=== PATIENT | female | born 1945 | race Caucasian/White ===

== ENCOUNTER 2016-12-16 13:50 | Inpatient (IN) | payer OTHER, MEDICARE ==
[~2016-12-16] VITALS: Ht 167.6 cm; Wt 54.0 kg
[~2016-12-16 13:50] MED LIST: AMOX500T PO; LORTA5 PO
[2016-12-16 14:29] VITALS: BP 151/78; PULSE 96; RESP 18; TEMP 98.9; O2SAT 98
--- NOTE | 2016-12-16 14:29 | PD ---
HPI Chief Complaint: altered mental status Time Seen by Provider: 14:29 Travel History International Travel<30 days: No Contact w/Intl Traveler<30days: No Traveled to known affect area: No History of Present Illness HPI 71-year-old female came to the emergency room brought by EMS because her boyfriend called to say that she has not been acting right for past 2 weeks. Patient was brought in getting very disheveled, unkempt and poorly. She was fidgeting with her hair and skin. She was able to answer her name but did not know where she was or the day. Vital signs were relatively stable. Patient was not a good historian. REPLACED BY [facility] Past Medical History Narrative Medical List of her past medical, surgical, social and family history was reviewed from the nursing note. Asthma: No Autoimmune Disease: No Blood Disorders: No Anxiety: No Depression: No Heart Rhythm Problems: No Cancer: No Cardiovascular Problems: No High Cholesterol: No Chemotherapy: No Chest Pain: No Congestive Heart Failure: No COPD: No Diabetes: No Diminished Hearing: No Endocrine: No Genitourinary: No Immune Disorder: No Musculoskeletal: No Neurologic: No Psychiatric: No Respiratory: No Radiation Therapy: No Renal Failure: No Sleep Apnea: No PNEUMOCCOCAL Vaccine (Year): 2 Menopausal: Yes Past Surgical History Abdominal Surgery: Yes (APPY) Appendectomy: Yes Gynecologic Surgery: Yes (HYSTERECTOMY) Hysterectomy: Yes (30 YRS AGO) Tonsillectomy: Yes Social History Alcohol Use: Yes (DAILY ) Tobacco Use: Yes (1PPD) Substance Use: No Allergies-Medications (Allergen,Severity, Reaction): Coded Allergies: Sulfa (Verified Allergy, Severe, 12/02/13) Comments List of the allergies reviewed from the nursing note. Reported Meds & Prescriptions Reported Meds & Active Scripts Active Lortab 5/325 Tab (Hydrocodone-Acetaminophen) 1 Tab Tab 1 Tab PO Q6H Amoxil (Amoxicillin) 500 Mg Cap 500 Mg PO TID Narrative Medication List of home medications reviewed from the nursing note. Review of Systems Except as stated in HPI: all other systems reviewed are Neg Physical Exam Narrative GENERAL: Confused, altered mental status, disheveled, poor skin hygiene SKIN: Focused skin assessment warm/dry. Multiple excoriations all over the body , poor skin hygiene HEAD: Atraumatic. Normocephalic. EYES: Pupils equal and round. No scleral icterus. No injection or drainage. ENT: No nasal bleeding or discharge. Mucous membranes pink and moist. NECK: Trachea midline. No JVD. CARDIOVASCULAR: Regular rate and rhythm. No murmur appreciated. RESPIRATORY: No accessory muscle use. Clear to auscultation. Breath sounds equal bilaterally. GASTROINTESTINAL: Abdomen soft, non-tender, nondistended. Hepatic and splenic margins not palpable. MUSCULOSKELETAL: No obvious deformities. No clubbing. No cyanosis. No edema. NEUROLOGICAL: GCS of 14, confused, good motor strength in all 4 extremities. PSYCHIATRIC: Appropriate mood and affect; insight and judgment normal. Data Data Last Documented VS Vital Signs Date Time Temp Pulse Resp B/P Pulse Ox O2 Delivery O2 Flow Rate FiO2 12/16/16 17:20 96 16 131/74 98 Room Air 12/16/16 14:29 98.9 Orders Electrocardiogram (12/16/16 14:34) Ammonia (12/16/16 14:34) Complete Blood Count With Diff (12/16/16 14:34) Comprehensive Metabolic Panel (12/16/16 14:34) Creatine Kinase (Cpk) (12/16/16 14:34) Prothrombin Time / Inr (Pt) (12/16/16 14:34) Troponin I (12/16/16 14:34) Thyroid Stimulating Hormone (12/16/16 14:34) Lactic Acid Sepsis Protocol (12/16/16 14:34) Urinalysis - C+S If Indicated (12/16/16 14:34) Blood Culture (12/16/16 14:34) Chest, Single Ap (12/16/16 14:34) Ct Brain W/O Iv Contrast(Rout) (12/16/16 14:34) Blood Glucose (12/16/16 14:34) Ecg Monitoring (12/16/16 14:34) Iv Access Insert/Monitor (12/16/16 14:34) Oximetry (12/16/16 14:34) Sodium Chloride 0.9% Flush (Ns Flush) (12/16/16 14:45) Sodium Chlor 0.9% 1000 Ml Inj (Ns 1000 M (12/16/16 14:34) Drug Screen, Random Urine (12/16/16 14:34) Alcohol (Ethanol) (12/16/16 14:34) Salicylates (Aspirin) (12/16/16 14:34) Tylenol (Acetaminophen) (12/16/16 14:34) Mri Brain W&W/O Contrast (12/16/16 ) Dexamethasone Inj (Decadron Inj) (12/16/16 17:30) Admit Order (Ed Use Only) (12/16/16 17:32) Labs Laboratory Tests Test 12/16/16 12/16/16 15:25 15:30 White Blood Count 7.2 TH/MM3 Red Blood Count 3.99 MIL/MM3 Hemoglobin 11.3 GM/DL Hematocrit 33.5 % Mean Corpuscular Volume 83.9 FL Mean Corpuscular Hemoglobin 28.2 PG Mean Corpuscular Hemoglobin 33.6 % Concent Red Cell Distribution Width 16.5 % Platelet Count 493 TH/MM3 Mean Platelet Volume 7.9 FL Neutrophils (%) (Auto) 70.4 % Lymphocytes (%) (Auto) 15.5 % Monocytes (%) (Auto) 11.7 % Eosinophils (%) (Auto) 1.6 % Basophils (%) (Auto) 0.8 % Neutrophils # (Auto) 5.1 TH/MM3 Lymphocytes # (Auto) 1.1 TH/MM3 Monocytes # (Auto) 0.8 TH/MM3 Eosinophils # (Auto) 0.1 TH/MM3 Basophils # (Auto) 0.1 TH/MM3 CBC Comment DIFF FINAL Differential Comment Prothrombin Time 10.4 SEC Prothromb Time International 0.9 RATIO Ratio Sodium Level 132 MEQ/L Potassium Level 4.5 MEQ/L Chloride Level 100 MEQ/L Carbon Dioxide Level 22.9 MEQ/L Anion Gap 9 MEQ/L Blood Urea Nitrogen 9 MG/DL Creatinine 0.57 MG/DL Estimat Glomerular Filtration 104 ML/MIN Rate Random Glucose 93 MG/DL Calcium Level 9.1 MG/DL Total Bilirubin 0.4 MG/DL Direct Bilirubin 0.1 MG/DL Indirect Bilirubin 0.3 MG/DL Aspartate Amino Transf 31 U/L (AST/SGOT) Alanine Aminotransferase 20 U/L (ALT/SGPT) Alkaline Phosphatase 94 U/L Total Creatine Kinase 163 U/L Troponin I LESS THAN 0.02 NG/ML Total Protein 7.6 GM/DL Albumin 3.1 GM/DL Thyroid Stimulating Hormone 0.933 uIU/ML 3rd Gen Salicylates Level 3.4 MG/DL Acetaminophen Level LESS THAN 2.0 MCG/ML Ethyl Alcohol Level LESS THAN 3 MG/DL Lactic Acid Level 0.9 mmol/L Ammonia 27 MCMOL/L MDM Medical Decision Making Medical Screen Exam Complete: Yes Emergency Medical Condition: Yes Medical Record Reviewed: Yes Interpretation(s) Twelve-lead EKG was reviewed by me. Normal sinus rhythm, normal axis, tachycardia, motion artifacts. Heart rate of 93 bpm. Differential Diagnosis Intracranial bleed, stroke, intracranial mass Narrative Course 5:42 PM patient was given IV fluid bolus and blood test and CAT scan was ordered. I was called by the radiologist to let me know about the CAT scan report which showed a large left cerebellar mass causing obstruction of the CSF outflow track resulting in hydrocephalus. I have called neurosurgery and waiting for him to call back. Patient has been given IV 10 mg of Decadron. Her blood test results of back and within normal limit. I've admitted the patient to the hospitalist in ICU. 5:45 PM I spoke with the OR nurse who relayed the message to the neurosurgeon because he was operating. He wants the patient to be admitted to the supervisor plate pasting. Critical Care Narrative Aggregate critical care time was 45 minutes. Time to perform other separately billable procedures was not included in the critical care time. My time did not include minutes spent treating any other patients simultaneously or on activities that did not directly contribute to the patient's treatment. The services I provided to this patient were to treat and/or prevent clinically significant deterioration that could result in: Altered mental status, large intracerebral mass, hydrocephalus I provided critical care services requiring my management, as noted below: Chart data review, documentation time, medication orders and management, vital sign assessments/reviewing monitor data, ordering and reviewing lab tests, ordering and interpreting/reviewing x-rays and diagnostic studies, care of the patient and discussion of the patient with the admitting physicians. Procedures EKG Prior to Arrival: No Physician Communication Physician Communication Dr. Salazar, Dr. Rogel Diagnosis Primary Impression: Cerebellar mass Additional Impressions: Hydrocephalus Altered mental status Qualified Code: R41.0 - Disorientation Admitting Information Admitting Physician Requests: it Juan Manuel Stone MD Dec 16, 2016 14:29 Diagnosis Primary Impression: Cerebellar mass Additional Impressions: Hydrocephalus Altered mental status Qualified Code: R41.0 - Disorientation Admitting Information Admitting Physician Requests: it Juan Manuel Stone MD Dec 16, 2016 14:29
[2016-12-16] MEDS ORDERED: SODIUM CHLOR 0.9% 1000 ML INJ 1,000 ML IV SCH (14:34)
[2016-12-16 14:38] VITALS: O2SAT 98
[2016-12-16] MEDS ORDERED: SODIUM CHLORIDE 0.9% FLUSH 10 ML FLUSH IVF PRN (14:45)
--- NOTE | 2016-12-16 15:55 | RADRPT ---
EXAM DATE/TIME: 12/16/2016 15:27 [facility] COMPARISON: No previous studies available for comparison. INDICATIONS : Cough, chest pain, and weakness. MEDICAL HISTORY : None. SURGICAL HISTORY : None. ENCOUNTER: Initial ACUITY: 2 weeks PAIN SCORE: 3/10 LOCATION: Bilateral chest FINDINGS: A single view of the chest demonstrates the lungs to be symmetrically aerated without evidence of mas s, infiltrate or effusion. The cardiomediastinal contours are unremarkable. Osseous structures are intact. CONCLUSION: No acute disease. Isaías Finch Jr., MD on December 16, 2016 at 15:53 Board Certified Radiologist. This report was verified electronically.
[2016-12-16 15:58] LABS: AUTOMATED NEUTROPHIL # 5.1 TH/MM3 (1.8-7.7); BASOPHIL # 0.1 TH/MM3 (0-0.2); BASOPHIL % 0.8 % (0.0-2.0); EOSINOPHIL # 0.1 TH/MM3 (0-0.4); EOSINOPHIL % 1.6 % (0.0-4.0); HEMATOCRIT 33.5 % (35.0-46.0); HEMO FLAGS DIFF FINAL; LYMPH % 15.5 % (9.0-44.0); LYMPHOCYTE # 1.1 TH/MM3 (1.0-4.8); MEAN CELL VOLUME 83.9 FL (80.0-100.0); MEAN CORPUSCULAR HEMOGLOBIN 28.2 PG (27.0-34.0); MEAN CORPUSCULAR HGB CONC 33.6 % (32.0-36.0); MONO % 11.7 % (0.0-8.0); NEUT % 70.4 % (16.0-70.0); PLATELET COUNT 493 TH/MM3 (150-450); RED BLOOD COUNT 3.99 MIL/MM3 (4.00-5.30); RED CELL DISTRIBUTION WIDTH 16.5 % (11.6-17.2); WHITE BLOOD COUNT 7.2 TH/MM3 (4.0-11.0)
[2016-12-16 16:02] LABS: INTERNATIONAL NORMALIZED RATIO 0.9 RATIO; PROTHROMBIN TIME - PATIENT 10.4 SEC (9.8-11.6)
[2016-12-16 16:26] LABS: ALKALINE PHOSPHATASE 94 U/L (45-117); CREATINE KINASE 163 U/L (26-192); TOTAL BILIRUBIN ADULT 0.2 MG/DL (0.2-1.0)
[2016-12-16 16:28] LABS: ALT (GPT) 18 U/L (10-53); ANION GAP 9 MEQ/L (5-15); AST (GOT) 23 U/L (15-37); BICARBONATE 22.9 MEQ/L (21.0-32.0); BLOOD UREA NITROGEN 9 MG/DL (7-18); CHLORIDE 100 MEQ/L (98-107); GLOMERULAR FILTRATION RATE 104 ML/MIN (>89); POTASSIUM 4.5 MEQ/L (3.5-5.1); SODIUM (NA) 132 MEQ/L (136-145)
[2016-12-16 16:29] LABS: ACETAMINOPHEN LESS THAN 2.0 MCG/ML (10.0-30.0)
--- NOTE | 2016-12-16 17:09 | RADRPT ---
EXAM DATE/TIME: 12/16/2016 16:38 [facility] COMPARISON: CT SOFT TISSUE NECK W CONTRAST, November 30, 2013, 19:21. CT BRAIN W/O CONTRAST , August 29, 2011, 2:54. INDICATIONS : Altered mental status and confusion. RADIATION DOSE: 56.35 CTDIvol (mGy) MEDICAL HISTORY : None SURGICAL HISTORY : Appendectomy. Hysterectomy. ENCOUNTER: Initial ACUITY: 1 day PAIN SCALE: 0/10 LOCATION: Cranial TECHNIQUE: Multiple contiguous axial images were obtained of the head. Using automated exposure control and adjustment of the mA and/or kV according to patient size, radiation dose was kept as low as reasonably achievable to obtain optimal diagnostic quality images. FINDINGS: There are moderate periventricular white matter changes. There is increasing prominenc e of the ventricles. There is what looks like a cerebellar mass on the right with compression of the lateral aspect of the fourth ventricle. MRI is suggested. CONCLUSION: 1. Abnormal left cerebellar hemisphere. MRI with contrast is suggested. 2. Prominent supratentorial ventricles that may be related to posterior fossa mass on the left. Mao Elkins MD FACR on December 16, 2016 at 17:02 Board Certified Radiologist. This report was verified electronically.
[2016-12-16 17:20] VITALS: BP 131/74; PULSE 96; RESP 16; O2SAT 98
[2016-12-16] MEDS ORDERED: ONDANSETRON HCL 4 MG/2 ML VIAL IVP PRN (17:30)
[2016-12-16] MEDS ORDERED: NALOXONE HCL 0.4 MG/ML AMP IV PRN (17:30)
[2016-12-16] MEDS ORDERED: DEXAMETHASONE SOD PHOS 20 MG/5 ML VIAL IV PUSH ONE (17:30)
[2016-12-16] MEDS ORDERED: MAGNESIUM HYDROXIDE SUSP 30 ML CUP PO PRN (17:30)
[2016-12-16] MEDS ORDERED: SODIUM CHLORIDE 0.9% FLUSH 10 ML FLUSH IV FLUSH PRN ×2 (17:30→18:00)
[2016-12-16] MEDS ORDERED: ACETAMINOPHEN 325 MG TAB PO PRN ×2 (17:30→18:00)
[2016-12-16] MEDS: SODIUM CHLOR 0.9% 1000 ML INJ 1,000 ML IV SCH ×2 (17:49→21:12)
--- NOTE | 2016-12-16 17:52 | HHI.HP ---
[facility] Service Critical Care Medicine Primary Care Physician Unknown Admission Diagnosis cerebellar mass, hydrocephalus, altered mental status Diagnosis: (1) Hydrocephalus Diagnosis: Principal (2) Cerebellar mass Diagnosis: Principal (3) Chronic hyponatremia Diagnosis: Principal (4) Altered mental status (5) Normocytic anemia Diagnosis: Principal Chief Complaint: Confusion 2 weeks Travel History International Travel<30 Days: No Contact w/Intl Traveler <30 Da: No Traveled to Known Affected Are: No History of Present Illness 71-year-old female. Date of admission 12/16/2016. Past medical history includes previous spontaneous pneumothorax and ongoing tobaccoism. Unknown if chronic alcohol use. Patient was brought in by significant other with a two-week history of altered mental status. She is found disheveled with multiple scabs which is been "picking" for the past weeks throughout her body. She is currently oriented to person, time, date of and another. Not oriented to place. She is moving all [address] head revealed a left cerebellar mass with compression on the lateral aspect the fourth ventricle with somewhat prominent ventricles and supratentorial noted. Neurosurgery was contacted recommended MRI brain and admission to jig builder helper. Laboratory significant only for a normocytic anemia and hyponatremia. CT chest revealed a 2.1 x 1.7 right hilar mass with diffuse emphysematous changes. MRI of the brain revealed a 5 x 2.7 cm cerebellar mass with edema impinging the left quadrigeminal cistern with the patient from the left posterior lateral alberto. 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 There is documented ventriculomegaly. Review of Systems ROS Limitations: Altered Mental Status Past Family Social History Allergies: Coded Allergies: Sulfa (Verified Allergy, Severe, 12/02/13) Past Medical History Tobaccoism History of left spontaneous pneumothorax Past Surgical History Hysterectomy Appendectomy Reported Medications None Active Ordered Medications Reviewed in EMR Family History Unknown/patient is estranged from family Social History +1 pack per day tobacco 50 years. Alcohol use is unclear. Significant other denies. Positive documentation medical records of prior use. Physical Exam Vital Signs Vital Signs Date Time Temp Pulse Resp B/P Pulse Ox O2 Delivery O2 Flow Rate FiO2 12/16/16 17:20 96 16 131/74 98 Room Air 12/16/16 14:38 98 Room Air 12/16/16 14:35 107 18 98 Room Air 12/16/16 14:29 98.9 96 18 151/78 98 Physical Exam GENERAL: Fausto De Jesus 71-year-old female, resting in bed mildly agitated SKIN: Warm and dry. Multiple excoriation lesions throughout/pruritic red no tunneling noted HEAD: Atraumatic. Normocephalic. EYES: Right pupils are 4 mm and oblong reactive. Left pupils 2 mm. No scleral icterus. No injection or drainage. ENT: No nasal bleeding or discharge. Mucous membranes pink and moist. NECK: Trachea midline. No JVD. CARDIOVASCULAR: Regular rate and rhythm. S1, S2. No S4. No murmur RESPIRATORY: Clear to auscultation. Breath sounds equal bilaterally. GASTROINTESTINAL: Abdomen soft, non-tender, nondistended. Hypoactive bowel sounds are appreciated. MUSCULOSKELETAL: Extremities without significant peripheral edema. NEUROLOGICAL: Awake and alert. No obvious cranial nerve deficits. Motor grossly within normal limits. Five out of 5 muscle strength in the arms and legs. Slurred speech. Laboratory Laboratory Tests Test 12/16/16 12/16/16 15:25 15:30 White Blood Count 7.2 Red Blood Count 3.99 Hemoglobin 11.3 Hematocrit 33.5 Mean Corpuscular Volume 83.9 Mean Corpuscular Hemoglobin 28.2 Mean Corpuscular Hemoglobin 33.6 Concent Red Cell Distribution Width 16.5 Platelet Count 493 Mean Platelet Volume 7.9 Neutrophils (%) (Auto) 70.4 Lymphocytes (%) (Auto) 15.5 Monocytes (%) (Auto) 11.7 Eosinophils (%) (Auto) 1.6 Basophils (%) (Auto) 0.8 Neutrophils # (Auto) 5.1 Lymphocytes # (Auto) 1.1 Monocytes # (Auto) 0.8 Eosinophils # (Auto) 0.1 Basophils # (Auto) 0.1 CBC Comment DIFF FINAL Differential Comment Prothrombin Time 10.4 Prothromb Time International 0.9 Ratio Sodium Level 132 Potassium Level 4.5 Chloride Level 100 Carbon Dioxide Level 22.9 Anion Gap 9 Blood Urea Nitrogen 9 Creatinine 0.57 Estimat Glomerular Filtration 104 Rate Random Glucose 93 Calcium Level 9.1 Total Bilirubin 0.2 Aspartate Amino Transf 23 (AST/SGOT) Alanine Aminotransferase 18 (ALT/SGPT) Alkaline Phosphatase 94 Total Creatine Kinase 163 Troponin I LESS THAN 0.02 Total Protein 7.5 Albumin 3.2 Thyroid Stimulating Hormone 0.933 3rd Gen Salicylates Level 3.4 Acetaminophen Level LESS THAN 2.0 Ethyl Alcohol Level LESS THAN 3 Lactic Acid Level 0.9 Ammonia 27 Date/Time Procedure Status Source Growth 12/16/16 15:30 Aerobic Blood Culture Received Blood Peripheral Pending 12/16/16 15:30 Anaerobic Blood Culture Received Blood Peripheral Pending Result Diagram: 12/16/16 1525 12/16/16 1525 Imaging Last Impressions Head CT 12/16/16 1434 Signed Impressions: Service Date/Time: Friday, December 16, 2016 16:38 - CONCLUSION: 1. Abnormal left cerebellar hemisphere. MRI with contrast is suggested. 2. Prominent supratentorial ventricles that may be related to posterior fossa mass on the left. Mao Elkins MD FACR Chest X-Ray 12/16/16 1434 Signed Impressions: Service Date/Time: Friday, December 16, 2016 15:27 - CONCLUSION: No acute disease. 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 Ventriculomegaly. Left quadrigeminal impingement upon the left posterolateral alberto Seen with Dr. Salazar/neurosurgery Continue Decadron 4 mg IV every 6 hours for vasogenic edema Keppra 500 mg IV twice a day seizure prophylaxis EEG has been ordered to rule out subclinical seizures Possible ventriculostomy over the weekend with possible removal of mass if necessary on Monday Bed 30 Neuro checks Urine toxicology screen pending Did receive 1 dose Ativan 1 mg while in MRI CV: Currently normal saline at 84 cc an hour. Will use as needed antihypertensives to keep systolic blood pressure less than 180 EKG revealed sinus rhythm 92 with normal AK/QS and QT intervals. Possible ST depression in anterior/lateral leads Troponin less than 0.02. Resp: Ongoing tobaccoism Right hilar mass CT the chest revealed a 2.1 x 1.7 cm right hilar mass with diffuse emphysematous changes. Nasal cannula to maintain saturations greater than equal to 92% Incentive spirometry while awake Bronchodilator therapy will be every 6 hours and as needed Will likely need IR biopsy right hilar mass on Monday Tobacco cessation will be encouraged Nicotine patch 14 mg daily will be started GI: Patient is currently nothing by mouth. Speech therapy to evaluate swallowing mechanism Protonix for GI prophylaxis Colace/as needed Senokot for bowel regimen : Guillory will be placed for accurate I's and O's in a critically ill patient Endo: Sliding-scale insulin while on Decadron with Accu-Cheks every 6 hours to maintain euglycemia/moderate regimen Renal: Creatinine currently within normal limits Accurate I's and O's Monitor urine output Recheck BMP in a.m. Heme: Normocytic anemia Thrombocytosis Monitor daily CBC. Follow trends. No indication for transfusion of blood products at this time ID: Possible pedicularis pedis Will give 1 dose of permethrin cream due to her "scratch". Monitor for infection FEN: Hyponatremia Replace electrolytes as clinically indicated. MSK: Lumbar spine scoliosis Multiple old thoracic and lumbar compression fractures No surgical intervention at this time. PT evaluate and treat. Access - Utilize peripheral IV. Central line if indicated Prophylaxis - GI - Protonix - DVT - SCD/no pharmacological prophylaxis in light of cerebellar mass Critical Care: The total critical care time was 75 minutes. Time to perform other separately billable procedures was not included in the critical care time. Code Status Full code Discussed Condition With Significant other. Dr. Stone/ED physician. Care plan discussed all questions answered. Problem Qualifiers (1) Altered mental status: Qualified Code: R41.0 - Disorientation Chris Rogel MD Dec 16, 2016 17:52
[2016-12-16] MEDS ORDERED: RESP: ALBUTEROL 2.5 MG/3 ML NEB (PRN) INH (18:00)
[2016-12-16] MEDS ORDERED: CHLORHEXIDINE GLUCONATE 2 % 1 PACK (2 CLOTHS) TOP PRN (18:00)
[2016-12-16] MEDS: ARTIFICIAL TEARS OPTH SOLN 15 ML BTL EACH EYE SCH (18:00)
[2016-12-16] MEDS ORDERED: MISCELLANEOUS NURSING INFORMATION XX SCH (18:00)
[2016-12-16] MEDS ORDERED: PERMETHRIN 5% CREAM 60 GM TOPICAL ONE (18:45)
[2016-12-16] MEDS ORDERED: DEXTROSE 50% IN WATER 50 ML VIAL(D50) IV PUSH PRN (18:45)
[2016-12-16] MEDS ORDERED: GLUCAGON 1 MG/ML VIAL OTHER PRN (18:45)
[2016-12-16] MEDS ORDERED: levETIRAcetam INJ 500 MG in SODIUM CHLORIDE 0.9% INJ 100 ML IV ONE (19:00)
[2016-12-16 20:00] VITALS: BP 107/63; PULSE 94; RESP 22; TEMP 98.4; O2SAT 98
[2016-12-16 20:00] LABS: INDIRECT BILIRUBIN 0.3 MG/DL (0.0-0.8); TOTAL BILIRUBIN ADULT 0.4 MG/DL (0.2-1.0)
[2016-12-16] MEDS ORDERED: LORazepam 2 MG/ML VIAL IV PUSH ONE (20:00)
[2016-12-16] MEDS ORDERED: IOHEXOL 350 MG/ML 10 ML VIAL (for RAD DIAG) IV ONE (20:18)
[2016-12-16] MEDS ORDERED: GADODIAMIDE PF 287 MG/ML 10 ML VIAL (for RAD MRI) IV ONE (20:30)
--- NOTE | 2016-12-16 20:39 | RADRPT ---
EXAM DATE/TIME: 12/16/2016 19:19 [facility] COMPARISON: CT BRAIN W/O CONTRAST, December 16, 2016, 16:38. INDICATIONS : Tumor. CONTRAST: 10 cc Omniscan (gadodiamide) IV MEDICAL HISTORY : None. SURGICAL HISTORY : Appendectomy. Hysterectomy. Tonsillectomy. ENCOUNTER: Subsequent ACUITY: 1 day PAIN SCORE: 3/10 LOCATION: Cranial TECHNIQUE: Multiplanar, multisequence MRI of the brain was performed both prior to and following the administrat ion of paramagnetic contrast. FINDINGS: There is evidence of an enhancing complex solid and cystic mass within the left cerebellar hemisphere which measures 4.1 x 3.7 cm. Extensive edema is noted throughout the left cerebellar hemisphere rela evon to this mass as well as effacement of the left quadrigeminal cistern and impingement upon the pos terior lateral aspect of the alberto on the left. This finding is consistent with left-sided uncal ac iation. The mass raises the possibility of primary or metastatic neoplasm. Moderate to severe periv entricular white matter small vessel ischemic changes are noted bilaterally. There is evidence of ve ntriculomegaly suggesting central cerebral atrophy versus hydrocephalus. No acute hemorrhage or extr a-axial collection is noted. Old tiny lacunar infarcts are noted within the right cerebellar hemisph ere. CONCLUSION: 1. Large enhancing complex mass within the left cerebellar hemisphere measuring 4.1 x 3.7 cm consiste nt with primary or metastatic neoplasm with associated edema throughout the left cerebellar hemispher e resulting in effacement of the left quadrigeminal cistern and impingement upon the left posterolate ral aspect of the alberto. The findings are consistent with uncal herniation on the left. 2. 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 3. Severe periventricular white matter small vessel ischemic changes bilaterally. 4. Ventriculomegaly suggesting central cerebral atrophy versus hydrocephalus. Chirag No MD on December 16, 2016 at 20:24 Board Certified Radiologist. This report was verified electronically.
--- NOTE | 2016-12-16 20:48 | RADRPT ---
EXAM DATE/TIME: 12/16/2016 20:06 [facility] COMPARISON: No previous studies available for comparison. INDICATIONS : Recent discovery of brain mass. Eval for metastatic disease. IV CONTRAST: 100 cc Omnipaque 350 (iohexol) IV ; Cumulative dose for multiple exams. RADIATION DOSE: 5.10 CTDIvol (mGy) ; Combined studies - Thorax/Abdomen/Pelvis MEDICAL HISTORY : None SURGICAL HISTORY : None. ENCOUNTER: Subsequent ACUITY: 2 weeks PAIN SCALE: 0/10 LOCATION: Bilateral lower quadrant TECHNIQUE: Volumetric scanning of the chest was performed. Using automated exposure control and adjustment of t he mA and/or kV according to patient size, radiation dose was kept as low as reasonably achievable to obtain optimal diagnostic quality images. FINDINGS: LUNGS: Emphysematous changes are noted bilaterally. There is no consolidation or pneumothorax. No concernin g pulmonary nodule is visualized. PLEURA: There is no pleural thickening or pleural effusion. MEDIASTINUM: There is a 2.1 x 1.7 cm right hilar mass consistent with neoplasm or lymphadenopathy. PET/CT scan may be helpful for further evaluation. The heart and great vessels demonstrate no acute abnormality. Th ere is no mediastinal lymphadenopathy. AXILLAE: Within normal limits. No lymphadenopathy. SKELETAL: Multiple compression deformities noted throughout the thoracic and lumbar spine. Degenerative changes and scoliosis of the thoraco-lumbar spine are noted. MISCELLANEOUS: The visualized upper abdominal organs demonstrate no acute abnormality. CONCLUSION: 1. 2.1 x 1.7 cm right hilar mass consistent with neoplasm or lymphadenopathy. PET/CT scan may be help ful for further evaluation. 2. Diffuse emphysematous changes are noted. 3. Multiple compression deformities noted throughout the thoracic and lumbar spine. 4. Degenerative changes and scoliosis of the thoracolumbar spine. Chirag No MD on December 16, 2016 at 20:41 Board Certified Radiologist. This report was verified electronically.
--- NOTE | 2016-12-16 20:51 | RADRPT ---
EXAM DATE/TIME: 12/16/2016 20:07 [place] COMPARISON: No previous studies available for comparison. INDICATIONS : Recent discovery of brain mass. Eval for metastatic disease. IV CONTRAST: 100 cc Omnipaque 350 (iohexol) IV ; Cumulative dose for multiple exams. ORAL CONTRAST: No oral contrast ingested. RADIATION DOSE: 5.10 CTDIvol (mGy) ; Combined studies - Thorax/Abdomen/Pelvis MEDICAL HISTORY : None SURGICAL HISTORY : None. ENCOUNTER: Subsequent ACUITY: 1 day PAIN SCALE: 3/10 LOCATION: Bilateral lower quadrant TECHNIQUE: Volumetric scanning of the abdomen and pelvis was performed. Using automated exposure control and ad justment of the mA and/or kV according to patient size, radiation dose was kept as low as reasonably achievable to obtain optimal diagnostic quality images. FINDINGS: LOWER LUNGS: The visualized lower lungs are clear. LIVER: Homogeneous density without lesion. There is no dilation of the biliary tree. No calcified gallston es. SPLEEN: Normal size without lesion. PANCREAS: Within normal limits. KIDNEYS: Normal in size and shape. There is no mass, stone or hydronephrosis. ADRENAL GLANDS: Within normal limits. VASCULAR: There is no aortic aneurysm. BOWEL/MESENTERY: The stomach, small bowel, and colon demonstrate no acute abnormality. There is no free intraperitone al air or fluid. ABDOMINAL WALL: Within normal limits. RETROPERITONEUM: There is no lymphadenopathy. BLADDER: No wall thickening or mass. REPRODUCTIVE: Within normal limits. INGUINAL: There is no lymphadenopathy or hernia. MUSCULOSKELETAL: Degenerative changes and scoliosis of the thoracolumbar spine are noted. Multiple compression deformi ties are noted within the thoracic and lumbar spine also. CONCLUSION: 1. No intra-abdominal mass or lymphadenopathy. 2. Degenerative changes and scoliosis of the thoracolumbar spine. 3. Multiple compression deformities within the thoracic and lumbar spine. Chirag No MD on December 16, 2016 at 20:47 Board Certified Radiologist. This report was verified electronically.
[2016-12-16] MEDS: SODIUM CHLORIDE 0.9% FLUSH 10 ML FLUSH IV FLUSH SCH (21:00)
[2016-12-16] MEDS: INSULIN NovoLIN REGULAR SUPPLEMENTAL SCALE SQ SCH (21:00)
[2016-12-16] MEDS: DOCUSATE SODIUM 100 MG CAP PO SCH (21:00)
[2016-12-16] MEDS ORDERED: SODIUM CHLORIDE 0.9% FLUSH 10 ML FLUSH IV FLUSH SCH (21:00)
[2016-12-16 21:02] LABS: BLOOD, URINE NEG (NEG); GLUCOSE,URINE NEG (NEG); KETONE, URINE 10 mg/dL (NEG); MUCUS URINE FEW /lpf (OCC); NITRITE,URINE NEG (NEG); PH, URINE 6.5 (5.0-8.5); URINE COLOR YELLOW (YELLW/STRAW)
[2016-12-16 21:03] LABS: COMMENT (UR) CATH-CULT NOT IND; CULTURE IF INDICATED CATH CULTURE NOT IND
[2016-12-16 21:08] LABS: AMPHETAMINE, URINE NEG (NEG); BARBITURATES, URINE NEG (NEG); COCAINE, URINE NEG (NEG)
--- NOTE | 2016-12-16 21:56 | PD.CONS ---
History of Present Illness Service Neurosurgery Consult Requested By Primary Care Physician Unknown Diagnoses: (1) Cerebellar mass History of Present Illness 71-year-old female was brought into the emergency room by her significant other who relates that for the past several weeks she has had a progressive decline with unsteadiness in her gait and confusion with generalized weakness. She has also lost about 20 pounds the last 2 weeks. Patient is lethargic and has received Ativan for imaging studies and cannot relate a good history but does follow simple commands. CT scan and subsequent MRI scan of the brain with and without contrast reveals a large left cerebellar hemisphere 4.1 cm enhancing mass with surrounding edema and mass effect although there is compression of fourth ventricle this is not completely obstructed. There does appear to be moderate hydrocephalus with periventricular white matter changes. Review of Systems ROS Limitations: Poor Historian Constitutional: COMPLAINS OF: Fatigue, Weight loss, Dizziness, Change in appetite Endocrine: DENIES: Abnorml menstrual pattern, Heat/cold intolerance, Polydipsia , Polyuria, Polyphagia Eyes: COMPLAINS OF: Blurred vision Ears, nose, mouth, throat: COMPLAINS OF: Vertigo Respiratory: DENIES: Apneas, Cough, Snoring, Wheezing, Hemoptysis, Sputum production, Shortness of breath Cardiovascular: DENIES: Chest pain, Palpitations, Syncope, Dyspnea on Exertion , PND, Lower Extremity Edema, Orthopnea, Claudication Gastrointestinal: COMPLAINS OF: Anorexia, DENIES: Abdominal pain, Black stools Genitourinary: COMPLAINS OF: Urinary incontinence Integumentary: COMPLAINS OF: Pruritus, Rash Hematologic/lymphatic: COMPLAINS OF: Bruising Neurologic: COMPLAINS OF: Abnormal gait, Headache, Localized weakness, Tremor, Poor Balance Psychiatric: COMPLAINS OF: Confusion, Agitation Except as stated in HPI: all other systems reviewed are Neg Past Family Social History Allergies: Coded Allergies: Sulfa (Verified Allergy, Severe, 12/02/13) Past Surgical History Hysterectomy, appendectomy, tonsillectomy Reported Medications Lortab and amoxicillin Social History She lives with her significant other for 20 years. She has siblings and family members but she has not been contacted for several decades. Chronic smoker a pack a day of cigarettes and also drinks alcohol daily basis. Physical Exam Vital Signs Vital Signs Date Time Temp Pulse Resp B/P Pulse Ox O2 Delivery O2 Flow Rate FiO2 12/16/16 17:20 96 16 131/74 98 Room Air 12/16/16 14:38 98 Room Air 12/16/16 14:35 107 18 98 Room Air 12/16/16 14:29 98.9 96 18 151/78 98 Physical Exam GENERAL: This is a cachetic, disheveled lady in no apparent distress. SKIN: Extensive scabs. HEAD: Atraumatic. Normocephalic. No temporal or scalp tenderness. EYES: Pupils right irregular likely post surgical and 4 mm, left pupil 2 mm ENT: Nose without bleeding, purulent drainage or septal hematoma. Throat without erythema, tonsillar hypertrophy or exudate. Uvula midline. Airway patent. NECK: Trachea midline. No JVD or lymphadenopathy. Supple, nontender, no meningeal signs. CARDIOVASCULAR: Regular rate and rhythm without murmurs, gallops, or rubs. RESPIRATORY: Clear to auscultation. Breath sounds equal bilaterally. No wheezes , rales, or rhonchi. ?Left breast mass. GASTROINTESTINAL: Abdomen soft, non-tender, nondistended. No hepato-splenomegaly , or palpable masses. No guarding. MUSCULOSKELETAL: Extremities with scabs but no cyanosis, or edema. No joint tenderness, effusion, or edema noted. No calf tenderness. Negative Homans sign bilaterally. NEUROLOGICAL: Lethargic but easily arousable to verbal stimulation. She recieved Ativan for MRI scan. Does not cooperate for good cranial nerve exam but face symmetric. Moves alll 4 limbs and folows simple commands. Normal speech. Equivical Babinski. Laboratory Laboratory Tests Test 12/16/16 12/16/16 12/16/16 15:25 15:30 20:44 White Blood Count 7.2 Red Blood Count 3.99 Hemoglobin 11.3 Hematocrit 33.5 Mean Corpuscular Volume 83.9 Mean Corpuscular Hemoglobin 28.2 Mean Corpuscular Hemoglobin 33.6 Concent Red Cell Distribution Width 16.5 Platelet Count 493 Mean Platelet Volume 7.9 Neutrophils (%) (Auto) 70.4 Lymphocytes (%) (Auto) 15.5 Monocytes (%) (Auto) 11.7 Eosinophils (%) (Auto) 1.6 Basophils (%) (Auto) 0.8 Neutrophils # (Auto) 5.1 Lymphocytes # (Auto) 1.1 Monocytes # (Auto) 0.8 Eosinophils # (Auto) 0.1 Basophils # (Auto) 0.1 CBC Comment DIFF FINAL Differential Comment Prothrombin Time 10.4 Prothromb Time International 0.9 Ratio Sodium Level 132 Potassium Level 4.5 Chloride Level 100 Carbon Dioxide Level 22.9 Anion Gap 9 Blood Urea Nitrogen 9 Creatinine 0.57 Estimat Glomerular Filtration 104 Rate Random Glucose 93 Calcium Level 9.1 Total Bilirubin 0.4 Direct Bilirubin 0.1 Indirect Bilirubin 0.3 Aspartate Amino Transf 31 (AST/SGOT) Alanine Aminotransferase 20 (ALT/SGPT) Alkaline Phosphatase 94 Total Creatine Kinase 163 Troponin I LESS THAN 0.02 Total Protein 7.6 Albumin 3.1 Thyroid Stimulating Hormone 0.933 3rd Gen Salicylates Level 3.4 Acetaminophen Level LESS THAN 2.0 Ethyl Alcohol Level LESS THAN 3 Lactic Acid Level 0.9 Ammonia 27 Urine Color YELLOW Urine Turbidity CLEAR Urine pH 6.5 Urine Specific [place] 1.029 Urine Protein TRACE Urine Glucose (UA) NEG Urine Ketones 10 Urine Occult Blood NEG Urine Nitrite NEG Urine Bilirubin NEG Urine Urobilinogen LESS THAN 2.0 Urine Leukocyte Esterase NEG Urine RBC LESS THAN 1 Urine WBC 2 Urine Mucus FEW Microscopic Urinalysis Comment CATH-CULT NOT IND Urine Opiates Screen NEG Urine Barbiturates Screen NEG Urine Amphetamines Screen NEG Urine Benzodiazepines Screen NEG Urine Cocaine Screen NEG Urine Cannabinoids Screen NEG Date/Time Procedure Status Source Growth 12/16/16 15:30 Aerobic Blood Culture Received Blood Peripheral Pending 12/16/16 15:30 Anaerobic Blood Culture Received Blood Peripheral Pending Result Diagram: 12/16/16 1525 12/16/16 1525 Imaging Last Impressions Head CT 12/16/16 1434 Signed Impressions: Service Date/Time: Friday, December 16, 2016 16:38 - CONCLUSION: 1. Abnormal left cerebellar hemisphere. MRI with contrast is suggested. 2. Prominent supratentorial ventricles that may be related to posterior fossa mass on the left. Mao Elkins MD FACR Chest X-Ray 12/16/16 1434 Signed Impressions: Service Date/Time: Friday, December 16, 2016 15:27 - CONCLUSION: No acute disease. Isaías Finch Jr., MD Chest CT 12/16/16 0000 Signed Impressions: Service Date/Time: Friday, December 16, 2016 20:06 - CONCLUSION: 1. 2.1 x 1.7 cm right hilar mass consistent with neoplasm or lymphadenopathy. PET/CT scan may be helpful for further evaluation. 2. Diffuse emphysematous changes are noted. 3. Multiple compression deformities noted throughout the thoracic and lumbar spine. 4. Degenerative changes and scoliosis of the thoracolumbar spine. Chirag No MD Brain MRI 12/16/16 0000 Signed Impressions: Service Date/Time: Friday, December 16, 2016 19:19 - CONCLUSION: 1. Large enhancing complex mass within the left cerebellar hemisphere measuring 4.1 x 3.7 cm consistent with primary or metastatic neoplasm with associated edema throughout the left cerebellar hemisphere resulting in effacement of the left quadrigeminal cistern and impingement upon the left posterolateral aspect of the alberto. The findings are consistent with uncal herniation on the left. 2. 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 3. Severe periventricular white matter small vessel ischemic changes bilaterally. 4. Ventriculomegaly suggesting central cerebral atrophy versus hydrocephalus. Chirag No MD Abdomen/Pelvis CT 12/16/16 0000 Signed Impressions: Service Date/Time: Friday, December 16, 2016 20:07 - CONCLUSION: 1. No intra-abdominal mass or lymphadenopathy. 2. Degenerative changes and scoliosis of the thoracolumbar spine. 3. Multiple compression deformities within the thoracic and lumbar spine. Chirag No MD Assessment and Plan Assessment and Plan Large left cerebellar hemisphere enhancing masses running vasogenic edema and partial reduction of fourth ventricle with moderate hydrocephalus. This is concerning for metastasis given the finding of a lung mass and chronic smoking history. She'll be admitted to the intensive care unit for close observation and also started with Decadron initial bolus and subsequent scheduled doses to address the cerebral edema. The plan is for a left suboccipital craniectomy with resection of cerebellar mass and ventriculostomy placement on Monday. In the interim if her neurologic condition were to declined and she will need to be intubated and would have a ventriculostomy placed. Discussed at length with her significant other who relates that that given the need to get a for the past 20 years and she does have a sister and no other family members but that she has not been in contact for several decades with any relatives. 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 Rogel. Mansoor Salazar MD Dec 16, 2016 21:56
[2016-12-16] MEDS ORDERED: NITROGLYCERIN 2% OINT 1 GM PACKET TOPICAL PRN (22:00)
[2016-12-16] MEDS: THIAMINE INJ 100 MG in SODIUM CHLORIDE 0.9% INJ 100 ML IV SCH (22:16)
[2016-12-16 23:00] VITALS: PULSE 82
[2016-12-16] MEDS: DEXAMETHASONE SOD PHOS 4 MG/ML VIAL IV PUSH SCH (23:15)
[2016-12-16] MEDS: HYDROCORTISONE 0.5% CREAM 30 GM TOPICAL SCH (23:15)
[2016-12-17] VITALS (9 sets, daily range): BP systolic 120–172; BP diastolic 63–90; PULSE 68–114; RESP 16–28; TEMP 97.5–98.5; O2SAT 96–99
[2016-12-17] MEDS: MORPHINE SULFATE 4 MG/ML INJ IV PRN ×4 (01:00→22:30)
[2016-12-17] MEDS: CHLORHEXIDINE GLUCONATE 2 % 1 PACK (2 CLOTHS) TOP SCH (03:14)
[2016-12-17 03:53] LABS: APTT (PATIENT) 27.1 SEC (24.3-30.1); PROTHROMBIN TIME - PATIENT 10.6 SEC (9.8-11.6)
[2016-12-17 03:56] LABS: ALT (GPT) 17 U/L (10-53); ANION GAP 8 MEQ/L (5-15); AST (GOT) 19 U/L (15-37); BICARBONATE 20.6 MEQ/L (21.0-32.0); BLOOD UREA NITROGEN 10 MG/DL (7-18); CHLORIDE 104 MEQ/L (98-107); GLOMERULAR FILTRATION RATE 121 ML/MIN (>89); MAGNESIUM 2.1 MG/DL (1.5-2.5); POTASSIUM 3.9 MEQ/L (3.5-5.1); SODIUM (NA) 133 MEQ/L (136-145)
[2016-12-17 03:59] LABS: ALKALINE PHOSPHATASE 91 U/L (45-117); TOTAL BILIRUBIN ADULT 0.3 MG/DL (0.2-1.0)
[2016-12-17] MEDS: HYDROCORTISONE 0.5% CREAM 30 GM TOPICAL SCH ×3 (04:00→20:20)
[2016-12-17 04:28] LABS: AUTOMATED NEUTROPHIL # 3.9 TH/MM3 (1.8-7.7); BASOPHIL % 0.4 % (0.0-2.0); HEMATOCRIT 33.4 % (35.0-46.0); HEMO FLAGS DIFF FINAL; LYMPH % 7.2 % (9.0-44.0); LYMPHOCYTE # 0.3 TH/MM3 (1.0-4.8); MEAN CELL VOLUME 84.4 FL (80.0-100.0); MEAN CORPUSCULAR HEMOGLOBIN 27.9 PG (27.0-34.0); MEAN CORPUSCULAR HGB CONC 33.1 % (32.0-36.0); NEUT % 91.4 % (16.0-70.0); PLATELET COUNT 523 TH/MM3 (150-450); RED BLOOD COUNT 3.96 MIL/MM3 (4.00-5.30); RED CELL DISTRIBUTION WIDTH 16.4 % (11.6-17.2); WHITE BLOOD COUNT 4.3 TH/MM3 (4.0-11.0)
[2016-12-17] MEDS: SODIUM CHLOR 0.9% 1000 ML INJ 1,000 ML IV SCH ×2 (04:45→17:39)
[2016-12-17] MEDS: INSULIN NovoLIN REGULAR SUPPLEMENTAL SCALE SQ SCH ×4 (05:37→20:34)
[2016-12-17] MEDS: DEXAMETHASONE SOD PHOS 4 MG/ML VIAL IV PUSH SCH ×4 (05:37→23:47)
--- NOTE | 2016-12-17 08:17 | HHI.NSPN ---
(Bartolome Lopez) History Chief Complaint: Large left cerebellar mass. Uncooperative for exam. (Bartolome Lopez) Interval History 12/17/16: Pt with a large left cerebellar mass. She states ouch when trying to open her eyes and squints her eyes closed. She does follow simple commands in extremities. (Bartolome Lopez) System Review Comments Not able to obtain given clinical exam. (Bartolome Lopez) Exam Results Vital Signs Date Time Temp Pulse Resp B/P Pulse Ox O2 Delivery O2 Flow Rate FiO2 12/17/16 00:00 98.1 79 16 123/63 98 12/16/16 17:20 Room Air Intake and Output 12/16/16 12/16/16 12/17/16 08:00 16:00 00:00 Output Total 200 ml Balance -200 ml (Bartolome Lopez) Physical Examination Resp: CTA bilaterally Heart: NSR no murmurs Abd: Soft positive bs Skin: No cyanosis or erythema Muscle: Moves all 4 extremities but not cooperating currently for muscle testing. Neuro: Pt not opening eyes. Pupils 4mm bilaterally. She does follow commands but is not cooperating for exam. (Bartolome Lopez) Physical Examination She is more alert and interacting with her significant other at bedside Confusion persists Follows simple commands Moves all 4 extremities (Mansoor Salazar MD) Lab, Micro, Other Results Last Impressions Head CT 12/16/16 1434 Signed Impressions: Service Date/Time: Friday, December 16, 2016 16:38 - CONCLUSION: 1. Abnormal left cerebellar hemisphere. MRI with contrast is suggested. 2. Prominent supratentorial ventricles that may be related to posterior fossa mass on the left. Mao Elkins MD FACR Chest X-Ray 12/16/16 1434 Signed Impressions: Service Date/Time: Friday, December 16, 2016 15:27 - CONCLUSION: No acute disease. Isaías Finch Jr., MD Chest CT 12/16/16 0000 Signed Impressions: Service Date/Time: Friday, December 16, 2016 20:06 - CONCLUSION: 1. 2.1 x 1.7 cm right hilar mass consistent with neoplasm or lymphadenopathy. PET/CT scan may be helpful for further evaluation. 2. Diffuse emphysematous changes are noted. 3. Multiple compression deformities noted throughout the thoracic and lumbar spine. 4. Degenerative changes and scoliosis of the thoracolumbar spine. Chirag No MD Brain MRI 12/16/16 0000 Signed Impressions: Service Date/Time: Friday, December 16, 2016 19:19 - CONCLUSION: 1. Large enhancing complex mass within the left cerebellar hemisphere measuring 4.1 x 3.7 cm consistent with primary or metastatic neoplasm with associated edema throughout the left cerebellar hemisphere resulting in effacement of the left quadrigeminal cistern and impingement upon the left posterolateral aspect of the alberto. The findings are consistent with uncal herniation on the left. 2. 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 3. Severe periventricular white matter small vessel ischemic changes bilaterally. 4. Ventriculomegaly suggesting central cerebral atrophy versus hydrocephalus. Chirag No MD Abdomen/Pelvis CT 12/16/16 0000 Signed Impressions: Service Date/Time: Friday, December 16, 2016 20:07 - CONCLUSION: 1. No intra-abdominal mass or lymphadenopathy. 2. Degenerative changes and scoliosis of the thoracolumbar spine. 3. Multiple compression deformities within the thoracic and lumbar spine. Chirag No MD Laboratory Tests Test 12/16/16 12/16/16 12/16/16 12/17/16 15:25 15:30 20:44 03:25 White Blood Count 7.2 TH/MM3 4.3 TH/MM3 Red Blood Count 3.99 MIL/MM3 3.96 MIL/MM3 Hemoglobin 11.3 GM/DL 11.0 GM/DL Hematocrit 33.5 % 33.4 % Mean Corpuscular Volume 83.9 FL 84.4 FL Mean Corpuscular Hemoglobin 28.2 PG 27.9 PG Mean Corpuscular Hemoglobin 33.6 % 33.1 % Concent Red Cell Distribution Width 16.5 % 16.4 % Platelet Count 493 TH/MM3 523 TH/MM3 Mean Platelet Volume 7.9 FL 8.1 FL Neutrophils (%) (Auto) 70.4 % 91.4 % Lymphocytes (%) (Auto) 15.5 % 7.2 % Monocytes (%) (Auto) 11.7 % 1.0 % Eosinophils (%) (Auto) 1.6 % 0.0 % Basophils (%) (Auto) 0.8 % 0.4 % Neutrophils # (Auto) 5.1 TH/MM3 3.9 TH/MM3 Lymphocytes # (Auto) 1.1 TH/MM3 0.3 TH/MM3 Monocytes # (Auto) 0.8 TH/MM3 0.0 TH/MM3 Eosinophils # (Auto) 0.1 TH/MM3 0.0 TH/MM3 Basophils # (Auto) 0.1 TH/MM3 0.0 TH/MM3 CBC Comment DIFF FINAL DIFF FINAL Differential Comment Prothrombin Time 10.4 SEC 10.6 SEC Prothromb Time International 0.9 RATIO 1.0 RATIO Ratio Sodium Level 132 MEQ/L 133 MEQ/L Potassium Level 4.5 MEQ/L 3.9 MEQ/L Chloride Level 100 MEQ/L 104 MEQ/L Carbon Dioxide Level 22.9 MEQ/L 20.6 MEQ/L Anion Gap 9 MEQ/L 8 MEQ/L Blood Urea Nitrogen 9 MG/DL 10 MG/DL Creatinine 0.57 MG/DL 0.50 MG/DL Estimat Glomerular Filtration 104 ML/MIN 121 ML/MIN Rate Random Glucose 93 MG/DL 118 MG/DL Calcium Level 9.1 MG/DL 9.0 MG/DL Total Bilirubin 0.4 MG/DL 0.3 MG/DL Direct Bilirubin 0.1 MG/DL Indirect Bilirubin 0.3 MG/DL Aspartate Amino Transf 31 U/L 19 U/L (AST/SGOT) Alanine Aminotransferase 20 U/L 17 U/L (ALT/SGPT) Alkaline Phosphatase 94 U/L 91 U/L Total Creatine Kinase 163 U/L Troponin I LESS THAN 0.02 NG/ML Total Protein 7.6 GM/DL 7.5 GM/DL Albumin 3.1 GM/DL 3.2 GM/DL Thyroid Stimulating Hormone 0.933 uIU/ML 3rd Gen Salicylates Level 3.4 MG/DL Acetaminophen Level LESS THAN 2.0 MCG/ML Ethyl Alcohol Level LESS THAN 3 MG/DL Lactic Acid Level 0.9 mmol/L 1.1 mmol/L Ammonia 27 MCMOL/L Urine Color YELLOW Urine Turbidity CLEAR Urine pH 6.5 Urine Specific [place] 1.029 Urine Protein TRACE mg/dL Urine Glucose (UA) NEG mg/dL Urine Ketones 10 mg/dL Urine Occult Blood NEG Urine Nitrite NEG Urine Bilirubin NEG Urine Urobilinogen LESS THAN 2.0 MG/DL Urine Leukocyte Esterase NEG Urine RBC LESS THAN 1 /hpf Urine WBC 2 /hpf Urine Mucus FEW /lpf Microscopic Urinalysis Comment CATH-CULT NOT IND Nasal Screen MRSA (PCR) NEGATIVE Urine Opiates Screen NEG Urine Barbiturates Screen NEG Urine Amphetamines Screen NEG Urine Benzodiazepines Screen NEG Urine Cocaine Screen NEG Urine Cannabinoids Screen NEG Activated Partial 27.1 SEC Thromboplast Time Phosphorus Level 3.6 MG/DL Magnesium Level 2.1 MG/DL 12/16/16 12/16/16 12/17/16 15:00 23:00 07:00 Intake Total 759 ml Output Total 200 ml 275 ml Balance -200 ml 484 ml Intake IV Total 759 ml Output Urine Total 200 ml 275 ml (Bartolome Lopez) Medical Decision Making Impression and Plan A: 71 y/o FM with a large left cerebellar mass. P: Continue to monitor Neuro exam. She is following but not cooperating well otherwise with exam. continue with current care. (Bartolome Lopez) Attending Statement The exam, history, and the medical decision-making described in the above note were completed with the assistance of the mid-level provider. I reviewed and agree with the findings presented. I attest that I had a [id number] encounter with the patient on the same day, and personally performed and documented my assessment and findings in the medical record. (Masnoor Salazar MD) Bartolome Lopez Dec 17, 2016 08:17 Mansoor Salazar MD Dec 18, 2016 10:31
[2016-12-17] MEDS: levETIRAcetam INJ 500 MG in SODIUM CHLORIDE 0.9% INJ 100 ML IV SCH ×2 (08:54→20:18)
[2016-12-17] MEDS: SODIUM CHLORIDE 0.9% FLUSH 10 ML FLUSH IV FLUSH SCH ×2 (09:00→20:20)
[2016-12-17] MEDS: DOCUSATE SODIUM 100 MG CAP PO SCH ×2 (09:00→20:19)
[2016-12-17] MEDS: ARTIFICIAL TEARS OPTH SOLN 15 ML BTL EACH EYE SCH ×3 (09:00→18:00)
[2016-12-17] MEDS: REMOVE OLD PATCH T-DERMAL SCH (09:00)
[2016-12-17] MEDS: MULTIVITAMIN TAB PO SCH (09:00)
[2016-12-17] MEDS: FOLIC ACID 1 MG TAB PO SCH (09:00)
[2016-12-17] MEDS: THIAMINE INJ 100 MG in SODIUM CHLORIDE 0.9% INJ 100 ML IV SCH (10:05)
[2016-12-17] MEDS: PANTOPRAZOLE SODIUM 40 MG VIAL IV SCH (10:15)
[2016-12-17] MEDS: NICOTINE 14 MG/24 HR PATCH T-DERMAL SCH (10:16)
[2016-12-17] MEDS: ONDANSETRON HCL 4 MG/2 ML VIAL IV PRN (11:43)
--- NOTE | 2016-12-17 12:26 | HHI.CCPN ---
Subjective Remarks/Hospital Course 71-year-old female. Date of admission 12/16/2016. Past medical history includes previous spontaneous pneumothorax and ongoing tobaccoism. Unknown if chronic alcohol use. Patient was brought in by significant other with a two-week history of altered mental status. She is found disheveled with multiple scabs which is been "picking" for the past weeks throughout her body. She is currently oriented to person, time, date of and another. Not oriented to place. She is moving all [address] head revealed a left cerebellar mass with compression on the lateral aspect the fourth ventricle with somewhat prominent ventricles and supratentorial noted. Neurosurgery was contacted recommended MRI brain and admission to [facility]. Laboratory significant only for a normocytic anemia and hyponatremia. CT chest revealed a 2.1 x 1.7 right hilar mass with diffuse emphysematous changes. MRI of the brain revealed a 5 x 2.7 cm cerebellar mass with edema impinging the left quadrigeminal cistern with the patient from the left posterior lateral alberto. 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 There is documented ventriculomegaly. Subjective 12/17: Resting comfortably in bed. Remains confused. Afebrile. Has not eaten 24 hours. Objective Vital Signs Date Time Temp Pulse Resp B/P Pulse Ox O2 Delivery O2 Flow Rate FiO2 12/17/16 00:00 98.1 79 16 123/63 98 12/16/16 17:20 Room Air Intake and Output 12/16/16 12/16/16 12/17/16 08:00 16:00 00:00 Output Total 200 ml Balance -200 ml Result Diagram: 12/17/16 0325 12/17/16 0325 Other Results Microbiology Date/Time Procedure Status Source Growth 12/16/16 15:30 Aerobic Blood Culture - Preliminary Resulted Blood Peripheral NO GROWTH IN 1 DAY 12/16/16 15:30 Anaerobic Blood Culture - Preliminary Resulted Blood Peripheral NO GROWTH IN 1 DAY Imaging Last Impressions Head CT 12/16/161433 Signed Impressions: Service Date/Time: Friday, December 16, 2016 16:38 - CONCLUSION: 1. Abnormal left cerebellar hemisphere. MRI with contrast is suggested. 2. Prominent supratentorial ventricles that may be related to posterior fossa mass on the left. Mao Elkins MD FACR Chest X-Ray 3/31/17 1434 Signed Impressions: Service Date/Time: Friday, December 16, 2016 15:27 - CONCLUSION: No acute disease. Isaías Finch Jr., MD Chest CT 12/16/16 0000 Signed Impressions: Service Date/Time: Friday, December 16, 2016 20:06 - CONCLUSION: 1. 2.1 x 1.7 cm right hilar mass consistent with neoplasm or lymphadenopathy. PET/CT scan may be helpful for further evaluation. 2. Diffuse emphysematous changes are noted. 3. Multiple compression deformities noted throughout the thoracic and lumbar spine. 4. Degenerative changes and scoliosis of the thoracolumbar spine. Chirag oN MD Brain MRI 12/16/16 Signed Impressions: Service Date/Time: Friday, December 16, 2016 19:19 - CONCLUSION: 1. Large enhancing complex mass within the left cerebellar hemisphere measuring 4.1 x 3.7 cm consistent with primary or metastatic neoplasm with associated edema throughout the left cerebellar hemisphere resulting in effacement of the left quadrigeminal cistern and impingement upon the left posterolateral aspect of the alberto. The findings are consistent with uncal herniation on the left. 2. 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 3. Severe periventricular white matter small vessel ischemic changes bilaterally. 4. Ventriculomegaly suggesting central cerebral atrophy versus hydrocephalus. Chirag No MD Abdomen/Pelvis CT 12/16/16 Signed Impressions: Service Date/Time: Friday, December 16, 2016 20:07 - CONCLUSION: 1. No intra-abdominal mass or lymphadenopathy. 2. Degenerative changes and scoliosis of the thoracolumbar spine. 3. Multiple compression deformities within the thoracic and lumbar spine. Chirag No MD Objective Remarks GENERAL: Fausto De Jesus 71-year-old female, resting in bed mildly agitated SKIN: Warm and dry. Multiple excoriation lesions throughout/pruritic red no tunneling noted HEAD: Atraumatic. Normocephalic. EYES: Right pupils are 4 mm and oblong reactive. Left pupils 2 mm. No scleral icterus. No injection or drainage. ENT: No nasal bleeding or discharge. Mucous membranes pink and moist. NECK: Trachea midline. No JVD. CARDIOVASCULAR: Regular rate and rhythm. S1, S2. No S4. No murmur RESPIRATORY: Clear to auscultation. Breath sounds equal bilaterally. GASTROINTESTINAL: Abdomen soft, non-tender, nondistended. Hypoactive bowel sounds are appreciated. MUSCULOSKELETAL: Extremities without significant peripheral edema. NEUROLOGICAL: Awake and alert. No obvious cranial nerve deficits. Motor grossly within normal limits. Five out of 5 muscle strength in the arms and legs. Slurred speech. 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 Ventriculomegaly. Left quadrigeminal impingement upon the left posterolateral alberto Seen with Dr. Salazar/neurosurgery Continue Decadron 4 mg IV every 6 hours for vasogenic edema Keppra 500 mg IV twice a day seizure prophylaxis EEG has been ordered to rule out subclinical seizures Possible ventriculostomy over the weekend with likely removal of mass on Monday Bed 30 Neuro checks Urine toxicology screen negative Did receive 1 dose Ativan 1 mg while in MRI CV: Currently normal saline at 84 cc an hour. Will use as needed antihypertensives to keep systolic blood pressure less than 180 EKG revealed sinus rhythm 92 with normal IN/QS and QT intervals. Possible ST depression in anterior/lateral leads Troponin less than 0.02. Resp: Ongoing tobaccoism Right hilar mass CT the chest revealed a 2.1 x 1.7 cm right hilar mass with diffuse emphysematous changes. Nasal cannula to maintain saturations greater than equal to 92% Incentive spirometry while awake Bronchodilator therapy will be every 6 hours and as needed Tobacco cessation will be encouraged Nicotine patch 14 mg daily will be started GI: Heart healthy diet. Speech therapy to evaluate swallowing mechanism Protonix for GI prophylaxis Colace/as needed Senokot for bowel regimen : Guillory will be placed for accurate I's and O's in a critically ill patient Endo: Sliding-scale insulin while on Decadron with Accu-Cheks every 6 hours to maintain euglycemia/moderate regimen Renal: Creatinine currently within normal limits Accurate I's and O's Monitor urine output Recheck BMP in a.m. Heme: Normocytic anemia Thrombocytosis Monitor daily CBC. Follow trends. No indication for transfusion of blood products at this time ID: Possible pedicularis pedis Will give 1 dose of permethrin cream due to her "scratch". Monitor for infection FEN: Hyponatremia Replace electrolytes as clinically indicated. MSK: Lumbar spine scoliosis Multiple old thoracic and lumbar compression fractures No surgical intervention at this time. PT evaluate and treat. Access - Utilize peripheral IV. Central line if indicated Prophylaxis - GI - Protonix - DVT - SCD/no pharmacological prophylaxis in light of cerebellar mass Critical Care: The total critical care time was 35 minutes. Time to perform other separately billable procedures was not included in the critical care time. Chris Rogel MD Dec 17, 2016 12:26 Chris Rogel MD Dec 17, 2016 12:26
[2016-12-17] MEDS: ACETAMINOPHEN/HYDROcodone 325 MG/5 MG TAB PO PRN (13:33)
[2016-12-17] MEDS: LABETALOL HCL 100 MG/20 ML VIAL IV PUSH PRN (20:19)
[2016-12-17 22:03] LABS: BLOOD GAS BASE EXCESS -3.8 mmol/L (-2-2); BLOOD GAS CARBOXYHEMOGLOBIN 1.3 % (0-4); BLOOD GAS HCO3 20 mmol/L (22-26); BLOOD GAS METHEMOGLOBIN 0.6 % (0-2); BLOOD GAS O2 HGB SATURATION 95 % (90-100); BLOOD GAS OXYGEN CONTENT 12.3 Vol % (12.0-20.0); BLOOD GAS PCO2 29 mmHg (38-42); BLOOD GAS PO2 89 mmHg (61-120); BLOOD GAS TOTAL HGB 9.1 G/DL (12.0-16.0); CRITICAL VALUE NO; DRAW SITE RT RADIAL; FIO2 21 %; NUMBER OF ARTERIAL PUNCTURES 1; OXYGEN DEVICE ROOM AIR; STAT NO; TEMP CORR TO 98.6; ULNAR PULSE PRESENT
[2016-12-17] MEDS: hydrALAZINE HCL 20 MG/ML VIAL IV PUSH PRN (23:47)
[2016-12-18] VITALS (14 sets, daily range): BP systolic 130–161; BP diastolic 60–88; PULSE 65–112; RESP 16–26; TEMP 97.2–98.7; O2SAT 98–100
[2016-12-18] MEDS: ACETAMINOPHEN/HYDROcodone 325 MG/5 MG TAB PO PRN (01:03)
[2016-12-18] MEDS: CHLORHEXIDINE GLUCONATE 2 % 1 PACK (2 CLOTHS) TOP SCH (03:37)
[2016-12-18] MEDS: HYDROCORTISONE 0.5% CREAM 30 GM TOPICAL SCH ×3 (05:15→21:23)
[2016-12-18] MEDS: MORPHINE SULFATE 4 MG/ML INJ IV PRN ×4 (05:16→21:22)
[2016-12-18] MEDS: DEXAMETHASONE SOD PHOS 4 MG/ML VIAL IV PUSH SCH ×3 (05:16→18:09)
[2016-12-18] MEDS: SODIUM CHLOR 0.9% 1000 ML INJ 1,000 ML IV SCH ×2 (05:16→21:22)
[2016-12-18] MEDS: INSULIN NovoLIN REGULAR SUPPLEMENTAL SCALE SQ SCH ×4 (06:21→21:00)
--- NOTE | 2016-12-18 08:08 | HHI.NSPN ---
(Bartolome Lopez) History Chief Complaint: Large left cerebellar mass. Uncooperative for exam. (Bartolome Lopez) Interval History 12/17/16: Pt with a large left cerebellar mass. She states ouch when trying to open her eyes and squints her eyes closed. She does follow simple commands in extremities. 12/18/16: Pt more awake and cooperative this morning still not alert or appropriate. She states good morning to me when I state the same. She follows simple commands. Not answering questions. (Bartolome Lopez) System Review Comments Not answering questions for me this morning. (Bartolome Lopez) Exam Results Vital Signs Date Time Temp Pulse Resp B/P Pulse Ox O2 Delivery O2 Flow Rate FiO2 12/18/16 06:00 86 12/18/16 04:00 98.1 24 150/76 100 12/17/16 20:14 21 12/17/16 19:00 Room Air Intake and Output 12/17/16 12/17/16 12/18/16 08:00 16:00 00:00 Intake Total 759 ml 833 ml 745 ml Output Total 275 ml 400 ml 425 ml Balance 484 ml 433 ml 320 ml (Bartolome Lopez) Physical Examination Resp: CTA bilaterally Heart: NSR no murmurs Abd: Soft positive bs Skin: No cyanosis or erythema Muscle: Moves all 4 extremities, she appears to be weaker in left hand preferring to keep her left hand closed. Neuro: Pt opening eyes slightly this morning. Pupils right 3mm left 2mm, reactive bilaterally. She follow commands and is more cooperative than yesterday, but still not following all commands.. (Bartolome Lopez) Lab, Micro, Other Results Last Impressions Head CT 12/16/16 1434 Signed Impressions: Service Date/Time: Friday, December 16, 2016 16:38 - CONCLUSION: 1. Abnormal left cerebellar hemisphere. MRI with contrast is suggested. 2. Prominent supratentorial ventricles that may be related to posterior fossa mass on the left. Mao Elkins MD FACR Chest X-Ray 12/16/16 1434 Signed Impressions: Service Date/Time: Friday, December 16, 2016 15:27 - CONCLUSION: No acute disease. Isaías Finch Jr., MD Chest CT 12/16/16 0000 Signed Impressions: Service Date/Time: Friday, December 16, 2016 20:06 - CONCLUSION: 1. 2.1 x 1.7 cm right hilar mass consistent with neoplasm or lymphadenopathy. PET/CT scan may be helpful for further evaluation. 2. Diffuse emphysematous changes are noted. 3. Multiple compression deformities noted throughout the thoracic and lumbar spine. 4. Degenerative changes and scoliosis of the thoracolumbar spine. Chirag No MD Brain MRI 12/16/16 0000 Signed Impressions: Service Date/Time: Friday, December 16, 2016 19:19 - CONCLUSION: 1. Large enhancing complex mass within the left cerebellar hemisphere measuring 4.1 x 3.7 cm consistent with primary or metastatic neoplasm with associated edema throughout the left cerebellar hemisphere resulting in effacement of the left quadrigeminal cistern and impingement upon the left posterolateral aspect of the alberto. The findings are consistent with uncal herniation on the left. 2. 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 3. Severe periventricular white matter small vessel ischemic changes bilaterally. 4. Ventriculomegaly suggesting central cerebral atrophy versus hydrocephalus. Chirag No MD Abdomen/Pelvis CT 12/16/16 0000 Signed Impressions: Service Date/Time: Friday, December 16, 2016 20:07 - CONCLUSION: 1. No intra-abdominal mass or lymphadenopathy. 2. Degenerative changes and scoliosis of the thoracolumbar spine. 3. Multiple compression deformities within the thoracic and lumbar spine. Chirag No MD Laboratory Tests Test 12/17/16 21:55 Blood Gas Puncture Site RT RADIAL Blood Gas Patient Temperature 98.6 Blood Gas HCO3 20 mmol/L Blood Gas Base Excess -3.8 mmol/L Blood Gas Oxygen Saturation 95 % Arterial Blood pH 7.44 Arterial Blood Partial 29 mmHg Pressure CO2 Arterial Blood Partial 89 mmHg Pressure O2 Arterial Blood Oxygen Content 12.3 Vol % Arterial Blood 1.3 % Carboxyhemoglobin Arterial Blood Methemoglobin 0.6 % Blood Gas Hemoglobin 9.1 G/DL Oxygen Delivery Device ROOM AIR Blood Gas Inspired Oxygen 21 % 4/112/17/16 12/18/16 15:00 23:00 07:00 Intake Total 833 ml 745 ml 810 ml Output Total 400 ml 425 ml 600 ml Balance 433 ml 320 ml 210 ml Intake Oral 100 ml 120 ml 120 ml IV Total 733 ml 625 ml 690 ml Output Urine Total 300 ml 425 ml 600 ml Emesis 100 ml # Bowel Movements 0 0 (Bartolome Lopez) Medical Decision Making Impression and Plan A: 71 y/o FM with a large left cerebellar mass. P: Continue to monitor Neuro exam. continue with current care. Continue with Decadron (Bartolome Lopez) Attending Statement The exam, history, and the medical decision-making described in the above note were completed with the assistance of the mid-level provider. I reviewed and agree with the findings presented. I attest that I had a [id number] encounter with the patient on the same day, and personally performed and documented my assessment and findings in the medical record. I again had a lengthy discussion with the patient's significant other who relates that they' ve been together for the past 20 years. She has a sister and daughter who are both estranged and no contact information is available. The patient verbally consents and her significant also requests that we proceed with surgery which was witnessed by the ICU nurse. The risks and benefits involved have been discussed in detail. Given the urgency of the situation further delay in identifying the legal health proxy will jeopardize her health and risk progression of the cerebral swelling and comatose state/. Accordingly the surgery is scheduled for tomorrow morning. (Mansoor Salazar MD) Bartolome Lopez Dec 18, 2016 08:08 Mansoor Salazar MD Dec 18, 2016 11:22
[2016-12-18] MEDS: levETIRAcetam INJ 500 MG in SODIUM CHLORIDE 0.9% INJ 100 ML IV SCH ×2 (08:16→21:22)
[2016-12-18] MEDS: REMOVE OLD PATCH T-DERMAL SCH (09:00)
--- NOTE | 2016-12-18 09:25 | HHI.CCPN ---
Subjective Remarks/Hospital Course 71-year-old female. Date of admission 12/16/2016. Past medical history includes previous spontaneous pneumothorax and ongoing tobaccoism. Unknown if chronic alcohol use. Patient was brought in by significant other with a two-week history of altered mental status. She is found disheveled with multiple scabs which is been "picking" for the past weeks throughout her body. She is currently oriented to person, time, date of and another. Not oriented to place. She is moving all [address] head revealed a left cerebellar mass with compression on the lateral aspect the fourth ventricle with somewhat prominent ventricles and supratentorial noted. Neurosurgery was contacted recommended MRI brain and admission to [facility]. Laboratory significant only for a normocytic anemia and hyponatremia. CT chest revealed a 2.1 x 1.7 right hilar mass with diffuse emphysematous changes. MRI of the brain revealed a 5 x 2.7 cm cerebellar mass with edema impinging the left quadrigeminal cistern with the patient from the left posterior lateral alberto. 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 There is documented ventriculomegaly. 4/: Resting comfortably in bed. Remains confused. Afebrile. Has not eaten 24 hours. Subjective 12/18: Again remains confused. Intermittent he follows commands. Afebrile. Very poor appetite. Objective Vital Signs Date Time Temp Pulse Resp B/P Pulse Ox O2 Delivery O2 Flow Rate FiO2 12/18/16 06:00 86 12/18/16 04:00 98.1 24 150/76 100 12/17/16 20:14 21 12/17/16 19:00 Room Air Intake and Output 12/17/16 12/17/16 12/18/16 08:00 16:00 00:00 Intake Total 759 ml 833 ml 745 ml Output Total 275 ml 400 ml 425 ml Balance 484 ml 433 ml 320 ml Result Diagram: 12/17/16 0325 12/17/16 0325 Other Results Microbiology Date/Time Procedure Status Source Growth 12/16/16 15:30 Aerobic Blood Culture - Preliminary Resulted Blood Peripheral NO GROWTH IN 1 DAY 12/16/16 15:30 Anaerobic Blood Culture - Preliminary Resulted Blood Peripheral NO GROWTH IN 1 DAY Imaging Last Impressions Head CT 12/16/16 1434 Signed Impressions: Service Date/Time: Friday, December 16, 2016 16:38 - CONCLUSION: 1. Abnormal left cerebellar hemisphere. MRI with contrast is suggested. 2. Prominent supratentorial ventricles that may be related to posterior fossa mass on the left. Mao Elkins MD FACR Chest X-Ray 12/16/16 1434 Signed Impressions: Service Date/Time: Friday, December 16, 2016 15:27 - CONCLUSION: No acute disease. Isaías Finch Jr., MD Chest CT 12/16/16 0000 Signed Impressions: Service Date/Time: Friday, December 16, 2016 20:06 - CONCLUSION: 1. 2.1 x 1.7 cm right hilar mass consistent with neoplasm or lymphadenopathy. PET/CT scan may be helpful for further evaluation. 2. Diffuse emphysematous changes are noted. 3. Multiple compression deformities noted throughout the thoracic and lumbar spine. 4. Degenerative changes and scoliosis of the thoracolumbar spine. Chirag No MD Brain MRI 12/16/16 0000 Signed Impressions: Service Date/Time: Friday, December 16, 2016 19:19 - CONCLUSION: 1. Large enhancing complex mass within the left cerebellar hemisphere measuring 4.1 x 3.7 cm consistent with primary or metastatic neoplasm with associated edema throughout the left cerebellar hemisphere resulting in effacement of the left quadrigeminal cistern and impingement upon the left posterolateral aspect of the alberto. The findings are consistent with uncal herniation on the left. 2. 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 3. Severe periventricular white matter small vessel ischemic changes bilaterally. 4. Ventriculomegaly suggesting central cerebral atrophy versus hydrocephalus. Chirag No MD Abdomen/Pelvis CT 12/16/16 0000 Signed Impressions: Service Date/Time: Friday, December 16, 2016 20:07 - CONCLUSION: 1. No intra-abdominal mass or lymphadenopathy. 2. Degenerative changes and scoliosis of the thoracolumbar spine. 3. Multiple compression deformities within the thoracic and lumbar spine. Chirag No MD Objective Remarks GENERAL: Fausto De Jesus 71-year-old female, resting in bed mildly agitated SKIN: Warm and dry. Multiple excoriation lesions throughout/pruritic red no tunneling noted HEAD: Atraumatic. Normocephalic. EYES: Right pupils are 4 mm and oblong reactive. Left pupils 2 mm. No scleral icterus. No injection or drainage. ENT: No nasal bleeding or discharge. Mucous membranes pink and moist. NECK: Trachea midline. No JVD. CARDIOVASCULAR: Regular rate and rhythm. S1, S2. No S4. No murmur RESPIRATORY: Clear to auscultation. Breath sounds equal bilaterally. GASTROINTESTINAL: Abdomen soft, non-tender, nondistended. Hypoactive bowel sounds are appreciated. MUSCULOSKELETAL: Extremities without significant peripheral edema. NEUROLOGICAL: Awake and alert. No obvious cranial nerve deficits. Motor grossly within normal limits. Five out of 5 muscle strength in the arms and legs. Slurred speech. 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 Ventriculomegaly. Left quadrigeminal impingement upon the left posterolateral alberto Seen with Dr. Salazar/neurosurgery Continue Decadron 4 mg IV every 6 hours for vasogenic edema Keppra 500 mg IV twice a day seizure prophylaxis EEG has been ordered to rule out subclinical seizures Possible ventriculostomy over the weekend with likely removal of mass on Monday Bed 30 Neuro checks Urine toxicology screen negative Did receive 1 dose Ativan 1 mg while in MRI CV: Currently normal saline at 84 cc an hour. Will use as needed antihypertensives to keep systolic blood pressure less than 180 EKG revealed sinus rhythm 92 with normal OR/QS and QT intervals. Possible ST depression in anterior/lateral leads Troponin less than 0.02. Resp: Ongoing tobaccoism Right hilar mass CT the chest revealed a 2.1 x 1.7 cm right hilar mass with diffuse emphysematous changes. Nasal cannula to maintain saturations greater than equal to 92% Incentive spirometry while awake Bronchodilator therapy will be every 6 hours and as needed Tobacco cessation will be encouraged Nicotine patch 14 mg daily will be continued GI: Heart healthy diet. Speech therapy to evaluate swallowing mechanism Protonix for GI prophylaxis Colace/as needed Senokot for bowel regimen : Guillory will be placed for accurate I's and O's in a critically ill patient Endo: Sliding-scale insulin while on Decadron with Accu-Cheks every 6 hours to maintain euglycemia/moderate regimen Renal: Creatinine currently within normal limits Accurate I's and O's Monitor urine output Recheck BMP in a.m. Heme: Normocytic anemia Thrombocytosis Monitor daily CBC. Follow trends. No indication for transfusion of blood products at this time ID: Possible pedicularis pedis Will give 1 dose of permethrin cream due to her "scratch". Monitor for infection FEN: Hyponatremia Replace electrolytes as clinically indicated. MSK: Lumbar spine scoliosis Multiple old thoracic and lumbar compression fractures No surgical intervention at this time. PT evaluate and treat. Access - Utilize peripheral IV. Central line if indicated Prophylaxis - GI - Protonix - DVT - SCD/no pharmacological prophylaxis in light of cerebellar mass Critical Care: The total care time was 35 minutes. Time to perform other separately billable procedures was not included in the critical care time. Chris Rogel MD Dec 18, 2016 09:25
[2016-12-18] MEDS: PANTOPRAZOLE SODIUM 40 MG VIAL IV SCH (11:09)
[2016-12-18] MEDS: FOLIC ACID 1 MG TAB PO SCH (11:09)
[2016-12-18] MEDS: SENNOSIDES 8.6 MG TAB PO PRN (11:10)
[2016-12-18] MEDS: SODIUM CHLORIDE 0.9% FLUSH 10 ML FLUSH IV FLUSH SCH ×2 (11:10→21:23)
[2016-12-18] MEDS: DOCUSATE SODIUM 100 MG CAP PO SCH ×2 (11:10→21:22)
[2016-12-18] MEDS: MULTIVITAMIN TAB PO SCH (11:10)
[2016-12-18] MEDS: ARTIFICIAL TEARS OPTH SOLN 15 ML BTL EACH EYE SCH ×3 (11:11→18:09)
[2016-12-18] MEDS: NICOTINE 14 MG/24 HR PATCH T-DERMAL SCH (11:11)
[2016-12-18] MEDS: THIAMINE INJ 100 MG in SODIUM CHLORIDE 0.9% INJ 100 ML IV SCH (11:15)
[2016-12-18 12:35] LABS: BICARBONATE 24.8 MEQ/L (21.0-32.0); POTASSIUM 3.9 MEQ/L (3.5-5.1)
[2016-12-18] MEDS: ONDANSETRON HCL 4 MG/2 ML VIAL IV PRN (21:22)
--- NOTE | 2016-12-18 21:33 | EKG ---
Date Performed: 12/16/2016 Time Performed: 16:10:58 PTAGE: 71 years EKG: Sinus rhythm POSSIBLE LEFT ATRIAL ENLARGEMENT MODERATE ST DEPRESSION ABNORMAL ECG INTERPRETATION BASED ON A DEFAU LT AGE OF 38 YEARS PREVIOUS TRACING : 09/27/2011 12.53 DOCTOR: Ayo Guidry Interpretating Date/Time 12/18/2016 21:29:27
[2016-12-19] VITALS (11 sets, daily range): BP systolic 112–172; BP diastolic 56–87; PULSE 67–107; RESP 10–23; TEMP 96.7–98.2; O2SAT 92–99
[2016-12-19] MEDS: DEXAMETHASONE SOD PHOS 4 MG/ML VIAL IV PUSH SCH ×5 (00:12→23:21)
[2016-12-19] MEDS: LABETALOL HCL 100 MG/20 ML VIAL IV PUSH PRN (01:12)
[2016-12-19] MEDS: CHLORHEXIDINE GLUCONATE 2 % 1 PACK (2 CLOTHS) TOP SCH (03:08)
[2016-12-19] MEDS: HYDROCORTISONE 0.5% CREAM 30 GM TOPICAL SCH ×3 (03:16→19:47)
[2016-12-19] MEDS: hydrALAZINE HCL 20 MG/ML VIAL IV PUSH PRN (03:26)
[2016-12-19 04:42] LABS: AUTOMATED NEUTROPHIL # 8.3 TH/MM3 (1.8-7.7); BASOPHIL % 0.1 % (0.0-2.0); HEMO FLAGS DIFF FINAL; LYMPH % 3.9 % (9.0-44.0); LYMPHOCYTE # 0.4 TH/MM3 (1.0-4.8); MEAN CELL VOLUME 82.5 FL (80.0-100.0); MEAN CORPUSCULAR HEMOGLOBIN 27.2 PG (27.0-34.0); MONO % 6.3 % (0.0-8.0); NEUT % 89.7 % (16.0-70.0); PLATELET COUNT 511 TH/MM3 (150-450); RED BLOOD COUNT 3.76 MIL/MM3 (4.00-5.30); RED CELL DISTRIBUTION WIDTH 16.3 % (11.6-17.2); WHITE BLOOD COUNT 9.2 TH/MM3 (4.0-11.0)
[2016-12-19 05:04] LABS: BICARBONATE 23.3 MEQ/L (21.0-32.0); POTASSIUM 3.4 MEQ/L (3.5-5.1)
[2016-12-19] MEDS: SODIUM CHLOR 0.9% 1000 ML INJ 1,000 ML IV SCH (05:24)
[2016-12-19] MEDS: INSULIN NovoLIN REGULAR SUPPLEMENTAL SCALE SQ SCH ×4 (05:51→21:00)
[2016-12-19] MEDS ORDERED: BUPIVACAINE/EPINEPHRINE 0.5% PF 30 ML VIAL ONE (07:06)
[2016-12-19] MEDS ORDERED: THROMBIN (TOPICAL) 5,000 UNIT VIAL ONE (07:06)
[2016-12-19] MEDS ORDERED: GENTAMICIN SULFATE 80 MG/2 ML VIAL ONE (07:07)
[2016-12-19] MEDS ORDERED: GELFOAM SIZE 100 ONE (07:07)
[2016-12-19] MEDS ORDERED: ceFAZolin INJ 1,000 MG VIAL ONE (07:07)
[2016-12-19] MEDS: levETIRAcetam INJ 500 MG in SODIUM CHLORIDE 0.9% INJ 100 ML IV SCH ×2 (08:00→19:46)
[2016-12-19] MEDS ORDERED: VANCOMYCIN HCL 1000 MG VIAL ONE (08:44)
[2016-12-19] MEDS ORDERED: levETIRAcetam 500 MG/5 ML VIAL IV ONE (08:45)
[2016-12-19] MEDS: PANTOPRAZOLE SODIUM 40 MG VIAL IV SCH (09:00)
[2016-12-19] MEDS: SODIUM CHLORIDE 0.9% FLUSH 10 ML FLUSH IV FLUSH SCH ×2 (09:00→19:47)
[2016-12-19] MEDS: FOLIC ACID 1 MG TAB PO SCH (09:00)
[2016-12-19] MEDS: REMOVE OLD PATCH T-DERMAL SCH (09:00)
[2016-12-19] MEDS: ARTIFICIAL TEARS OPTH SOLN 15 ML BTL EACH EYE SCH ×3 (09:00→17:14)
[2016-12-19] MEDS: NICOTINE 14 MG/24 HR PATCH T-DERMAL SCH (09:00)
[2016-12-19] MEDS: THIAMINE INJ 100 MG in SODIUM CHLORIDE 0.9% INJ 100 ML IV SCH (09:00)
[2016-12-19] MEDS: MULTIVITAMIN TAB PO SCH (09:00)
[2016-12-19] MEDS: DOCUSATE SODIUM 100 MG CAP PO SCH ×2 (09:00→19:46)
--- NOTE | 2016-12-19 09:40 | HHI.CCPN ---
Subjective Remarks/Hospital Course 71-year-old female. Date of admission 12/16/2016. Past medical history includes previous spontaneous pneumothorax and ongoing tobaccoism. Unknown if chronic alcohol use. Patient was brought in by significant other with a two-week history of altered mental status. She is found disheveled with multiple scabs which is been "picking" for the past weeks throughout her body. She is currently oriented to person, time, date of and another. Not oriented to place. She is moving all [address] head revealed a left cerebellar mass with compression on the lateral aspect the fourth ventricle with somewhat prominent ventricles and supratentorial noted. Neurosurgery was contacted recommended MRI brain and admission to [facility]. Laboratory significant only for a normocytic anemia and hyponatremia. CT chest revealed a 2.1 x 1.7 right hilar mass with diffuse emphysematous changes. MRI of the brain revealed a 5 x 2.7 cm cerebellar mass with edema impinging the left quadrigeminal cistern with the patient from the left posterior lateral alberto. 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 There is documented ventriculomegaly. 4/1: Resting comfortably in bed. Remains confused. Afebrile. Has not eaten 24 hours. 4/2: Again remains confused. Intermittent he follows commands. Afebrile. Very poor appetite. Subjective 4/3: Seen in bed prior to or. Very poor appetite. Plan for removal of cerebellar mass today. I signed consent with Dr. Salazar for medical necessity. Objective Vital Signs Date Time Temp Pulse Resp B/P Pulse Ox O2 Delivery O2 Flow Rate FiO2 12/19/16 08:00 94 Nasal Cannula 3.00 12/19/16 06:00 107 12/19/16 04:00 97.4 18 154/87 12/18/16 20:22 21 Intake and Output 12/18/16 12/18/16 12/19/16 08:00 16:00 00:00 Intake Total 810 ml 873 ml 907 ml Output Total 600 ml 1600 ml 450 ml Balance 210 ml -727 ml 457 ml Result Diagram: 12/19/16 0346 12/19/16 0346 Other Results Microbiology Date/Time Procedure Status Source Growth 12/16/16 15:30 Aerobic Blood Culture - Preliminary Resulted Blood Peripheral NO GROWTH IN 2 DAYS 12/16/16 15:30 Anaerobic Blood Culture - Preliminary Resulted Blood Peripheral NO GROWTH IN 2 DAYS Imaging Last Impressions Head CT 12/16/16 1434 Signed Impressions: Service Date/Time: Friday, December 16, 2016 16:38 - CONCLUSION: 1. Abnormal left cerebellar hemisphere. MRI with contrast is suggested. 2. Prominent supratentorial ventricles that may be related to posterior fossa mass on the left. Mao Elkins MD FACR Chest X-Ray 12/16/16 1434 Signed Impressions: Service Date/Time: Friday, December 16, 2016 15:27 - CONCLUSION: No acute disease. Isaías Finch Jr., MD Chest CT 12/16/16 0000 Signed Impressions: Service Date/Time: Friday, December 16, 2016 20:06 - CONCLUSION: 1. 2.1 x 1.7 cm right hilar mass consistent with neoplasm or lymphadenopathy. PET/CT scan may be helpful for further evaluation. 2. Diffuse emphysematous changes are noted. 3. Multiple compression deformities noted throughout the thoracic and lumbar spine. 4. Degenerative changes and scoliosis of the thoracolumbar spine. Chirag No MD Brain MRI 12/16/16 0000 Signed Impressions: Service Date/Time: Friday, December 16, 2016 19:19 - CONCLUSION: 1. Large enhancing complex mass within the left cerebellar hemisphere measuring 4.1 x 3.7 cm consistent with primary or metastatic neoplasm with associated edema throughout the left cerebellar hemisphere resulting in effacement of the left quadrigeminal cistern and impingement upon the left posterolateral aspect of the alberto. The findings are consistent with uncal herniation on the left. 2. 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 3. Severe periventricular white matter small vessel ischemic changes bilaterally. 4. Ventriculomegaly suggesting central cerebral atrophy versus hydrocephalus. Chirag No MD Abdomen/Pelvis CT 12/16/16 0000 Signed Impressions: Service Date/Time: Friday, December 16, 2016 20:07 - CONCLUSION: 1. No intra-abdominal mass or lymphadenopathy. 2. Degenerative changes and scoliosis of the thoracolumbar spine. 3. Multiple compression deformities within the thoracic and lumbar spine. Chirag No MD Objective Remarks GENERAL: Fausto De Jesus 71-year-old female, resting in bed mildly agitated SKIN: Warm and dry. Multiple excoriation lesions throughout/pruritic red no tunneling noted HEAD: Atraumatic. Normocephalic. EYES: Right pupils are 4 mm and oblong reactive. Left pupils 2 mm. No scleral icterus. No injection or drainage. ENT: No nasal bleeding or discharge. Mucous membranes pink and moist. NECK: Trachea midline. No JVD. CARDIOVASCULAR: Regular rate and rhythm. S1, S2. No S4. No murmur RESPIRATORY: Clear to auscultation. Breath sounds equal bilaterally. GASTROINTESTINAL: Abdomen soft, non-tender, nondistended. Hypoactive bowel sounds are appreciated. MUSCULOSKELETAL: Extremities without significant peripheral edema. NEUROLOGICAL: Awake and alert. No obvious cranial nerve deficits. Motor grossly within normal limits. Five out of 5 muscle strength in the arms and legs. Slurred speech. 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 Ventriculomegaly. Left quadrigeminal impingement upon the left posterolateral alberto Seen with Dr. Salazar/neurosurgery Continue Decadron 4 mg IV every 6 hours for vasogenic edema Keppra 500 mg IV twice a day seizure prophylaxis EEG has been ordered to rule out subclinical seizures Plan for removal of cerebellar mass today with Dr. Salazar in OR Bed 30 Neuro checks Urine toxicology screen negative CV: Currently normal saline at 84 cc an hour. Will use as needed antihypertensives to keep systolic blood pressure less than 180 EKG revealed sinus rhythm 92 with normal [place]/QS and QT intervals. Possible ST depression in anterior/lateral leads Troponin less than 0.02. Resp: Ongoing tobaccoism Right hilar mass CT the chest revealed a 2.1 x 1.7 cm right hilar mass with diffuse emphysematous changes. Nasal cannula to maintain saturations greater than equal to 92% Incentive spirometry while awake Bronchodilator therapy will be every 6 hours and as needed Tobacco cessation will be encouraged Nicotine patch 14 mg daily will be continued GI: Heart healthy diet. Speech therapy to evaluate swallowing mechanism Protonix for GI prophylaxis Colace/as needed Senokot for bowel regimen : Guillory will be placed for accurate I's and O's in a critically ill patient Endo: Sliding-scale insulin while on Decadron with Accu-Cheks every 6 hours to maintain euglycemia/moderate regimen Renal: Creatinine currently within normal limits Accurate I's and O's Monitor urine output Recheck BMP in a.m. Heme: Normocytic anemia Thrombocytosis Monitor daily CBC. Follow trends. No indication for transfusion of blood products at this time ID: Possible pedicularis pedis Will give 1 dose of permethrin cream due to her "scratch". Monitor for infection FEN: Hyponatremia Replace electrolytes as clinically indicated. MSK: Lumbar spine scoliosis Multiple old thoracic and lumbar compression fractures No surgical intervention at this time. PT evaluate and treat. Access - Utilize peripheral IV. Central line if indicated Prophylaxis - GI - Protonix - DVT - SCD/no pharmacological prophylaxis in light of cerebellar mass Critical Care: The total care time was 35 minutes. Time to perform other separately billable procedures was not included in the critical care time. Chris Rogel MD Dec 19, 2016 09:40 Chris Rogel MD Dec 19, 2016 09:40
[2016-12-19] MEDS ORDERED: SUGAMMADEX SODIUM 200 MG/2 ML VIAL IV PUSH ONE ×2 (10:50)
[2016-12-19] MEDS ORDERED: ePHEDrine/NS 25 MG/5 ML SYR IV ONE (12:00)
[2016-12-19] MEDS ORDERED: PROPOFOL 200 MG/20 ML AMP IV ONE (12:00)
[2016-12-19] MEDS ORDERED: ONDANSETRON HCL 4 MG/2 ML VIAL IV PUSH ONE (12:00)
[2016-12-19] MEDS ORDERED: SODIUM CHLOR 0.9% 250 ML INJ 250 ML IV ONE (12:00)
[2016-12-19] MEDS ORDERED: PHENYLEPH/NS 1000 MCG/10 ML SYR IV ONE (12:00)
[2016-12-19] MEDS ORDERED: NORMOSOL R INJ 1,000 ML IV ONE (12:00)
--- NOTE | 2016-12-19 12:12 | PD.OP ---
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 endotracheal by Corazon Salvador Surgeon: Mansoor Salazar M.D. [employer] Plant Manager(s): Giulia Stephenson Operation and Findings: 71-year-old lady with a large left cerebellar hemisphere neoplasm with surrounding edema and partial obstruction of fourth ventricle with hydrocephalus. She's also found to have a lung mass and likely lung cancer with brain metastases as a working diagnosis. It is recommended that she undergo resection of this left cerebellar hemisphere mass along with placement of ventriculostomy. Patient cannot give informed consent and there are no relatives available, her significant other for the past 20 years requested we proceed but obviously cannot give legal consent. The procedure is undertaken taking the patient's best interest into account and Dr. Rogel the hogshead weigher agrees to the medical necessity of this procedure. Following initiation of general endotracheal anesthesia patient had invasive mines place and the Guillory catheter in place along with sequential compression devices. A gram of vancomycin was administered intravenously and she was turned on a lateral position with the left side up and the head secured in the 3 pin Mendez headrest. An axillary roll was placed and all pressure points adequate padded with a beanbag in place to maintain the position. The BrainLab navigation system was then registered with good accuracy using external landmarks. Left occipital and suboccipital region was then shaved and prepped with ChloraPrep and sterilely draped. A linear incision was then made extending down through the galea and the fascia and underlying muscle fibers split and cerebellar retractor used for exposure. Using an M2 bur a craniectomy was undertaken with a pair portion at the junction of the transverse sinus and the lateral portion at the sagittal sinus extending down to the foramen magnum which was not resected. Bone wax was used at the craniectomy edges for hemostasis. The microscope was then brought into the field and further dissection undertaken using microtechnique with microscope magnification. The dura was opened in a cruciate format and cerebellar hemisphere was significantly protruding out from this dural opening. A corticectomy was made overlying this mass and less than a centimeter from the cerebellar surface I encountered this mass which had a grayish fibrotic component and necrotic central component also. Internal debulking was undertaken in several piecemeal specimens obtained for frozen section and permanent section pathological evaluation. Frozen sections were consistent with metastasis. Subsequently suction and bipolar cautery used for resection of this mass and a gross total resection was achieved confirmed with visual inspection as well as the navigation guidance. The cerebellar hemisphere was very relaxed and pulsatile at this point. The neoplasm resection bed was lined with Surgicel and Gelfoam thrombin also used for hemostasis. There was an copiously irrigated and the dura approximated with 4 Nurolon Stitches. In order obtain a watertight dural closure of bovine pericardial patch graft was also used. The durotomy reinforced with the DuraSeal and the cranial defect is filled with the bone dust from the craniectomy. No CSF leak was noted with Valsalva maneuver at this point. Subsequently using navigation guidance left occipital bur hole was made the M2 bur and the underlying dura cauterized and opened in a cruciate format. The back to seal catheter was then passed into the lateral ventricle with a clear CSF outflow noted. Stylette was removed and the distal end tunneled on the scalp of the trocar and secured the exit site with a 2-0 nylon tie and connected to a drainage bag. The occipital muscle and fascia the neck proximally using 2-0 Vicryl interrupted sutures and the galea approximated using 3-0 Vicryl interrupted sutures and final skin closure was with barbie. A sterile pressure dressing was then applied. Mendez head rest removed and she was then turned in supine position and extubated and taken recovery room. There were no intraoperative complications and all sponge and needle count was correct at the end the procedure. Estimated blood loss about 200 cc. Mansoor Salazar MD Dec 19, 2016 12:12
[2016-12-19] MEDS ORDERED: ACETAMINOPHEN 325 MG TAB PO PRN (12:15)
[2016-12-19] MEDS ORDERED: niCARdipine INJ 25 MG in SODIUM CHLOR 0.9% 250 ML INJ 250 ML IV SCH (12:15)
[2016-12-19] MEDS ORDERED: MAGNESIUM SULFATE INJ 2 GM in SODIUM CHLORIDE 0.9% INJ 100 ML IV PRN (12:15)
[2016-12-19] MEDS ORDERED: SODIUM CHLORIDE 0.9% FLUSH 10 ML FLUSH IV FLUSH PRN (12:15)
[2016-12-19] MEDS ORDERED: LORazepam 2 MG/ML VIAL IVP PRN (12:15)
[2016-12-19] MEDS ORDERED: CALCIUM GLUCONATE INJ 1 GM in SODIUM CHLORIDE 0.9% INJ 100 ML IV PRN (12:15)
[2016-12-19] MEDS ORDERED: METOCLOPRAMIDE HCL 10 MG/2 ML VIAL IVS PRN (12:15)
[2016-12-19] MEDS ORDERED: RESP: ALBUTEROL 2.5 MG/3 ML NEB (PRN) NEB (12:15)
[2016-12-19] MEDS ORDERED: fentaNYL CITRATE 250 MCG/5 ML AMP ONE (12:39)
[2016-12-19] MEDS ORDERED: *morphine SULFATE 8 MG/ML PERIprocedure ONLY ONE ×2 (13:03→13:39)
[2016-12-19 13:25] LABS: AUTOMATED NEUTROPHIL # 6.1 TH/MM3 (1.8-7.7); BASOPHIL % 0.1 % (0.0-2.0); HEMATOCRIT 27.6 % (35.0-46.0); HEMO FLAGS DIFF FINAL; LYMPH % 5.7 % (9.0-44.0); LYMPHOCYTE # 0.4 TH/MM3 (1.0-4.8); MEAN CELL VOLUME 82.7 FL (80.0-100.0); MEAN CORPUSCULAR HEMOGLOBIN 27.2 PG (27.0-34.0); MEAN CORPUSCULAR HGB CONC 32.8 % (32.0-36.0); MONO % 10.4 % (0.0-8.0); NEUT % 83.8 % (16.0-70.0); PLATELET COUNT 420 TH/MM3 (150-450); RED BLOOD COUNT 3.34 MIL/MM3 (4.00-5.30); RED CELL DISTRIBUTION WIDTH 16.4 % (11.6-17.2); WHITE BLOOD COUNT 7.3 TH/MM3 (4.0-11.0)
[2016-12-19 13:37] LABS: MAGNESIUM 1.9 MG/DL (1.5-2.5); POTASSIUM 3.3 MEQ/L (3.5-5.1)
[2016-12-19] MEDS: SODIUM CHLORIDE 23.4% INJ 188 MEQ in SODIUM CHLOR 0.9% 1000 ML INJ 1,000 ML IV SCH (13:59)
[2016-12-19] MEDS: POTASSIUM CHLOR 20 MEQ PREMIX 100 ML IV PRN ×2 (14:47→19:46)
[2016-12-19] MEDS: ACETAMINOPHEN/HYDROcodone 325 MG/10 MG TAB PO PRN ×2 (16:03→19:46)
[2016-12-19] MEDS: ONDANSETRON HCL 4 MG/2 ML VIAL IV PRN (17:56)
[2016-12-19] MEDS: CYCLOBENZAPRINE HCL 10 MG TAB PO PRN (22:10)
[2016-12-20] VITALS (15 sets, daily range): BP systolic 122–196; BP diastolic 63–82; PULSE 59–88; RESP 9–22; TEMP 97.9–98.7; O2SAT 90–95
[2016-12-20 00:28] LABS: POTASSIUM 3.6 MEQ/L (3.5-5.1)
[2016-12-20] MEDS: SODIUM CHLORIDE 23.4% INJ 188 MEQ in SODIUM CHLOR 0.9% 1000 ML INJ 1,000 ML IV SCH ×3 (02:34→20:08)
[2016-12-20] MEDS: CHLORHEXIDINE GLUCONATE 2 % 1 PACK (2 CLOTHS) TOP SCH (03:11)
[2016-12-20] MEDS: HYDROCORTISONE 0.5% CREAM 30 GM TOPICAL SCH ×3 (03:12→20:08)
--- NOTE | 2016-12-20 05:45 | RADRPT ---
EXAM DATE/TIME: 12/20/2016 04:59 [facility] COMPARISON: MRI BRAIN W & W/O CONTRAST, December 16, 2016, 19:19. CT BRAIN W/O CONTRAST, December 16, 2016, 16:38. INDICATIONS : Left cerebellar hemisphere neoplasm RADIATION DOSE: 29.00 CTDIvol (mGy) MEDICAL HISTORY : Possible lung cancer. SURGICAL HISTORY : Craniotomy. Hysterectomy.Tonsillectomy. ENCOUNTER: Subsequent ACUITY: 1 day PAIN SCALE: Non-responsive LOCATION: cranial TECHNIQUE: Multiple contiguous axial images were obtained of the head. Using automated exposure control and adj ustment of the mA and/or kV according to patient size, radiation dose was kept as low as reasonably a chievable to obtain optimal diagnostic quality images. FINDINGS: There has been interval left occipital craniotomy with removal of a left cerebellar hemispheric mass. A ventriculostomy is seen entering via left parietal approach with the tip terminating just across t he midline and the lateral ventricle. The ventricles are smaller from the prior study. No hemorrhage or acute infarction. Atrophy. Periventricular chronic small vessel ischemic change. There is a chroni c appearing subdural fluid collection overlying the left cerebral hemisphere. This is a new finding. It measures 9 mm in greatest thickness. No acute hemorrhage appreciated. Air is seen within the left lateral ventricle as well as anterior left frontal lobe. CONCLUSION: 1. Interval craniotomy with excision of the left cerebellar hemispheric mass. 2. Reduction in size of the cerebral hemispheres following ventriculostomy. 3. 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 Isaías Finch Jr., MD on December 20, 2016 at 5:39 Board Certified Radiologist. This report was verified electronically.
[2016-12-20] MEDS: DEXAMETHASONE SOD PHOS 4 MG/ML VIAL IV PUSH SCH ×3 (06:14→17:59)
[2016-12-20] MEDS: INSULIN NovoLIN REGULAR SUPPLEMENTAL SCALE SQ SCH ×4 (07:00→21:00)
[2016-12-20] MEDS: REMOVE OLD PATCH T-DERMAL SCH (09:00)
[2016-12-20 09:02] LABS: AUTOMATED NEUTROPHIL # 7.9 TH/MM3 (1.8-7.7); BASOPHIL % 0.1 % (0.0-2.0); HEMATOCRIT 29.7 % (35.0-46.0); HEMO FLAGS DIFF FINAL; LYMPH % 2.9 % (9.0-44.0); LYMPHOCYTE # 0.3 TH/MM3 (1.0-4.8); MEAN CELL VOLUME 84.2 FL (80.0-100.0); MEAN CORPUSCULAR HEMOGLOBIN 27.5 PG (27.0-34.0); MEAN CORPUSCULAR HGB CONC 32.7 % (32.0-36.0); MONO % 8.9 % (0.0-8.0); NEUT % 88.1 % (16.0-70.0); PLATELET COUNT 392 TH/MM3 (150-450); RED BLOOD COUNT 3.52 MIL/MM3 (4.00-5.30); RED CELL DISTRIBUTION WIDTH 16.7 % (11.6-17.2); WHITE BLOOD COUNT 8.9 TH/MM3 (4.0-11.0)
--- NOTE | 2016-12-20 09:40 | HHI.NSPN ---
(Bartolome Lopez) History Chief Complaint: Large left cerebellar mass. Uncooperative for exam. (Bartolome Lopez) Interval History 12/17/16: Pt with a large left cerebellar mass. She states ouch when trying to open her eyes and squints her eyes closed. She does follow simple commands in extremities. 12/18/16: Pt more awake and cooperative this morning still not alert or appropriate. She states good morning to me when I state the same. She follows simple commands. Not answering questions. 12/20/16: Patient awakens to voice. She denies any headaches. No nausea vomiting or double or blurred vision. Ventriculostomy is in place and draining slightly bloody tinged CSF. (Bartolome Lopez) Review of Systems General: Negative for: fever, chills, insomnia Respiratory: Negative for: shortness of breath, cough, sputum Cardiovascular: Negative for: chest pain Gastrointestinal: Negative for: nausea, vomitting, diarrhea, constipation ( Bartolome Lopez) Exam Results Vital Signs Date Time Temp Pulse Resp B/P Pulse Ox O2 Delivery O2 Flow Rate FiO2 12/20/16 07:00 93 Nasal Cannula 3.00 12/20/16 06:00 63 12/20/16 04:00 98.5 11 157/74 12/18/16 20:22 21 Intake and Output 12/19/16 12/19/16 12/20/16 08:00 16:00 00:00 Intake Total 477 ml 1800 ml 1057 ml Output Total 750 ml 1500 ml 1006 ml Balance -273 ml 300 ml 51 ml (Bartolome Lopez) Physical Examination Respiratory: Clear to auscultation bilaterally Heart: Normal sinus rhythm no murmurs Abdomen: Soft positive bowel sounds Skin: Incision clean and dry. No signs of infection. 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 Neuro: Patient awakens to voice. She follows commands well. Right pupil is 3 mm and irregular shape. Left pupil is 2 mm. She answers simple questions. Ventriculostomy drain is in place, with slightly bloody tinged CSF. (Bartolome Lopez) Physical Examination Much more alert and interactive than she has been before. Speech is fluent Follows commands and moves all extremities (Mansoor Salazar MD) Lab, Micro, Other Results Last Impressions Head CT 12/20/16 0600 Signed Impressions: Service Date/Time: Tuesday, December 20, 2016 04:59 - CONCLUSION: 1. Interval craniotomy with excision of the left cerebellar hemispheric mass. 2. Reduction in size of the cerebral hemispheres following ventriculostomy. 3. 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 Isaías Finch Jr., MD Chest X-Ray 12/16/16 1434 Signed Impressions: Service Date/Time: Friday, December 16, 2016 15:27 - CONCLUSION: No acute disease. Isaías Finch Jr., MD Chest CT 12/16/16 0000 Signed Impressions: Service Date/Time: Friday, December 16, 2016 20:06 - CONCLUSION: 1. 2.1 x 1.7 cm right hilar mass consistent with neoplasm or lymphadenopathy. PET/CT scan may be helpful for further evaluation. 2. Diffuse emphysematous changes are noted. 3. Multiple compression deformities noted throughout the thoracic and lumbar spine. 4. Degenerative changes and scoliosis of the thoracolumbar spine. Chirag No MD Brain MRI 12/16/16 0000 Signed Impressions: Service Date/Time: Friday, December 16, 2016 19:19 - CONCLUSION: 1. Large enhancing complex mass within the left cerebellar hemisphere measuring 4.1 x 3.7 cm consistent with primary or metastatic neoplasm with associated edema throughout the left cerebellar hemisphere resulting in effacement of the left quadrigeminal cistern and impingement upon the left posterolateral aspect of the alberto. The findings are consistent with uncal herniation on the left. 2. 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 3. Severe periventricular white matter small vessel ischemic changes bilaterally. 4. Ventriculomegaly suggesting central cerebral atrophy versus hydrocephalus. Chirag No MD Abdomen/Pelvis CT 12/16/16 0000 Signed Impressions: Service Date/Time: Friday, December 16, 2016 20:07 - CONCLUSION: 1. No intra-abdominal mass or lymphadenopathy. 2. Degenerative changes and scoliosis of the thoracolumbar spine. 3. Multiple compression deformities within the thoracic and lumbar spine. Chirag No MD Laboratory Tests Test 12/19/16 12/20/16 12/20/16 12:50 00:00 08:20 White Blood Count 7.3 TH/MM3 8.9 TH/MM3 Red Blood Count 3.34 MIL/MM3 3.52 MIL/MM3 Hemoglobin 9.1 GM/DL 9.7 GM/DL Hematocrit 27.6 % 29.7 % Mean Corpuscular Volume 82.7 FL 84.2 FL Mean Corpuscular Hemoglobin 27.2 PG 27.5 PG Mean Corpuscular Hemoglobin 32.8 % 32.7 % Concent Red Cell Distribution Width 16.4 % 16.7 % Platelet Count 420 TH/MM3 392 TH/MM3 Mean Platelet Volume 7.6 FL 8.2 FL Neutrophils (%) (Auto) 83.8 % 88.1 % Lymphocytes (%) (Auto) 5.7 % 2.9 % Monocytes (%) (Auto) 10.4 % 8.9 % Eosinophils (%) (Auto) 0.0 % 0.0 % Basophils (%) (Auto) 0.1 % 0.1 % Neutrophils # (Auto) 6.1 TH/MM3 7.9 TH/MM3 Lymphocytes # (Auto) 0.4 TH/MM3 0.3 TH/MM3 Monocytes # (Auto) 0.8 TH/MM3 0.8 TH/MM3 Eosinophils # (Auto) 0.0 TH/MM3 0.0 TH/MM3 Basophils # (Auto) 0.0 TH/MM3 0.0 TH/MM3 CBC Comment DIFF FINAL DIFF FINAL Differential Comment Sodium Level 132 MEQ/L 139 MEQ/L Potassium Level 3.3 MEQ/L 3.6 MEQ/L Chloride Level 97 MEQ/L Carbon Dioxide Level 24.0 MEQ/L Anion Gap 11 MEQ/L Blood Urea Nitrogen 8 MG/DL Creatinine 0.39 MG/DL Estimat Glomerular Filtration 161 ML/MIN Rate Random Glucose 120 MG/DL Calcium Level 8.0 MG/DL Magnesium Level 1.9 MG/DL 12/19/16 12/19/16 12/20/16 15:00 23:00 07:00 Intake Total 1800 ml 1057 ml 873 ml Output Total 650 ml 1856 ml 759 ml Balance 1150 ml -799 ml 114 ml Intake Oral 0 ml 120 ml IV Total 1057 ml 753 ml Other 1800 ml Output Urine Total 450 ml 1850 ml 750 ml Drainage Total 6 ml 9 ml Estimated Blood Loss 200 ml # Bowel Movements 0 0 (Bartolmoe Lopez) Medical Decision Making Impression and Plan A: 71 y/o FM with a large left cerebellar mass. P: Continue to monitor Neuro exam. Continue with current care. Continue with Decadron (Bartolome Lopez) Attending Statement The exam, history, and the medical decision-making described in the above note were completed with the assistance of the mid-level provider. I reviewed and agree with the findings presented. I attest that I had a [id number] encounter with the patient on the same day, and personally performed and documented my assessment and findings in the medical record. Improving neurologic examination postoperatively. Ventriculostomy with some drainage with low ICPs. We'll challenge ventricle to 20 cm level. Out of bed with physical therapy as tolerated. (Mansoor Salazar MD) Bartolome Lopez Dec 20, 2016 09:39 Mansoor Salazar MD Dec 20, 2016 14:19
[2016-12-20 09:51] LABS: ALKALINE PHOSPHATASE 62 U/L (45-117); ALT (GPT) 18 U/L (10-53); ANION GAP 9 MEQ/L (5-15); AST (GOT) 31 U/L (15-37); BICARBONATE 22.9 MEQ/L (21.0-32.0); BLOOD UREA NITROGEN 7 MG/DL (7-18); CHLORIDE 106 MEQ/L (98-107); GLOMERULAR FILTRATION RATE 195 ML/MIN (>89); POTASSIUM 3.7 MEQ/L (3.5-5.1); SODIUM (NA) 138 MEQ/L (136-145); TOTAL BILIRUBIN ADULT 0.3 MG/DL (0.2-1.0)
[2016-12-20] MEDS: ARTIFICIAL TEARS OPTH SOLN 15 ML BTL EACH EYE SCH ×3 (10:25→17:59)
[2016-12-20] MEDS: NICOTINE 14 MG/24 HR PATCH T-DERMAL SCH (10:25)
[2016-12-20] MEDS: DOCUSATE SODIUM 100 MG CAP PO SCH ×2 (10:26→20:06)
[2016-12-20] MEDS: FOLIC ACID 1 MG TAB PO SCH (10:26)
[2016-12-20] MEDS: MULTIVITAMIN TAB PO SCH (10:26)
[2016-12-20] MEDS: PANTOPRAZOLE SODIUM 40 MG VIAL IV SCH (10:26)
[2016-12-20] MEDS: SODIUM CHLORIDE 0.9% FLUSH 10 ML FLUSH IV FLUSH SCH ×2 (10:32→20:07)
[2016-12-20] MEDS: levETIRAcetam INJ 500 MG in SODIUM CHLORIDE 0.9% INJ 100 ML IV SCH ×2 (10:33→20:07)
[2016-12-20] MEDS: THIAMINE INJ 100 MG in SODIUM CHLORIDE 0.9% INJ 100 ML IV SCH (10:33)
[2016-12-20] MEDS: LABETALOL HCL 100 MG/20 ML VIAL IV PUSH PRN (11:10)
[2016-12-20] MEDS: ACETAMINOPHEN/HYDROcodone 325 MG/10 MG TAB PO PRN ×3 (13:11→22:38)
--- NOTE | 2016-12-20 14:00 | HHI.CCPN ---
Subjective Remarks/Hospital Course 71-year-old female. Date of admission 12/16/2016. Past medical history includes previous spontaneous pneumothorax and ongoing tobaccoism. Unknown if chronic alcohol use. Patient was brought in by significant other with a two-week history of altered mental status. She is found disheveled with multiple scabs which is been "picking" for the past weeks throughout her body. She is currently oriented to person, time, date of and another. Not oriented to place. She is moving all [address] head revealed a left cerebellar mass with compression on the lateral aspect the fourth ventricle with somewhat prominent ventricles and supratentorial noted. Neurosurgery was contacted recommended MRI brain and admission to [facility]. Laboratory significant only for a normocytic anemia and hyponatremia. CT chest revealed a 2.1 x 1.7 right hilar mass with diffuse emphysematous changes. MRI of the brain revealed a 5 x 2.7 cm cerebellar mass with edema impinging the left quadrigeminal cistern with the patient from the left posterior lateral alberto. 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 There is documented ventriculomegaly. 4/1: Resting comfortably in bed. Remains confused. Afebrile. Has not eaten 24 hours. 4/2: Again remains confused. Intermittent he follows commands. Afebrile. Very poor appetite. Subjective 4/3: Seen in bed prior to or. Very poor appetite. Plan for removal of cerebellar mass today. I signed consent with Dr. Salazar for medical necessity. 0404: Protects airway well, breathing comfortably. Objective Vital Signs Date Time Temp Pulse Resp B/P Pulse Ox O2 Delivery O2 Flow Rate FiO2 12/20/16 09:00 93 Nasal Cannula 4.00 12/20/16 06:00 63 12/20/16 04:00 98.5 11 157/74 12/18/16 20:22 21 Intake and Output 12/19/16 12/19/16 12/20/16 08:00 16:00 00:00 Intake Total 477 ml 1800 ml 1057 ml Output Total 750 ml 1500 ml 1006 ml Balance -273 ml 300 ml 51 ml Result Diagram: 12/20/16 0820 12/20/16 0820 Imaging Last Impressions Head CT 12/16/16 1434 Signed Impressions: Service Date/Time: Friday, December 16, 2016 16:38 - CONCLUSION: 1. Abnormal left cerebellar hemisphere. MRI with contrast is suggested. 2. Prominent supratentorial ventricles that may be related to posterior fossa mass on the left. Mao Elkins MD FACR Chest X-Ray 12/16/16 1434 Signed Impressions: Service Date/Time: Friday, December 16, 2016 15:27 - CONCLUSION: No acute disease. Isaías Finch Jr., MD Chest CT 12/16/16 0000 Signed Impressions: Service Date/Time: Friday, December 16, 2016 20:06 - CONCLUSION: 1. 2.1 x 1.7 cm right hilar mass consistent with neoplasm or lymphadenopathy. PET/CT scan may be helpful for further evaluation. 2. Diffuse emphysematous changes are noted. 3. Multiple compression deformities noted throughout the thoracic and lumbar spine. 4. Degenerative changes and scoliosis of the thoracolumbar spine. Chirag No MD Brain MRI 12/16/16 0000 Signed Impressions: Service Date/Time: Friday, December 16, 2016 19:19 - CONCLUSION: 1. Large enhancing complex mass within the left cerebellar hemisphere measuring 4.1 x 3.7 cm consistent with primary or metastatic neoplasm with associated edema throughout the left cerebellar hemisphere resulting in effacement of the left quadrigeminal cistern and impingement upon the left posterolateral aspect of the alberto. The findings are consistent with uncal herniation on the left. 2. 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 3. Severe periventricular white matter small vessel ischemic changes bilaterally. 4. Ventriculomegaly suggesting central cerebral atrophy versus hydrocephalus. Chirag No MD Abdomen/Pelvis CT 12/16/16 0000 Signed Impressions: Service Date/Time: Friday, December 16, 2016 20:07 - CONCLUSION: 1. No intra-abdominal mass or lymphadenopathy. 2. Degenerative changes and scoliosis of the thoracolumbar spine. 3. Multiple compression deformities within the thoracic and lumbar spine. Chirag No MD Objective Remarks GENERAL: 71-year-old female, resting in bed. SKIN: Warm and dry. Multiple excoriation lesions throughout/pruritic red no tunneling noted HEAD: Atraumatic. Normocephalic. EYES: Right pupils are 4 mm and oblong reactive. Left pupils 2 mm. No scleral icterus. No injection or drainage. ENT: No nasal bleeding or discharge. Mucous membranes pink and moist. NECK: Trachea midline. CARDIOVASCULAR: Regular rate and rhythm. S1, S2. No S4. No murmur, rub. RESPIRATORY: Clear to auscultation. Breath sounds equal bilaterally. No adventitious sounds. GASTROINTESTINAL: Abdomen soft, non-tender, nondistended. Hypoactive bowel sounds. MUSCULOSKELETAL: Extremities without significant peripheral edema. Warm, well perfused. NEUROLOGICAL: Awake and alert. No obvious cranial nerve deficits. Motor grossly within normal limits. Five out of 5 muscle strength in the arms and legs. 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 Ventriculomegaly. Left quadrigeminal impingement upon the left posterolateral alberto Seen with Dr. Salazar/neurosurgery Continue Decadron 4 mg IV every 6 hours for vasogenic edema Keppra 500 mg IV twice a day seizure prophylaxis EEG has been ordered to rule out subclinical seizures Plan for removal of cerebellar mass today with Dr. Salazar in OR Bed 30 Neuro checks Urine toxicology screen negative CV: Currently normal saline at 84 cc an hour. Will use as needed antihypertensives to keep systolic blood pressure less than 180 EKG revealed sinus rhythm [address]/QS and QT intervals. Possible ST depression in anterior/lateral leads Troponin less than 0.02. Resp: Ongoing tobaccoism Right hilar mass CT the chest revealed a 2.1 x 1.7 cm right hilar mass with diffuse emphysematous changes. Nasal cannula to maintain saturations greater than equal to 92% Incentive spirometry while awake Bronchodilator therapy will be every 6 hours and as needed Tobacco cessation will be encouraged Nicotine patch 14 mg daily will be continued GI: Heart healthy diet. Speech therapy to evaluate swallowing mechanism Protonix for GI prophylaxis Colace/as needed Senokot for bowel regimen : Guillory will be placed for accurate I's and O's in a critically ill patient Endo: Sliding-scale insulin while on Decadron with Accu-Cheks every 6 hours to maintain euglycemia/moderate regimen Renal: Creatinine currently within normal limits Accurate I's and O's Monitor urine output Recheck BMP in a.m. Heme: Normocytic anemia Thrombocytosis Monitor daily CBC. Follow trends. No indication for transfusion of blood products at this time ID: Possible pedicularis pedis Will give 1 dose of permethrin cream due to her "scratch". Monitor for infection FEN: Hyponatremia Replace electrolytes as clinically indicated. MSK: Lumbar spine scoliosis Multiple old thoracic and lumbar compression fractures No surgical intervention at this time. PT evaluate and treat. Access - Utilize peripheral IV. Central line if indicated Prophylaxis - GI - Protonix - DVT - SCD/no pharmacological prophylaxis in light of cerebellar mass Critical Care: The total care time was 35 minutes. Time to perform other separately billable procedures was not included in the critical care time. Jim Orourke MD Dec 20, 2016 14:00
--- NOTE | 2016-12-20 15:10 | MG ---
cc: ANGELA WILEY M.D., LOUIS M. MD Lab No: [id number] Date: 12/20/2016 Age: 71 Sex: F Photic stimulation. Awake, drowsy, asleep study. Following commands. Awake and alert. Ventriculostomy in the left temporal at T5. CT shows craniotomy with excision of a left cerebellar hemisphere mass, reduction in size of left subdural collection. This is a 71-year-old woman with a two-week history of change in mental status. Medicines are Decadron, Trandate, cefazolin, Keppra. DESCRIPTION OF RECORD The patient has a background rhythm of 4 to 4.5 Hz. Minor artifact eye movement. The patient is keeping her eyes open. Phase reversal seen at T4, T6, over the right parietotemporal region at epoch 71, not continuous. Again at epoch 85. BP was checked at that time. Photic stimulation did elicit a mild driving response. IMPRESSION Abnormal EEG due to background slowing consistent with encephalopathy but also phase reversal as stated over the right parietotemporal region, not continuous, but certainly can be a focus for epileptogenicity. Clinical correlation. Angela Wiley MD DF/BT /2:00 PM /3:00 PM
[2016-12-20] MEDS: MENTHOL LOZENGE BUCCAL PRN (17:59)
[2016-12-20] MEDS: CYCLOBENZAPRINE HCL 10 MG TAB PO PRN (18:21)
[2016-12-21] VITALS (14 sets, daily range): BP systolic 153–177; BP diastolic 64–89; PULSE 60–86; RESP 10–20; TEMP 97.7–98.5; O2SAT 91–100
[2016-12-21] MEDS: CHLORHEXIDINE GLUCONATE 2 % 1 PACK (2 CLOTHS) TOP SCH (04:00)
[2016-12-21] MEDS: HYDROCORTISONE 0.5% CREAM 30 GM TOPICAL SCH ×3 (04:00→20:20)
[2016-12-21 05:10] LABS: BICARBONATE 22.7 MEQ/L (21.0-32.0); POTASSIUM 3.3 MEQ/L (3.5-5.1)
[2016-12-21] MEDS: DEXAMETHASONE SOD PHOS 4 MG/ML VIAL IV PUSH SCH ×5 (05:52→23:00)
[2016-12-21] MEDS: ACETAMINOPHEN/HYDROcodone 325 MG/10 MG TAB PO PRN ×4 (05:53→22:59)
[2016-12-21] MEDS: INSULIN NovoLIN REGULAR SUPPLEMENTAL SCALE SQ SCH ×4 (07:00→21:00)
[2016-12-21] MEDS: REMOVE OLD PATCH T-DERMAL SCH (09:00)
--- NOTE | 2016-12-21 09:03 | HHI.NSPN ---
(Bartolome Lopez) History Chief Complaint: Large left cerebellar mass. Uncooperative for exam. (Bartolome Loepz) Interval History 12/17/16: Pt with a large left cerebellar mass. She states ouch when trying to open her eyes and squints her eyes closed. She does follow simple commands in extremities. 12/18/16: Pt more awake and cooperative this morning still not alert or appropriate. She states good morning to me when I state the same. She follows simple commands. Not answering questions. 12/20/16: Patient awakens to voice. She denies any headaches. No nausea vomiting or double or blurred vision. Ventriculostomy is in place and draining slightly bloody tinged CSF. 12/21/16: Patient awake and alert. He complains of intermittent headache. Ventriculostomy drain was clamped and ICPs are 7. Patient denies any numbness or tingling or weakness. (Bartolome Lopez) Review of Systems General: Negative for: fever, chills, insomnia Respiratory: Negative for: shortness of breath, cough, sputum Cardiovascular: Negative for: chest pain Gastrointestinal: Negative for: nausea, vomitting, diarrhea, constipation ( Bartolome Lopez) Exam Results Vital Signs Date Time Temp Pulse Resp B/P Pulse Ox O2 Delivery O2 Flow Rate FiO2 12/21/16 08:43 100 Nasal Cannula 3.00 12/21/16 06:00 66 12/21/16 04:00 98.0 11 153/70 12/18/16 20:22 21 Intake and Output 12/20/16 12/20/16 12/21/16 08:00 16:00 00:00 Intake Total 873 ml 1885 ml 1442 ml Output Total 759 ml 738 ml 505 ml Balance 114 ml 1147 ml 937 ml (Bartolome Lopez) Physical Examination Respiratory: Clear to auscultation bilaterally Heart: Normal sinus rhythm no murmurs Abdomen: Soft nontender positive bowel sounds Skin: Incision is clean and dry no signs of infection Muscle: Moves all 4 extremities well. Neurological: Patient awake and alert. Follows simple commands well. Pupils right irregular shaped slightly larger than left. Speech is fluent. Answers questions appropriately. Ventriculostomy is in place was clamped this morning and ICPs are 7. (Bartolome Lopez) Lab, Micro, Other Results Laboratory Tests Test 12/21/16 03:54 Sodium Level 139 MEQ/L Potassium Level 3.3 MEQ/L Chloride Level 109 MEQ/L Carbon Dioxide Level 22.7 MEQ/L Anion Gap 7 MEQ/L Blood Urea Nitrogen 6 MG/DL Creatinine 0.31 MG/DL Estimat Glomerular Filtration 210 ML/MIN Rate Random Glucose 114 MG/DL Calcium Level 7.7 MG/DL 12/20/16 12/20/16 12/21/16 15:00 23:00 07:00 Intake Total 1885 ml 1442 ml 1322 ml Output Total 738 ml 505 ml 455 ml Balance 1147 ml 937 ml 867 ml Intake Oral 940 ml 600 ml 480 ml IV Total 945 ml 842 ml 842 ml Output Urine Total 725 ml 500 ml 450 ml Drainage Total 13 ml 5 ml 5 ml # Bowel Movements 0 0 (Bartolome Lopez) Medical Decision Making Impression and Plan A: 71 y/o FM with a large left cerebellar mass. P: Continue to monitor Neuro exam, ventriculostomy clamped. Continue with current care. Continue with Decadron (Bartolome Lopez) Attending Statement The exam, history, and the medical decision-making described in the above note were completed with the assistance of the mid-level provider. I reviewed and agree with the findings presented. I attest that I had a [id number] encounter with the patient on the same day, and personally performed and documented my assessment and findings in the medical record. Continues to improve neurologically. We'll challenge ventriculostomy. 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 Will need medical and radiation oncology evaluation and treatment. (Mansoor Salazar MD) Bartolome Lopez Dec 21, 2016 09:03 Mansoor Salazar MD Dec 21, 2016 16:53
[2016-12-21] MEDS: THIAMINE INJ 100 MG in SODIUM CHLORIDE 0.9% INJ 100 ML IV SCH (09:13)
[2016-12-21] MEDS: SODIUM CHLORIDE 0.9% FLUSH 10 ML FLUSH IV FLUSH SCH ×2 (09:14→20:21)
[2016-12-21] MEDS: NICOTINE 14 MG/24 HR PATCH T-DERMAL SCH (09:14)
[2016-12-21] MEDS: MULTIVITAMIN TAB PO SCH (09:14)
[2016-12-21] MEDS: PANTOPRAZOLE SODIUM 40 MG VIAL IV SCH (09:14)
[2016-12-21] MEDS: FOLIC ACID 1 MG TAB PO SCH (09:14)
[2016-12-21] MEDS: DOCUSATE SODIUM 100 MG CAP PO SCH ×2 (09:14→20:13)
[2016-12-21] MEDS: ARTIFICIAL TEARS OPTH SOLN 15 ML BTL EACH EYE SCH ×3 (09:15→17:16)
[2016-12-21] MEDS: levETIRAcetam 500 MG TAB PO SCH ×2 (09:30→20:13)
[2016-12-21] MEDS: POTASSIUM CHLOR 20 MEQ PREMIX 100 ML IV PRN (09:30)
--- NOTE | 2016-12-21 09:41 | HHI.CCPN ---
Subjective Remarks/Hospital Course 71-year-old female. Date of admission 12/16/2016. Past medical history includes previous spontaneous pneumothorax and ongoing tobaccoism. Unknown if chronic alcohol use. Patient was brought in by significant other with a two-week history of altered mental status. She is found disheveled with multiple scabs which is been "picking" for the past weeks throughout her body. She is currently oriented to person, time, date of and another. Not oriented to place. She is moving all [address] head revealed a left cerebellar mass with compression on the lateral aspect the fourth ventricle with somewhat prominent ventricles and supratentorial noted. Neurosurgery was contacted recommended MRI brain and admission to [facility]. Laboratory significant only for a normocytic anemia and hyponatremia. CT chest revealed a 2.1 x 1.7 right hilar mass with diffuse emphysematous changes. MRI of the brain revealed a 5 x 2.7 cm cerebellar mass with edema impinging the left quadrigeminal cistern with the patient from the left posterior lateral alberto. 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 There is documented ventriculomegaly. 4/1: Resting comfortably in bed. Remains confused. Afebrile. Has not eaten 24 hours. 4/2: Again remains confused. Intermittent he follows commands. Afebrile. Very poor appetite. Subjective /3: Seen in bed prior to or. Very poor appetite. Plan for removal of cerebellar mass today. I signed consent with Dr. Salazar for medical necessity. 12/20: Protects airway well, breathing comfortably. 12/21: Breathing comfortably. Will need gentle diuresis. Objective Vital Signs Date Time Temp Pulse Resp B/P Pulse Ox O2 Delivery O2 Flow Rate FiO2 12/21/16 08:43 100 Nasal Cannula 3.00 12/21/16 06:00 66 12/21/16 04:00 98.0 11 153/70 12/18/16 20:22 21 Intake and Output 12/20/16 12/20/16 12/21/16 08:00 16:00 00:00 Intake Total 873 ml 1885 ml 1442 ml Output Total 759 ml 738 ml 505 ml Balance 114 ml 1147 ml 937 ml Result Diagram: 12/20/16 0820 12/21/16 0354 Imaging Last Impressions Head CT 12/16/16 1434 Signed Impressions: Service Date/Time: Friday, December 16, 2016 16:38 - CONCLUSION: 1. Abnormal left cerebellar hemisphere. MRI with contrast is suggested. 2. Prominent supratentorial ventricles that may be related to posterior fossa mass on the left. Mao Elkins MD FACR Chest X-Ray 12/16/16 1434 Signed Impressions: Service Date/Time: Friday, December 16, 2016 15:27 - CONCLUSION: No acute disease. Isaías Finch Jr., MD Chest CT 12/16/16 0000 Signed Impressions: Service Date/Time: Friday, December 16, 2016 20:06 - CONCLUSION: 1. 2.1 x 1.7 cm right hilar mass consistent with neoplasm or lymphadenopathy. PET/CT scan may be helpful for further evaluation. 2. Diffuse emphysematous changes are noted. 3. Multiple compression deformities noted throughout the thoracic and lumbar spine. 4. Degenerative changes and scoliosis of the thoracolumbar spine. Chirag No MD Brain MRI 12/16/16 0000 Signed Impressions: Service Date/Time: Friday, December 16, 2016 19:19 - CONCLUSION: 1. Large enhancing complex mass within the left cerebellar hemisphere measuring 4.1 x 3.7 cm consistent with primary or metastatic neoplasm with associated edema throughout the left cerebellar hemisphere resulting in effacement of the left quadrigeminal cistern and impingement upon the left posterolateral aspect of the alberto. The findings are consistent with uncal herniation on the left. 2. 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 3. Severe periventricular white matter small vessel ischemic changes bilaterally. 4. Ventriculomegaly suggesting central cerebral atrophy versus hydrocephalus. Chirag No MD Abdomen/Pelvis CT 12/16/16 0000 Signed Impressions: Service Date/Time: Friday, December 16, 2016 20:07 - CONCLUSION: 1. No intra-abdominal mass or lymphadenopathy. 2. Degenerative changes and scoliosis of the thoracolumbar spine. 3. Multiple compression deformities within the thoracic and lumbar spine. Chirag No MD Objective Remarks GENERAL: 71-year-old female, resting in bed. SKIN: Warm and dry. Multiple excoriation lesions throughout/pruritic red no tunneling noted HEAD: Atraumatic. Normocephalic. EYES: Right pupils are 3 mm, reactive. Left pupils 2 mm, reactive. ENT: No nasal bleeding or discharge. Mucous membranes pink and moist. NECK: Trachea midline. Airway widely patent. CARDIOVASCULAR: Regular rate and rhythm. S1, S2. No S4. No murmur, rub. RESPIRATORY: Clear to auscultation. Breath sounds equal bilaterally. No adventitious sounds. GASTROINTESTINAL: Abdomen soft, non-tender, nondistended. Hypoactive bowel sounds. MUSCULOSKELETAL: Extremities without significant peripheral edema. Warm, well perfused. NEUROLOGICAL: Awake and alert. No obvious cranial nerve deficits. Motor grossly within normal limits, moves 4 limbs. 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 Ventriculomegaly. Left quadrigeminal impingement upon the left posterolateral alberto Seen with Dr. Salazar/neurosurgery Continue Decadron 4 mg IV every 6 hours for vasogenic edema Keppra 500 mg IV twice a day seizure prophylaxis EEG has been ordered to rule out subclinical seizures Plan for removal of cerebellar mass today with Dr. Salazar in OR Bed 30 Neuro checks Urine toxicology screen negative CV: Currently normal saline at 84 cc an hour. Will use as needed antihypertensives to keep systolic blood pressure less than 180 EKG revealed sinus rhythm 92 with normal AR/QS and QT intervals. Possible ST depression in anterior/lateral leads Troponin less than 0.02. Resp: Ongoing tobaccoism Right hilar mass CT the chest revealed a 2.1 x 1.7 cm right hilar mass with diffuse emphysematous changes. Nasal cannula to maintain saturations greater than equal to 92% Incentive spirometry while awake Bronchodilator therapy will be every 6 hours and as needed Tobacco cessation will be encouraged Nicotine patch 14 mg daily will be continued GI: Heart healthy diet. Speech therapy to evaluate swallowing mechanism Protonix for GI prophylaxis Colace/as needed Senokot for bowel regimen : Guillory will be placed for accurate I's and O's in a critically ill patient Endo: Sliding-scale insulin while on Decadron with Accu-Cheks every 6 hours to maintain euglycemia/moderate regimen Renal: Creatinine currently within normal limits Accurate I's and O's Monitor urine output Recheck BMP in a.m. Heme: Normocytic anemia Thrombocytosis Monitor daily CBC. Follow trends. No indication for transfusion of blood products at this time ID: Possible pedicularis pedis Will give 1 dose of permethrin cream due to her "scratch". Monitor for infection FEN: Hyponatremia Replace electrolytes as clinically indicated. MSK: Lumbar spine scoliosis Multiple old thoracic and lumbar compression fractures No surgical intervention at this time. PT evaluate and treat. Access - Utilize peripheral IV. Central line if indicated Prophylaxis - GI - Protonix - DVT - SCD/no pharmacological prophylaxis in light of cerebellar mass Overall impression: Stable hemodynamic and respiratory status. Jim Orourke MD Dec 21, 2016 09:41
[2016-12-21] MEDS ORDERED: FUROSEMIDE 20 MG/2 ML VIAL IV PUSH ONE (09:45)
[2016-12-21] MEDS: LABETALOL HCL 100 MG/20 ML VIAL IV PUSH PRN ×3 (13:37→23:55)
[2016-12-21] MEDS: SENNOSIDES 8.6 MG TAB PO PRN (20:13)
[2016-12-21] MEDS: CYCLOBENZAPRINE HCL 10 MG TAB PO PRN (20:13)
[2016-12-21 20:24] LABS: BICARBONATE 23.9 MEQ/L (21.0-32.0); POTASSIUM 3.5 MEQ/L (3.5-5.1)
[2016-12-21] MEDS: cloNIDine HCL 0.1 MG TAB PO PRN (22:58)
[2016-12-22] VITALS (15 sets, daily range): BP systolic 135–179; BP diastolic 69–76; PULSE 64–89; RESP 14–25; TEMP 98.2–98.5; O2SAT 94–100
[2016-12-22] MEDS: CHLORHEXIDINE GLUCONATE 2 % 1 PACK (2 CLOTHS) TOP SCH (04:00)
[2016-12-22] MEDS: HYDROCORTISONE 0.5% CREAM 30 GM TOPICAL SCH ×3 (04:00→19:45)
[2016-12-22 04:49] LABS: BICARBONATE 24.4 MEQ/L (21.0-32.0); POTASSIUM 3.6 MEQ/L (3.5-5.1)
[2016-12-22] MEDS: DEXAMETHASONE SOD PHOS 4 MG/ML VIAL IV PUSH SCH ×3 (06:14→16:56)
[2016-12-22] MEDS: INSULIN NovoLIN REGULAR SUPPLEMENTAL SCALE SQ SCH ×3 (07:00→16:00)
[2016-12-22] MEDS: FOLIC ACID 1 MG TAB PO SCH (07:59)
[2016-12-22] MEDS: PANTOPRAZOLE SODIUM 40 MG VIAL IV SCH (07:59)
[2016-12-22] MEDS: levETIRAcetam 500 MG TAB PO SCH ×2 (07:59→19:46)
[2016-12-22] MEDS: DOCUSATE SODIUM 100 MG CAP PO SCH ×2 (07:59→19:45)
[2016-12-22] MEDS: MULTIVITAMIN TAB PO SCH (07:59)
[2016-12-22] MEDS: REMOVE OLD PATCH T-DERMAL SCH (08:00)
[2016-12-22] MEDS: NICOTINE 14 MG/24 HR PATCH T-DERMAL SCH (08:00)
[2016-12-22] MEDS: SODIUM CHLORIDE 0.9% FLUSH 10 ML FLUSH IV FLUSH SCH ×2 (08:03→19:45)
[2016-12-22] MEDS: THIAMINE INJ 100 MG in SODIUM CHLORIDE 0.9% INJ 100 ML IV SCH (08:03)
[2016-12-22] MEDS: ARTIFICIAL TEARS OPTH SOLN 15 ML BTL EACH EYE SCH ×3 (09:00→16:57)
--- NOTE | 2016-12-22 09:07 | HHI.NSPN ---
(Bartolome Lopez) History Chief Complaint: Large left cerebellar mass. S/p resection. (Bartolome Lopez ) Interval History 12/17/16: Pt with a large left cerebellar mass. She states ouch when trying to open her eyes and squints her eyes closed. She does follow simple commands in extremities. 12/18/16: Pt more awake and cooperative this morning still not alert or appropriate. She states good morning to me when I state the same. She follows simple commands. Not answering questions. 12/20/16: Patient awakens to voice. She denies any headaches. No nausea vomiting or double or blurred vision. Ventriculostomy is in place and draining slightly bloody tinged CSF. 12/21/16: Patient awake and alert. He complains of intermittent headache. Ventriculostomy drain was clamped and ICPs are 7. Patient denies any numbness or tingling or weakness. 12/22/16: Pt awake and alert. Denies headaches today. No nausea or vomiting. No paresthesias. Ventriculostomy clamped and ICPs remained good. (Bartolome Lopez) Review of Systems General: Negative for: fever, chills, insomnia Respiratory: Negative for: shortness of breath, cough, sputum Cardiovascular: Negative for: chest pain Gastrointestinal: Negative for: nausea, vomitting, diarrhea, constipation ( Bartolome Lopez) Exam Results Vital Signs Date Time Temp Pulse Resp B/P Pulse Ox O2 Delivery O2 Flow Rate FiO2 12/22/16 07:00 96 Room Air 12/22/16 06:00 68 12/22/16 05:08 98.3 14 156/70 12/21/16 20:52 3.00 12/21/16 07:00 100 Intake and Output 12/21/16 12/21/16 12/22/16 08:00 16:00 00:00 Intake Total 1322 ml 1900 ml 612 ml Output Total 455 ml 725 ml 2805 ml Balance 867 ml 1175 ml -2193 ml (Bartolome Lopez) Physical Examination Respiratory: Clear to auscultation bilaterally Heart: Normal sinus rhythm no murmurs Abdomen: Soft nontender positive bowel sounds Skin: Incision is clean and dry no signs of infection Muscle: Moves all 4 extremities well. Neurological: Patient awake and alert. Follows simple commands well. Pupils right irregular shaped slightly larger than left. Speech is fluent. Answers questions appropriately. Ventriculostomy is in place was clamped since yesterday and ICPs are normal. (Bartolome Lopez) Lab, Micro, Other Results Last Impressions Head CT 12/20/16 0600 Signed Impressions: Service Date/Time: Tuesday, December 20, 2016 04:59 - CONCLUSION: 1. Interval craniotomy with excision of the left cerebellar hemispheric mass. 2. Reduction in size of the cerebral hemispheres following ventriculostomy. 3. 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 Isaías Finch Jr., MD Chest X-Ray 12/16/16 1434 Signed Impressions: Service Date/Time: Friday, December 16, 2016 15:27 - CONCLUSION: No acute disease. Isaías Finch Jr., MD Chest CT 12/16/16 0000 Signed Impressions: Service Date/Time: Friday, December 16, 2016 20:06 - CONCLUSION: 1. 2.1 x 1.7 cm right hilar mass consistent with neoplasm or lymphadenopathy. PET/CT scan may be helpful for further evaluation. 2. Diffuse emphysematous changes are noted. 3. Multiple compression deformities noted throughout the thoracic and lumbar spine. 4. Degenerative changes and scoliosis of the thoracolumbar spine. Chirag No MD Brain MRI 12/16/16 0000 Signed Impressions: Service Date/Time: Friday, December 16, 2016 19:19 - CONCLUSION: 1. Large enhancing complex mass within the left cerebellar hemisphere measuring 4.1 x 3.7 cm consistent with primary or metastatic neoplasm with associated edema throughout the left cerebellar hemisphere resulting in effacement of the left quadrigeminal cistern and impingement upon the left posterolateral aspect of the alberto. The findings are consistent with uncal herniation on the left. 2. 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 3. Severe periventricular white matter small vessel ischemic changes bilaterally. 4. Ventriculomegaly suggesting central cerebral atrophy versus hydrocephalus. Chirag No MD Abdomen/Pelvis CT 12/16/16 0000 Signed Impressions: Service Date/Time: Friday, December 16, 2016 20:07 - CONCLUSION: 1. No intra-abdominal mass or lymphadenopathy. 2. Degenerative changes and scoliosis of the thoracolumbar spine. 3. Multiple compression deformities within the thoracic and lumbar spine. Chirag No MD Laboratory Tests Test 12/21/16 12/22/16 19:13 03:12 Sodium Level 134 MEQ/L 133 MEQ/L Potassium Level 3.5 MEQ/L 3.6 MEQ/L Chloride Level 100 MEQ/L 100 MEQ/L Carbon Dioxide Level 23.9 MEQ/L 24.4 MEQ/L Anion Gap 10 MEQ/L 9 MEQ/L Blood Urea Nitrogen 7 MG/DL 10 MG/DL Creatinine 0.52 MG/DL 0.37 MG/DL Estimat Glomerular Filtration 116 ML/MIN 171 ML/MIN Rate Random Glucose 170 MG/DL 116 MG/DL Calcium Level 7.8 MG/DL 8.1 MG/DL 12/21/16 12/21/16 12/22/16 15:00 23:00 07:00 Intake Total 1900 ml 612 ml 4286 ml Output Total 725 ml 2805 ml 1600 ml Balance 1175 ml -2193 ml 2686 ml Intake Oral 940 ml 320 ml 4200 ml IV Total 960 ml 292 ml 86 ml Output Urine Total 725 ml 2800 ml 1600 ml Drainage Total 0 ml 5 ml 0 ml # Bowel Movements 0 0 (Bartolome Lopez) Medical Decision Making Impression and Plan A: 71 y/o FM with a large left cerebellar mass. P: Continue to monitor Neuro exam, ventriculostomy clamped. Continue with current care. Continue with Decadron (Bartolome Lopez) Attending Statement The exam, history, and the medical decision-making described in the above note were completed with the assistance of the mid-level provider. I reviewed and agree with the findings presented. I attest that I had a [id number] encounter with the patient on the same day, and personally performed and documented my assessment and findings in the medical record. (Mansoor Salazar MD) Bartolome Lopez Dec 22, 2016 09:07 Mansoor Salazar MD Dec 22, 2016 18:38
[2016-12-22] MEDS: MENTHOL LOZENGE BUCCAL PRN (11:31)
[2016-12-22] MEDS: ACETAMINOPHEN/HYDROcodone 325 MG/10 MG TAB PO PRN ×2 (13:34→23:02)
[2016-12-22] MEDS: hydrALAZINE HCL 20 MG/ML VIAL IV PUSH PRN (18:23)
[2016-12-22] MEDS: DEXAMETHASONE 4 MG TAB PO SCH (23:02)
[2016-12-23] VITALS (14 sets, daily range): BP systolic 134–158; BP diastolic 74–78; PULSE 67–87; RESP 11–27; TEMP 97.7–98.2; O2SAT 92–98
[2016-12-23] MEDS: ONDANSETRON HCL 4 MG/2 ML VIAL IV PRN (02:22)
[2016-12-23] MEDS: hydrALAZINE HCL 20 MG/ML VIAL IV PUSH PRN (03:17)
[2016-12-23] MEDS: CHLORHEXIDINE GLUCONATE 2 % 1 PACK (2 CLOTHS) TOP SCH (03:17)
[2016-12-23] MEDS: HYDROCORTISONE 0.5% CREAM 30 GM TOPICAL SCH ×3 (03:17→21:31)
[2016-12-23] MEDS: DEXAMETHASONE 4 MG TAB PO SCH ×3 (05:04→17:55)
[2016-12-23] MEDS: ACETAMINOPHEN/HYDROcodone 325 MG/10 MG TAB PO PRN ×3 (05:05→19:32)
--- NOTE | 2016-12-23 05:19 | RADRPT ---
EXAM DATE/TIME: 12/23/2016 04:30 [facility] COMPARISON: CT BRAIN W/O CONTRAST, December 16, 2016, 16:38. CT BRAIN W/O CONTRAST, December 20, 2016, 4:59. INDICATIONS : Evaluate tumor RADIATION DOSE: 56.35 CTDIvol (mGy) MEDICAL HISTORY : Possible lung cancer SURGICAL HISTORY : Craniotomy. Hysterectomy.Tonsillectomy. ENCOUNTER: [facility] ACUITY: 1 week PAIN SCALE: Non-responsive LOCATION: cranial TECHNIQUE: Multiple contiguous axial images were obtained of the head. Using automated exposure control and adj ustment of the mA and/or kV according to patient size, radiation dose was kept as low as reasonably a chievable to obtain optimal diagnostic quality images. FINDINGS: There is tiny intraventricular hemorrhage in the occipital horn on the right. Left subdural flui d collection present as the appearance of a subdural effusion larger measuring almost 1.1 cm in maxim um diameter it measured 7 mm previously and there is now a subdural fluid collection which also has t he appearance of an effusion measuring 8 mm involving the right frontal parietal region. There is a v entricular tube from a left posterior trigonal approach with tip abutting the third ventricle. Postcr aniotomy changes are again seen within the left posterior fossa there is also slight hemorrhage withi n the left supracerebellar cistern. CONCLUSION: 1. Increase in size of the left subdural effusion and there is a new subdural effusion on the right n ot present previously. 2. No significant change in tiny intraventricular hemorrhage within the right occipital lobe and slig ht subarachnoid hemorrhage within the left supracerebellar cistern. 3. Postcraniotomy changes left occipital lobe. Leonel Jules MD on December 23, 2016 at 5:13 Board Certified Radiologist. This report was verified electronically.
[2016-12-23] MEDS: FOLIC ACID 1 MG TAB PO SCH (08:18)
[2016-12-23] MEDS: MULTIVITAMIN TAB PO SCH (08:18)
[2016-12-23] MEDS: levETIRAcetam 500 MG TAB PO SCH ×2 (08:18→21:31)
[2016-12-23] MEDS: PANTOPRAZOLE SODIUM 40 MG VIAL IV SCH (08:18)
[2016-12-23] MEDS: DOCUSATE SODIUM 100 MG CAP PO SCH ×2 (08:18→21:31)
[2016-12-23] MEDS: ARTIFICIAL TEARS OPTH SOLN 15 ML BTL EACH EYE SCH ×3 (08:19→17:55)
[2016-12-23] MEDS: THIAMINE INJ 100 MG in SODIUM CHLORIDE 0.9% INJ 100 ML IV SCH (08:19)
[2016-12-23] MEDS: REMOVE OLD PATCH T-DERMAL SCH (08:20)
[2016-12-23] MEDS: NICOTINE 14 MG/24 HR PATCH T-DERMAL SCH (08:20)
[2016-12-23] MEDS: SODIUM CHLORIDE 0.9% FLUSH 10 ML FLUSH IV FLUSH SCH ×2 (09:33→21:31)
[2016-12-23] MEDS: cloNIDine HCL 0.1 MG TAB PO PRN (10:04)
--- NOTE | 2016-12-23 10:30 | HHI.CCPN ---
Subjective Remarks/Hospital Course Note for 12/22: 71-year-old female. Date of admission 12/16/2016. Past medical history includes previous spontaneous pneumothorax and ongoing tobaccoism. Unknown if chronic alcohol use. Patient was brought in by significant other with a two-week history of altered mental status. She is found disheveled with multiple scabs which is been "picking" for the past weeks throughout her body. She is currently oriented to person, time, date of and another. Not oriented to place. She is moving all [address] head revealed a left cerebellar mass with compression on the lateral aspect the fourth ventricle with somewhat prominent ventricles and supratentorial noted. Neurosurgery was contacted recommended MRI brain and admission to [facility]. Laboratory significant only for a normocytic anemia and hyponatremia. CT chest revealed a 2.1 x 1.7 right hilar mass with diffuse emphysematous changes. MRI of the brain revealed a 5 x 2.7 cm cerebellar mass with edema impinging the left quadrigeminal cistern with the patient from the left posterior lateral alberto. 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 There is documented ventriculomegaly. 4/1: Resting comfortably in bed. Remains confused. Afebrile. Has not eaten 24 hours. 4/2: Again remains confused. Intermittent he follows commands. Afebrile. Very poor appetite. Subjective 4/3: Seen in bed prior to or. Very poor appetite. Plan for removal of cerebellar mass today. I signed consent with Dr. Salazar for medical necessity. 12/20: Protects airway well, breathing comfortably. 12/21: Breathing comfortably. Will need gentle diuresis. 12/22: Breathing comfortably. Good diuresis. Objective Vital Signs Date Time Temp Pulse Resp B/P Pulse Ox O2 Delivery O2 Flow Rate FiO2 12/23/16 10:00 87 12/23/16 08:21 97 12/23/16 08:00 98.0 11 150/78 12/23/16 07:00 Nasal Cannula 1.00 12/22/16 20:43 21 Intake and Output 12/22/16 12/22/16 12/23/16 08:00 16:00 00:00 Intake Total 4286 ml 700 ml 120 ml Output Total 1600 ml 0 ml 0 ml Balance 2686 ml 700 ml 120 ml Result Diagram: 12/20/16 0820 12/22/16 0312 Imaging Last Impressions Head CT 12/16/16 1434 Signed Impressions: Service Date/Time: Friday, December 16, 2016 16:38 - CONCLUSION: 1. Abnormal left cerebellar hemisphere. MRI with contrast is suggested. 2. Prominent supratentorial ventricles that may be related to posterior fossa mass on the left. Mao Elkins MD FACR Chest X-Ray 12/16/16 1434 Signed Impressions: Service Date/Time: Friday, December 16, 2016 15:27 - CONCLUSION: No acute disease. Isaías Finch Jr., MD Chest CT 12/16/16 0000 Signed Impressions: Service Date/Time: Friday, December 16, 2016 20:06 - CONCLUSION: 1. 2.1 x 1.7 cm right hilar mass consistent with neoplasm or lymphadenopathy. PET/CT scan may be helpful for further evaluation. 2. Diffuse emphysematous changes are noted. 3. Multiple compression deformities noted throughout the thoracic and lumbar spine. 4. Degenerative changes and scoliosis of the thoracolumbar spine. Chirag No MD Brain MRI 12/16/16 0000 Signed Impressions: Service Date/Time: Friday, December 16, 2016 19:19 - CONCLUSION: 1. Large enhancing complex mass within the left cerebellar hemisphere measuring 4.1 x 3.7 cm consistent with primary or metastatic neoplasm with associated edema throughout the left cerebellar hemisphere resulting in effacement of the left quadrigeminal cistern and impingement upon the left posterolateral aspect of the alberto. The findings are consistent with uncal herniation on the left. 2. 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 3. Severe periventricular white matter small vessel ischemic changes bilaterally. 4. Ventriculomegaly suggesting central cerebral atrophy versus hydrocephalus. Chirag No MD Abdomen/Pelvis CT 12/16/16 0000 Signed Impressions: Service Date/Time: Friday, December 16, 2016 20:07 - CONCLUSION: 1. No intra-abdominal mass or lymphadenopathy. 2. Degenerative changes and scoliosis of the thoracolumbar spine. 3. Multiple compression deformities within the thoracic and lumbar spine. Chirag No MD Objective Remarks GENERAL: 71-year-old female, resting in bed. SKIN: Warm and dry. Multiple excoriation lesions throughout/pruritic red no tunneling noted HEAD: Atraumatic. Normocephalic. EYES: Right pupils are 3 mm, reactive. Left pupils 2 mm, reactive. ENT: No nasal bleeding or discharge. Mucous membranes pink and moist. NECK: Trachea midline. Airway widely patent. CARDIOVASCULAR: Regular rate and rhythm. S1, S2. No S4. No murmur, rub. RESPIRATORY: Clear to auscultation. Breath sounds equal bilaterally. No adventitious sounds. GASTROINTESTINAL: Abdomen soft, non-tender, nondistended. Hypoactive bowel sounds. MUSCULOSKELETAL: Extremities without significant peripheral edema. Warm, well perfused. NEUROLOGICAL: Awake and alert. No obvious cranial nerve deficits. Motor grossly within normal limits, moves 4 limbs. 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 Ventriculomegaly. Left quadrigeminal impingement upon the left posterolateral alberto Seen with Dr. Salazar/neurosurgery Continue Decadron 4 mg IV every 6 hours for vasogenic edema Keppra 500 mg IV twice a day seizure prophylaxis EEG has been ordered to rule out subclinical seizures Plan for removal of cerebellar mass today with Dr. Salazar in OR Bed 30 Neuro checks Urine toxicology screen negative CV: Currently normal saline at 84 cc an hour. Will use as needed antihypertensives to keep systolic blood pressure less than 180 EKG revealed sinus rhythm 92 with normal VT/QS and QT intervals. Possible ST depression in anterior/lateral leads Troponin less than 0.02. Resp: Ongoing tobaccoism Right hilar mass CT the chest revealed a 2.1 x 1.7 cm right hilar mass with diffuse emphysematous changes. Nasal cannula to maintain saturations greater than equal to 92% Incentive spirometry while awake Bronchodilator therapy will be every 6 hours and as needed Tobacco cessation will be encouraged Nicotine patch 14 mg daily will be continued GI: Heart healthy diet. Speech therapy to evaluate swallowing mechanism Protonix for GI prophylaxis Colace/as needed Senokot for bowel regimen : Guillory will be placed for accurate I's and O's in a critically ill patient Endo: Sliding-scale insulin while on Decadron with Accu-Cheks every 6 hours to maintain euglycemia/moderate regimen Renal: Creatinine currently within normal limits Accurate I's and O's Monitor urine output Recheck BMP in a.m. Heme: Normocytic anemia Thrombocytosis Monitor daily CBC. Follow trends. No indication for transfusion of blood products at this time ID: Possible pedicularis pedis Will give 1 dose of permethrin cream due to her "scratch". Monitor for infection FEN: Hyponatremia Replace electrolytes as clinically indicated. MSK: Lumbar spine scoliosis Multiple old thoracic and lumbar compression fractures No surgical intervention at this time. PT evaluate and treat. Access - Utilize peripheral IV. Central line if indicated Prophylaxis - GI - Protonix - DVT - SCD/no pharmacological prophylaxis in light of cerebellar mass Overall impression: Stable hemodynamic and respiratory status. Trach first or attempt extubation - DNR status clouds the issue. Jim Orourke MD Dec 23, 2016 10:30 Jim Orourke MD Dec 23, 2016 10:30
--- NOTE | 2016-12-23 10:33 | HHI.CCPN ---
Subjective Remarks/Hospital Course Note for 12/23: 71-year-old female. Date of admission 12/16/2016. Past medical history includes previous spontaneous pneumothorax and ongoing tobaccoism. Unknown if chronic alcohol use. Patient was brought in by significant other with a two-week history of altered mental status. She is found disheveled with multiple scabs which is been "picking" for the past weeks throughout her body. She is currently oriented to person, time, date of and another. Not oriented to place. She is moving all [address] head revealed a left cerebellar mass with compression on the lateral aspect the fourth ventricle with somewhat prominent ventricles and supratentorial noted. Neurosurgery was contacted recommended MRI brain and admission to [facility]. Laboratory significant only for a normocytic anemia and hyponatremia. CT chest revealed a 2.1 x 1.7 right hilar mass with diffuse emphysematous changes. MRI of the brain revealed a 5 x 2.7 cm cerebellar mass with edema impinging the left quadrigeminal cistern with the patient from the left posterior lateral alberto. 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 There is documented ventriculomegaly. 4/1: Resting comfortably in bed. Remains confused. Afebrile. Has not eaten 24 hours. 4/2: Again remains confused. Intermittent he follows commands. Afebrile. Very poor appetite. Subjective 4/3: Seen in bed prior to or. Very poor appetite. Plan for removal of cerebellar mass today. I signed consent with Dr. Salazar for medical necessity. 12/20: Protects airway well, breathing comfortably. 12/21: Breathing comfortably. Will need gentle diuresis. 12/22: Breathing comfortably. 12/23: Breathing comfortably. Objective Vital Signs Date Time Temp Pulse Resp B/P Pulse Ox O2 Delivery O2 Flow Rate FiO2 12/23/16 10:00 87 12/23/16 08:21 97 12/23/16 08:00 98.0 11 150/78 12/23/16 07:00 Nasal Cannula 1.00 12/22/16 20:43 21 Intake and Output 12/22/16 12/22/16 12/23/16 08:00 16:00 00:00 Intake Total 4286 ml 700 ml 120 ml Output Total 1600 ml 0 ml 0 ml Balance 2686 ml 700 ml 120 ml Result Diagram: 12/20/16 0820 12/22/16 0312 Imaging Last Impressions Head CT 12/16/16 1434 Signed Impressions: Service Date/Time: Friday, December 16, 2016 16:38 - CONCLUSION: 1. Abnormal left cerebellar hemisphere. MRI with contrast is suggested. 2. Prominent supratentorial ventricles that may be related to posterior fossa mass on the left. Mao Elkins MD FACR Chest X-Ray 12/16/16 1434 Signed Impressions: Service Date/Time: Friday, December 16, 2016 15:27 - CONCLUSION: No acute disease. Isaías Finch Jr., MD Chest CT 12/16/16 0000 Signed Impressions: Service Date/Time: Friday, December 16, 2016 20:06 - CONCLUSION: 1. 2.1 x 1.7 cm right hilar mass consistent with neoplasm or lymphadenopathy. PET/CT scan may be helpful for further evaluation. 2. Diffuse emphysematous changes are noted. 3. Multiple compression deformities noted throughout the thoracic and lumbar spine. 4. Degenerative changes and scoliosis of the thoracolumbar spine. Chirag No MD Brain MRI 12/16/16 0000 Signed Impressions: Service Date/Time: Friday, December 16, 2016 19:19 - CONCLUSION: 1. Large enhancing complex mass within the left cerebellar hemisphere measuring 4.1 x 3.7 cm consistent with primary or metastatic neoplasm with associated edema throughout the left cerebellar hemisphere resulting in effacement of the left quadrigeminal cistern and impingement upon the left posterolateral aspect of the alberto. The findings are consistent with uncal herniation on the left. 2. 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 3. Severe periventricular white matter small vessel ischemic changes bilaterally. 4. Ventriculomegaly suggesting central cerebral atrophy versus hydrocephalus. Chirag No MD Abdomen/Pelvis CT 12/16/16 0000 Signed Impressions: Service Date/Time: Friday, December 16, 2016 20:07 - CONCLUSION: 1. No intra-abdominal mass or lymphadenopathy. 2. Degenerative changes and scoliosis of the thoracolumbar spine. 3. Multiple compression deformities within the thoracic and lumbar spine. Chirag No MD Objective Remarks GENERAL: 71-year-old female, resting in bed. SKIN: Warm and dry. Multiple excoriation lesions throughout/pruritic red no tunneling noted HEAD: Atraumatic. Normocephalic. EYES: Right pupils are 3 mm, reactive. Left pupils 2 mm, reactive. ENT: No nasal bleeding or discharge. Mucous membranes pink and moist. NECK: Trachea midline. Airway widely patent. CARDIOVASCULAR: Regular rate and rhythm. S1, S2. No S4. No murmur, rub. RESPIRATORY: Clear to auscultation. Breath sounds equal bilaterally. No adventitious sounds. GASTROINTESTINAL: Abdomen soft, non-tender, nondistended. Hypoactive bowel sounds. MUSCULOSKELETAL: Extremities without significant peripheral edema. Warm, well perfused. NEUROLOGICAL: Awake and alert. No obvious cranial nerve deficits. Motor grossly within normal limits, moves 4 limbs. 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 Ventriculomegaly. Left quadrigeminal impingement upon the left posterolateral alberto Seen with Dr. Salazar/neurosurgery Continue Decadron 4 mg IV every 6 hours for vasogenic edema Keppra 500 mg IV twice a day seizure prophylaxis EEG has been ordered to rule out subclinical seizures Plan for removal of cerebellar mass today with Dr. Salazar in OR Bed 30 Neuro checks Urine toxicology screen negative CV: Currently normal saline at 84 cc an hour. Will use as needed antihypertensives to keep systolic blood pressure less than 180 EKG revealed sinus rhythm 92 with normal MA/QS and QT intervals. Possible ST depression in anterior/lateral leads Troponin less than 0.02. Resp: Ongoing tobaccoism Right hilar mass CT the chest revealed a 2.1 x 1.7 cm right hilar mass with diffuse emphysematous changes. Nasal cannula to maintain saturations greater than equal to 92% Incentive spirometry while awake Bronchodilator therapy will be every 6 hours and as needed Tobacco cessation will be encouraged Nicotine patch 14 mg daily will be continued GI: Heart healthy diet. Speech therapy to evaluate swallowing mechanism Protonix for GI prophylaxis Colace/as needed Senokot for bowel regimen : Guillory will be placed for accurate I's and O's in a critically ill patient Endo: Sliding-scale insulin while on Decadron with Accu-Cheks every 6 hours to maintain euglycemia/moderate regimen Renal: Creatinine currently within normal limits Accurate I's and O's Monitor urine output Recheck BMP in a.m. Heme: Normocytic anemia Thrombocytosis Monitor daily CBC. Follow trends. No indication for transfusion of blood products at this time ID: Possible pedicularis pedis Will give 1 dose of permethrin cream due to her "scratch". Monitor for infection FEN: Hyponatremia Replace electrolytes as clinically indicated. MSK: Lumbar spine scoliosis Multiple old thoracic and lumbar compression fractures No surgical intervention at this time. PT evaluate and treat. Access - Utilize peripheral IV. Central line if indicated Prophylaxis - GI - Protonix - DVT - SCD/no pharmacological prophylaxis in light of cerebellar mass Overall impression: Stable hemodynamic and respiratory status. Jim Orourke MD Dec 23, 2016 10:33
[2016-12-23] MEDS ORDERED: LIDOCAINE 1%/EPINEPHrine 1:100,000 SOLN 20 ML VIAL INFIL ONE (11:15)
[2016-12-23] MEDS ORDERED: LIDOCAINE 1%/EPINEPHrine 1:100,000 SOLN 50 ML VIAL ONE (12:01)
--- NOTE | 2016-12-23 12:36 | HHI.NSPN ---
(Bartolome Lopez) History Chief Complaint: Large left cerebellar mass. S/p resection. (Bartolome Lopez) Interval History 12/17/16: Pt with a large left cerebellar mass. She states ouch when trying to open her eyes and squints her eyes closed. She does follow simple commands in extremities. 12/18/16: Pt more awake and cooperative this morning still not alert or appropriate. She states good morning to me when I state the same. She follows simple commands. Not answering questions. 12/20/16: Patient awakens to voice. She denies any headaches. No nausea vomiting or double or blurred vision. Ventriculostomy is in place and draining slightly bloody tinged CSF. 12/21/16: Patient awake and alert. He complains of intermittent headache. Ventriculostomy drain was clamped and ICPs are 7. Patient denies any numbness or tingling or weakness. 12/22/16: Pt awake and alert. Denies headaches today. No nausea or vomiting. No paresthesias. Ventriculostomy clamped and ICPs remained good. 12/23/16: Pt awake and alert. Denies headaches. No nausea. Follows commands well. Answers simple questions. (Bartolome Lopez) Review of Systems General: Negative for: fever, chills, insomnia Respiratory: Negative for: shortness of breath, cough, sputum Cardiovascular: Negative for: chest pain Gastrointestinal: Negative for: nausea, vomitting, diarrhea, constipation ( Bartolome Lopez) Exam Results Vital Signs Date Time Temp Pulse Resp B/P Pulse Ox O2 Delivery O2 Flow Rate FiO2 12/23/16 10:00 87 12/23/16 08:21 97 12/23/16 08:00 98.0 11 150/78 12/23/16 07:00 Nasal Cannula 1.00 12/22/16 20:43 21 Intake and Output 12/22/16 12/22/16 12/23/16 08:00 16:00 00:00 Intake Total 4286 ml 700 ml 120 ml Output Total 1600 ml 0 ml 0 ml Balance 2686 ml 700 ml 120 ml (Bartolome Lopez) Physical Examination Respiratory: Clear to auscultation bilaterally Heart: Normal sinus rhythm no murmurs Abdomen: Soft nontender positive bowel sounds Skin: Incision is clean and dry no signs of infection Muscle: Moves all 4 extremities well. Neurological: Patient awake and alert. Follows simple commands well. Pupils right irregular shaped slightly larger than left. Speech is fluent. Answers questions appropriately. Ventriculostomy is in place was clamped since yesterday and ICPs are normal. Addendum: Ventriculostomy exit site was cleaned with Betadine. Lidocaine 1% with epi 2cc was used for local anesthesias. The ventriculostomy drain was removed. 2 barbie were placed using sterile technique. No drainage was encountered after barbie placed. (Bartolome Lopez) Lab, Micro, Other Results Last Impressions Head CT 12/23/16 0600 Signed Impressions: Service Date/Time: Friday, December 23, 2016 04:30 - CONCLUSION: 1. Increase in size of the left subdural effusion and there is a new subdural effusion on the right not present previously. 2. No significant change in tiny intraventricular hemorrhage within the right occipital lobe and slight subarachnoid hemorrhage within the left supracerebellar cistern. 3. Postcraniotomy changes left occipital lobe. K. Marco Antonio Jules MD Chest X-Ray 12/16/16 1434 Signed Impressions: Service Date/Time: Friday, December 16, 2016 15:27 - CONCLUSION: No acute disease. Isaías Finch Jr., MD Chest CT 12/16/16 0000 Signed Impressions: Service Date/Time: Friday, December 16, 2016 20:06 - CONCLUSION: 1. 2.1 x 1.7 cm right hilar mass consistent with neoplasm or lymphadenopathy. PET/CT scan may be helpful for further evaluation. 2. Diffuse emphysematous changes are noted. 3. Multiple compression deformities noted throughout the thoracic and lumbar spine. 4. Degenerative changes and scoliosis of the thoracolumbar spine. Chirag No MD Brain MRI 12/16/16 0000 Signed Impressions: Service Date/Time: Friday, December 16, 2016 19:19 - CONCLUSION: 1. Large enhancing complex mass within the left cerebellar hemisphere measuring 4.1 x 3.7 cm consistent with primary or metastatic neoplasm with associated edema throughout the left cerebellar hemisphere resulting in effacement of the left quadrigeminal cistern and impingement upon the left posterolateral aspect of the alberto. The findings are consistent with uncal herniation on the left. 2. 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 3. Severe periventricular white matter small vessel ischemic changes bilaterally. 4. Ventriculomegaly suggesting central cerebral atrophy versus hydrocephalus. Chirag No MD Abdomen/Pelvis CT 12/16/16 0000 Signed Impressions: Service Date/Time: Friday, December 16, 2016 20:07 - CONCLUSION: 1. No intra-abdominal mass or lymphadenopathy. 2. Degenerative changes and scoliosis of the thoracolumbar spine. 3. Multiple compression deformities within the thoracic and lumbar spine. Chirag No MD 12/22/16 12/22/16 12/23/16 15:00 23:00 07:00 Intake Total 700 ml 120 ml 60 ml Output Total 0 ml 0 ml 0 ml Balance 700 ml 120 ml 60 ml Intake Oral 700 ml 120 ml 60 ml IV Total 0 ml 0 ml Drainage Total 0 ml 0 ml 0 ml # Voids 1 1 # Bowel Movements 1 0 0 (Bartolome Lopez) Medical Decision Making Impression and Plan A: 71 y/o FM with a large left cerebellar mass. P: Ventriculostomy removed. Continue with Decadron Transfer to [facility] and Radiation oncology evaluations. (Bartolome Lopez) Attending Statement The exam, history, and the medical decision-making described in the above note were completed with the assistance of the mid-level provider. I reviewed and agree with the findings presented. I attest that I had a [id number] encounter with the patient on the same day, and personally performed and documented my assessment and findings in the medical record. Improving neurologically. Follow-up CT scan with no hydrocephalus with the ventricular a clamp for 48 hours and low ICPs. She has bilateral subdural hygromas. We'll remove ventriculostomy and transferred to the floor. Will benefit from rehabilitation. (Mansoor Salazar MD) Bartolome Lopez Dec 23, 2016 12:36 Mansoor Salazar MD Dec 23, 2016 13:20
--- NOTE | 2016-12-23 13:49 | MB ---
cc: SAEED JAY MD DATE OF 1945. DATE OF CONSULTATION 12/23/2016 REQUESTING PHYSICIAN Consultation requested by the neurosurgical service. 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 CHIEF COMPLAINT Ms. Cruz reports being in her usual state of health until she noticed difficulty balancing and dizziness on the day of presentation. She was brought into the emergency department by her male partner. Upon evaluation in the emergency department she was recommended imaging studies of the head. Initial studies included CT scan performed on 12/16/2016. The MRI revealed a large enhancing mass involving the left cerebellar hemisphere measuring 4.1 x 3.7 cm. This was associated with significant vasogenic edema. Severe periventricular white matter ischemic changes were noted. Ventriculomegaly suggesting central cerebral atrophy versus hydrocephalus was also noted. The patient was evaluated by Neurosurgery and initiated on high-dose corticosteroids for management of the cerebral edema. A workup for potential primary source was initiated and the patient underwent CT scan of the thorax which revealed a 2.1 cm right hilar mass consistent with a neoplasm. She had diffuse emphysematous changes. Upon questioning the patient reports being a [id number] smoker since early 20s. She reports having quit on and off but has smoked essentially for close to 40 years. Further imaging studies including CT scan of the abdomen and pelvis indicated no definite evidence of intraabdominal metastatic disease. On 12/19/2016 the patient underwent craniotomy with excisional biopsy of the cerebellar mass for debulking purposes. Pathologic findings were consistent with poorly differentiated metastatic adenocarcinoma. Immunohistochemical stains were positive for CK7 and TTF-1 with focal positivity for CK54/6. The lesion was negative for CK20. Immunohistochemical findings are consistent with metastatic adenocarcinoma of lung primary. Subjectively, Ms. Cruz denies complaints at this time other than vague headache. She tells me her dizziness has resolved. PAST MEDICAL HISTORY 1. A 76-20-tsug-year history of tobaccoism which had continued until the day of presentation. 2. She denies having had routine medical follow-up and denies any chronic medical comorbid conditions. PAST SURGICAL HISTORY Hysterectomy. Appendectomy. FAMILY HISTORY Parents are both . She is not certain if there are any oncologic diagnoses in the family. SOCIAL HISTORY The patient lives in the [place] with her boyfriend. She has an adult child. 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 ALLERGIES TO SULFA DRUGS. CURRENT INPATIENT MEDICATIONS 1. Calcium gluconate 1 gram IV as needed. 2. Magnesium replacement per protocol. 3. Nicardipine drip per protocol. 4. Thiamine 100 mg IV daily. 5. Hydrocodone/acetaminophen 10/325 every 4 hours as needed for severe pain. 6. Albuterol nebulizers. 7. Artificial Tears. 8. Clonidine 0.1 mg q. 6 hours as needed for hypertension. 9. Flexeril 10 mg p.o. q. 8 hours as needed for muscle spasms. 10. Dexamethasone 4 mg p.o. q. 6 hours. 11. Colace 100 mg p.o. b.i.d. 12. Folic acid 1 mg p.o. daily. 13. Hydralazine 10 mg IV q. 1 hour as needed for hypertension. 14. Labetalol 10 mg IV every hour. 15. Keppra 500 mg p.o. q. 12 hours. 16. Lorazepam 1 mg IV as needed. 17. Milk of Magnesia 30 mL p.o. q. 12 hours as needed for constipation. 18. Metoclopramide 10 mg IV q. 8 hours as needed for nausea and vomiting. 19. Multivitamin orally one tablet daily. 20. Nicotine patch 14 mg patch every 24 hours. 21. Pantoprazole 40 mg IV daily. 22. Senna 17.2 mg p.o. q. 12 hours as needed for constipation. REVIEW OF SYSTEMS A 13-point review of systems was obtained. The following are the pertinent positives and negatives: CONSTITUTIONAL: The patient reports having had no real symptoms of fatigue, weakness, fevers, chills or weight loss. HEENT: Some dizziness, vague headaches but no additional symptoms of the head and neck such as nosebleed, difficulty swallowing, soreness in the throat, changes in visual acuity. RESPIRATORY: Reports exertional dyspnea which is chronic, chronic cough without hemoptysis or pleuritic chest pain. CARDIOVASCULAR: Denies having had angina-like chest pain, PND, orthopnea or lower extremity edema. GI: Denies having had nausea, vomiting, diarrhea, hematochezia, melena leading up to this. She reports not ever having had a colonoscopy. UG: No complaints of dysuria, hematuria or urinary incontinence. 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 PHYSICAL EXAMINATION VITAL SIGNS: Temperature 98 degrees Fahrenheit, heart rate 78 beats a minute, respiratory rate 15, blood pressure 151/74. O2 sats are 97% on 1 liter nasal cannula. GENERAL APPEARANCE: Ms. Cruz is an elderly female, she is sitting up in bed and appears to be comfortable. A nurse is at bedside. The patient is awake and alert. She speaks to me in full sentences. HEENT: Surgical dressing noted along the left side of the posterior scalp. Drains and pressure gauzes are noted leading into a craniotomy incision. Right pupil is not rounded, it is not as reactive as the left side. She has cataracts. ORAL EXAM: No pharyngeal erythema. NECK EXAM: No palpable cervical or supraclavicular lymphadenopathy. RESPIRATORY: Prolonged expiratory phase with coarse crackles and decreased bibasilar breath sounds. CARDIOVASCULAR: Regular rate and rhythm, S1-S2. No obvious murmurs, gallops. ABDOMINAL EXAM: Thin belly, tender to palpation especially over the left lower quadrant, positive bowel sounds and positive liver. No palpable organ enlargement. LOWER EXTREMITIES: No pretibial edema. No calf tenderness. NEUROLOGIC: Motor strength generally decreased associated with decreased muscle mass and tone. She is, however, able to move all four limbs spontaneously and against gravity as well. LABORATORY FINDINGS Blood work dated 12/20/2016: WBC count 8.9, hemoglobin 9.7 gm/dl, hematocrit 30%, platelet count 392, absolute neutrophil count 7.9. Chemistries: Sodium 133, potassium 3.6, chloride 100, bicarbonate 24.4, BUN 10, creatinine 0.37, EGFR 171, random glucose of 116, calcium 8.1. Liver enzymes: Total bilirubin 0.3, AST 31, ALT 18, alkaline phosphatase 62, albumin 2.5. MRI of the brain dated 12/16/2016: 1. Large enhancing complex mass within the left cerebellar hemisphere measuring 4.1 x 3.7 cm consistent with primary or metastatic neoplasm associated with edema throughout the left cerebellar hemisphere resulting in effacement of the left quadrigeminal cistern and impingement upon the left posterior lateral aspect of the alberto. Findings are consistent uncal herniation on the left. Old lacunar infarct along the right cerebellar hemisphere. 2. Severe periventricular white matter and ischemic vessel changes. 3. Ventriculomegaly suggesting central cerebral atrophy versus hydrocephalus. CT scan of the thorax dated 12/16/2016 with IV contrast: 1. A 2.1 x 1.7 cm involving the right hilum. Consistent with lymphadenopathy or neoplasm. Head CT scan may be considered. 2. Diffuse emphysematous changes noted. 3. Multiple compression deformities identified throughout the thoracic and lumbar spine. 4. Degenerative changes and scoliosis of the thoracolumbar spine. CT scan of the abdomen and pelvis dated 12/16/2016: 1. No intraabdominal mass or adenopathy identified. 2. Degenerative changes and scoliosis. 3. Multiple compression fractures of the thoracic and lumbar vertebral bodies. ASSESSMENT Ms. Cruz is a 71-year-old female with a 45+ pack-year history of tobaccoism. She had not had much in the way of routine health maintenance or routine medical care for that matter. She claims having been well right up until the day of admission when she developed dizziness. She was brought into the emergency department by her boyfriend and imaging studies of the head revealed enlarged enhancing complex-appearing mass involving the left cerebellar hemisphere measuring 4.1 x 3.7-cm consistent with malignancy. This was associated with hydrocephalus and a large degree of vasogenic edema. Further imaging studies of the body indicated a right perihilar mass measuring approximately 2 cm consistent with a possible primary. On 12/20/2016 this patient did undergo craniotomy with debulking of the left cerebellar mass. Pathologic review indicates findings consistent with metastatic adenocarcinoma of lung primary. The oncology service has been asked to evaluate the patient for further workup and management. RECOMMENDATIONS 1. 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 I would recommend the patient be evaluated by radiation oncology for postop radiation to the tumor bed in the cerebellum for local disease control. It is apparent, based on the imaging studies specifically CT scan of the chest and abdomen which I have reviewed, that this patient has limited extracranial disease as evidenced by a solitary lesion involving the right perihilar region measuring about 2 cm. She does not have much in the way of masses, lymphadenopathy or any dominant mass. Additionally, she has no disease burden in the abdomen. It may be reasonable to control her systemic disease with external beam radiation therapy with perhaps weekly chemotherapy. Unfortunately, given the bulky nature for intracranial metastatic disease, I anticipate her intracranial disease control will be the primary driver medic of her overall prognosis and survival. Additionally, I will request a Director Personal mutational analysis on the excised lesion from the cerebellum. Important Director Personal mutations associated with adenocarcinoma the lung include BGFR mutation, the ALK mutation, the RO-1 mutation, the RET mutation as well as staining for the PDL-1 Ligand. Further recommendations will be made over the course of the hospitalization. In the interim, in the meantime she ought to be continued on corticosteroids for management of cerebellar vasogenic edema associated with the malignancy. Saeed Jay MD ZL/SSB /8:48 AM /1:13 PM
[2016-12-24] VITALS (10 sets, daily range): BP systolic 134–170; BP diastolic 8–82; PULSE 67–94; RESP 20; TEMP 96.3–97.7; O2SAT 91–97
[2016-12-24] MEDS: CHLORHEXIDINE GLUCONATE 2 % 1 PACK (2 CLOTHS) TOP SCH (04:00)
[2016-12-24] MEDS: HYDROCORTISONE 0.5% CREAM 30 GM TOPICAL SCH ×3 (05:00→20:57)
--- NOTE | 2016-12-24 07:50 | HHI.CCPN ---
Subjective Remarks/Hospital Course Note for 12/24: 71-year-old female. Date of admission 12/16/2016. Past medical history includes previous spontaneous pneumothorax and ongoing tobaccoism. Unknown if chronic alcohol use. Patient was brought in by significant other with a two-week history of altered mental status. She is found disheveled with multiple scabs which is been "picking" for the past weeks throughout her body. She is currently oriented to person, time, date of and another. Not oriented to place. She is moving all [address] head revealed a left cerebellar mass with compression on the lateral aspect the fourth ventricle with somewhat prominent ventricles and supratentorial noted. Neurosurgery was contacted recommended MRI brain and admission to senior planning manager. Laboratory significant only for a normocytic anemia and hyponatremia. CT chest revealed a 2.1 x 1.7 right hilar mass with diffuse emphysematous changes. MRI of the brain revealed a 5 x 2.7 cm cerebellar mass with edema impinging the left quadrigeminal cistern with the patient from the left posterior lateral alberto. 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 There is documented ventriculomegaly. 4/1: Resting comfortably in bed. Remains confused. Afebrile. Has not eaten 24 hours. 4/2: Again remains confused. Intermittent he follows commands. Afebrile. Very poor appetite. Subjective /3: Seen in bed prior to or. Very poor appetite. Plan for removal of cerebellar mass today. I signed consent with Dr. Salazar for medical necessity. 12/20: Protects airway well, breathing comfortably. 12/21: Breathing comfortably. Will need gentle diuresis. 12/22: Breathing comfortably. Good diuresis. 12/23: Protects airway, breathing comfortably. Objective Vital Signs Date Time Temp Pulse Resp B/P Pulse Ox O2 Delivery O2 Flow Rate FiO2 12/24/16 05:03 70 12/24/16 04:00 96.3 20 152/81 94 12/24/16 01:19 Room Air 12/23/16 21:15 21 12/23/16 07:00 1.00 Intake and Output 12/23/16 12/23/16 12/24/16 08:00 16:00 00:00 Intake Total 60 ml 300 ml 170 ml Output Total 0 ml Balance 60 ml 300 ml 170 ml Result Diagram: 12/20/16 0820 12/22/16 0312 Imaging Last Impressions Head CT 12/16/16 1434 Signed Impressions: Service Date/Time: Friday, December 16, 2016 16:38 - CONCLUSION: 1. Abnormal left cerebellar hemisphere. MRI with contrast is suggested. 2. Prominent supratentorial ventricles that may be related to posterior fossa mass on the left. Mao Elkins MD FACR Chest X-Ray 12/16/16 1434 Signed Impressions: Service Date/Time: Friday, December 16, 2016 15:27 - CONCLUSION: No acute disease. Isaías Finch Jr., MD Chest CT 12/16/16 0000 Signed Impressions: Service Date/Time: Friday, December 16, 2016 20:06 - CONCLUSION: 1. 2.1 x 1.7 cm right hilar mass consistent with neoplasm or lymphadenopathy. PET/CT scan may be helpful for further evaluation. 2. Diffuse emphysematous changes are noted. 3. Multiple compression deformities noted throughout the thoracic and lumbar spine. 4. Degenerative changes and scoliosis of the thoracolumbar spine. Chirag No MD Brain MRI 12/16/16 0000 Signed Impressions: Service Date/Time: Friday, December 16, 2016 19:19 - CONCLUSION: 1. Large enhancing complex mass within the left cerebellar hemisphere measuring 4.1 x 3.7 cm consistent with primary or metastatic neoplasm with associated edema throughout the left cerebellar hemisphere resulting in effacement of the left quadrigeminal cistern and impingement upon the left posterolateral aspect of the alberto. The findings are consistent with uncal herniation on the left. 2. 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 3. Severe periventricular white matter small vessel ischemic changes bilaterally. 4. Ventriculomegaly suggesting central cerebral atrophy versus hydrocephalus. Chirag No MD Abdomen/Pelvis CT 12/16/16 0000 Signed Impressions: Service Date/Time: Friday, December 16, 2016 20:07 - CONCLUSION: 1. No intra-abdominal mass or lymphadenopathy. 2. Degenerative changes and scoliosis of the thoracolumbar spine. 3. Multiple compression deformities within the thoracic and lumbar spine. Chirag No MD Objective Remarks GENERAL: 71-year-old female, resting in bed. SKIN: Warm and dry. Multiple excoriation lesions throughout/pruritic red no tunneling noted HEAD: Atraumatic. Normocephalic. EYES: Right pupils are 3 mm, reactive. Left pupils 2 mm, reactive. ENT: No nasal bleeding or discharge. NECK: Trachea midline. Airway widely patent. No stridor. CARDIOVASCULAR: Regular rate and rhythm. S1, S2. No S4. No murmur, rub. RESPIRATORY: Clear to auscultation. Breath sounds equal bilaterally. No adventitious sounds. GASTROINTESTINAL: Abdomen soft, non-tender, nondistended. Hypoactive bowel sounds. MUSCULOSKELETAL: Extremities without significant peripheral edema. Warm, well perfused. NEUROLOGICAL: Awake and alert. Motor grossly within normal limits, moves 4 limbs. 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 Ventriculomegaly. Left quadrigeminal impingement upon the left posterolateral alberto Seen with Dr. Salazar/neurosurgery Continue Decadron 4 mg IV every 6 hours for vasogenic edema Keppra 500 mg IV twice a day seizure prophylaxis EEG has been ordered to rule out subclinical seizures Plan for removal of cerebellar mass today with Dr. Salazar in OR Bed 30 Neuro checks Urine toxicology screen negative CV: Currently normal saline at 84 cc an hour. Will use as needed antihypertensives to keep systolic blood pressure less than 180 EKG revealed sinus rhythm 92 with normal [place]/QS and QT intervals. Possible ST depression in anterior/lateral leads Troponin less than 0.02. Resp: Ongoing tobaccoism Right hilar mass CT the chest revealed a 2.1 x 1.7 cm right hilar mass with diffuse emphysematous changes. Nasal cannula to maintain saturations greater than equal to 92% Incentive spirometry while awake Bronchodilator therapy will be every 6 hours and as needed Tobacco cessation will be encouraged Nicotine patch 14 mg daily will be continued GI: Heart healthy diet. Speech therapy to evaluate swallowing mechanism Protonix for GI prophylaxis Colace/as needed Senokot for bowel regimen : Guillory will be placed for accurate I's and O's in a critically ill patient Endo: Sliding-scale insulin while on Decadron with Accu-Cheks every 6 hours to maintain euglycemia/moderate regimen Renal: Creatinine currently within normal limits Accurate I's and O's Monitor urine output Recheck BMP in a.m. Heme: Normocytic anemia Thrombocytosis Monitor daily CBC. Follow trends. No indication for transfusion of blood products at this time ID: Possible pedicularis pedis Will give 1 dose of permethrin cream due to her "scratch". Monitor for infection FEN: Hyponatremia Replace electrolytes as clinically indicated. MSK: Lumbar spine scoliosis Multiple old thoracic and lumbar compression fractures No surgical intervention at this time. PT evaluate and treat. Access - Utilize peripheral IV. Central line if indicated Prophylaxis - GI - Protonix - DVT - SCD/no pharmacological prophylaxis in light of cerebellar mass Overall impression: Stable hemodynamic and respiratory status. Jim Orourke MD Dec 24, 2016 07:50
[2016-12-24 08:01] LABS: BICARBONATE 26.5 MEQ/L (21.0-32.0); POTASSIUM 3.8 MEQ/L (3.5-5.1)
[2016-12-24] MEDS: PANTOPRAZOLE SODIUM 40 MG VIAL IV SCH (08:46)
[2016-12-24] MEDS: MULTIVITAMIN TAB PO SCH (08:46)
[2016-12-24] MEDS: DOCUSATE SODIUM 100 MG CAP PO SCH ×2 (08:46→20:57)
[2016-12-24] MEDS: FOLIC ACID 1 MG TAB PO SCH (08:46)
[2016-12-24] MEDS: DEXAMETHASONE 4 MG TAB PO SCH ×3 (08:46→17:25)
[2016-12-24] MEDS: levETIRAcetam 500 MG TAB PO SCH ×2 (08:46→20:57)
[2016-12-24] MEDS: NICOTINE 14 MG/24 HR PATCH T-DERMAL SCH (08:47)
[2016-12-24] MEDS: cloNIDine HCL 0.1 MG TAB PO PRN (08:47)
[2016-12-24] MEDS: REMOVE OLD PATCH T-DERMAL SCH (08:47)
[2016-12-24] MEDS: SODIUM CHLORIDE 0.9% FLUSH 10 ML FLUSH IV FLUSH SCH ×2 (08:47→20:58)
[2016-12-24] MEDS: ARTIFICIAL TEARS OPTH SOLN 15 ML BTL EACH EYE SCH ×3 (08:48→17:25)
[2016-12-24] MEDS: ACETAMINOPHEN/HYDROcodone 325 MG/10 MG TAB PO PRN (21:21)
--- NOTE | 2016-12-24 23:57 | HHI.NSPN ---
History Chief Complaint: Large left cerebellar mass. S/p resection. Exam Results Vital Signs Date Time Temp Pulse Resp B/P Pulse Ox O2 Delivery O2 Flow Rate FiO2 12/24/16 20:00 97.6 75 20 137/8 97 12/24/16 09:41 Room Air 12/23/16 21:15 21 12/23/16 07:00 1.00 Intake and Output 12/23/16 12/23/16 12/24/16 08:00 16:00 00:00 Intake Total 60 ml 300 ml 170 ml Output Total 0 ml Balance 60 ml 300 ml 170 ml Physical Examination Respiratory: Clear to auscultation bilaterally Heart: Normal sinus rhythm no murmurs Abdomen: Soft nontender positive bowel sounds Skin: Incision is clean and dry no signs of infection Muscle: Moves all 4 extremities well. Neurological: Patient awake and alert. Follows simple commands well. Pupils right irregular shaped slightly larger than left. Speech is fluent. Answers questions appropriately. Ventriculostomy is in place was clamped since yesterday and ICPs are normal. Addendum: Ventriculostomy exit site was cleaned with Betadine. Lidocaine 1% with epi 2cc was used for local anesthesias. The ventriculostomy drain was removed. 2 barbie were placed using sterile technique. No drainage was encountered after barbie placed. Lab, Micro, Other Results Laboratory Tests Test 12/24/16 06:58 Sodium Level 131 MEQ/L Potassium Level 3.8 MEQ/L Chloride Level 96 MEQ/L Carbon Dioxide Level 26.5 MEQ/L Anion Gap 9 MEQ/L Blood Urea Nitrogen 11 MG/DL Creatinine 0.36 MG/DL Estimat Glomerular Filtration 177 ML/MIN Rate Random Glucose 80 MG/DL Calcium Level 8.0 MG/DL Sam Hernandez MD Dec 24, 2016 23:57
[2016-12-25] VITALS (9 sets, daily range): BP systolic 128–157; BP diastolic 69–81; PULSE 60–90; RESP 18–22; TEMP 96.8–98; O2SAT 96–98
[2016-12-25] MEDS: CHLORHEXIDINE GLUCONATE 2 % 1 PACK (2 CLOTHS) TOP SCH (04:00)
[2016-12-25] MEDS: HYDROCORTISONE 0.5% CREAM 30 GM TOPICAL SCH ×3 (04:08→20:45)
[2016-12-25] MEDS: PANTOPRAZOLE SODIUM 40 MG VIAL IV SCH (08:05)
[2016-12-25] MEDS: DOCUSATE SODIUM 100 MG CAP PO SCH ×2 (08:05→20:42)
[2016-12-25] MEDS: MULTIVITAMIN TAB PO SCH (08:05)
[2016-12-25] MEDS: DEXAMETHASONE 4 MG TAB PO SCH ×3 (08:05→16:57)
[2016-12-25] MEDS: levETIRAcetam 500 MG TAB PO SCH ×2 (08:05→20:42)
[2016-12-25] MEDS: FOLIC ACID 1 MG TAB PO SCH (08:05)
[2016-12-25] MEDS: SODIUM CHLORIDE 0.9% FLUSH 10 ML FLUSH IV FLUSH SCH ×2 (08:06→20:43)
[2016-12-25] MEDS: NICOTINE 14 MG/24 HR PATCH T-DERMAL SCH (08:06)
[2016-12-25] MEDS: REMOVE OLD PATCH T-DERMAL SCH (08:06)
[2016-12-25] MEDS: ARTIFICIAL TEARS OPTH SOLN 15 ML BTL EACH EYE SCH ×3 (08:06→16:57)
--- NOTE | 2016-12-25 15:13 | HHI.CCPN ---
Subjective Remarks/Hospital Course 71-year-old female. Date of admission 12/16/2016. Past medical history includes previous spontaneous pneumothorax and ongoing tobaccoism. Unknown if chronic alcohol use. Patient was brought in by significant other with a two-week history of altered mental status. She is found disheveled with multiple scabs which is been "picking" for the past weeks throughout her body. She is currently oriented to person, time, date of and another. Not oriented to place. She is moving all [address] head revealed a left cerebellar mass with compression on the lateral aspect the fourth ventricle with somewhat prominent ventricles and supratentorial noted. 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 Laboratory significant only for a normocytic anemia and hyponatremia. CT chest revealed a 2.1 x 1.7 right hilar mass with diffuse emphysematous changes. MRI of the brain revealed a 5 x 2.7 cm cerebellar mass with edema impinging the left quadrigeminal cistern with the patient from the left posterior lateral alberto. 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 There is documented ventriculomegaly. 4/1: Resting comfortably in bed. Remains confused. Afebrile. Has not eaten 24 hours. 4/2: Again remains confused. Intermittent he follows commands. Afebrile. Very poor appetite. Subjective 3: Seen in bed prior to or. Very poor appetite. Plan for removal of cerebellar mass today. I signed consent with Dr. Salazar for medical necessity. 12/20: Protects airway well, breathing comfortably. 12/21: Breathing comfortably. Will need gentle diuresis. 12/22: Breathing comfortably. Good diuresis. 12/23: Protects airway, breathing comfortably. 12/25: EVD removed. Neuro unchanged - remains conversant, follows commands. Summary: Disheveled woman with skin lesions from picking, large cerebellar mass , right hilar mass underwent resection of cerebellar mass. 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 Oncology workup in progress. Stable hemodynamic and respiratory status. Mobilize now that ventriculostomy is out. Objective Vital Signs Date Time Temp Pulse Resp B/P Pulse Ox O2 Delivery O2 Flow Rate FiO2 12/25/16 12:43 98.0 90 18 128/69 97 12/25/16 09:20 Nasal Cannula 21 12/23/16 07:00 1.00 Intake and Output 12/24/16 12/24/16 12/25/16 08:00 16:00 00:00 Intake Total 0 ml 360 ml Balance 0 ml 360 ml Result Diagram: 12/24/16 0658 Imaging Last Impressions Head CT 12/16/16 1434 Signed Impressions: Service Date/Time: Friday, December 16, 2016 16:38 - CONCLUSION: 1. Abnormal left cerebellar hemisphere. MRI with contrast is suggested. 2. Prominent supratentorial ventricles that may be related to posterior fossa mass on the left. Mao Elkins MD FACR Chest X-Ray 12/16/164 Signed Impressions: Service Date/Time: Friday, December 16, 2016 15:27 - CONCLUSION: No acute disease. Isaías Finch Jr., MD Chest CT 12/16/16 0000 Signed Impressions: Service Date/Time: Friday, December 16, 2016 20:06 - CONCLUSION: 1. 2.1 x 1.7 cm right hilar mass consistent with neoplasm or lymphadenopathy. PET/CT scan may be helpful for further evaluation. 2. Diffuse emphysematous changes are noted. 3. Multiple compression deformities noted throughout the thoracic and lumbar spine. 4. Degenerative changes and scoliosis of the thoracolumbar spine. Chirag No MD Brain MRI 12/16/16 0000 Signed Impressions: Service Date/Time: Friday, December 16, 2016 19:19 - CONCLUSION: 1. Large enhancing complex mass within the left cerebellar hemisphere measuring 4.1 x 3.7 cm consistent with primary or metastatic neoplasm with associated edema throughout the left cerebellar hemisphere resulting in effacement of the left quadrigeminal cistern and impingement upon the left posterolateral aspect of the alberto. The findings are consistent with uncal herniation on the left. 2. 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 3. Severe periventricular white matter small vessel ischemic changes bilaterally. 4. Ventriculomegaly suggesting central cerebral atrophy versus hydrocephalus. Chirag No MD Abdomen/Pelvis CT 12/16/16 0000 Signed Impressions: Service Date/Time: Friday, December 16, 2016 20:07 - CONCLUSION: 1. No intra-abdominal mass or lymphadenopathy. 2. Degenerative changes and scoliosis of the thoracolumbar spine. 3. Multiple compression deformities within the thoracic and lumbar spine. Chirag No MD Objective Remarks GENERAL: 71-year-old female, resting in bed. SKIN: Warm and dry. HEAD: Atraumatic. Normocephalic. EYES: Right pupils are 3 mm, irreg, reactive. Left pupils 2 mm, reactive. NECK: Trachea midline. Airway widely patent. No stridor. CARDIOVASCULAR: Regular rate and rhythm. S1, S2. No S4. No murmur, rub. No JVD. RESPIRATORY: Clear to auscultation. Breath sounds equal bilaterally. No wheezes or crackles. GASTROINTESTINAL: Abdomen soft, non-tender, nondistended. Active bowel sounds. MUSCULOSKELETAL: Extremities warm, well perfused. NEUROLOGICAL: Awake and alert. Motor grossly within normal limits, moves 4 limbs. Conversant. 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 Ventriculomegaly. Left quadrigeminal impingement upon the left posterolateral alberto Seen with Dr. Salazar/neurosurgery Continue Decadron 4 mg IV every 6 hours for vasogenic edema Keppra 500 mg IV twice a day seizure prophylaxis EEG has been ordered to rule out subclinical seizures Plan for removal of cerebellar mass today with Dr. Salazar in OR Bed 30 Neuro checks Urine toxicology screen negative CV: Currently normal saline at 84 cc an hour. Will use as needed antihypertensives to keep systolic blood pressure less than 180 EKG revealed sinus rhythm 92 with normal CO/QS and QT intervals. Possible ST depression in anterior/lateral leads Troponin less than 0.02. Resp: Ongoing tobaccoism Right hilar mass CT the chest revealed a 2.1 x 1.7 cm right hilar mass with diffuse emphysematous changes. Nasal cannula to maintain saturations greater than equal to 92% Incentive spirometry while awake Bronchodilator therapy will be every 6 hours and as needed Tobacco cessation will be encouraged Nicotine patch 14 mg daily will be continued GI: Heart healthy diet. Speech therapy to evaluate swallowing mechanism Protonix for GI prophylaxis Colace/as needed Senokot for bowel regimen : Guillory will be placed for accurate I's and O's in a critically ill patient Endo: Sliding-scale insulin while on Decadron with Accu-Cheks every 6 hours to maintain euglycemia/moderate regimen Renal: Creatinine currently within normal limits Accurate I's and O's Monitor urine output Heme: Normocytic anemia Thrombocytosis Monitor daily CBC. Follow trends. No indication for transfusion of blood products at this time ID: Possible pedicularis pedis Will give 1 dose of permethrin cream due to her "scratch". Monitor for infection FEN: Hyponatremia Replace electrolytes as clinically indicated. MSK: Lumbar spine scoliosis Multiple old thoracic and lumbar compression fractures No surgical intervention at this time. PT evaluate and treat. Access - Utilize peripheral IV. Central line if indicated Prophylaxis - GI - Protonix - DVT - SCD/no pharmacological prophylaxis in light of cerebellar mass Overall impression: Disheveled woman with skin lesions from picking, large cerebellar mass, right hilar mass underwent resection of cerebellar mass. 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 Oncology workup in progress. Stable hemodynamic and respiratory status. Mobilize now that ventriculostomy is out. Jim Orourke MD Dec 25, 2016 15:13
[2016-12-25] MEDS: ACETAMINOPHEN/HYDROcodone 325 MG/10 MG TAB PO PRN ×2 (16:55→20:47)
--- NOTE | 2016-12-25 18:39 | HHI.NSPN ---
History Chief Complaint: Large left cerebellar mass. S/p resection. Interval History 71-year-old female status post resection of cerebellar metastatic lesion. Exam Results Vital Signs Date Time Temp Pulse Resp B/P Pulse Ox O2 Delivery O2 Flow Rate FiO2 12/25/16 16:33 97.7 79 18 133/79 98 12/25/16 09:20 Nasal Cannula 21 12/23/16 07:00 1.00 Intake and Output 12/24/16 12/24/16 12/25/16 08:00 16:00 00:00 Intake Total 0 ml 360 ml Balance 0 ml 360 ml Physical Examination Respiratory: Clear to auscultation bilaterally Heart: Normal sinus rhythm no murmurs Abdomen: Soft nontender positive bowel sounds Skin: Incision is clean and dry no signs of infection. Byron in place left occipital region Muscle: Moves all 4 extremities well. Neurological: Patient awake and alert. Follows simple commands well. Pupils right irregular shaped slightly larger than left. Speech is somewhat slow. Answers questions appropriately. Follow simple commands well Medical Decision Making Impression and Plan Impression: Stable neurologic exam following resection cerebellar metastatic lesion. Plan: Continue therapy Diet as tolerated Rehabilitation placement pending Discussed with patient. Sam Hernandez MD Dec 25, 2016 18:39
[2016-12-26] VITALS (7 sets, daily range): BP systolic 134–165; BP diastolic 64–85; PULSE 60–101; RESP 18–20; TEMP 96.9–98.1; O2SAT 94–99
[2016-12-26] MEDS: CHLORHEXIDINE GLUCONATE 2 % 1 PACK (2 CLOTHS) TOP SCH (04:00)
[2016-12-26] MEDS: HYDROCORTISONE 0.5% CREAM 30 GM TOPICAL SCH ×3 (04:11→20:26)
[2016-12-26] MEDS: SENNOSIDES 8.6 MG TAB PO PRN (05:28)
[2016-12-26] MEDS: REMOVE OLD PATCH T-DERMAL SCH (09:00)
[2016-12-26] MEDS: ARTIFICIAL TEARS OPTH SOLN 15 ML BTL EACH EYE SCH ×3 (09:00→17:37)
[2016-12-26] MEDS: SODIUM CHLORIDE 0.9% FLUSH 10 ML FLUSH IV FLUSH SCH ×2 (09:00→20:25)
[2016-12-26] MEDS: PANTOPRAZOLE SODIUM 40 MG VIAL IV SCH (09:24)
[2016-12-26] MEDS: MULTIVITAMIN TAB PO SCH (09:24)
[2016-12-26] MEDS: FOLIC ACID 1 MG TAB PO SCH (09:24)
[2016-12-26] MEDS: DOCUSATE SODIUM 100 MG CAP PO SCH ×2 (09:25→20:25)
[2016-12-26] MEDS: levETIRAcetam 500 MG TAB PO SCH ×2 (09:25→20:25)
[2016-12-26] MEDS: DEXAMETHASONE 4 MG TAB PO SCH ×3 (09:25→17:37)
[2016-12-26] MEDS: NICOTINE 14 MG/24 HR PATCH T-DERMAL SCH (09:25)
--- NOTE | 2016-12-26 12:45 | HHI.PR ---
Subjective Remarks F-U cerebellar mass s/p resection 12/26/16-patient seen and examined; alert and oriented x 2 ; denies any headache Objective Vitals Vital Signs Date Time Temp Pulse Resp B/P Pulse Ox O2 Delivery O2 Flow Rate FiO2 12/26/16 08:29 97.3 71 18 152/81 98 12/26/16 04:00 97.0 60 18 165/75 97 12/26/16 00:00 97.8 65 18 138/85 97 12/25/16 21:26 Room Air 12/25/16 20:00 97.3 71 18 150/76 97 12/25/16 19:16 73 12/25/16 16:33 97.7 79 18 133/79 98 12/25/16 12:43 98.0 90 18 128/69 97 I/O 12/25/16 12/25/16 12/25/16 12/26/16 12/26/16 12/26/16 07:00 15:00 23:00 07:00 15:00 23:00 Intake Total 118 ml Balance 118 ml Intake Oral 118 ml # Voids 3 2 2 Result Diagram: 12/24/16 0658 Imaging Last Impressions Head CT 12/23/16 0600 Signed Impressions: Service Date/Time: Friday, December 23, 2016 04:30 - CONCLUSION: 1. Increase in size of the left subdural effusion and there is a new subdural effusion on the right not present previously. 2. No significant change in tiny intraventricular hemorrhage within the right occipital lobe and slight subarachnoid hemorrhage within the left supracerebellar cistern. 3. Postcraniotomy changes left occipital lobe. K. Marco Antonio Jules MD Chest X-Ray 12/16/16 1434 Signed Impressions: Service Date/Time: Friday, December 16, 2016 15:27 - CONCLUSION: No acute disease. Isaías Finch Jr., MD Chest CT 12/16/16 0000 Signed Impressions: Service Date/Time: Friday, December 16, 2016 20:06 - CONCLUSION: 1. 2.1 x 1.7 cm right hilar mass consistent with neoplasm or lymphadenopathy. PET/CT scan may be helpful for further evaluation. 2. Diffuse emphysematous changes are noted. 3. Multiple compression deformities noted throughout the thoracic and lumbar spine. 4. Degenerative changes and scoliosis of the thoracolumbar spine. Chirag No MD Brain MRI 12/16/16 0000 Signed Impressions: Service Date/Time: Friday, December 16, 2016 19:19 - CONCLUSION: 1. Large enhancing complex mass within the left cerebellar hemisphere measuring 4.1 x 3.7 cm consistent with primary or metastatic neoplasm with associated edema throughout the left cerebellar hemisphere resulting in effacement of the left quadrigeminal cistern and impingement upon the left posterolateral aspect of the alberto. The findings are consistent with uncal herniation on the left. 2. 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 3. Severe periventricular white matter small vessel ischemic changes bilaterally. 4. Ventriculomegaly suggesting central cerebral atrophy versus hydrocephalus. Chirag No MD Abdomen/Pelvis CT 12/16/16 0000 Signed Impressions: Service Date/Time: Friday, December 16, 2016 20:07 - CONCLUSION: 1. No intra-abdominal mass or lymphadenopathy. 2. Degenerative changes and scoliosis of the thoracolumbar spine. 3. Multiple compression deformities within the thoracic and lumbar spine. Chirag No MD Objective Remarks GENERAL: NAD SKIN: Warm and dry. HEAD: Normocephalic. left sided barbie in place EYES: No scleral icterus. No injection or drainage. NECK: Supple, trachea midline. No JVD or lymphadenopathy. CARDIOVASCULAR: Regular rate and rhythm without murmurs, gallops, or rubs. RESPIRATORY: Breath sounds equal bilaterally. No accessory muscle use. GASTROINTESTINAL: Abdomen soft, non-tender, nondistended. MUSCULOSKELETAL: No cyanosis, or edema. BACK: Nontender without obvious deformity. No CVA tenderness. Procedures Left suboccipital craniectomy with resection of cerebellar hemisphere neoplasm; bovine dural patch grafting; left occipital bur hole placement for ventriculostomy; BrainLab stereotactic intraoperative navigation use; microsurgical technique A/P Problem List: (1) Hydrocephalus ICD Code: G91.9 Status: Acute (2) Cerebellar mass ICD Code: G93.89 Status: Acute (3) Chronic hyponatremia ICD Code: E87.1 Status: Acute (4) Altered mental status ICD Code: R41.82 Status: Acute (5) Normocytic anemia ICD Code: D64.9 Status: Acute Assessment and Plan 71 yrs old female with Left cerebellar mass -likely metastasis lung primary Initial brain CT revealed possible left cerebellar mass with ventriculomegaly MRI brain - 4.1 x 3.7 primary versus metastatic mass with vasogenic edema in the left cerebellum. 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 Ventriculomegaly. Left quadrigeminal impingement upon the left posterolateral alberto Continue Decadron 4 mg IV every 6 hours for vasogenic edema Keppra 500 mg IV twice a day seizure prophylaxis EEG has been ordered to rule out subclinical seizures s/p Resection and management per Neurosurgery Ongoing tobaccoism Right hilar mass CT the chest revealed a 2.1 x 1.7 cm right hilar mass with diffuse emphysematous changes. Nasal cannula to maintain saturations greater than equal to 92% Incentive spirometry while awake Bronchodilator therapy will be every 6 hours and as needed Tobacco cessation encouraged Nicotine patch 14 mg daily Normocytic anemia Thrombocytosis Monitor CBC. Possible pedicularis pedis s/p 1 dose of permethrin cream due to her "scratch". Monitor for infection Hyponatremia Replace electrolytes as clinically indicated. Lumbar spine scoliosis Multiple old thoracic and lumbar compression fractures No surgical intervention at this time. PT evaluate and treat. Prophylaxis - GI - Protonix - DVT - SCD/no pharmacological prophylaxis in light of cerebellar mass Problem Qualifiers (1) Altered mental status: Qualified Code: R41.0 - Disorientation Bartolome Baig MD Dec 26, 2016 12:45
--- NOTE | 2016-12-26 13:24 | HHI.NSPN ---
(Sasha Wilde) Note Status Status: Progress Note (Sasha Wilde) Interval History Interval History 71-year-old female status post resection of cerebellar metastatic adenocarcinoma 12/26: denies surgical pain, dc planning for rehab (Sasha Wilde) Labs, Micro, & Vital Signs Results Date Time Temp Pulse Resp B/P Pulse Ox O2 Delivery O2 Flow Rate FiO2 12/26/16 12:38 98.1 101 20 135/65 94 12/26/16 08:29 97.3 71 18 152/81 98 12/26/16 04:00 97.0 60 18 165/75 97 12/26/16 00:00 97.8 65 18 138/85 97 12/25/16 21:26 Room Air 12/25/16 20:00 97.3 71 18 150/76 97 12/25/16 19:16 73 12/25/16 16:33 97.7 79 18 133/79 98 Constitutional Vital Signs Date Time Temp Pulse Resp B/P Pulse Ox O2 Delivery O2 Flow Rate FiO2 12/26/16 12:38 98.1 101 20 135/65 94 12/26/16 08:29 97.3 71 18 152/81 98 12/26/16 04:00 97.0 60 18 165/75 97 12/26/16 00:00 97.8 65 18 138/85 97 12/25/16 21:26 Room Air 12/25/16 20:00 97.3 71 18 150/76 97 12/25/16 19:16 73 12/25/16 16:33 97.7 79 18 133/79 98 (Sasha Wilde) Review of Systems/Exam Exam Alert, slow thinking process, follows commands Left posterior fossa wound healing well, barbie intact. CN: Pupils right irregular shaped slightly larger than left, face appears symmetric. Neck: soft, supple Motor: moves all four extremities grossly symmetric, slow to follow commands Sensory: reports intact to light touch x 4 Cerebellar: grossly intact finger to nose b/l (Sasha Wilde) Medications Current Medications Current Medications Medications (Trade) Dose Ordered Sig/Deana Route PRN Reason Start Time Stop Time Status Last Admin Dose Admin Magnesium Hydroxide (Milk Of Magnhamida Liq) 30 ml Q12H PRN PO CONSTIPATION 12/16/16 17:30 Naloxone HCl (Narcan Inj) 0.4 mg UNSCH PRN IV SEE LABEL COMMENTS 12/16/16 17:30 Morphine Sulfate (Morphine Inj) 2 mg Q2H PRN IV PAIN SCALE 6 TO 10 12/16/16 18:00 12/18/16 21:22 Pantoprazole Sodium (Protonix Inj) 40 mg DAILY IV 12/17/16 09:00 12/26/16 09:24 Artificial Tears (Tears Naturale Opth Soln) 1 drop TID EACH EYE 12/16/16 18:00 12/26/16 13:00 Ondansetron HCl (Zofran Inj) 4 mg Q6H PRN IV NAUSEA OR VOMITING 12/16/16 18:00 12/23/16 02:22 Docusate Sodium (Colace) 100 mg BID PO 12/16/16 21:00 12/26/16 09:25 Sennosides (Senokot) 17.2 mg Q12H PRN PO CONSTIPATION 12/16/16 18:00 12/26/16 05:28 Miscellaneous Information 1 Q361D XX 12/16/16 18:00 Chlorhexidine Gluconate (Chlorhexidine 2% Cloth) Taper DAILY@04 TOP 12/17/16 04:00 12/13/17 03:59 Chlorhexidine Gluconate (Chlorhexidine 2% Cloth) 3 pack UNSCH PRN TOP HYGIENIC CARE 12/16/16 18:00 Dextrose (D50w (Vial) Inj) 25 ml UNSCH PRN IV PUSH HYPOGLYCEMIA-SEE COMMENTS 12/16/16 18:45 Glucagon (Glucagon Inj) 1 mg UNSCH PRN OTHER HYPOGLYCEMIA-SEE COMMENTS 12/16/16 18:45 Hydrocortisone (Corticaine 0.5% Cream) 1 applic Q8H TOPICAL 12/16/16 20:00 12/26/16 12:00 Multivitamins (Theragran) 1 tab DAILY PO 12/17/16 09:00 12/26/16 09:24 Folic Acid (Folate) 1 mg DAILY PO 12/17/16 09:00 12/26/16 09:24 Labetalol HCl (Trandate Inj) 10 mg Q1HR PRN IV PUSH SBP>160, DBP>90, HR>65 12/16/16 22:00 12/21/16 23:55 Hydralazine HCl (Apresoline Inj) 10 mg Q1HR PRN IV PUSH SBP>160, DBP>90 12/16/16 22:00 12/23/16 03:17 Nitroglycerin (Nitroglycerin 2% Oint) 2 inch Q6HR PRN TOPICAL SBP>160, DBP>90 12/16/16 22:00 12/16/16 21:57 Nicotine (Habitrol 14 Mg Patch.24 Hr) 1 patch DAILY T-DERMAL 12/17/16 09:00 12/26/16 09:25 Miscellaneous Information 1 DAILY T-DERMAL 12/17/16 09:00 12/23/16 08:20 Sodium Chloride (NS Flush) 2 ml UNSCH PRN IV FLUSH FLUSH AFTER USING IV ACCESS 12/19/16 12:15 Sodium Chloride (NS Flush) 2 ml BID IV FLUSH 12/19/16 21:00 12/26/16 09:00 Lorazepam (Ativan Inj) 1 mg Q1H PRN IVP SEIZURES 12/19/16 12:15 Metoclopramide HCl (Reglan Inj) 10 mg Q8H PRN IVS nausea if zofran ineffective 12/19/16 12:15 Acetaminophen/ Hydrocodone Bitart ([place] 10-325 Mg) 1 tab Q4H PRN PO PAIN SCALE 1 TO 5 12/19/16 12:15 12/25/16 16:55 Acetaminophen/ Hydrocodone Bitart ([place] 10-325 Mg) 2 tab Q4H PRN PO PAIN SCALE 6 TO 10 12/19/16 12:15 12/25/16 20:47 Cyclobenzaprine HCl (Flexeril) 10 mg Q8H PRN PO MUSCLE SPASM 12/19/16 12:15 12/21/16 20:13 Clonidine (Catapres) 0.1 mg Q6H PRN PO SYS BP GREATER THAN 170 MMHG 12/19/16 12:15 12/24/16 08:47 Acetaminophen (Tylenol) 650 mg Q4H PRN PO TEMPERATURE > 101.5 F 12/19/16 12:15 12/20/16 20:06 Menthol ([place] Soheila) 1 lozenge UNSCH PRN BUCCAL SORE THROAT 12/19/16 12:15 12/22/16 11:31 Levetriacetam (Keppra) 500 mg Q12HR PO 12/21/16 09:00 12/26/16 09:25 Dexamethasone (Decadron) 4 mg TID PO 12/23/16 18:00 12/26/16 13:04 (Sasha Wilde) Medical Decision Making MDM Remarks 71 y/o female s/p resection of cerebellar metastatic adenocarcinoma (Sasha Wilde) Plan Plan Remarks cont therapy dc planning to rehab f/u radiation oncology, medical oncology clear for dc from [facility] standpoint, f/u Dr. Salazar outpatient (Sasha Wilde) Attending Statement The exam, history, and the medical decision-making described in the above note were completed with the assistance of the mid-level provider. I reviewed and agree with the findings presented. I attest that I had a [id number] encounter with the patient on the same day, and personally performed and documented my assessment and findings in the medical record. (Dav Burt MD) Sasha Wilde Dec 26, 2016 13:24 Dav Burt MD Jan 01, 2017 18:16
[2016-12-26] MEDS: ACETAMINOPHEN/HYDROcodone 325 MG/10 MG TAB PO PRN ×2 (15:58→20:25)
[2016-12-26] MEDS: ONDANSETRON HCL 4 MG/2 ML VIAL IV PRN (22:39)
[2016-12-27 00:43] VITALS: BP 136/69; PULSE 67; RESP 16; TEMP 97.6; O2SAT 96
[2016-12-27] MEDS: ONDANSETRON HCL 4 MG/2 ML VIAL IV PRN (04:28)
[2016-12-27] MEDS: CHLORHEXIDINE GLUCONATE 2 % 1 PACK (2 CLOTHS) TOP SCH (04:28)
[2016-12-27] MEDS: HYDROCORTISONE 0.5% CREAM 30 GM TOPICAL SCH ×2 (04:29→12:11)
[2016-12-27 05:10] VITALS: BP 167/79; PULSE 67; RESP 16; TEMP 97.6; O2SAT 97
--- NOTE | 2016-12-27 08:03 | PD.ONC.PN ---
Subjective Subjective Remarks Patient laying in bed, denies acute complaints. Staring a television intently for the entirety of this interview. Tells me she was up out of bed yesterday and her legs felt strong. Denies difficulty breathing, chest pain, hemoptysis or fevers. Objective Data Date Time Temp Pulse Resp B/P Pulse Ox O2 Delivery O2 Flow Rate FiO2 12/27/16 05:10 97.6 67 16 167/79 97 12/27/16 00:43 97.6 67 16 136/69 96 12/26/16 20:55 97.8 74 18 154/77 95 12/26/16 20:20 77 12/26/16 20:05 Room Air 12/26/16 15:55 96.9 84 20 134/64 99 12/26/16 12:38 98.1 101 20 135/65 94 12/26/16 08:29 97.3 71 18 152/81 98 Result Diagram: 12/24/16 0658 Administered Medications Medications (Trade) Dose Ordered Sig/Deana Route PRN Reason Start Time Stop Time Status Last Admin Dose Admin Morphine Sulfate (Morphine Inj) 2 mg Q2H PRN IV PAIN SCALE 6 TO 10 12/16/16 18:00 12/18/16 21:22 Pantoprazole Sodium (Protonix Inj) 40 mg DAILY IV 12/17/16 09:00 12/26/16 09:24 Artificial Tears (Tears Naturale Opth Soln) 1 drop TID EACH EYE 12/16/16 18:00 12/26/16 17:37 Ondansetron HCl (Zofran Inj) 4 mg Q6H PRN IV NAUSEA OR VOMITING 12/16/16 18:00 12/27/16 04:28 Docusate Sodium (Colace) 100 mg BID PO 12/16/16 21:00 12/26/16 20:25 Sennosides (Senokot) 17.2 mg Q12H PRN PO CONSTIPATION 12/16/16 18:00 12/26/16 05:28 Hydrocortisone (Corticaine 0.5% Cream) 1 applic Q8H TOPICAL 12/16/16 20:00 12/26/16 20:26 Multivitamins (Theragran) 1 tab DAILY PO 12/17/16 09:00 12/26/16 09:24 Folic Acid (Folate) 1 mg DAILY PO 12/17/16 09:00 12/26/16 09:24 Labetalol HCl (Trandate Inj) 10 mg Q1HR PRN IV PUSH SBP>160, DBP>90, HR>65 12/16/16 22:00 12/21/16 23:55 Hydralazine HCl (Apresoline Inj) 10 mg Q1HR PRN IV PUSH SBP>160, DBP>90 12/16/16 22:00 12/23/16 03:17 Nitroglycerin (Nitroglycerin 2% Oint) 2 inch Q6HR PRN TOPICAL SBP>160, DBP>90 12/16/16 22:00 12/16/16 21:57 Nicotine (Habitrol 14 Mg Patch.24 Hr) 1 patch DAILY T-DERMAL 12/17/16 09:00 12/26/16 09:25 Miscellaneous Information 1 DAILY T-DERMAL 12/17/16 09:00 12/23/16 08:20 Sodium Chloride (NS Flush) 2 ml BID IV FLUSH 12/19/16 21:00 12/26/16 20:25 Acetaminophen/ Hydrocodone Bitart ([place] 10-325 Mg) 1 tab Q4H PRN PO PAIN SCALE 1 TO 5 12/19/16 12:15 12/25/16 16:55 Acetaminophen/ Hydrocodone Bitart ([place] 10-325 Mg) 2 tab Q4H PRN PO PAIN SCALE 6 TO 10 12/19/16 12:15 12/26/16 20:25 Cyclobenzaprine HCl (Flexeril) 10 mg Q8H PRN PO MUSCLE SPASM 12/19/16 12:15 12/21/16 20:13 Clonidine (Catapres) 0.1 mg Q6H PRN PO SYS BP GREATER THAN 170 MMHG 12/19/16 12:15 12/24/16 08:47 Acetaminophen (Tylenol) 650 mg Q4H PRN PO TEMPERATURE > 101.5 F 12/19/16 12:15 12/20/16 20:06 Menthol ([place]ila) 1 lozenge UNSCH PRN BUCCAL SORE THROAT 12/19/16 12:15 12/22/16 11:31 Levetriacetam (Keppra) 500 mg Q12HR PO 12/21/16 09:00 12/26/16 20:25 Dexamethasone (Decadron) 4 mg TID PO 12/23/16 18:00 12/26/16 17:37 Objective Remarks GENERAL APPEARANCE: Ms. Cruz is an elderly female, she is laying in bed and appears to be comfortable. Male subgrade roller operator at bedside. The patient is awake and alert. She speaks to me in full sentences. HEENT: Surgical dressing noted along the left side of the posterior scalp. ORAL EXAM: No pharyngeal erythema. NECK EXAM: No palpable cervical or supraclavicular lymphadenopathy. RESPIRATORY: Prolonged expiratory phase with coarse crackles and decreased bibasilar breath sounds. CARDIOVASCULAR: Regular rate and rhythm, S1-S2. No obvious murmurs, gallops. ABDOMINAL EXAM: Thin belly, tender to palpation especially over the left lower quadrant, positive bowel sounds and positive liver. No palpable organ enlargement. LOWER EXTREMITIES: No pretibial edema. No calf tenderness. NEUROLOGIC: Motor strength generally decreased associated with decreased muscle mass and tone. She is, however, able to move all four limbs spontaneously and against gravity as well. Assessment/Plan Assessment Ms. Cruz is a 71-year-old female with a 45+ pack-year history of tobaccoism. She had not had much in the way of routine health maintenance or routine medical care for that matter. She claims having been well right up until the day of admission when she developed dizziness. She was brought into the emergency department by her boyfriend and imaging studies of the head revealed enlarged enhancing complex-appearing mass involving the left cerebellar hemisphere measuring 4.1 x 3.7-cm consistent with malignancy. This was associated with hydrocephalus and a large degree of vasogenic edema. Further imaging studies of the body indicated a right perihilar mass measuring approximately 2 cm consistent with a possible primary. On 12/20/2016 this patient did undergo craniotomy with debulking of the left cerebellar mass. Pathologic review indicates findings consistent with metastatic adenocarcinoma of lung primary. The oncology service has been asked to evaluate the patient for further workup and management. Plan 1. 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 Await evaluation by radiation oncology with initiation of outpatient postop radiation to the tumor bed in the cerebellum. 2. Primary tumor identified within the right lung perihilar region: This is the likely primary site. I will schedule outpatient follow-up with outpatient staging. Initially the focus of care will be to control her intracranial disease following which we will focus on systemic disease control. I have requested various mutational analyses to identify any underlying patient transportation driver mutation as well as PDL-1 ligand staining on the resected tumor specimen from the brain. Outpatient follow-up will be arranged. Patient may be discharged home when cleared by neurosurgery. Please continue oral antiepileptics at discharge as well as oral corticosteroid therapy for management of intracranial vasogenic edema; a reasonable dose would be dexamethasone 2 mg by mouth 3 times a day. Saeed Jay MD Dec 27, 2016 08:03
[2016-12-27 08:10] VITALS: BP 165/79; PULSE 74; RESP 17; TEMP 97.5; O2SAT 96
[2016-12-27] MEDS: REMOVE OLD PATCH T-DERMAL SCH (09:00)
[2016-12-27] MEDS: NICOTINE 14 MG/24 HR PATCH T-DERMAL SCH (09:04)
[2016-12-27] MEDS: levETIRAcetam 500 MG TAB PO SCH (09:05)
[2016-12-27] MEDS: DOCUSATE SODIUM 100 MG CAP PO SCH (09:05)
[2016-12-27] MEDS: MULTIVITAMIN TAB PO SCH (09:05)
[2016-12-27] MEDS: FOLIC ACID 1 MG TAB PO SCH (09:06)
[2016-12-27] MEDS: DEXAMETHASONE 4 MG TAB PO SCH ×3 (09:06→17:32)
[2016-12-27] MEDS: ARTIFICIAL TEARS OPTH SOLN 15 ML BTL EACH EYE SCH ×3 (09:06→17:37)
[2016-12-27] MEDS: PANTOPRAZOLE SODIUM 40 MG VIAL IV SCH (09:08)
[2016-12-27] MEDS: SODIUM CHLORIDE 0.9% FLUSH 10 ML FLUSH IV FLUSH SCH (09:08)
--- NOTE | 2016-12-27 09:50 | RC ---
cc: MALI DAMON MD KHANNA, ROHIT K. M.D. FACTOR, BRAD A. MD DATE OF SERVICE: 12/23/2016 HISTORY: Miss Cruz is a 71-year-old female with a recent diagnosis of metastatic [id number]-[id number] lung cancer. She recently underwent surgical resection by Dr. Salazar who saw her as an inpatient. We were asked to see her and discussed the role radiation therapy. Did discuss her course with Dr. Salazar physician veterinary assistant technician Bartolome Lopez. On 12/19/2016 she underwent left sub septal craniectomy with resection of cerebellar hemisphere neoplasm with bovine dural patch grafting, left occipital alexa hole placement for ventriculostomy using microsurgical technique and brain lap stereotactic intraoperative navigation use. She initially presented with hydrocephalous and on imaging noted to have a lung mass. She underwent resection. We saw her today as an inpatient. She did her friend next her. Discussed case with nursing team as well. We were asked to see her and give potential of radiation therapy. She denies any prior radiation therapy. We discussed potential radiation therapy to we discussed radiation therapy that shown decrease local regional recurrence the pain outside of the postoperative cavity we can consider stereotactic radiosurgery or stereotactic radiotherapy. Additional options would exist as well. Some role may exist for treatment of the lung lesion as well, based on staging which could includes a PET CT additionally. We will schedule her for reevaluation approximately 1 week. She is agreeable to this approach. She may have a rehab for sometime to thank you. Alfredo Boyd MD Radiation Oncologist SHAE/eli /1:44 PM /9:45 AM
--- NOTE | 2016-12-27 10:01 | HHI.PR ---
Subjective Remarks F-U cerebellar mass s/p resection 12/26/16-patient seen and examined; alert and oriented x 2 ; denies any headache 12/27/16-patient seen and examined, denies any headache, chest pain or shortness of breath. Son in the room. she was seen by radiation oncology Objective Vitals Vital Signs Date Time Temp Pulse Resp B/P Pulse Ox O2 Delivery O2 Flow Rate FiO2 12/27/16 08:10 97.5 74 17 165/79 96 12/27/16 05:10 97.6 67 16 167/79 97 12/27/16 00:43 97.6 67 16 136/69 96 12/26/16 20:55 97.8 74 18 154/77 95 12/26/16 20:20 77 12/26/16 20:05 Room Air 12/26/16 15:55 96.9 84 20 134/64 99 12/26/16 12:38 98.1 101 20 135/65 94 I/O 12/26/16 12/26/16 12/26/16 12/27/16 12/27/16 12/27/16 07:00 15:00 23:00 07:00 15:00 23:00 Intake Total 118 ml Balance 118 ml Intake Oral 118 ml # Voids 2 4 # Bowel Movements 0 Result Diagram: 12/24/16 0658 Imaging Last Impressions Head CT 12/23/16 0600 Signed Impressions: Service Date/Time: Friday, December 23, 2016 04:30 - CONCLUSION: 1. Increase in size of the left subdural effusion and there is a new subdural effusion on the right not present previously. 2. No significant change in tiny intraventricular hemorrhage within the right occipital lobe and slight subarachnoid hemorrhage within the left supracerebellar cistern. 3. Postcraniotomy changes left occipital lobe. K. Marco Antonio Jules MD Chest X-Ray 12/16/16 1434 Signed Impressions: Service Date/Time: Friday, December 16, 2016 15:27 - CONCLUSION: No acute disease. Isaías Finch Jr., MD Chest CT 12/16/16 0000 Signed Impressions: Service Date/Time: Friday, December 16, 2016 20:06 - CONCLUSION: 1. 2.1 x 1.7 cm right hilar mass consistent with neoplasm or lymphadenopathy. PET/CT scan may be helpful for further evaluation. 2. Diffuse emphysematous changes are noted. 3. Multiple compression deformities noted throughout the thoracic and lumbar spine. 4. Degenerative changes and scoliosis of the thoracolumbar spine. Chirag No MD Brain MRI 12/16/16 0000 Signed Impressions: Service Date/Time: Friday, December 16, 2016 19:19 - CONCLUSION: 1. Large enhancing complex mass within the left cerebellar hemisphere measuring 4.1 x 3.7 cm consistent with primary or metastatic neoplasm with associated edema throughout the left cerebellar hemisphere resulting in effacement of the left quadrigeminal cistern and impingement upon the left posterolateral aspect of the alberto. The findings are consistent with uncal herniation on the left. 2. 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 3. Severe periventricular white matter small vessel ischemic changes bilaterally. 4. Ventriculomegaly suggesting central cerebral atrophy versus hydrocephalus. Chirag No MD Abdomen/Pelvis CT 12/16/16 0000 Signed Impressions: Service Date/Time: Friday, December 16, 2016 20:07 - CONCLUSION: 1. No intra-abdominal mass or lymphadenopathy. 2. Degenerative changes and scoliosis of the thoracolumbar spine. 3. Multiple compression deformities within the thoracic and lumbar spine. Chirag No MD Objective Remarks GENERAL: NAD SKIN: Warm and dry. HEAD: Normocephalic. left sided barbie in place EYES: No scleral icterus. No injection or drainage. NECK: Supple, trachea midline. No JVD or lymphadenopathy. CARDIOVASCULAR: Regular rate and rhythm without murmurs, gallops, or rubs. RESPIRATORY: Breath sounds equal bilaterally. No accessory muscle use. GASTROINTESTINAL: Abdomen soft, non-tender, nondistended. MUSCULOSKELETAL: No cyanosis, or edema. BACK: Nontender without obvious deformity. No CVA tenderness. Procedures Left suboccipital craniectomy with resection of cerebellar hemisphere neoplasm; bovine dural patch grafting; left occipital bur hole placement for ventriculostomy; BrainStylefinch stereotactic intraoperative navigation use; microsurgical technique A/P Problem List: (1) Hydrocephalus ICD Code: G91.9 Status: Acute (2) Cerebellar mass ICD Code: G93.89 Status: Acute (3) Chronic hyponatremia ICD Code: E87.1 Status: Acute (4) Altered mental status ICD Code: R41.82 Status: Acute (5) Normocytic anemia ICD Code: D64.9 Status: Acute (6) Non-small cell carcinoma of lung ICD Code: C34.90 Status: Acute (7) Metastasis from malignant tumor of lung ICD Code: C34.90 Status: Acute Assessment and Plan 71 yrs old female with Left cerebellar mass -2/2 metastasis lung primary Initial brain CT revealed possible left cerebellar mass with ventriculomegaly MRI brain - 4.1 x 3.7 primary versus metastatic mass with vasogenic edema in the left cerebellum. 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 Ventriculomegaly. Left quadrigeminal impingement upon the left posterolateral alberto currently on Decadron 4 mg IV every 6 hours for vasogenic edema Keppra 500 mg IV twice a day seizure prophylaxis s/p Resection and management per Neurosurgery Appreciate input from Medical and Radiation oncology Patient to have possible stereotactic radiosurgery or stereotactic radiotherapy per XRT PET scan outpatient Ongoing tobaccoism Right hilar mass Non small cell lung cancer CT the chest revealed a 2.1 x 1.7 cm right hilar mass with diffuse emphysematous changes. Nasal cannula to maintain saturations greater than equal to 92% Incentive spirometry while awake Bronchodilator therapy will be every 6 hours and as needed Tobacco cessation encouraged Nicotine patch 14 mg daily Normocytic anemia Thrombocytosis Monitor CBC. Possible pedicularis pedis s/p 1 dose of permethrin cream due to her "scratch". Monitor for infection Hyponatremia Replace electrolytes as clinically indicated. Lumbar spine scoliosis Multiple old thoracic and lumbar compression fractures No surgical intervention at this time. PT evaluate and treat. Prophylaxis - GI - Protonix - DVT - SCD/no pharmacological prophylaxis in light of cerebellar mass Problem Qualifiers (1) Altered mental status: Qualified Code: R41.0 - Disorientation Bartolome Baig MD Dec 27, 2016 10:01
[2016-12-27] MEDS ORDERED: LEVE500 PO (10:13)
[2016-12-27] MEDS ORDERED: DOCU1CAP39 PO (10:13)
[2016-12-27] MEDS ORDERED: PROT40TA PO (10:13)
[2016-12-27] MEDS ORDERED: HYDR-3583 PO (10:13)
[2016-12-27] MEDS ORDERED: CYCL1TAB29 PO (10:13)
[2016-12-27] MEDS ORDERED: DEXA2TAB PO (10:13)
[2016-12-27] MEDS ORDERED: THIA100T PO (10:17)
--- NOTE | 2016-12-27 10:18 | HHI.DS ---
Discharge Summary Admission Date Dec 16, 2016 at 17:34 Discharge Date: Dec 27, 2016 Admitting Diagnosis cerebellar mass, hydrocephalus, altered mental status (1) Hydrocephalus ICD Code: G91.9 (2) Cerebellar mass ICD Code: G93.89 (3) Chronic hyponatremia ICD Code: E87.1 (4) Altered mental status ICD Code: R41.82 (5) Normocytic anemia ICD Code: D64.9 (6) Non-small cell carcinoma of lung ICD Code: C34.90 (7) Metastasis from malignant tumor of lung ICD Code: C34.90 Procedures Left suboccipital craniectomy with resection of cerebellar hemisphere neoplasm; bovine dural patch grafting; left occipital bur hole placement for ventriculostomy; BrainLab stereotactic intraoperative navigation use; microsurgical technique Brief History - From Admission 71-year-old female. Date of admission 12/16/2016. Past medical history includes previous spontaneous pneumothorax and ongoing tobaccoism. Unknown if chronic alcohol use. Patient was brought in by significant other with a two-week history of altered mental status. She is found disheveled with multiple scabs which is been "picking" for the past weeks throughout her body. She is currently oriented to person, time, date of and another. Not oriented to place. She is moving all [address] head revealed a left cerebellar mass with compression on the lateral aspect the fourth ventricle with somewhat prominent ventricles and supratentorial noted. Neurosurgery was contacted recommended MRI brain and admission to refrigeration system installer. Laboratory significant only for a normocytic anemia and hyponatremia. CT chest revealed a 2.1 x 1.7 right hilar mass with diffuse emphysematous changes. MRI of the brain revealed a 5 x 2.7 cm cerebellar mass with edema impinging the left quadrigeminal cistern with the patient from the left posterior lateral alberto. 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 There is documented ventriculomegaly. CBC/BMP: 12/24/16 0658 Imaging Last Impressions Head CT 12/23/16 0600 Signed Impressions: Service Date/Time: Friday, December 23, 2016 04:30 - CONCLUSION: 1. Increase in size of the left subdural effusion and there is a new subdural effusion on the right not present previously. 2. No significant change in tiny intraventricular hemorrhage within the right occipital lobe and slight subarachnoid hemorrhage within the left supracerebellar cistern. 3. Postcraniotomy changes left occipital lobe. Leonel Jules MD Chest X-Ray 12/16/16 1434 Signed Impressions: Service Date/Time: Friday, December 16, 2016 15:27 - CONCLUSION: No acute disease. Isaías Finch Jr., MD Chest CT 12/16/16 0000 Signed Impressions: Service Date/Time: Friday, December 16, 2016 20:06 - CONCLUSION: 1. 2.1 x 1.7 cm right hilar mass consistent with neoplasm or lymphadenopathy. PET/CT scan may be helpful for further evaluation. 2. Diffuse emphysematous changes are noted. 3. Multiple compression deformities noted throughout the thoracic and lumbar spine. 4. Degenerative changes and scoliosis of the thoracolumbar spine. Chirag No MD Brain MRI 12/16/16 0000 Signed Impressions: Service Date/Time: Friday, December 16, 2016 19:19 - CONCLUSION: 1. Large enhancing complex mass within the left cerebellar hemisphere measuring 4.1 x 3.7 cm consistent with primary or metastatic neoplasm with associated edema throughout the left cerebellar hemisphere resulting in effacement of the left quadrigeminal cistern and impingement upon the left posterolateral aspect of the alberto. The findings are consistent with uncal herniation on the left. 2. 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 3. Severe periventricular white matter small vessel ischemic changes bilaterally. 4. Ventriculomegaly suggesting central cerebral atrophy versus hydrocephalus. Chirag No MD Abdomen/Pelvis CT 12/16/16 0000 Signed Impressions: Service Date/Time: Friday, December 16, 2016 20:07 - CONCLUSION: 1. No intra-abdominal mass or lymphadenopathy. 2. Degenerative changes and scoliosis of the thoracolumbar spine. 3. Multiple compression deformities within the thoracic and lumbar spine. Chirag No MD PE at Discharge GENERAL: NAD SKIN: Warm and dry. HEAD: Normocephalic. left sided barbie in place EYES: No scleral icterus. No injection or drainage. NECK: Supple, trachea midline. No JVD or lymphadenopathy. CARDIOVASCULAR: Regular rate and rhythm without murmurs, gallops, or rubs. RESPIRATORY: Breath sounds equal bilaterally. No accessory muscle use. GASTROINTESTINAL: Abdomen soft, non-tender, nondistended. MUSCULOSKELETAL: No cyanosis, or edema. BACK: Nontender without obvious deformity. No CVA tenderness. Hospital Course Left cerebellar mass -2/2 metastasis lung primary Initial brain CT revealed possible left cerebellar mass with ventriculomegaly MRI brain - 4.1 x 3.7 primary versus metastatic mass with vasogenic edema in the left cerebellum. 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 Ventriculomegaly. Left quadrigeminal impingement upon the left posterolateral alberto currently on Decadron 4 mg IV every 6 hours for vasogenic edema Keppra 500 mg IV twice a day seizure prophylaxis s/p Resection and management per Neurosurgery Appreciate input from Medical and Radiation oncology Patient to have possible stereotactic radiosurgery or stereotactic radiotherapy per XRT PET scan outpatient Ongoing tobaccoism Right hilar mass Non small cell lung cancer CT the chest revealed a 2.1 x 1.7 cm right hilar mass with diffuse emphysematous changes. Nasal cannula to maintain saturations greater than equal to 92% Incentive spirometry while awake Bronchodilator therapy will be every 6 hours and as needed Tobacco cessation encouraged Nicotine patch 14 mg daily Normocytic anemia Thrombocytosis Monitor CBC. Possible pedicularis pedis s/p 1 dose of permethrin cream due to her "scratch". Monitor for infection Hyponatremia Replace electrolytes as clinically indicated. Lumbar spine scoliosis Multiple old thoracic and lumbar compression fractures No surgical intervention at this time. PT evaluate and treat. Prophylaxis - GI - Protonix - DVT - SCD/no pharmacological prophylaxis in light of cerebellar mass Pt Condition on Discharge: Fair Discharge Disposition: Discharge to SNF Discharge Time: > 30 minutes Discharge Instructions DIET: Follow Instructions for: Heart Healthy Diet Speech Therapy-Diet Recommends: Mechanical Soft Follow up Referrals: Neurosurgery Oncology PCP Follow-up - 2-3 Days New Medications: Dexamethasone (Dexamethasone) 2 Mg Tab 2 MG PO Q8HR Seizure Control #90 Ref 0 TAB Pantoprazole (Protonix) 40 Mg Tab 40 MG PO DAILY Reflux #30 Ref 0 TAB Thiamine (Thiamine) 100 Mg Tab 100 MG PO DAILY Nutritional Supplement #30 Ref 0 TAB Cyclobenzaprine (Flexeril) 10 Mg Tab 10 MG PO Q8H PRN MUSCLE SPASM #30 TAB Docusate Sodium (Dok) 100 Mg Cap 100 MG PO BID Prevent Constipation #20 CAP Hydrocodone-Acetaminophen (Hydrocodone-Acetaminophen) 10-325 mg Tab 1 TAB PO Q4H PRN PAIN SCALE 1 TO 5 #10 TAB Levetiracetam (Keppra) 500 Mg Tab 500 MG PO Q12HR Control Seizures #60 TAB Discontinued Medications: Amoxicillin (Amoxicillin) 500 Mg Cap 500 MG PO TID #30 Hydrocodone/Acetaminophen 5 mg/325 mg (Hydrocodone/Acetaminophen 5 mg/325 mg) 1 Tab Tab 1 TAB PO Q6H as needed for pain #30 Bartolome Baig MD Dec 27, 2016 10:18
--- NOTE | 2016-12-27 10:56 | HHI.NSPN ---
Note Status Status: Progress Note Interval History Interval History Patient doing well post-op day 8 s/p resection of cerebellar tumor. Neurologically stable. No complaints when seen. Discharge order written by Primary Team for transfer to Rehab done. Labs, Micro, & Vital Signs Results Date Time Temp Pulse Resp B/P Pulse Ox O2 Delivery O2 Flow Rate FiO2 12/27/16 08:10 97.5 74 17 165/79 96 12/27/16 05:10 97.6 67 16 167/79 97 12/27/16 00:43 97.6 67 16 136/69 96 12/26/16 20:55 97.8 74 18 154/77 95 12/26/16 20:20 77 12/26/16 20:05 Room Air 12/26/16 15:55 96.9 84 20 134/64 99 12/26/16 12:38 98.1 101 20 135/65 94 12/27/16 07:00 Intake Total 118 ml Balance 118 ml Constitutional Vital Signs Date Time Temp Pulse Resp B/P Pulse Ox O2 Delivery O2 Flow Rate FiO2 12/27/16 08:10 97.5 74 17 165/79 96 12/27/16 05:10 97.6 67 16 167/79 97 12/27/16 00:43 97.6 67 16 136/69 96 12/26/16 20:55 97.8 74 18 154/77 95 12/26/16 20:20 77 12/26/16 20:05 Room Air 12/26/16 15:55 96.9 84 20 134/64 99 12/26/16 12:38 98.1 101 20 135/65 94 12/27/16 07:00 Intake Total 118 ml Balance 118 ml Review of Systems/Exam ROS Neuro: Denies any headache, dizziness, numbness, tingling or weakness. Respiratory: Denies any shortness of breath. Cardiac: Denies any chest pain or racing heart. GI: Denies any abdominal pain, nausea or vomiting. Exam Respiratory: Clear bilaterally w/o W/R/R, equal excursion, non-laboured, on RA. Cardiac: Regular rate & rhythm w/o M/G/R. GI: Abdomen soft & non-tender, positive bowel sounds all quadrants. Skin: Left posterior fossa surgical incision & drain insertion site well approximated with barbie although inferior portion of incision not as well approximated, minimally tender to palpation, no drainage, erythema or streaking noted. Neuro: Awake & alert. Speech clear but slow to respond. Follows commands slowly but quickly distracted. Sensation intact to light touch all extremities. Motor strength 5/5 but patient with only limited participation due to distraction. Face symmetrical, right pupil irregular & slightly larger than left. Grossly intact finger to nose bilaterally. Medications Current Medications Current Medications Medications (Trade) Dose Ordered Sig/Deana Route Start Time Stop Time Status Last Admin (Milk Of Ever Liq) 30 ml Q12H PRN PO 12/16/16 17:30 (Narcan Inj) 0.4 mg UNSCH PRN IV 12/16/16 17:30 (Morphine Inj) 2 mg Q2H PRN IV 12/16/16 18:00 12/18/16 21:22 (Protonix Inj) 40 mg DAILY IV 12/17/16 09:00 12/27/16 09:08 (Tears Naturale Opth Soln) 1 drop TID EACH EYE 12/16/16 18:00 12/27/16 09:06 (Zofran Inj) 4 mg Q6H PRN IV 12/16/16 18:00 12/27/16 04:28 (Colace) 100 mg BID PO 12/16/16 21:00 12/27/16 09:05 (Senokot) 17.2 mg Q12H PRN PO 12/16/16 18:00 12/26/16 05:28 Miscellaneous Information 1 Q361D XX 12/16/16 18:00 (Chlorhexidine 2% Cloth) Taper DAILY@04 TOP 12/17/16 04:00 12/13/17 03:59 (Chlorhexidine 2% Cloth) 3 pack UNSCH PRN TOP 12/16/16 18:00 (D50w (Vial) Inj) 25 ml UNSCH PRN IV PUSH 12/16/16 18:45 (Glucagon Inj) 1 mg UNSCH PRN OTHER 12/16/16 18:45 (Corticaine 0.5% Cream) 1 applic Q8H TOPICAL 12/16/16 20:00 12/26/16 20:26 (Theragran) 1 tab DAILY PO 12/17/16 09:00 12/27/16 09:05 (Folate) 1 mg DAILY PO 12/17/16 09:00 12/27/16 09:06 (Trandate Inj) 10 mg Q1HR PRN IV PUSH 12/16/16 22:00 12/21/16 23:55 (Apresoline Inj) 10 mg Q1HR PRN IV PUSH 12/16/16 22:00 12/23/16 03:17 (Nitroglycerin 2% Oint) 2 inch Q6HR PRN TOPICAL 12/16/16 22:00 12/16/16 21:57 (Habitrol 14 Mg Patch.24 Hr) 1 patch DAILY T-DERMAL 12/17/16 09:00 12/27/16 09:04 Miscellaneous Information 1 DAILY T-DERMAL 12/17/16 09:00 12/27/16 09:00 (NS Flush) 2 ml UNSCH PRN IV FLUSH 12/19/16 12:15 (NS Flush) 2 ml BID IV FLUSH 12/19/16 21:00 12/27/16 09:08 (Ativan Inj) 1 mg Q1H PRN IVP 12/19/16 12:15 (Reglan Inj) 10 mg Q8H PRN IVS 12/19/16 12:15 (Dexter 10-325 Mg) 1 tab Q4H PRN PO 12/19/16 12:15 12/25/16 16:55 (Dexter 10-325 Mg) 2 tab Q4H PRN PO 12/19/16 12:15 12/26/16 20:25 (Flexeril) 10 mg Q8H PRN PO 12/19/16 12:15 12/21/16 20:13 (Catapres) 0.1 mg Q6H PRN PO 12/19/16 12:15 12/24/16 08:47 (Tylenol) 650 mg Q4H PRN PO 12/19/16 12:15 12/20/16 20:06 ([place] Soheila) 1 lozenge UNSCH PRN BUCCAL 12/19/16 12:15 12/22/16 11:31 (Keppra) 500 mg Q12HR PO 12/21/16 09:00 12/27/16 09:05 (Decadron) 4 mg TID PO 12/23/16 18:00 12/27/16 09:06 Medical Decision Making MDM Remarks Cerebellar metastatic adenocarcinoma s/p resection 12/19 with stable neurologic exam Plan Plan Remarks 1. Cleared for discharge from Neurosurgery perspective 2. Follow up with Dr Salazar as an outpatient 3. Follow up with Radiation Oncology & Medical Oncology 4. Continue current treatment plan 5. Discharge to Rehab per Primary Team Gurinder Chambers Dec 27, 2016 10:56
[2016-12-27] MEDS: ACETAMINOPHEN/HYDROcodone 325 MG/10 MG TAB PO PRN ×2 (12:10→17:33)
[2016-12-27 12:53] VITALS: BP 150/77; PULSE 87; RESP 20; TEMP 96.5
[2016-12-27 13:15] VITALS: RESP 18
== END 2016-12-27 18:30 | DRG 25 ==
LOC: NEPC 13:50 → NEDA 17:34 → N03A 20:25 → N05A 12-23 23:48
PROVIDERS: ADMIT Internal Medicine Critical Care Medicine; ATTEND Hospitalist
PROC: 009630Z Drainage of Cerebral Ventricle with Drainage Device, Percutaneous Approach (ICD-10-PCS; 2016-12-19)
PROC: 00U20KZ Supplement Dura Mater with Nonautologous Tissue Substitute, Open Approach (ICD-10-PCS; 2016-12-19)
PROC: 00BC0ZX Excision of Cerebellum, Open Approach, Diagnostic (ICD-10-PCS; principal; 2016-12-19 08:17)
DX: C79.31 Secondary malignant neoplasm of brain (principal); G93.6 Cerebral edema; G91.1 Obstructive hydrocephalus; C34.01 Malignant neoplasm of right main bronchus; E87.1 Hypo-osmolality and hyponatremia; D64.9 Anemia, unspecified; F17.210 Nicotine dependence, cigarettes, uncomplicated; R41.0 Disorientation, unspecified; L98.8 Other specified disorders of the skin and subcutaneous tissue; Z86.73 Personal history of transient ischemic attack (TIA), and cerebral infarction without residual deficits; Z88.2 Allergy status to sulfonamides
CPT/HCPCS: 36600; 70450; 70553; 71010; 71260; 74177; 76937; 80048; 80053; 80076; 80307; 81001; 81235; 82140; 82550; 82805; 82948; 83605; 83735; 84100; 84132; 84295; 84443; 84484; 85025; 85610; 85730; 86850; 86900; 86901; 86920; 87040; 87641; 88307; 88331; 88341; 88342; 88360; 88377; 93005; 94150; 95819; 96360; 99222; A9579; C1713; C9113; J0360; J0690; J1100; J1580; J1940; J1953; J2060; J2270; J2370; J2405; J3010; J3370; J3411; J3480; J7030; J7050; J8540; Q9967

== ENCOUNTER 2017-01-09 19:00 | Inpatient (IN) | payer OTHER, MEDICARE ==
[~2017-01-09] VITALS: Ht 167.6 cm; Wt 45.4 kg
[~2017-01-09 19:00] MED LIST changes: -AMOX500T PO; +CYCL1TAB29 PO; +DEXA2TAB PO; +DOCU1CAP39 PO; +HYDR-3583 PO; +LEVE500 PO; -LORTA5 PO; +PROT40TA PO; +THIA100T PO
[2017-01-09 19:18] VITALS: BP 166/83; PULSE 109; RESP 16; TEMP 98; O2SAT 97
[2017-01-09] MEDS ORDERED: PIPERACIL-TAZO 4.5 GM PREMIX 100 ML IV STA (19:56)
[2017-01-09] MEDS ORDERED: VANCOMYCIN INJ 1,000 MG in SODIUM CHLOR 0.9% 250 ML INJ 250 ML IV STA (19:56)
[2017-01-09] MEDS ORDERED: SODIUM CHLORID 0.9% 500 ML INJ 500 ML IV ONE (20:00)
[2017-01-09] MEDS ORDERED: SODIUM CHLOR 0.9% 1000 ML INJ 1,000 ML IV ONE (20:00)
[2017-01-09 20:04] VITALS: O2SAT 98
--- NOTE | 2017-01-09 20:04 | PD ---
HPI Chief Complaint: Wound/Suture/Staple Re-Check Time Seen by Provider: 20:00 Travel History International Travel<30 days: No Contact w/Intl Traveler<30days: No Traveled to known affect area: No History of Present Illness HPI Patient comes in after being transferred from a correction to another correction ([facility] whose attending physician is Dr. Mathew) per family's request. Upon intake at the new correction patient was noted to have some drainage from her surgical wound and was subsequently sent to the emergency department for further treatment and evaluation. Patient denies any pain anywhere and is uncertain as to why she was here. Patient is aware that she is in the hospital and her first name. PFSH Past Medical History Asthma: No Autoimmune Disease: No Blood Disorders: No Anxiety: No Depression: No Heart Rhythm Problems: No Cancer: Yes Cardiovascular Problems: No High Cholesterol: No Chemotherapy: No Chest Pain: No Congestive Heart Failure: No COPD: No Diabetes: No Diminished Hearing: No Endocrine: No Gastrointestinal Disorders: No Genitourinary: No Hypertension: No Immune Disorder: No Implanted Vascular Access Dvce: No Musculoskeletal: No Neurologic: No Psychiatric: No Respiratory: No Radiation Therapy: No Renal Failure: No Sleep Apnea: No PNEUMOCCOCAL Vaccine (Year): 2 Menopausal: Yes Past Surgical History Abdominal Surgery: Yes (APPY) Appendectomy: Yes Gynecologic Surgery: Yes (HYSTERECTOMY) Hysterectomy: Yes (30 YRS AGO) Tonsillectomy: Yes Other Surgery: Yes (BRAIN SURG. ) Social History Alcohol Use: Yes (DAILY ) Tobacco Use: Yes (1PPD) Substance Use: No Allergies-Medications (Allergen,Severity, Reaction): Coded Allergies: Sulfa (Verified Allergy, Severe, 01/09/17) Reported Meds & Prescriptions Reported Meds & Active Scripts Active Thiamine (Thiamine HCl) 100 Mg Tab 100 Mg PO DAILY Protonix (Pantoprazole Sodium) 40 Mg Tab 40 Mg PO DAILY Hydrocodone-Acetaminophen 10-325 mg Tab 1 Tab PO Q4H PRN Flexeril (Cyclobenzaprine HCl) 10 Mg Tab 10 Mg PO Q8H PRN Dok (Docusate Sodium) 100 Mg Cap 100 Mg PO BID Dexamethasone 2 Mg Tab 2 Mg PO Q8HR Keppra (Levetiracetam) 500 Mg Tab 500 Mg PO Q12HR Review of Systems ROS Limitations: Poor Historian Except as stated in HPI: all other systems reviewed are Neg Physical Exam Exam Limitations: Poor Historian Narrative GENERAL: Well-developed, under nourished, in no acute distress, and non-ill appearing. SKIN: Clear mixed with purulent drainage noted from dehisced surgical site of the left suboccipital lobe. There is no erythematous around this. There is no crepitus. HEAD: Atraumatic. Normocephalic. EYES: Pupils equal and round. EOMI. No scleral icterus. No injection or drainage. ENT: No nasal bleeding or discharge. Mucous membranes pink and moist. NECK: Trachea midline. Supple. No nuclear rigidity. CARDIOVASCULAR: Tachycardia rate and regular rhythm. No murmur appreciated. RESPIRATORY: No accessory muscle use. No respiratory distress. Decreased breath sounds throughout. MUSCULOSKELETAL: No obvious deformities. No clubbing. No cyanosis. No edema. Full range of motion. NEUROLOGICAL: Awake and alert. No obvious cranial nerve deficits. Motor grossly within normal limits. Normal speech. PSYCHIATRIC: Appropriate mood and affect; insight and judgment normal. Data Data Last Documented VS Vital Signs Date Time Temp Pulse Resp B/P Pulse Ox O2 Delivery O2 Flow Rate FiO2 01/09/17 22:28 92 16 175/86 96 01/09/17 20:04 Room Air 01/09/17 19:18 98.0 Orders Electrocardiogram (01/09/17 19:56) Complete Blood Count With Diff (01/09/17 19:56) Comprehensive Metabolic Panel (01/09/17 19:56) Prothrombin Time / Inr (Pt) (01/09/17 19:56) Act Partial Throm Time (Ptt) (01/09/17 19:56) Lactic Acid Sepsis Protocol (01/09/17 19:56) Magnesium (Mg) (01/09/17 19:56) Urinalysis - C+S If Indicated (01/09/17 19:56) Blood Culture (01/09/17 19:56) Wound Culture And Gram Stain (01/09/17 19:56) Chest, Single Ap (01/09/17 19:56) Blood Glucose (01/09/17 19:56) Ecg Monitoring (01/09/17 19:56) Iv Access Insert/Monitor (01/09/17 19:56) Oximetry (01/09/17 19:56) Oxygen Administration (01/09/17 19:56) Piperacil-Tazo 4.5 Gm Premix (Zosyn 4.5 (01/09/17 19:56) Vancomycin Inj (Vancomycin Inj) (01/09/17 19:56) Sodium Chlor 0.9% 1000 Ml Inj (Ns 1000 M (01/09/17 20:00) Sodium Chlorid 0.9% 500 Ml Inj (Ns 500 M (01/09/17 20:00) Ct Brain W/O Iv Contrast(Rout) (01/09/17 ) Urinary Catheter Insert/Apply (01/09/17 20:21) Consult Neurosurgery (01/09/17 ) Wound Care (01/09/17 21:33) Urine Culture (01/09/17 20:30) (Hub Use Only)Inp Phy Cons/Ref (01/09/17 ) Ckmb (Isoenzyme) Profile (01/09/17 19:56) Troponin I (01/09/17 19:56) Admit Order (Ed Use Only) (01/09/17 22:54) Labs Laboratory Tests Test 01/09/17 01/09/17 20:30 21:20 Urine Color YELLOW Urine Turbidity HAZY Urine pH 6.5 Urine Specific [place] 1.015 Urine Protein TRACE mg/dL Urine Glucose (UA) NEG mg/dL Urine Ketones NEG mg/dL Urine Occult Blood NEG Urine Nitrite NEG Urine Bilirubin NEG Urine Urobilinogen LESS THAN 2.0 MG/DL Urine Leukocyte Esterase MOD Urine RBC 1 /hpf Urine WBC 11 /hpf Urine Squamous Epithelial 24 /hpf Cells Urine Bacteria RARE /hpf Microscopic Urinalysis Comment CATH-CULTURE IND White Blood Count 7.8 TH/MM3 Red Blood Count 4.02 MIL/MM3 Hemoglobin 11.0 GM/DL Hematocrit 33.2 % Mean Corpuscular Volume 82.7 FL Mean Corpuscular Hemoglobin 27.4 PG Mean Corpuscular Hemoglobin 33.1 % Concent Red Cell Distribution Width 16.7 % Platelet Count 424 TH/MM3 Mean Platelet Volume 7.5 FL Neutrophils (%) (Auto) 77.1 % Lymphocytes (%) (Auto) 12.6 % Monocytes (%) (Auto) 9.7 % Eosinophils (%) (Auto) 0.4 % Basophils (%) (Auto) 0.2 % Neutrophils # (Auto) 6.0 TH/MM3 Lymphocytes # (Auto) 1.0 TH/MM3 Monocytes # (Auto) 0.8 TH/MM3 Eosinophils # (Auto) 0.0 TH/MM3 Basophils # (Auto) 0.0 TH/MM3 CBC Comment DIFF FINAL Differential Comment Lactic Acid Level 2.2 mmol/L MDM Medical Decision Making Medical Screen Exam Complete: Yes Emergency Medical Condition: Yes Interpretation(s) EKG reviewed by Dr. Cesar shows sinus tachycardia with ventricular rate of 104. No STEMI. Differential Diagnosis Wound infection, spreading cancer, sepsis, wound check, electrolyte abnormality , other Narrative Course Patient was seen and examined. Initial laboratory studies were obtained and reviewed. Patient was given IV fluid and antibiotics for sepsis. Wound culture along with blood cultures were obtained. Discussed patient with Dr. Cesar, who saw evaluated the patient of care and disposition. Discussed all findings and plan care of with the patient. Patient remained stable throughout ED course. Physician Communication Physician Communication [id number] Salazar, who recommends applying a well-padded dressing to postsurgical site and he will see the patient in consult. [id number] Beauchamp, who is agreeable to admit the patient. Diagnosis Primary Impression: Surgical wound infection Qualified Code: T81.4XXA - Surgical wound infection, initial encounter Additional Impressions: Pneumocephalus Hydrocephalus Cerebral parenchymal hemorrhage Qualified Code: I61.9 - Left-sided nontraumatic intracerebral hemorrhage, unspecified cerebral location Condition: Stable Bebo Dunaway Jan 09, 2017 20:04
--- NOTE | 2017-01-09 20:04 | PD ---
Physical Exam Narrative General: The patient is a thin-appearing female in no acute distress. Head and Neck exam: Head is normocephalic, evidence of wound along the left posterior scalp behind the left ear with the proximal aspect of the wound closest to the neck with dehiscence with a yellow drainage noted. Initially this was a purulent drainage that became slightly clear with pressure. On further pressure more fluid was able to be expressed. This was cultured. There is some surrounding erythema to the wound, however minimal edema. Eyes: EOMI, pupils are equal round and reactive to light. Nose: Midline septum with pink mucous membranes Mouth: Dentition unremarkable. Moist mucus membranes. Posterior oropharynx is not erythematous. No tonsillar hypertrophy. Uvula midline. Airway patent. Neck: No palpable lymphadenopathy. No nuchal rigidity. No thyromegaly. Cardiovascular: Sinus tachycardia in the low 100 without murmurs, gallops, or rubs. Examination of the chest wall reveals that the patient has had breast implants placed, the right breast implant is migrated laterally, Lungs: Clear to auscultation bilaterally. No wheezes, rhonchi, or rales. Abdomen: Soft, without tenderness to palpation in all 4 quadrants of the abdomen. No guarding, rebound, or rigidity. Normal bowel sounds are audible. No tenderness on palpation of McBurney's point. Extremities: No clubbing, cyanosis, or edema. 2+ pulses in all 4 extremities. Neurologic Exam: The patient is confused at her baseline. She is able to state her name. The patient is able to move all extremities with 5 over 5 strength. No evidence of facial asymmetry. Data Data Last Documented VS Vital Signs Date Time Temp Pulse Resp B/P Pulse Ox O2 Delivery O2 Flow Rate FiO2 01/09/17 22:28 92 16 175/86 96 01/09/17 20:04 Room Air 01/09/17 19:18 98.0 Orders Electrocardiogram (01/09/17 19:56) Complete Blood Count With Diff (01/09/17 19:56) Comprehensive Metabolic Panel (01/09/17 19:56) Prothrombin Time / Inr (Pt) (01/09/17 19:56) Act Partial Throm Time (Ptt) (01/09/17 19:56) Lactic Acid Sepsis Protocol (01/09/17 19:56) Magnesium (Mg) (01/09/17 19:56) Urinalysis - C+S If Indicated (01/09/17 19:56) Blood Culture (01/09/17 19:56) Wound Culture And Gram Stain (01/09/17 19:56) Chest, Single Ap (01/09/17 19:56) Blood Glucose (01/09/17 19:56) Ecg Monitoring (01/09/17 19:56) Iv Access Insert/Monitor (01/09/17 19:56) Oximetry (01/09/17 19:56) Oxygen Administration (01/09/17 19:56) Piperacil-Tazo 4.5 Gm Premix (Zosyn 4.5 (01/09/17 19:56) Vancomycin Inj (Vancomycin Inj) (01/09/17 19:56) Sodium Chlor 0.9% 1000 Ml Inj (Ns 1000 M (01/09/17 20:00) Sodium Chlorid 0.9% 500 Ml Inj (Ns 500 M (01/09/17 20:00) Ct Brain W/O Iv Contrast(Rout) (01/09/17 ) Urinary Catheter Insert/Apply (01/09/17 20:21) Consult Neurosurgery (01/09/17 ) Wound Care (01/09/17 21:33) Urine Culture (01/09/17 20:30) (Hub Use Only)Inp Phy Cons/Ref (01/09/17 ) Ckmb (Isoenzyme) Profile (01/09/17 19:56) Troponin I (01/09/17 19:56) Admit Order (Ed Use Only) (01/09/17 22:54) Labs Laboratory Tests Test 01/09/17 01/09/17 20:30 21:20 Urine Color YELLOW Urine Turbidity HAZY Urine pH 6.5 Urine Specific [place] 1.015 Urine Protein TRACE mg/dL Urine Glucose (UA) NEG mg/dL Urine Ketones NEG mg/dL Urine Occult Blood NEG Urine Nitrite NEG Urine Bilirubin NEG Urine Urobilinogen LESS THAN 2.0 MG/DL Urine Leukocyte Esterase MOD Urine RBC 1 /hpf Urine WBC 11 /hpf Urine Squamous Epithelial 24 /hpf Cells Urine Bacteria RARE /hpf Microscopic Urinalysis Comment CATH-CULTURE IND White Blood Count 7.8 TH/MM3 Red Blood Count 4.02 MIL/MM3 Hemoglobin 11.0 GM/DL Hematocrit 33.2 % Mean Corpuscular Volume 82.7 FL Mean Corpuscular Hemoglobin 27.4 PG Mean Corpuscular Hemoglobin 33.1 % Concent Red Cell Distribution Width 16.7 % Platelet Count 424 TH/MM3 Mean Platelet Volume 7.5 FL Neutrophils (%) (Auto) 77.1 % Lymphocytes (%) (Auto) 12.6 % Monocytes (%) (Auto) 9.7 % Eosinophils (%) (Auto) 0.4 % Basophils (%) (Auto) 0.2 % Neutrophils # (Auto) 6.0 TH/MM3 Lymphocytes # (Auto) 1.0 TH/MM3 Monocytes # (Auto) 0.8 TH/MM3 Eosinophils # (Auto) 0.0 TH/MM3 Basophils # (Auto) 0.0 TH/MM3 CBC Comment DIFF FINAL Differential Comment Prothrombin Time 12.0 SEC Prothromb Time International 1.1 RATIO Ratio Activated Partial 18.8 SEC Thromboplast Time Lactic Acid Level 2.2 mmol/L MDM Medical Record Reviewed: Yes Supervised Visit with ROBIN: Yes Narrative Course I, Dr. Cesar, have reviewed the advance practice practitioner's documentation and am in agreement, met with the patient face to face, made the diagnosis, and the medical decision making was done by me. The patient was initially seen by Bebo. Please see his complete history and physical. *My assessment and Findings: The patient is a 71-year-old female who presents to [facility] emergency Department with a history of recently being transferred from one half-way to another when on intake the patient was noted to have drainage from a postoperative wound along the left scalp. She was sent to the emergency department for medical clearance. 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 Salazar. The patient's examination is remarkable for sinus tachycardia in the low 100s, blood pressure systolic in the 160s, wound along the left side of the scalp that is draining a significant amount of her yellow drainage that at times is clear. The drainage was cultured. The patient was started on broad-spectrum antibiotic and laboratory studies were ordered. A fluid bolus was ordered due to concerns about the possibility of sepsis in this patient. The patient had an EKG on arrival that shows a sinus tachycardia rate of 104, QRS duration is 86 ms, QTC 406 ms, no acute ST segment elevation or depression. The patients laboratory studies were reviewed and remarkable for a white count of 7.8, hemoglobin 11, platelets 424 with neutrophils 77.1, monocytes 9.7, lactic acid 2.2, PT 12, PTT 18.8, urinalysis shows moderate leukocyte esterase 1 RBC WBCs 11 rare bacteria Radiology studies were reviewed and remarkable for a chest x-ray that shows no acute abnormality, CT scan of the brain shows extensive postsurgical changes with pneumocephalus, hydrocephalus and a small amount of parenchymal hemorrhage. Bebo called the neurosurgeon, Dr. Salazar regarding these findings. He will see the patient and consultation. The patients results were discussed with the patient, including the plan of care. I explained that further testing and/ or monitoring is indicated based on the patients history, examination, and/ or laboratory findings. Therefore, I recommended admission for additional evaluation. The patient expressed understanding and was agreeable with this plan. The patient was admitted to the hospital in guarded condition and [facility] Diagnosis Primary Impression: Postoperative infection Qualified Code: T81.4XXA - Postoperative infection, initial encounter Additional Impression: Intraparenchymal hemorrhage of brain Admitting Information Admitting Physician Requests: Admit Josee Cesar MD Jan 09, 2017 20:04
--- NOTE | 2017-01-09 20:21 | RADRPT ---
EXAM DATE/TIME: 01/09/2017 20:01 [facility] COMPARISON: CHEST SINGLE AP, December 16, 2016, 15:27. INDICATIONS : Short of breath. MEDICAL HISTORY : None. SURGICAL HISTORY : Craniotomy. Hysterectomy.Tonsillectomy. ENCOUNTER: Initial ACUITY: 1 day PAIN SCORE: Non-responsive. LOCATION: Bilateral chest FINDINGS: Calcified breast implants. Hyperinflation. Clear lungs. Heart size normal. Aortic calcification. High riding humeral heads. CONCLUSION: No acute disease. Fausto Tena MD on January 09, 2017 at 20:19 Board Certified Radiologist. This report was verified electronically.
--- NOTE | 2017-01-09 20:58 | RADRPT ---
EXAM DATE/TIME: 01/09/2017 20:26 [facility] COMPARISON: CT BRAIN W/O CONTRAST, December 23, 2016, 4:30. INDICATIONS : Evaluate for tumor. RADIATION DOSE: 56.37 CTDIvol (mGy) MEDICAL HISTORY : cancer SURGICAL HISTORY : Hysterectomy. brain surgery ENCOUNTER: Initial ACUITY: 1 day PAIN SCALE: Non-responsive LOCATION: Bilateral head TECHNIQUE: Multiple contiguous axial images were obtained of the head. Using automated exposure control and adj ustment of the mA and/or kV according to patient size, radiation dose was kept as low as reasonably a chievable to obtain optimal diagnostic quality images. FINDINGS: There is a large amount of pneumocephalus and a left occipital craniectomy defect identified. Pneumoc ephalus is seen in the anterior interhemispheric fissure, middle cranial fossa, posterior fossa and t he region of the corpus callosum. There is a small amount of expected location of the corpus callosum axial image 21 this is pneumocephalus. There is air within the lateral ventricles and there is mild hydrocephalus. A small left subdural hypodense collection is seen. There is moderate hypodensity in t he periventricular white matter and bilateral centrum semiovale. CONCLUSION: Extensive postsurgical changes with pneumocephalus, hydrocephalus and a small amount of parenchymal h emorrhage. Fausto Tena MD on January 09, 2017 at 20:54 Board Certified Radiologist. This report was verified electronically.
[2017-01-09 22:10] LABS: BACTERIA, URINE RARE /hpf; BLOOD, URINE NEG (NEG); GLUCOSE,URINE NEG (NEG); KETONE, URINE NEG (NEG); NITRITE,URINE NEG (NEG); PH, URINE 6.5 (5.0-8.5); SQUAMOUS EPITHELIAL CELL URINE 24 /hpf (0-5); URINE COLOR YELLOW (YELLW/STRAW)
[2017-01-09 22:11] LABS: COMMENT (UR) CATH-CULTURE IND; CULTURE IF INDICATED CATH CULTURE IND
[2017-01-09 22:28] VITALS: BP 175/86; PULSE 92; RESP 16; O2SAT 96
[2017-01-09 22:31] LABS: BASOPHIL % 0.2 % (0.0-2.0); EOSINOPHIL % 0.4 % (0.0-4.0); HEMATOCRIT 33.2 % (35.0-46.0); HEMO FLAGS DIFF FINAL; LYMPH % 12.6 % (9.0-44.0); MEAN CELL VOLUME 82.7 FL (80.0-100.0); MEAN CORPUSCULAR HEMOGLOBIN 27.4 PG (27.0-34.0); MEAN CORPUSCULAR HGB CONC 33.1 % (32.0-36.0); MONO % 9.7 % (0.0-8.0); NEUT % 77.1 % (16.0-70.0); PLATELET COUNT 424 TH/MM3 (150-450); RED BLOOD COUNT 4.02 MIL/MM3 (4.00-5.30); RED CELL DISTRIBUTION WIDTH 16.7 % (11.6-17.2); WHITE BLOOD COUNT 7.8 TH/MM3 (4.0-11.0)
[2017-01-09 22:53] LABS: APTT (PATIENT) 18.8 SEC (24.3-30.1); INTERNATIONAL NORMALIZED RATIO 1.1 RATIO
[2017-01-09] MEDS ORDERED: ACETAMINOPHEN/HYDROcodone 325 MG/5 MG TAB PO ONE (23:00)
[2017-01-09] MEDS ORDERED: NALOXONE HCL 0.4 MG/ML AMP IV PRN (23:15)
[2017-01-09] MEDS ORDERED: ONDANSETRON HCL 4 MG/2 ML VIAL IVP PRN (23:15)
[2017-01-09] MEDS ORDERED: Vancomycin Consult Pharmacy 1 EA OTHER SCH (23:15)
--- NOTE | 2017-01-09 23:24 | HHI.HP ---
[facility] No Primary Care Physician Admission Diagnosis surgical wound infection, pneumocephalus, hydrocephalus Diagnoses: Travel History International Travel<30 Days: No Contact w/Intl Traveler <30 Da: No Traveled to Known Affected Are: No Sepsis Criteria SIRS Criteria (2 or more): Heart rate over 90 History of Present Illness This is a 71-year-old female patient with past medical history which includes tobacco abuse, left spontaneous pneumothorax, 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 While patient was hospitalized she underwent Left suboccipital craniectomy with resection of cerebellar hemisphere neoplasm; bovine dural patch grafting; left occipital bur hole placement for ventriculostomy; BrainLab stereotactic intraoperative navigation use; microsurgical technique with Dr. Salazar on . Patient is a poor historian unable to tell us why she is in the hospital. Patient reports that she came to the hospital, "to get help." Information obtained from patient as well as prior charting. Per ER documentation patient was being transferred from one SNF to another and was noted to have drainage from surgical incision, patient was then sent to ER for further evaluation. Patient reports that she feels as though she has to have a BM. Patient denies chest pain, shortness of breath, fevers, chills, N/V/D. Review of Systems ROS Limitations: Poor Historian Except as stated in HPI: all other systems reviewed are Neg Past Family Social History Past Medical History tobacco abuse History of left spontaneous pneumothorax Non small cell lung CA with mets Past Surgical History Hysterectomy Appendectomy Breast implants Reported Medications Thiamine (Thiamine HCl) 100 Mg Tab 100 Mg PO DAILY Protonix (Pantoprazole Sodium) 40 Mg Tab 40 Mg PO DAILY Hydrocodone-Acetaminophen 10-325 mg Tab 1 Tab PO Q4H PRN Flexeril (Cyclobenzaprine HCl) 10 Mg Tab 10 Mg PO Q8H PRN Dok (Docusate Sodium) 100 Mg Cap 100 Mg PO BID Dexamethasone 2 Mg Tab 2 Mg PO Q8HR Keppra (Levetiracetam) 500 Mg Tab 500 Mg PO Q12HR Allergies: Coded Allergies: Sulfa (Verified Allergy, Severe, 01/09/17) Active Ordered Medications Current Medications Medications (Trade) Dose Ordered Sig/Deana Route Start Time Stop Time Status Last Admin (NS Flush) 2 ml UNSCH PRN IV FLUSH 01/09/17 23:15 (NS Flush) 2 ml BID IV FLUSH 01/10/17 09:00 (Zofran Inj) 4 mg Q6H PRN IVP 01/09/17 23:15 Naloxone HCl 0.4 mg 0.4 mg UNSCH PRN IV 01/09/17 23:15 Pharmacy Profile Note 0 ml @ 0 mls/hr UNSCH OTHER 01/09/17 23:15 UNV (Zosyn 4.5 Gm Premix) 100 ml @ 200 mls/hr Q6H IV 01/10/17 03:00 Family History Unknown/patient is estranged from family Social History +1 pack per day tobacco 50 years. denies tobacco use at this time ETOH occasional ETOH use Physical Exam Vital Signs Vital Signs Date Time Temp Pulse Resp B/P Pulse Ox O2 Delivery O2 Flow Rate FiO2 01/09/17 22:28 92 16 175/86 96 01/09/17 20:04 98 Room Air 01/09/17 20:04 98 Room Air 01/09/17 19:18 98.0 109 16 166/83 97 Physical Exam GENERAL: This is a thin, well-developed patient, in no apparent distress, poor historian. SKIN: evidence of wound along the left posterior scalp behind the left ear with the proximal aspect of the wound closest to the neck with dehiscence with a yellow drainage noted. appears dry with dry oral mucosa HEAD: scalp tenderness posterior left ear EYES: Extraocular motions intact. No scleral icterus. No injection or drainage. CARDIOVASCULAR: Regular rate and rhythm without murmurs, gallops, or rubs. RESPIRATORY: Clear to auscultation. Breath sounds equal bilaterally. No wheezes , rales, or rhonchi. GASTROINTESTINAL: Abdomen soft, non-tender, nondistended. No hepato-splenomegaly , or palpable masses. No guarding. MUSCULOSKELETAL: Extremities without clubbing, cyanosis, or edema. No joint tenderness, effusion, or edema noted. No calf tenderness. Negative Homans sign bilaterally. NEUROLOGICAL: Awake and alert however poor historian able to provide her name and location hospital only. Motor and sensory grossly within normal limits. 3-4 out of 5 muscle strength in all muscle groups. Laboratory Laboratory Tests Test 01/09/17 01/09/17 20:30 21:20 Urine Color YELLOW Urine Turbidity HAZY Urine pH 6.5 Urine Specific [place] 1.015 Urine Protein TRACE Urine Glucose (UA) NEG Urine Ketones NEG Urine Occult Blood NEG Urine Nitrite NEG Urine Bilirubin NEG Urine Urobilinogen LESS THAN 2.0 Urine Leukocyte Esterase MOD Urine RBC 1 Urine WBC 11 Urine Squamous Epithelial 24 Cells Urine Bacteria RARE Microscopic Urinalysis Comment CATH-CULTURE IND White Blood Count 7.8 Red Blood Count 4.02 Hemoglobin 11.0 Hematocrit 33.2 Mean Corpuscular Volume 82.7 Mean Corpuscular Hemoglobin 27.4 Mean Corpuscular Hemoglobin 33.1 Concent Red Cell Distribution Width 16.7 Platelet Count 424 Mean Platelet Volume 7.5 Neutrophils (%) (Auto) 77.1 Lymphocytes (%) (Auto) 12.6 Monocytes (%) (Auto) 9.7 Eosinophils (%) (Auto) 0.4 Basophils (%) (Auto) 0.2 Neutrophils # (Auto) 6.0 Lymphocytes # (Auto) 1.0 Monocytes # (Auto) 0.8 Eosinophils # (Auto) 0.0 Basophils # (Auto) 0.0 CBC Comment DIFF FINAL Differential Comment Prothrombin Time 12.0 Prothromb Time International 1.1 Ratio Activated Partial 18.8 Thromboplast Time Lactic Acid Level 2.2 Date/Time Procedure Status Source Growth 01/09/17 20:30 Urine Culture Received Urine Clean Catch Pending 01/09/17 20:25 Gram Stain Received Wound Scalp Pending 01/09/17 20:25 Wound Culture Received Wound Scalp Pending 01/09/17 20:20 Aerobic Blood Culture Received Blood Peripheral Pending 01/09/17 20:20 Anaerobic Blood Culture Received Blood Peripheral Pending Result Diagram: 01/09/172119 Imaging Last Impressions Chest X-Ray 01/09/171955 Signed Impressions: Service Date/Time: Monday, January 09, 2017 20:01 - CONCLUSION: No acute disease. Fausto Tena MD Head CT 01/09/17 0000 Signed Impressions: Service Date/Time: Monday, January 09, 2017 20:26 - CONCLUSION: Extensive postsurgical changes with pneumocephalus, hydrocephalus and a small amount of parenchymal hemorrhage. Fausto Tena MD Assessment and Plan Problem List: (1) Postoperative infection ICD Code: T81.4XXA Status: Acute (2) Surgical wound infection ICD Code: T81.4XXA Status: Acute Assessment and Plan This is a 71-year-old female patient with past medical history which includes tobacco abuse, left spontaneous pneumothorax, 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 While patient was hospitalized she underwent Left suboccipital craniectomy with resection of cerebellar hemisphere neoplasm; bovine dural patch grafting; left occipital bur hole placement for ventriculostomy; BrainLab stereotactic intraoperative navigation use; microsurgical technique with Dr. Salazar on . Patient is a poor historian unable to tell us why she is in the hospital. Patient reports that she came to the hospital, "to get help." Information obtained from patient as well as prior charting. Per ER documentation patient was being transferred from one SNF to another and was noted to have drainage from surgical incision, patient was then sent to ER for further evaluation. Postop infection of incision Right craniotomy incision Wound culture obtained, Blood culture x 2 obtained Vancomycin with pharmacy to dose and Zosyn initiated pneumocephalus, hydrocephalus and a small amount of parenchymal hemorrhage CT of the head reviewed and report reveals Extensive postsurgical changes with pneumocephalus, hydrocephalus and a small amount of parenchymal hemorrhage. ER provider discussed with neurosurgery Consult neurosurgery Hyponatremia sodium 128 Continue normal saline at 75 cc/h recheck BMP in a.m. Hypokalemia 3.2 Add on magnesium level Potassium 30 meq IV 1 Lactic acidosis 2.2 possible dehydration (clinically appears dehydrated) vs infectious Patient has received 2 L fluid bolus in emergency department- continue NS at 75 ml/H Started on vancomycin and Zosyn Recheck lactic acid Possible UTI on vancomycin and Zosyn Follow cultures Non-small cell lung CA with metastasis Continue outpatient follow up after discharge DVT prophylaxis. SCDs this time- unsure if there is a pending surgical intervention needed- if no surgical intervention needed patient will likely need Lovenox Discussed with ER provider, nursing and patient Written by Macy Collins, acting as scribe for Dr. Beauchamp on 01/10/17 at 00: 44. This note was transcribed by scribe [Macy Collins]. I, Dr. Reg Beauchamp personally performed the history, physical exam, and medical decision making; and confirmed the accuracy of the information in the transcribed note. Authenticated by Dr. Reg Beauchamp on Dr. Beauchamp on 01/10/17 at 00:44. Physician Certification 2 Midnight Certification Type: Admission for Inpatient Services Order for Inpatient Services The services are ordered in accordance with Medicare regulations or non- Medicare payer requirements, as applicable. In the case of services not specified as inpatient-only, they are appropriately provided as inpatient services in accordance with the 2-midnight benchmark. Estimated LOS (days): 3 days is the estimated time the patient will need to remain in the hospital, assuming treatment plan goals are met and no additional complications. Post-Hospital Plan: SNF Problem Qualifiers (1) Postoperative infection: Qualified Code: T81.4XXA - Postoperative infection, initial encounter (2) Surgical wound infection: Qualified Code: T81.4XXA - Surgical wound infection, initial encounter Macy Collins Jan 09, 2017 23:24 Reg Beauchamp MD Jan 10, 2017 06:57
[2017-01-09 23:31] LABS: ANION GAP 13 MEQ/L (5-15); AST (GOT) 21 U/L (15-37); BICARBONATE 22.6 MEQ/L (21.0-32.0); BLOOD UREA NITROGEN 8 MG/DL (7-18); CHLORIDE 92 MEQ/L (98-107); GLOMERULAR FILTRATION RATE 156 ML/MIN (>89); MAGNESIUM 1.6 MG/DL (1.5-2.5); POTASSIUM 3.2 MEQ/L (3.5-5.1); SODIUM (NA) 128 MEQ/L (136-145)
[2017-01-09 23:36] LABS: ALKALINE PHOSPHATASE 73 U/L (45-117); ALT (GPT) 35 U/L (10-53); TOTAL BILIRUBIN ADULT 0.4 MG/DL (0.2-1.0)
[2017-01-09 23:38] LABS: CREATINE KINASE 57 U/L (26-192)
[2017-01-09 23:44] LABS: LACTIC ACID GHOST NOT REPORTABLE
[2017-01-10] MEDS ORDERED: SODIUM CHLOR 0.9% 1000 ML INJ 1,000 ML IV SCH (00:45)
[2017-01-10 01:00] VITALS: PULSE 100
[2017-01-10] MEDS ORDERED: POTASSIUM CHLOR 20 MEQ PREMIX 100 ML ONE (01:28)
[2017-01-10] MEDS: POTASSIUM CHLOR 10 MEQ PREMIX 100 ML IV SCH ×3 (02:15→09:24)
[2017-01-10 03:00] VITALS: BP 143/82; PULSE 100; RESP 20; TEMP 98.2; O2SAT 96
[2017-01-10 03:57] LABS: AUTOMATED NEUTROPHIL # 4.7 TH/MM3 (1.8-7.7); BASOPHIL % 0.1 % (0.0-2.0); EOSINOPHIL % 0.6 % (0.0-4.0); HEMATOCRIT 29.8 % (35.0-46.0); HEMO FLAGS DIFF FINAL; LYMPH % 18.3 % (9.0-44.0); LYMPHOCYTE # 1.2 TH/MM3 (1.0-4.8); MEAN CELL VOLUME 81.9 FL (80.0-100.0); MEAN CORPUSCULAR HEMOGLOBIN 27.3 PG (27.0-34.0); MEAN CORPUSCULAR HGB CONC 33.3 % (32.0-36.0); MONO % 11.9 % (0.0-8.0); NEUT % 69.1 % (16.0-70.0); PLATELET COUNT 403 TH/MM3 (150-450); RED BLOOD COUNT 3.63 MIL/MM3 (4.00-5.30); RED CELL DISTRIBUTION WIDTH 16.6 % (11.6-17.2); WHITE BLOOD COUNT 6.8 TH/MM3 (4.0-11.0)
[2017-01-10 04:33] LABS: BICARBONATE 25.6 MEQ/L (21.0-32.0); MAGNESIUM 1.7 MG/DL (1.5-2.5)
[2017-01-10 04:54] LABS: POTASSIUM 2.8 MEQ/L (3.5-5.1)
[2017-01-10] MEDS ORDERED: POTASSIUM CHLOR 20 MEQ PREMIX 100 ML IV SCH (05:00)
[2017-01-10] MEDS ORDERED: POTASSIUM CHLORIDE 25 MEQ EFFERVESCENT TAB PO ONE (05:15)
[2017-01-10] MEDS: PIPERACIL-TAZO 4.5 GM PREMIX 100 ML IV SCH ×4 (05:45→23:22)
[2017-01-10] MEDS ORDERED: PROPOFOL 200 MG/20 ML AMP IV ONE (08:38)
[2017-01-10] MEDS ORDERED: PHENYLEPH/NS 1000 MCG/10 ML SYR IV ONE (08:39)
[2017-01-10] MEDS ORDERED: NEOSTIGMINE 3 MG/3 ML SYR IV ONE (08:39)
--- NOTE | 2017-01-10 08:47 | EKG ---
Date Performed: 01/09/2017 Time Performed: 20:28:08 PTAGE: 71 years EKG: SINUS TACHYCARDIA POSSIBLE LEFT ATRIAL ENLARGEMENT POSSIBLE LEFT VENTRICULAR HYPERTROPHY NO NSPECIFIC ST DEPRESSION ABNORMAL ECG PREVIOUS TRACING : 12/16/2016 16.10 Compared to previous tracing, nonspecific ST abnormality in the lateral leads is now present. DOCTOR: Demetrius De Souza Interpretating Date/Time 01/10/2017 08:47:01
[2017-01-10] MEDS: SODIUM CHLORIDE 0.9% FLUSH 10 ML FLUSH IV FLUSH SCH ×3 (09:00→21:00)
[2017-01-10] MEDS: VANCOMYCIN 1,000 MG/NS 250 ML IV SCH ×4 (11:18→23:22)
[2017-01-10] MEDS ORDERED: FAMOTIDINE 20 MG/2 ML VIAL ONE (11:35)
[2017-01-10] MEDS ORDERED: ACETAMINOPHEN 1000 MG/100 ML VIAL IV ONE (12:09)
[2017-01-10] MEDS ORDERED: MIDAZOLAM HCL 2 MG/2 ML VIAL ONE (12:09)
--- NOTE | 2017-01-10 12:18 | PD.CONS ---
HPI Service Neurosurgery Consult Requested By Bebo Dunaway PA-C Reason for Consult Scalp drainage from surgical site Primary Care Physician No Primary Care Physician History of Present Illness This is a 71-year-old female who has previously undergone a left suboccipital craniectomy with resection of cerebellar neoplasm with bovine dural patch graft and ventriculostomy placement on 12/19/16 by Mansoor Salazar MD. the patient arrives to the ER from a senior care facility where she was staying for rehabilitation. She is a very poor historian and does not give much information about her current condition. I did speak with Chirag Camacho who identified himself as the patient's medical proxy. He states that the patient has had drainage from her surgical sites and he informed the nurses and she was subsequently brought to [facility] for further evaluation. Review of Systems ROS Limitations: Altered Mental Status, Poor Historian (unable to obtain given the patient's altered mental status and she is a poor historian.) Past Family Social History Allergies: Coded Allergies: Sulfa (Verified Allergy, Severe, 01/09/17) Past Medical History Non-small cell lung cancer with brain metastasis Past Surgical History Hysterectomy Appendectomy Breast implants Suboccipital craniectomy with resection of cerebellar neoplasm with bovine dural patch graft with ventriculostomy placement on 12/19/16. Active Ordered Medications Current Medications Piperacillin Sod/ Tazobactam Sod 100 ml @ 200 mls/hr ONCE STAT IV Last administered on 01/09/17 20:44; Start 01/09/17 at 19:56; Stop 01/09/17 at 20:25 ; Status DC Vancomycin HCl 1000 mg/Sodium Chloride 250 ml @ 250 mls/hr ONCE STAT IV Last administered on 01/09/17 22:17; Start 01/09/17 at 19:56; Stop 01/09/17 at 20:55 ; Status DC Sodium Chloride 1,000 ml @ 999 mls/hr BOLUS ONCE IV Last administered on 01/09 20:44; Start 01/09/17 at 20:00; Stop 01/09/17 at 21:00; Status DC Sodium Chloride (NS 500 ml Inj) 500 ml @ 500 mls/hr BOLUS ONCE IV Last administered on 01/09/17 22:18; Start 01/09/17 at 20:00; Stop 01/09/17 at 20:59 ; Status DC Acetaminophen/ Hydrocodone Bitart (Mack 5-325 Mg) 1 tab ONCE ONCE PO ; Start 01/09/17 at 23:00; Stop 01/09/17 at 23:01; Status DC Sodium Chloride (NS Flush) 2 ml UNSCH PRN IV FLUSH FLUSH AFTER USING IV ACCESS ; Start 01/09/17 at 23:15 Sodium Chloride (NS Flush) 2 ml BID IV FLUSH ; Start 01/10/17 at 09:00 Ondansetron HCl (Zofran Inj) 4 mg Q6H PRN IVP NAUSEA OR VOMITING; Start at 23:15 Naloxone HCl 0.4 mg 0.4 mg UNSCH PRN IV SEE LABEL COMMENTS; Start 01/09/17 at 23:15 Pharmacy Profile Note 0 ml @ 0 mls/hr UNSCH OTHER ; Start 01/09/17 at 23:15 Piperacillin Sod/ Tazobactam Sod 100 ml @ 200 mls/hr Q6H IV Last administered on 01/10/17 10:19; Start 01/10/17 at 03:00 Sodium Chloride 1,000 ml @ 84 mls/hr [id number] IV Last administered on 01:34; Start 01/10/17 at 00:45 Potassium Chloride 100 ml @ 100 mls/hr Q1H IV Last administered on 01/10/17 09:24; Start 01/10/17 at 00:45; Stop 01/10/17 at 03:44; Status DC Potassium Chloride 100 ml @ As Directed STK-MED ONCE .ROUTE ; Start 01/10/17 at 01:28; Stop 01/10/17 at 01:29; Status DC Potassium Chloride (KCl 20 Meq Premix Inj) 100 ml @ 50 mls/hr Q2H IV ; Start at 05:00; Stop 01/10/17 at 08:59; Status DC Potassium Bicarb/ Potassium Chloride 50 meq 50 meq ONCE ONCE PO Last administered on 01/10/17 06:04; Start 01/10/17 at 05:15; Stop 01/10/17 at 05:16 ; Status DC Vancomycin HCl/ Sodium Chloride (Vancomycin Inj/ NS 250 ml Inj) 250 ml @ 250 mls/hr Q12H IV Last administered on 01/10/17 11:18; Start 01/10/17 at 10:00 Miscellaneous Information SPECIFIC LAB TO BE DRAWN:VANCOMYCIN TROUGH DATE TO... ONCE ONCE .XX ; Start 01/11/17 at 09:45; Stop 01/11/17 at 09:46 Famotidine (Pepcid Inj) 20 mg STK-MED ONCE .ROUTE Last administered on 11:35; Start 01/10/17 at 11:35; Stop 01/10/17 at 11:36; Status DC Family History Patient does not have any family that she talks to. Social History Patient has a pack per day 50 years cigarette use. History of occasional alcohol use Physical Exam Vital Signs Vital Signs Date Time Temp Pulse Resp B/P Pulse Ox O2 Delivery O2 Flow Rate FiO2 01/10/17 03:00 98.2 100 20 143/82 96 01/10/17 01:00 100 01/09/17 22:28 92 16 175/86 96 01/09/17 20:04 98 Room Air 01/09/17 20:04 98 Room Air 01/09/17 19:18 98.0 109 16 166/83 97 Physical Exam Resp: CTA bilaterally Heart: NSr no murmurs Abd: Soft positive bs Skin: She has wound dehiscence left occipital area. There is yellowish wet drainage on her pillow. Muscle: She moves all 4 extremities. Neuro: Pt awake. Pupils are equal. Patient states a few words but does not have fluent speech. She follows some simple commands. Laboratory Laboratory Tests Test 01/09/17 01/09/17 01/10/17 20:30 21:20 03:38 Urine Color YELLOW Urine Turbidity HAZY Urine pH 6.5 Urine Specific [place] 1.015 Urine Protein TRACE Urine Glucose (UA) NEG Urine Ketones NEG Urine Occult Blood NEG Urine Nitrite NEG Urine Bilirubin NEG Urine Urobilinogen LESS THAN 2.0 Urine Leukocyte Esterase MOD Urine RBC 1 Urine WBC 11 Urine Squamous Epithelial 24 Cells Urine Bacteria RARE Microscopic Urinalysis Comment CATH-CULTURE IND White Blood Count 7.8 6.8 Red Blood Count 4.02 3.63 Hemoglobin 11.0 9.9 Hematocrit 33.2 29.8 Mean Corpuscular Volume 82.7 81.9 Mean Corpuscular Hemoglobin 27.4 27.3 Mean Corpuscular Hemoglobin 33.1 33.3 Concent Red Cell Distribution Width 16.7 16.6 Platelet Count 424 403 Mean Platelet Volume 7.5 7.4 Neutrophils (%) (Auto) 77.1 69.1 Lymphocytes (%) (Auto) 12.6 18.3 Monocytes (%) (Auto) 9.7 11.9 Eosinophils (%) (Auto) 0.4 0.6 Basophils (%) (Auto) 0.2 0.1 Neutrophils # (Auto) 6.0 4.7 Lymphocytes # (Auto) 1.0 1.2 Monocytes # (Auto) 0.8 0.8 Eosinophils # (Auto) 0.0 0.0 Basophils # (Auto) 0.0 0.0 CBC Comment DIFF FINAL DIFF FINAL Differential Comment Prothrombin Time 12.0 Prothromb Time International 1.1 Ratio Activated Partial 18.8 Thromboplast Time Sodium Level 128 132 Potassium Level 3.2 2.8 Chloride Level 92 97 Carbon Dioxide Level 22.6 25.6 Anion Gap 13 9 Blood Urea Nitrogen 8 4 Creatinine 0.40 0.35 Estimat Glomerular Filtration 156 183 Rate Random Glucose 99 90 Lactic Acid Level 2.2 1.4 Calcium Level 8.3 7.8 Magnesium Level 1.6 1.7 Total Bilirubin 0.4 Aspartate Amino Transf 21 (AST/SGOT) Alanine Aminotransferase 35 (ALT/SGPT) Alkaline Phosphatase 73 Total Creatine Kinase 57 Troponin I LESS THAN 0.02 Total Protein 6.6 Albumin 2.4 Date/Time Procedure Status Source Growth 01/09/17 20:30 Urine Culture Received Urine Clean Catch Pending 01/09/17 20:25 Gram Stain - Final Resulted Wound Scalp 01/09/17 20:25 Wound Culture Resulted Wound Scalp Pending 01/09/17 20:20 Aerobic Blood Culture - Preliminary Resulted Blood Peripheral NO GROWTH IN 1 DAY 01/09/17 20:20 Anaerobic Blood Culture - Preliminary Resulted Blood Peripheral NO GROWTH IN 1 DAY Result Diagram: 01/10/178 01/10/178 Imaging Last Impressions Chest X-Ray 01/09/171955 Signed Impressions: Service Date/Time: Monday, January 09, 2017 20:01 - CONCLUSION: No acute disease. Fausto Tena MD Head CT 01/09/17 0000 Signed Impressions: Service Date/Time: Monday, January 09, 2017 20:26 - CONCLUSION: Extensive postsurgical changes with pneumocephalus, hydrocephalus and a small amount of parenchymal hemorrhage. Fausto Tena MD Assessment and Plan Assessment and Plan A: 71-year-old female who underwent a left suboccipital craniectomy with resection of cerebellar neoplasm with bovine dural patch graft and ventriculostomy placement on 12/19/16. She has developed surgical site wound dehiscence with drainage. P: The patient has been evaluated by Dr. Salazar. He has recommended that the patient undergo a suboccipital pseudomeningocele repair with wound debridement. I have called the patient's friend Francisco Javier Camacho who identified himself as the patient's medical proxy. He has given us informed consent to proceed with the surgical procedure. I discussed with him the risks of surgery include but not limited to bleeding, infection, muscle weakness, seizures, further neurological decline, heart attack, stroke blood clots, among others. Chirag stated he will try to make it to the hospital this morning however he depends on transportation. He has given me verbal consent to proceed with the surgical intervention as planned. This was witnessed by the emergency room nurse Marti was also signed the consent with me as a witness. He identified himself to me as the medical proxy and states that he will bring paperwork to the hospital when he arrives showing us, in the meantime he requests that we proceed as planned. Bartolome Lopez Jan 10, 2017 12:18
[2017-01-10] MEDS ORDERED: GELFOAM SIZE 100 ONE (12:31)
[2017-01-10] MEDS ORDERED: THROMBIN (TOPICAL) 5,000 UNIT VIAL ONE (12:31)
[2017-01-10] MEDS ORDERED: BUPIVACAINE/EPINEPHRINE 0.5% PF 30 ML VIAL ONE (12:31)
[2017-01-10] MEDS ORDERED: GENTAMICIN SULFATE 80 MG/2 ML VIAL ONE (12:32)
[2017-01-10] MEDS ORDERED: VANCOMYCIN HCL 1000 MG VIAL ONE (12:32)
[2017-01-10] MEDS ORDERED: POTASSIUM CHLOR 20 MEQ PREMIX 100 ML IV PRN (14:30)
[2017-01-10] MEDS ORDERED: CALCIUM GLUCONATE INJ 1 GM in SODIUM CHLORIDE 0.9% INJ 100 ML IV PRN (14:30)
[2017-01-10] MEDS ORDERED: SODIUM CHLORIDE 0.9% FLUSH 10 ML FLUSH IV FLUSH PRN (14:30)
[2017-01-10] MEDS ORDERED: cloNIDine HCL 0.1 MG TAB PO PRN (14:30)
[2017-01-10] MEDS ORDERED: MENTHOL LOZENGE BUCCAL PRN (14:30)
[2017-01-10] MEDS ORDERED: ACETAMINOPHEN 325 MG TAB PO PRN (14:30)
[2017-01-10] MEDS ORDERED: MAGNESIUM SULFATE INJ 2 GM in SODIUM CHLORIDE 0.9% INJ 100 ML IV PRN (14:30)
[2017-01-10] MEDS ORDERED: ALUMINUM/MAGNESIUM/SIMETH 30 ML CUP PO PRN (14:30)
[2017-01-10] MEDS ORDERED: RESP: ALBUTEROL 2.5 MG/3 ML NEB (PRN) NEB (14:30)
[2017-01-10] MEDS ORDERED: niCARdipine INJ 25 MG in SODIUM CHLOR 0.9% 250 ML INJ 250 ML IV SCH (14:30)
[2017-01-10] MEDS ORDERED: LABETALOL HCL 100 MG/20 ML VIAL IV PRN (14:30)
[2017-01-10] MEDS ORDERED: PROCHLORPERAZINE INJ 10 MG/2 ML VIAL IV PUSH PRN (14:30)
--- NOTE | 2017-01-10 14:30 | PD.OP ---
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 endotracheal by Richard Salvador Surgeon: Mansoor Salazar M.D. Custom Bow Maker(s): Giulia Stephenson Operation and Findings: After administration of general endotracheal anesthesia the patient had sequential compression devices and a Guillory catheter in place. She was turned on the lateral position on beanbag with an axillary roll and the head secured in a horseshoe headrest with the left side up. All pressure points were adequately padded in the left occipital region shaved and prepped with ChloraPrep and draped in the usual sterile fashion. There is wound dehiscence in the inferior aspect with some eschar at the edges and I also noticed some CSF consistency clear fluid. Incision was debrided and opened further extending down through the subcutaneous layer. The occipital muscle fascia was also opened and I did not identify any gross pus. Sutures were removed and cerebellar retractor placed. There was a small area along the dural patch graft with CSF leak noted along with DuraSeal which was removed. Using microtechnique with maximum magnification and dural leak repair with primary closure using 4 Nurolon's was undertaken. With Valsalva maneuver no further CSF leak was noted. A durotomy was further reinforced with DuraSeal and the area copiously irrigated. Prior to the debridement and irrigation cultures were also sent from the superolateral epidural space. Muscle and fascia approximated using 2-0 Vicryl sutures and 3-0 Vicryl galeal stitches in an interrupted fashion and final scalp closure was with barbie. A sterile pressure dressing was then applied. In order to provide for CSF drainage and prevent occipital CSF leak recurrence until the wound healed a lumbar drain was then placed. The lumbar region was then prepped and spinal needle placed in the lumbar intrathecal space with clear CSF encountered. Lumbar drain was then held through the needle and the needle removed. The drain connected to the skin with 2-0 silk ties and the drainage bag. Sterile dressing was then applied. She was then turned supine position and taken to the recovery room. There were no intraoperative complications and all sponge and needle count was correct at the end the procedure. There was minimal blood loss less than 10 cc throughout the case. Mansoor Salazar MD Jan 10, 2017 14:30
[2017-01-10] MEDS ORDERED: fentaNYL CITRATE 250 MCG/5 ML AMP ONE (14:39)
[2017-01-10] MEDS ORDERED: DO NOT ADM ANY ANTICOAGULANT DRUGS PRN (15:15)
[2017-01-10] MEDS: NS + KCL 20 MEQ INJ 1,000 ML IV SCH (15:45)
--- NOTE | 2017-01-10 16:06 | HHI.PR ---
Subjective Remarks patient back from surgery- tolerated procedure well awake ff commands Objective Vitals Vital Signs Date Time Temp Pulse Resp B/P Pulse Ox O2 Delivery O2 Flow Rate FiO2 01/10/17 03:00 98.2 100 20 143/82 96 01/10/17 01:00 100 01/09/17 22:28 92 16 175/86 96 01/09/17 20:04 98 Room Air 01/09/17 20:04 98 Room Air 01/09/17 19:18 98.0 109 16 166/83 97 I/O 01/09/17 01/09/17 01/09/17 01/10/17 01/10/17 01/10/17 07:00 15:00 23:00 07:00 15:00 23:00 Intake Total 400 ml Output Total 1000 ml Balance -600 ml Intake Oral 100 ml IV Total 300 ml Output Urine Total 1000 ml Result Diagram: 01/10/17 0338 01/10/17 0338 Imaging Last Impressions Chest X-Ray 01/09/176 Signed Impressions: Service Date/Time: Monday, January 09, 2017 20:01 - CONCLUSION: No acute disease. Fausto Tena MD Head CT 01/09/17 0000 Signed Impressions: Service Date/Time: Monday, January 09, 2017 20:26 - CONCLUSION: Extensive postsurgical changes with pneumocephalus, hydrocephalus and a small amount of parenchymal hemorrhage. 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 While patient was hospitalized she underwent Left suboccipital craniectomy with resection of cerebellar hemisphere neoplasm; bovine dural patch grafting; left occipital bur hole placement for ventriculostomy; [employer] stereotactic intraoperative navigation use; microsurgical technique with Dr. Salazar on . Patient is a poor historian unable to tell us why she is in the hospital. Patient reports that she came to the hospital, "to get help." Information obtained from patient as well as prior charting. Per ER documentation patient was being transferred from one SNF to another and was noted to have drainage from surgical incision, patient was then sent to ER for further evaluation. Postop infection of incision S/P I and D with lumbar drain placement and debridement of head wound Right craniotomy incision Wound culture obtained, Blood culture x 2 obtained Vancomycin and Zosyn initiated pneumocephalus, hydrocephalus and a small amount of parenchymal hemorrhage S/P lumbar drain placedment CT of the head reviewed and report reveals Extensive postsurgical changes with pneumocephalus, hydrocephalus and a small amount of parenchymal hemorrhage. ER provider discussed with neurosurgery Neurosurgery ff Hyponatremia sodium 128 ff BMP Hypokalemia 3.2 Add on magnesium level Potassium 30 meq IV 1 recheck now Lactic acidosis 2.2 possible dehydration (clinically appears dehydrated) vs infectious Patient has received 2 L fluid bolus in emergency department- continue NS at 75 ml/H Started on vancomycin and Zosyn Recheck lactic acid Possible UTI on vancomycin and Zosyn Follow cultures Non-small cell lung CA with metastasis Continue outpatient follow up after discharge Problem Qualifiers (1) Postoperative infection: Qualified Code: T81.4XXA - Postoperative infection, initial encounter (2) Surgical wound infection: Qualified Code: T81.4XXA - Surgical wound infection, initial encounter Kartik Allen MD Jan 10, 2017 16:06
[2017-01-10 18:45] LABS: BICARBONATE 22.9 MEQ/L (21.0-32.0); POTASSIUM 4.3 MEQ/L (3.5-5.1)
[2017-01-10] MEDS: oxyCODONE/ACETAMINOPHEN 5 MG/325 MG TAB PO PRN ×2 (19:34→23:24)
[2017-01-10 20:44] LABS: CALCIUM-PROTEIN CORRECTED 8.7 MG/DL (8.5-10.1)
[2017-01-10 22:00] VITALS: BP 141/74; PULSE 85; RESP 20; TEMP 96; O2SAT 96
[2017-01-10] MEDS: DOCUSATE SODIUM 100 MG CAP PO SCH (23:22)
[2017-01-11] VITALS (8 sets, daily range): BP systolic 122–170; BP diastolic 73–93; PULSE 77–106; RESP 19–21; TEMP 95.3–98.1; O2SAT 96–97
[2017-01-11] MEDS: PIPERACIL-TAZO 4.5 GM PREMIX 100 ML IV SCH ×4 (02:32→23:17)
[2017-01-11] MEDS: SODIUM CHLORIDE 0.9% FLUSH 10 ML FLUSH IV FLUSH PRN ×2 (02:40→04:24)
[2017-01-11] MEDS: MORPHINE SULFATE 4 MG/ML INJ IV PRN ×2 (02:40→04:23)
[2017-01-11] MEDS: NS + KCL 20 MEQ INJ 1,000 ML IV SCH ×3 (04:10→23:18)
[2017-01-11] MEDS: oxyCODONE/ACETAMINOPHEN 5 MG/325 MG TAB PO PRN ×3 (05:54→23:39)
[2017-01-11] MEDS: PANTOPRAZOLE SOD 40 MG DELAYED RELEASE TAB PO SCH (08:43)
[2017-01-11] MEDS: DOCUSATE SODIUM 100 MG CAP PO SCH ×2 (08:43→23:17)
[2017-01-11] MEDS: SODIUM CHLORIDE 0.9% FLUSH 10 ML FLUSH IV FLUSH SCH ×4 (08:49→21:00)
[2017-01-11] MEDS ORDERED: PHARMACY ORDERED LAB ONE (09:45)
--- NOTE | 2017-01-11 10:19 | HHI.NSPN ---
(Bartolome Lopez) History Chief Complaint: improved mentation s/p incision and debridement of left suboccipital crani (Bartolome Lopez) Interval History This is a 71-year-old female who has previously undergone a left suboccipital craniectomy with resection of cerebellar neoplasm with bovine dural patch graft and ventriculostomy placement on 12/19/16 by Mansoor Salazar MD. the patient arrives to the ER from a [facility] facility where she was staying for rehabilitation. She is a very poor historian and does not give much information about her current condition. I did speak with Chirag Camacho who identified himself as the patient's medical proxy. He states that the patient has had drainage from her surgical sites and he informed the nurses and she was subsequently brought to [place] for further evaluation. 01/11/17: Pt awake more alert today. States she is in [place] but doesn't know the date. Follows simple commands. She denies headache. No nausea vomiting. ( Bartolome Lopez) Review of Systems General: Negative for: fever, chills, insomnia Respiratory: Negative for: shortness of breath, cough, sputum Cardiovascular: Negative for: chest pain Gastrointestinal: Negative for: nausea, vomitting, diarrhea, constipation ( Bartolome Lopez) Exam Results Vital Signs Date Time Temp Pulse Resp B/P Pulse Ox O2 Delivery O2 Flow Rate FiO2 01/11/17 08:00 95.3 77 21 164/93 96 01/10/17 20:30 Nasal Cannula 2 Intake and Output 01/10/17 01/10/17 01/11/17 08:00 16:00 00:00 Intake Total 400 ml 800 ml 325 ml Output Total 1000 ml 855 ml 480 ml Balance -600 ml -55 ml -155 ml (Bartolome Lopez) Physical Examination Resp: CTA bilaterally Heart: NSR no murmurs Abd: Soft positive bs Skin: Incision clean. Bandage dry. Muscle: Moves all 4 extremities Neuro: Pt awake and more alert today. Pupils equal. Speech clear. Follows simple commands well. (Bartolome Lopez) Lab, Micro, Other Results Last Impressions Chest X-Ray 01/09/17 1956 Signed Impressions: Service Date/Time: Monday, January 09, 2017 20:01 - CONCLUSION: No acute disease. Fausto Tena MD Head CT 01/09/17 0000 Signed Impressions: Service Date/Time: Monday, January 09, 2017 20:26 - CONCLUSION: Extensive postsurgical changes with pneumocephalus, hydrocephalus and a small amount of parenchymal hemorrhage. Fausto Tena MD Laboratory Tests Test 01/10/17 17:44 Sodium Level 132 MEQ/L Potassium Level 4.3 MEQ/L Chloride Level 102 MEQ/L Carbon Dioxide Level 22.9 MEQ/L Anion Gap 7 MEQ/L Blood Urea Nitrogen 5 MG/DL Creatinine 0.34 MG/DL Estimat Glomerular Filtration 189 ML/MIN Rate Random Glucose 100 MG/DL Calcium Level 8.0 MG/DL Protein Corrected Calcium 8.7 MG/DL Total Protein 5.9 GM/DL 01/10/17 01/10/17 01/11/17 15:00 23:00 07:00 Intake Total 700 ml 425 ml Output Total 405 ml 930 ml 300 ml Balance 295 ml -505 ml -300 ml IV Total 425 ml Other 700 ml Output Urine Total 400 ml 900 ml 300 ml Drainage Total 30 ml Estimated Blood Loss 5 ml # Bowel Movements 0 (Bartolome Lopez) Medical Decision Making Impression and Plan A: 71 y/o FM s/p 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 Salazar on 01/11/17. Pt had previously undergone a suboccipital craniectomy for cerebellar neoplasm resection. P: Continue to monitor neuro exam. PT Rehab efforts. (Bartolome Lopez) Attending Statement The exam, history, and the medical decision-making described in the above note were completed with the assistance of the mid-level provider. I reviewed and agree with the findings presented. I attest that I had a [id number] encounter with the patient on the same day, and personally performed and documented my assessment and findings in the medical record. No drainage from the left occipital incision site postoperatively. Lumbar drain at shoulder level draining well. CSF cultures are negative but wound cultures from the suboccipital epidural space are growing out staph aureus. She is on vancomycin IV. In discussion with the patient's significant other then elected on not proceeding with the radiation or chemotherapy for the brain metastasis and was being placed in hospice. He does agree with treatment for this wound dehiscence and infection. (Mansoor Salazar MD) Bartolome Lopez Jan 11, 2017 10:19 Mansoor Salazar MD Jan 11, 2017 17:35
[2017-01-11 10:20] LABS: BICARBONATE 21.4 MEQ/L (21.0-32.0); MAGNESIUM 1.8 MG/DL (1.5-2.5); POTASSIUM 4.1 MEQ/L (3.5-5.1)
[2017-01-11 10:29] LABS: AUTOMATED NEUTROPHIL # 9.1 TH/MM3 (1.8-7.7); BASOPHIL # 0.1 TH/MM3 (0-0.2); BASOPHIL % 0.4 % (0.0-2.0); EOSINOPHIL # 0.1 TH/MM3 (0-0.4); EOSINOPHIL % 0.9 % (0.0-4.0); HEMATOCRIT 32.2 % (35.0-46.0); HEMO FLAGS DIFF FINAL; LYMPH % 11.3 % (9.0-44.0); LYMPHOCYTE # 1.3 TH/MM3 (1.0-4.8); MEAN CELL VOLUME 83.1 FL (80.0-100.0); MEAN CORPUSCULAR HEMOGLOBIN 27.3 PG (27.0-34.0); MEAN CORPUSCULAR HGB CONC 32.8 % (32.0-36.0); MONO % 7.6 % (0.0-8.0); NEUT % 79.8 % (16.0-70.0); PLATELET COUNT 400 TH/MM3 (150-450); RED BLOOD COUNT 3.88 MIL/MM3 (4.00-5.30); RED CELL DISTRIBUTION WIDTH 16.9 % (11.6-17.2); WHITE BLOOD COUNT 11.5 TH/MM3 (4.0-11.0)
[2017-01-11] MEDS: VANCOMYCIN 1,000 MG/NS 250 ML IV SCH ×4 (11:49→23:46)
--- NOTE | 2017-01-11 12:02 | HHI.PR ---
Subjective Remarks no complains of headaches, nausea or vomiting afebrile no dizziness Objective Vitals Vital Signs Date Time Temp Pulse Resp B/P Pulse Ox O2 Delivery O2 Flow Rate FiO2 01/11/17 10:30 87 01/11/17 08:00 95.3 77 21 164/93 96 01/11/17 06:24 95.8 88 20 139/76 96 01/11/17 00:06 97.0 84 20 135/76 96 01/10/17 22:00 96.0 85 20 141/74 96 01/10/17 20:30 82 16 127/68 100 Nasal Cannula 2 01/10/17 19:30 66 16 136/67 100 Nasal Cannula 2 01/10/17 18:30 70 16 131/72 100 Nasal Cannula 2 01/10/17 17:30 65 14 111/61 100 Nasal Cannula 2 01/10/17 16:30 72 17 126/65 100 Nasal Cannula 2 01/10/17 16:00 98.2 62 14 136/70 100 Nasal Cannula 2 01/10/17 15:45 65 16 136/65 100 Nasal Cannula 2 01/10/17 15:30 62 15 138/75 100 Nasal Cannula 2 01/10/17 15:15 61 16 145/76 100 Nasal Cannula 2 01/10/17 15:00 62 15 143/80 100 Nasal Cannula 2 01/10/17 14:45 64 18 149/83 99 Nasal Cannula 2 01/10/17 14:28 98.0 85 16 139/81 98 Nasal Cannula 2 I/O 01/10/17 01/10/17 01/10/17 01/11/17 01/11/17 01/11/17 07:00 15:00 23:00 07:00 15:00 23:00 Intake Total 400 ml 700 ml 425 ml Output Total 1000 ml 405 ml 930 ml 300 ml Balance -600 ml 295 ml -505 ml -300 ml Intake Oral 100 ml IV Total 300 ml 425 ml Other 700 ml Output Urine Total 1000 ml 400 ml 900 ml 300 ml Drainage Total 30 ml Estimated Blood Loss 5 ml # Bowel Movements 0 Result Diagram: 01/11/1740 01/11/17939 Imaging Last Impressions Chest X-Ray 01/09/171955 Signed Impressions: Service Date/Time: Monday, January 09, 2017 20:01 - CONCLUSION: No acute disease. Fausto Tena MD Head CT 01/09/17 0000 Signed Impressions: Service Date/Time: Monday, January 09, 2017 20:26 - CONCLUSION: Extensive postsurgical changes with pneumocephalus, hydrocephalus and a small amount of parenchymal hemorrhage. 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 While patient was hospitalized she underwent Left suboccipital craniectomy with resection of cerebellar hemisphere neoplasm; bovine dural patch grafting; left occipital bur hole placement for ventriculostomy; [employer] stereotactic intraoperative navigation use; microsurgical technique with Dr. Salazar on . Patient is a poor historian unable to tell us why she is in the hospital. Patient reports that she came to the hospital, "to get help." Information obtained from patient as well as prior charting. Per ER documentation patient was being transferred from one SNF to another and was noted to have drainage from surgical incision, patient was then sent to ER for further evaluation. Postop infection of incision S/P I and D with lumbar drain placement and debridement of head wound Right craniotomy incision- dry Wound culture obtained, Blood culture x 2 obtained Vancomycin and Zosyn initiated pneumocephalus, hydrocephalus and a small amount of parenchymal hemorrhage S/P lumbar drain placedment CT of the head reviewed and report reveals Extensive postsurgical changes with pneumocephalus, hydrocephalus and a small amount of parenchymal hemorrhage. ER provider discussed with neurosurgery Neurosurgery ff Hyponatremia improved Hypokalemia corrected Lactic acidosis 2.2 possible dehydration (clinically appears dehydrated) vs infectious Patient has received 2 L fluid bolus in emergency department- continue NS at 75 ml/H Started on vancomycin and Zosyn Recheck lactic acid Possible UTI on vancomycin and Zosyn Follow cultures Non-small cell lung CA with metastasis Continue outpatient follow up after discharge Problem Qualifiers (1) Postoperative infection: Qualified Code: T81.4XXA - Postoperative infection, initial encounter (2) Surgical wound infection: Qualified Code: T81.4XXA - Surgical wound infection, initial encounter Kartik Allen MD Jan 11, 2017 12:02
[2017-01-11] MEDS: MAGNESIUM HYDROXIDE SUSP 30 ML CUP PO PRN (23:43)
[2017-01-12] VITALS (7 sets, daily range): BP systolic 150–180; BP diastolic 75–99; PULSE 88–97; RESP 19–21; TEMP 96.4–98.4; O2SAT 94–96
[2017-01-12] MEDS: PIPERACIL-TAZO 4.5 GM PREMIX 100 ML IV SCH ×2 (03:21→09:08)
[2017-01-12] MEDS: NS + KCL 20 MEQ INJ 1,000 ML IV SCH ×2 (05:29→16:23)
[2017-01-12] MEDS: SODIUM CHLORIDE 0.9% FLUSH 10 ML FLUSH IV FLUSH SCH ×4 (09:00→21:00)
[2017-01-12] MEDS: MAGNESIUM HYDROXIDE SUSP 30 ML CUP PO PRN (09:09)
[2017-01-12] MEDS: PANTOPRAZOLE SOD 40 MG DELAYED RELEASE TAB PO SCH (09:09)
[2017-01-12] MEDS: DOCUSATE SODIUM 100 MG CAP PO SCH ×2 (09:09→21:43)
[2017-01-12] MEDS: oxyCODONE/ACETAMINOPHEN 5 MG/325 MG TAB PO PRN (09:33)
--- NOTE | 2017-01-12 10:03 | HHI.NSPN ---
(Bartolome Lopez) History Chief Complaint: improved mentation s/p incision and debridement of left suboccipital crani (Bartolome Lopez) Interval History This is a 71-year-old female who has previously undergone a left suboccipital craniectomy with resection of cerebellar neoplasm with bovine dural patch graft and ventriculostomy placement on 12/19/16 by Mansoor Salazar MD. the patient arrives to the ER from a [facility] facility where she was staying for rehabilitation. She is a very poor historian and does not give much information about her current condition. I did speak with Chirag Camacho who identified himself as the patient's medical proxy. He states that the patient has had drainage from her surgical sites and he informed the nurses and she was subsequently brought to [place] for further evaluation. 01/11/17: Pt awake more alert today. States she is in [place] but doesn't know the date. Follows simple commands. She denies headache. No nausea vomiting. 01/12/17: Pt awake and alert. Denies headache. No nausea or vomiting. Follows simple commands. (Bartolome Lopez) Review of Systems General: Negative for: fever, chills, insomnia Respiratory: Negative for: shortness of breath, cough, sputum Cardiovascular: Negative for: chest pain Gastrointestinal: Negative for: nausea, vomitting, diarrhea, constipation ( Bartolome Lopez) Exam Results Vital Signs Date Time Temp Pulse Resp B/P Pulse Ox O2 Delivery O2 Flow Rate FiO2 01/12/17 08:00 96.4 94 20 180/98 94 01/10/17 20:30 Nasal Cannula 2 Intake and Output 01/11/17 01/11/17 01/12/17 08:00 16:00 00:00 Intake Total 240 ml 600 ml Output Total 300 ml 1200 ml 1355 ml Balance -300 ml -960 ml -755 ml (Bartolome Lopez) Physical Examination Resp: CTA bilaterally Heart: NSR no murmurs Abd: Soft positive bs Skin: Incision clean and dry. New bandage placed. Muscle: Moves all 4 extremities Neuro: Pt awake and more alert today. Pupils equal. Speech clear. Follows simple commands well. Lumbar spinal drain in place to assist the healing process. (Bartolome Lopez) Lab, Micro, Other Results Last Impressions Chest X-Ray 01/09/17 1956 Signed Impressions: Service Date/Time: Monday, January 09, 2017 20:01 - CONCLUSION: No acute disease. Fausto Tena MD Head CT 01/09/17 0000 Signed Impressions: Service Date/Time: Monday, January 09, 2017 20:26 - CONCLUSION: Extensive postsurgical changes with pneumocephalus, hydrocephalus and a small amount of parenchymal hemorrhage. Fausto Tena MD 01/11/17 01/11/17 01/12/17 15:00 23:00 07:00 Intake Total 240 ml 600 ml 2500 ml Output Total 1200 ml 1300 ml 2380 ml Balance -960 ml -700 ml 120 ml Intake Oral 240 ml 600 ml 950 ml IV Total 1550 ml Output Urine Total 1200 ml 1300 ml 2300 ml Drainage Total 80 ml # Bowel Movements 0 0 0 (Bartolome Lopez) Medical Decision Making Impression and Plan A: 71 y/o FM s/p 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 Salazar on 01/11/17. Pt had previously undergone a suboccipital craniectomy for cerebellar neoplasm resection. Improved. P: Continue to monitor neuro exam. PT Rehab efforts. Continue with lumbar spinal drain to assist the healing process. (Bartolome Lopez) Attending Statement The exam, history, and the medical decision-making described in the above note were completed with the assistance of the mid-level provider. I reviewed and agree with the findings presented. I attest that I had a [id number] encounter with the patient on the same day, and personally performed and documented my assessment and findings in the medical record. (Mansoor Salazar MD) Bartolome Lopez Jan 12, 2017 10:03 Mansoor Salazar MD Jan 12, 2017 18:42
[2017-01-12] MEDS: VANCOMYCIN 1,000 MG/NS 250 ML IV SCH ×2 (11:04)
--- NOTE | 2017-01-12 12:37 | HHI.PR ---
Subjective Remarks patient awake and alert no headache, nausea or vomiting tolerating patient significant other in the room- has the proxy- decision maker- he has the papers Objective Vitals Vital Signs Date Time Temp Pulse Resp B/P Pulse Ox O2 Delivery O2 Flow Rate FiO2 01/12/17 08:00 96.4 94 20 180/98 94 01/12/17 04:30 98.4 89 20 161/75 95 01/12/17 00:00 97.7 88 21 150/80 96 01/11/17 23:00 83 01/11/17 21:30 98.1 92 19 170/86 96 01/11/17 16:00 96.5 88 20 167/84 97 I/O 01/11/17 01/11/17 01/11/17 01/12/17 01/12/17 01/12/17 07:00 15:00 23:00 07:00 15:00 23:00 Intake Total 240 ml 600 ml 2500 ml Output Total 300 ml 1200 ml 1300 ml 2380 ml 30 ml Balance -300 ml -960 ml -700 ml 120 ml -30 ml Intake Oral 240 ml 600 ml 950 ml IV Total 1550 ml Output Urine Total 300 ml 1200 ml 1300 ml 2300 ml Drainage Total 80 ml 30 ml # Bowel Movements 0 0 0 0 Result Diagram: 01/11/17 0940 01/11/17 0940 Imaging Last Impressions Chest X-Ray 01/09/17 195 Signed Impressions: Service Date/Time: Monday, January 09, 2017 20:01 - CONCLUSION: No acute disease. Fausto Tena MD Head CT 01/09/17 0000 Signed Impressions: Service Date/Time: Monday, January 09, 2017 20:26 - CONCLUSION: Extensive postsurgical changes with pneumocephalus, hydrocephalus and a small amount of parenchymal hemorrhage. Fausto Tena MD Objective Remarks awake and alert, appears comfortable, denies any pain head- post op dressing- barbie in place - occipital area anicteric lungs no rales or wheezes regular rhythm abdomen soft, nontender lumbar drain in place extremities no edema moves both LE equally and laborer pipelines well Procedures 01/10 debridement of head wounds, lumbar drain placed Guillory insert reason: Prolonged Immobilization Date of Insertion: Jan 09, 2017 A/P Problem List: (1) Postoperative infection ICD Code: T81.4XXA Status: Acute (2) Surgical wound infection ICD Code: T81.4XXA Status: Acute Assessment and Plan This is a 71-year-old female patient with past medical history which includes tobacco abuse, left spontaneous pneumothorax, 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 While patient was hospitalized she underwent Left suboccipital craniectomy with resection of cerebellar hemisphere neoplasm; bovine dural patch grafting; left occipital bur hole placement for ventriculostomy; [employer] stereotactic intraoperative navigation use; microsurgical technique with Dr. Salazar on . Patient is a poor historian unable to tell us why she is in the hospital. Patient reports that she came to the hospital, "to get help." Information obtained from patient as well as prior charting. Per ER documentation patient was being transferred from one SNF to another and was noted to have drainage from surgical incision, patient was then sent to ER for further evaluation. Postop head wound infection S/P I and D with lumbar drain placement and debridement of head wound. Right craniotomy incision- dry Blood culture negative, final wound culture back MSSA on Vancomycin/Zosyn- change to IV Ancef - Lumbar fluid- grossly clear and studies negative will get ID consult for final antibiotic recommendation- Pneumocephalus, hydrocephalus and a small amount of parenchymal hemorrhage S/P lumbar drain placement CT of the head reviewed and report reveals Extensive postsurgical changes with pneumocephalus, hydrocephalus and a small amount of parenchymal hemorrhage. Neurosurgery ff PT daily Hyponatremia improved Hypokalemia corrected Lactic acidosis 2.2 possible dehydration (clinically appears dehydrated) vs infectious Patient has received 2 L fluid bolus in emergency department- continue NS at 75 ml/H on vancomycin and Zosyn- change to IV Ancef Recheck lactic acid Pyuria- clear urine- culture silvana and gram positive likely contaminant Non-small cell lung CA with metastasis outpatient follow up after discharge 01/12 - s/w significant other- Chirag- has health care proxy- was under Hospice at one time- refuse to go back to Hospice PT daily Problem Qualifiers (1) Postoperative infection: Qualified Code: T81.4XXA - Postoperative infection, initial encounter (2) Surgical wound infection: Qualified Code: T81.4XXA - Surgical wound infection, initial encounter Kartik Allen MD Jan 12, 2017 12:37 Kartik Allen MD Jan 12, 2017 12:37
--- NOTE | 2017-01-12 19:03 | MB ---
cc: FIOR CALZADA MD DATE OF CONSULTATION 01/12/[address] Allen REASON FOR CONSULTATION MSSA infection. Lumbar drain placed. HISTORY OF PRESENT ILLNESS This is a 71-year-old white female who was admitted to the hospital from a senior living facility with leakage from the prior surgical site on the posterior scalp. The patient is status post resection of a large cerebellar tumor on 12/19/16. 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 She underwent resection of the cerebellar hemisphere neoplasm and a bovine dural patch graft. The patient was subsequently discharged to a rehab facility. 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 The patient had decreased responsiveness and was leaking CSF fluid from her occipital incision at the senior living and she was sent to the emergency department for evaluation. Cultures were taken from the posterior scalp incision and also of the fluid from that region. The culture came back with MSSA on both samples. The patient underwent lumbar drain placement. She had CSF leak repair with a patch graft. Currently, the patient is very awake. She does not know the year, but she is oriented to person and place and appears to be responding appropriately, although she is a poor historian. Her significant other is in the room currently. He tells me that the patient is more awake and responsive than previously. The patient has no fevers. She did have low temperatures yesterday. White blood cell count is 11.5. CT scan of the head on 01/09 showed extensive postsurgical changes and pneumocephalus, also hydrocephalus and a small amount of parenchymal hemorrhage. The patient received vancomycin and piperacillin from 01/10-01/12 and she was started on cephazolin on 01/12. PAST MEDICAL HISTORY 1. Tlz-[id number] lung cancer with metastases. 2. History of spontaneous pneumothorax. 3. Recent resection of large cerebral tumor 4. Hysterectomy, 5. Appendectomy, 6. Breast implants. ALLERGIES SULFA MEDICATIONS 1. Cephazolin 2. Protonix. 3. Colace. 4. Percocet five p.r.n. 5. Morphine sulfate p.r.n. 6. Potassium. SOCIAL HISTORY The patient smokes a pack of cigarettes a day. Occasional alcohol use. No illicit drugs. FAMILY HISTORY Noncontributory. REVIEW OF SYSTEMS I am not able to fully assess since the patient is not have good historian, but essentially the review of systems is negative on 10-point review. The patient denies headache and she denies nausea and vomiting. PHYSICAL EXAMINATION GENERAL: This is a thin frail-appearing female who is in no acute distress. She is awake and alert. VITAL SIGNS: Temperature of 96.9, BP 159/88, respirations 20, heart rate 92. HEENT: Extraocular movements grossly intact, pupils reactive to light without icterus. Oropharynx no visible lesions. Head has barbie in place at the posterior left scalp which is dry and has no visible drainage or erythema. NECK: Supple. No adenopathy. LUNGS: Clear breath sounds which are slightly diminished. HEART: Regular rate and rhythm. No murmurs or rubs or gallops. Abdomen: Bowel sounds present, soft, nontender. Back: The drainage catheter at the lumbar region has kyle-colored CSF in the bag and catheter. Rectal: Not performed. Extremities: No clubbing or cyanosis or edema. Muscle wasting. Decreased muscle bulk. He Neuro: No gross focal findings. Strength is equal on both upper extremities and lower extremities. Strength 3/5. Skin: No rash. Psychiatric: the patient is calm, cooperative. LABORATORY DATA WBC 11.5, platelets 04/01. Hemoglobin 10.6979% neutrophils, creatinine 0.4, BUN five, sodium 133. H. IMPRESSION 1. Surgical wound infection due to staph aureus at the postsurgical incision at the left scalp 2. CSF epidural leak and with cultures positive for staph aureus MSSA 3. Status post resection of large cerebellar tumor. 4. Dehisced wound of the left occipital area. RECOMMENDATIONS 1. Continue intravenous Ancef 2. Monitor clinical status. The patient is more awake and alert from reports of her significant other and the medical record. 3. Repeat culture from the CSF from the catheter tomorrow to make sure that there is no ongoing infection from the spinal fluid. Thank you for this consultation. The patient's progress will be monitored and further recommendations will be given on followup if necessary. Fior Calzada MD FD/ /2:59 PM /6:39 PM SADE
[2017-01-13] VITALS (7 sets, daily range): BP systolic 148–176; BP diastolic 68–91; PULSE 89–114; RESP 16–20; TEMP 98–99.2; O2SAT 93–95
[2017-01-13] MEDS: NS + KCL 20 MEQ INJ 1,000 ML IV SCH ×3 (02:30→22:23)
[2017-01-13] MEDS: SODIUM CHLORIDE 0.9% FLUSH 10 ML FLUSH IV FLUSH SCH ×4 (09:00→20:32)
[2017-01-13] MEDS: MAGNESIUM HYDROXIDE SUSP 30 ML CUP PO PRN (09:31)
[2017-01-13] MEDS: PANTOPRAZOLE SOD 40 MG DELAYED RELEASE TAB PO SCH (09:31)
[2017-01-13] MEDS: DOCUSATE SODIUM 100 MG CAP PO SCH ×2 (09:31→20:32)
[2017-01-13] MEDS ORDERED: PHARMACY ORDERED LAB ONE (09:45)
--- NOTE | 2017-01-13 11:10 | HHI.PR ---
Subjective Remarks awake and alert, no complains of back pain, nausea or vomiting or headache Objective Vitals Vital Signs Date Time Temp Pulse Resp B/P Pulse Ox O2 Delivery O2 Flow Rate FiO2 01/13/17 09:10 99.0 100 16 158/88 94 01/13/17 08:05 101 01/13/17 06:00 98.0 101 19 148/84 95 01/13/17 00:00 98.8 89 17 150/80 95 01/12/17 20:40 98.2 94 19 167/85 96 01/12/17 16:23 97 01/12/17 16:00 98.1 88 20 173/99 96 01/12/17 12:00 96.9 92 20 159/88 95 I/O 01/12/17 01/12/17 01/12/17 01/13/17 01/13/17 01/13/17 07:00 15:00 23:00 07:00 15:00 23:00 Intake Total 2500 ml 800 ml 950 ml Output Total 2380 ml 1680 ml 1609 ml 2010 ml Balance 120 ml -1680 ml -809 ml -1060 ml Intake Oral 950 ml 800 ml 950 ml IV Total 1550 ml Output Urine Total 2300 ml 1650 ml 1600 ml 1900 ml Drainage Total 80 ml 30 ml 9 ml 110 ml # Bowel Movements 0 0 0 Result Diagram: 01/11/1740 01/11/1740 Imaging Last Impressions Chest X-Ray 01/09/171955 Signed Impressions: Service Date/Time: Monday, January 09, 2017 20:01 - CONCLUSION: No acute disease. Fausto Tena MD Head CT 01/09/17 0000 Signed Impressions: Service Date/Time: Monday, January 09, 2017 20:26 - CONCLUSION: Extensive postsurgical changes with pneumocephalus, hydrocephalus and a small amount of parenchymal hemorrhage. 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 While patient was hospitalized she underwent Left suboccipital craniectomy with resection of cerebellar hemisphere neoplasm; bovine dural patch grafting; left occipital bur hole placement for ventriculostomy; [employer] stereotactic intraoperative navigation use; microsurgical technique with Dr. Salazar on . Patient is a poor historian unable to tell us why she is in the hospital. Patient reports that she came to the hospital, "to get help." Information obtained from patient as well as prior charting. Per ER documentation patient was being transferred from one SNF to another and was noted to have drainage from surgical incision, patient was then sent to ER for further evaluation. Postop head wound infection S/P I and D with lumbar drain placement and debridement of head wound. Right craniotomy incision- dry Blood culture negative, final wound culture back MSSA swtiched to IV Ancef started 01/12 - repeat CSF studies sent 01/12 (was on Vancomycin prior) Dr. velasquez ff along with us Pneumocephalus, hydrocephalus and a small amount of parenchymal hemorrhage S/P lumbar drain placement CT of the head reviewed and report reveals Extensive postsurgical changes with pneumocephalus, hydrocephalus and a small amount of parenchymal hemorrhage. Neurosurgery ff PT daily- if cleared with NS Hyponatremia improved Hypokalemia corrected Lactic acidosis 2.2 possible dehydration (clinically appears dehydrated) vs infectious on vancomycin and Zosyn- change to IV Ancef Recheck lactic acid- resolved Pyuria- clear urine- culture silvana and gram positive likely contaminant Non-small cell lung CA with metastasis outpatient follow up after discharge 01/12 - s/w significant other- Chirag- has health care proxy- was under Hospice at one time- refuse to go back to Hospice PT daily Problem Qualifiers (1) Postoperative infection: Qualified Code: T81.4XXA - Postoperative infection, initial encounter (2) Surgical wound infection: Qualified Code: T81.4XXA - Surgical wound infection, initial encounter Kartik Allen MD Jan 13, 2017 11:10
--- NOTE | 2017-01-13 16:17 | HHI.NSPN ---
(Bartolome Lopez) History Chief Complaint: improved mentation s/p incision and debridement of left suboccipital crani (Bartolome Lopez) Interval History This is a 71-year-old female who has previously undergone a left suboccipital craniectomy with resection of cerebellar neoplasm with bovine dural patch graft and ventriculostomy placement on 12/19/16 by Mansoor Salazar MD. the patient arrives to the ER from a long-term facility where she was staying for rehabilitation. She is a very poor historian and does not give much information about her current condition. I did speak with Chirag Camacho who identified himself as the patient's medical proxy. He states that the patient has had drainage from her surgical sites and he informed the nurses and she was subsequently brought to [facility] for further evaluation. 01/11/17: Pt awake more alert today. States she is in [facility] but doesn't know the date. Follows simple commands. She denies headache. No nausea vomiting. 01/12/17: Pt awake and alert. Denies headache. No nausea or vomiting. Follows simple commands. 01/13/17: Pt awake and alert. Denies headache. No nausea or vomiting. Follows commands. Lumbar spinal drain in place. (Bartolome Lopez) Review of Systems General: Negative for: fever, chills, insomnia Respiratory: Negative for: shortness of breath, cough, sputum Cardiovascular: Negative for: chest pain Gastrointestinal: Negative for: nausea, vomitting, diarrhea, constipation ( Bartolome Lopez) Exam Results Vital Signs Date Time Temp Pulse Resp B/P Pulse Ox O2 Delivery O2 Flow Rate FiO2 01/13/17 12:46 98.0 111 16 157/68 94 01/10/17 20:30 Nasal Cannula 2 Intake and Output 01/12/17 01/12/17 01/13/17 08:00 16:00 00:00 Intake Total 2500 ml 800 ml Output Total 2355 ml 1650 ml 1609 ml Balance 145 ml -1650 ml -809 ml (Bartolome Lopez) Physical Examination Resp: CTA bilaterally Heart: NSR no murmurs Abd: Soft positive bs Skin: Incision clean and dry. New bandage placed. Muscle: Moves all 4 extremities Neuro: Pt awake and more alert today. Pupils equal. Speech clear. Follows simple commands well. Lumbar spinal drain in place to assist the healing process. (Bartolome Lopez) Lab, Micro, Other Results 01/12/17 01/12/17 01/13/17 15:00 23:00 07:00 Intake Total 800 ml 950 ml Output Total 1680 ml 1609 ml 2010 ml Balance -1680 ml -809 ml -1060 ml Intake Oral 800 ml 950 ml Output Urine Total 1650 ml 1600 ml 1900 ml Drainage Total 30 ml 9 ml 110 ml # Bowel Movements 0 0 (Bartolome Lopez) Medical Decision Making Impression and Plan A: 71 y/o FM s/p 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 Salazar on 01/11/17. Pt had previously undergone a suboccipital craniectomy for cerebellar neoplasm resection. Improved. P: Continue to monitor neuro exam. PT Rehab efforts. Continue with lumbar spinal drain to assist the healing process. (Bartolome Lopez) Attending Statement The exam, history, and the medical decision-making described in the above note were completed with the assistance of the mid-level provider. I reviewed and agree with the findings presented. I attest that I had a [id number] encounter with the patient on the same day, and personally performed and documented my assessment and findings in the medical record. (Mansoor Salazar MD) Bartolome Lopez Jan 13, 2017 16:17 Mansoor Salazar MD Jan 13, 2017 17:00
--- NOTE | 2017-01-13 17:18 | HHI.IDPN ---
Note Infectious Disease Note Patient is easily awakened. Not oriented to time. Denies HERNANDEZ. Afebrile. CSF kyle colored in lumbar drain. Admitted to the hospital from a [facility] facility with leakage from the prior surgical site on the posterior scalp. The patient is status post resection of a large cerebellar tumor on 12/19/16. PAST MEDICAL HISTORY 1. Gxq-ceooa-[id number] lung cancer with metastases. 2. History of spontaneous pneumothorax. 3. Recent resection of large cerebral tumor 4. Hysterectomy, 5. Appendectomy, 6. Breast implants. ALLERGIES SULFA ANTIBIOTICS: Cefazolin SOCIAL HISTORY The patient smokes a pack of cigarettes a day. Occasional alcohol use. No illicit drugs. FAMILY HISTORY Noncontributory. OBJECTIVE: Vital Signs Date Time Temp Pulse Resp B/P Pulse Ox O2 Delivery O2 Flow Rate FiO2 01/13/17 12:46 98.0 111 16 157/68 94 01/13/17 09:10 99.0 100 16 158/88 94 01/13/17 08:05 101 01/13/17 06:00 98.0 101 19 148/84 95 01/13/17 00:00 98.8 89 17 150/80 95 01/12/17 20:40 98.2 94 19 167/85 96 01/12/17 01/12/17 01/13/17 15:00 23:00 07:00 Intake Total 800 ml 950 ml Output Total 1680 ml 1609 ml 2010 ml Balance -1680 ml -809 ml -1060 ml Intake Oral 800 ml 950 ml Output Urine Total 1650 ml 1600 ml 1900 ml Drainage Total 30 ml 9 ml 110 ml # Bowel Movements 0 0 IMAGING: Chest X-Ray 01/09/171955 Signed Impressions: Service Date/Time: Monday, January 09, 2017 20:01 - CONCLUSION: No acute disease. Fausto Tena MD Head CT 01/09/17 0000 Signed Impressions: Service Date/Time: Monday, January 09, 2017 20:26 - CONCLUSION: Extensive postsurgical changes with pneumocephalus, hydrocephalus and a small amount of parenchymal hemorrhage. Fausto Tena MD PHYSICAL EXAMINATION GENERAL: No acute distress. She is awake and alert. HEENT: Extraocular movements grossly intact, pupils reactive to light without icterus. Oropharynx no visible lesions. Head has barbie in place at the posterior left scalp which is dry and has no visible drainage or erythema. NECK: Supple. No adenopathy. LUNGS: Clear breath sounds. HEART: Regular rate and rhythm. No murmurs or rubs or gallops. Abdomen: Bowel sounds present, soft, nontender. Back: The drainage catheter at the lumbar region has kyle-colored CSF in the bag and catheter. Extremities: No clubbing or cyanosis or edema. Muscle wasting. Decreased muscle bulk. Neuro: No gross focal findings. Strength is equal on both upper extremities and lower extremities. Strength 3/5. Skin: No rash. Psychiatric: the patient is calm, cooperative. IMPRESSION 1. Surgical wound infection due to staph aureus at the postsurgical incision at the left scalp 2. CSF epidural leak and with cultures positive for staph aureus MSSA 3. Status post resection of large cerebellar tumor. 4. Dehisced wound of the left occipital area. RECOMMENDATIONS 1. Continue intravenous Ancef 2. Monitor clinical status. 3. Follow repeat culture from the CSF from the lumbar drain to make sure that there is no ongoing infection from the spinal fluid. Please call ID if fever on weekend. Prashanth Alfonso MD Jan 13, 2017 17:18 Prashanth Alfonso MD Jan 13, 2017 17:18
[2017-01-14] VITALS (9 sets, daily range): BP systolic 111–177; BP diastolic 65–97; PULSE 85–138; RESP 16–20; TEMP 96.6–99.7; O2SAT 93–97
--- NOTE | 2017-01-14 07:59 | HHI.PR ---
Subjective Remarks This is a pleasant 71 y/o Female with history of left suboccipital craniectomy with resection of cerebellar neoplasm with bovine dural patch graft, ventriculostomy placement 12/19/16 by Mansoor Salazar MD. the patient arrives to the ER from a half-way facility where she was staying for rehabilitation. He states that the patient has had drainage from her surgical sites. status post I and D, he has Staph Aureus infection on Ancef. patient with loose stools today discontinued Colace. Seen in the room in the presence of nurse Miss Mcdermott shira, continue present care, as per Neurosurgery with Diagnosis of left suboccipital pseudomeningocele/CSF leak repair with patch graft, superficial and deep wound debridement, lumbar spinal drain placement, microsurgical technique, to continue present care. PT and Rehab efforts. Objective Vital Signs Date Time Temp Pulse Resp B/P Pulse Ox O2 Delivery O2 Flow Rate FiO2 01/14/17 04:00 99.7 126 20 154/84 95 01/14/17 00:00 96.6 111 18 177/97 97 153/82 01/13/17 20:00 99.0 114 20 169/90 93 01/13/17 17:27 99.2 106 16 176/91 94 01/13/17 12:46 98.0 111 16 157/68 94 01/13/17 09:10 99.0 100 16 158/88 94 01/13/17 08:05 101 I/O 01/13/17 01/13/17 01/13/17 01/14/17 01/14/17 01/14/17 07:00 15:00 23:00 07:00 15:00 23:00 Intake Total 950 ml 0 ml Output Total 2010 ml 800 ml 750 ml 300 ml Balance -1060 ml -800 ml -750 ml -300 ml Intake Oral 950 ml 0 ml Output Urine Total 1900 ml 800 ml 750 ml 300 ml Drainage Total 110 ml # Voids 1 # Bowel Movements 0 0 1 Result Diagram: 01/11/1740 01/11/17939 Imaging Last Impressions Chest X-Ray 01/09/171955 Signed Impressions: Service Date/Time: Monday, January 09, 2017 20:01 - CONCLUSION: No acute disease. Fausto Tena MD Head CT 01/09/17 0000 Signed Impressions: Service Date/Time: Monday, January 09, 2017 20:26 - CONCLUSION: Extensive postsurgical changes with pneumocephalus, hydrocephalus and a small amount of parenchymal hemorrhage. Fausto Tena MD Procedures With diagnosis of Left occipital wound dehiscence with CSF leak/ pseudomeningocele status post Left suboccipital pseudomeningocele/CSF leak repair with patch graft; superficial and deep wound debridement; lumbar spinal drain placement; microsurgical technique, 01/10/17 by Mansoor Salazar MD Other Results Laboratory Tests Test 01/10/17 01/10/17 01/11/17 03:38 17:44 09:40 Lactic Acid Level 1.4 mmol/L Protein Corrected Calcium 8.7 MG/DL Total Protein 5.9 GM/DL White Blood Count 11.5 TH/MM3 Red Blood Count 3.88 MIL/MM3 Hemoglobin 10.6 GM/DL Hematocrit 32.2 % Mean Corpuscular Volume 83.1 FL Mean Corpuscular Hemoglobin 27.3 PG Mean Corpuscular Hemoglobin 32.8 % Concent Red Cell Distribution Width 16.9 % Platelet Count 400 TH/MM3 Mean Platelet Volume 7.7 FL Neutrophils (%) (Auto) 79.8 % Lymphocytes (%) (Auto) 11.3 % Monocytes (%) (Auto) 7.6 % Eosinophils (%) (Auto) 0.9 % Basophils (%) (Auto) 0.4 % Neutrophils # (Auto) 9.1 TH/MM3 Lymphocytes # (Auto) 1.3 TH/MM3 Monocytes # (Auto) 0.9 TH/MM3 Eosinophils # (Auto) 0.1 TH/MM3 Basophils # (Auto) 0.1 TH/MM3 CBC Comment DIFF FINAL Differential Comment Hematology Comments Sodium Level 133 MEQ/L Potassium Level 4.1 MEQ/L Chloride Level 102 MEQ/L Carbon Dioxide Level 21.4 MEQ/L Anion Gap 10 MEQ/L Blood Urea Nitrogen 5 MG/DL Creatinine 0.40 MG/DL Estimat Glomerular Filtration 156 ML/MIN Rate Random Glucose 63 MG/DL Calcium Level 8.2 MG/DL Magnesium Level 1.8 MG/DL Vancomycin Level Trough 11.7 MCG/ML Objective Remarks GENERAL: No acute distress. SKIN: Warm and dry. Clean surgical wound. HEAD: Atraumatic. Normocephalic. clean surgical wound. EYES: Pupils equal and round. No scleral icterus. No injection or drainage. ENT: No nasal bleeding or discharge. Mucous membranes pink and moist. NECK: Trachea midline. No JVD. CARDIOVASCULAR: Regular rate and rhythm. RESPIRATORY: No accessory muscle use. Clear to auscultation. Breath sounds equal bilaterally. GASTROINTESTINAL: Abdomen soft, non-tender, nondistended. Hepatic and splenic margins not palpable. MUSCULOSKELETAL: Extremities without clubbing, cyanosis, or edema. No obvious deformities. NEUROLOGICAL: Awake and alert. No obvious cranial nerve deficits. Lumbar drain in place, PSYCHIATRIC: Appropriate mood and affect; insight and judgment normal. Medications and IVs Current Medications Medications (Trade) Dose Ordered Sig/Deana Route Start Time Stop Time Status Last Admin (NS Flush) 2 ml UNSCH PRN IV FLUSH 01/09/17 23:15 01/11/17 04:24 (NS Flush) 2 ml BID IV FLUSH 01/10/17 09:00 01/13/17 09:30 (Zofran Inj) 4 mg Q6H PRN IVP 01/09/17 23:15 01/10/17 19:58 Naloxone HCl 0.4 mg 0.4 mg UNSCH PRN IV 01/09/17 23:15 (NS + KCl 20 Meq Inj) 1,000 ml @ 100 mls/hr Q10H IV 01/10/17 14:23 01/13/17 22:23 (NS Flush) 2 ml UNSCH PRN IV FLUSH 01/10/17 14:30 (NS Flush) 2 ml BID IV FLUSH 01/10/17 21:00 01/13/17 20:32 (Colace) 100 mg BID PO 01/10/17 21:00 01/13/17 20:32 (Milk Of Magnesia Liq) 30 ml DAILY PRN PO 01/10/17 14:30 01/13/17 09:31 (Mag-Al Plus Susp Liq) 30 ml Q6H PRN PO 01/10/17 14:30 Pantoprazole Sodium 40 mg 40 mg DAILY PO 01/11/17 09:00 01/13/17 09:31 Calcium Gluconate 1 gm/Sodium Chloride 110 ml @ 110 mls/hr UNSCH PRN IV 01/10/17 14:30 Potassium Chloride 100 ml @ 50 mls/hr UNSCH PRN IV 01/10/17 14:30 (Magnesium Sulfate Inj/NS Inj) 104 ml @ 100 mls/hr UNSCH PRN IV 01/10/17 14:30 (Percocet 5-325 Mg) 1 tab Q4H PRN PO 01/10/17 14:30 01/10/17 23:24 (Percocet 5-325 Mg) 2 tab Q4H PRN PO 01/10/17 14:30 01/12/17 09:33 (Morphine Inj) 2 mg Q2H PRN IV 01/10/17 14:30 01/11/17 04:23 (Trandate Inj) 10 mg Q1H PRN IV 01/10/17 14:30 (Catapres) 0.1 mg Q6H PRN PO 01/10/17 14:30 01/14/17 00:10 (Tylenol) 650 mg Q4H PRN PO 01/10/17 14:30 Menthol 1 lozenge 1 lozenge UNSCH PRN BUCCAL 01/10/17 14:30 (Cardene Inj/NS 250 ml Inj) 260 ml @ 0 mls/hr TITRATE IV 01/10/17 14:30 Prochlorperazine Edisylate 10 mg 10 mg Q6H PRN IV PUSH 01/10/17 14:30 (Ancef Inj/NS Inj) 100 ml @ 200 mls/hr Q8H IV 01/13/17 09:00 01/14/17 01:00 A/P Assessment and Plan 1. Postop Head wound infection, status post I and D with lumbar drain placement Right craniotomy incision dry wound culture MSSA, on IV Ancef, ID specialist following. 2. Pneumocephalus, Hydrocephalus and a small amount of parenchymal hemorrhage, status post lumbar drain placement. Ct Head extensive post surgical changes with pneumocephalus, hydrocephalus and a small amount of parenchymal hemorrhage. continue PT daily. 3. Electrolyte derangement corrected and following. 4. 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 01/12 - s/w significant other- Chirag- has health care proxy- was under Hospice at one time- refuse to go back to Hospice 5. Tobacco dependence history. 6. Sinus tachycardia on Beta Blockers. 7. Hypertension better on Beta liz started on Metoprolol tartrate 25 mg bid. PT daily DVT prophylaxis with SCDs. Prashant Garcia MD Jan 14, 2017 07:59
[2017-01-14] MEDS: NS + KCL 20 MEQ INJ 1,000 ML IV SCH ×2 (09:00→16:57)
[2017-01-14] MEDS: METOPROLOL TARTRATE 25 MG TAB PO SCH ×2 (09:04→21:59)
[2017-01-14] MEDS: PANTOPRAZOLE SOD 40 MG DELAYED RELEASE TAB PO SCH (09:04)
[2017-01-14] MEDS: SODIUM CHLORIDE 0.9% FLUSH 10 ML FLUSH IV FLUSH SCH ×2 (09:04→21:59)
[2017-01-14] MEDS: DOCUSATE SODIUM 100 MG CAP PO SCH (09:04)
[2017-01-14] MEDS: oxyCODONE/ACETAMINOPHEN 5 MG/325 MG TAB PO PRN (16:48)
--- NOTE | 2017-01-14 19:18 | HHI.NSPN ---
Note Status Status: Progress Note Interval History Interval History This is a 71-year-old female who has previously undergone a left suboccipital craniectomy with resection of cerebellar neoplasm with bovine dural patch graft and ventriculostomy placement on 12/19/16 by Mansoor Salazar MD. the patient arrives to the ER from a long term facility where she was staying for rehabilitation. She is a very poor historian and does not give much information about her current condition. I did speak with Chirag Rivasjoanna who identified himself as the patient's medical proxy. He states that the patient has had drainage from her surgical sites and he informed the nurses and she was subsequently brought to [facility] for further evaluation. 01/11/17: Pt awake more alert today. States she is in [facility] but doesn't know the date. Follows simple commands. She denies headache. No nausea vomiting. 01/12/17: Pt awake and alert. Denies headache. No nausea or vomiting. Follows simple commands. 01/13/17: Pt awake and alert. Denies headache. No nausea or vomiting. Follows commands. Lumbar spinal drain in place. 01/13/17: Pt awake and alert. Denies headache. Follows commands. Lumbar spinal drain in place Labs, Micro, & Vital Signs Results Date Time Temp Pulse Resp B/P Pulse Ox O2 Delivery O2 Flow Rate FiO2 01/14/17 16:41 97.5 116 16 121/67 95 01/14/17 12:17 98.4 111 19 124/67 94 01/14/17 09:07 99.4 138 19 120/66 93 01/14/17 08:15 137 01/14/17 08:05 114 01/14/17 04:00 99.7 126 20 154/84 95 01/14/17 00:00 96.6 111 18 177/97 97 153/82 01/13/17 20:00 99.0 114 20 169/90 93 01/14/17 07:00 Intake Total 0 ml Output Total 1850 ml Balance -1850 ml Constitutional Vital Signs Date Time Temp Pulse Resp B/P Pulse Ox O2 Delivery O2 Flow Rate FiO2 01/14/17 16:41 97.5 116 16 121/67 95 01/14/17 12:17 98.4 111 19 124/67 94 01/14/17 09:07 99.4 138 19 120/66 93 01/14/17 08:15 137 01/14/17 08:05 114 01/14/17 04:00 99.7 126 20 154/84 95 01/14/17 00:00 96.6 111 18 177/97 97 153/82 01/13/17 20:00 99.0 114 20 169/90 93 01/14/17 07:00 Intake Total 0 ml Output Total 1850 ml Balance -1850 ml Review of Systems/Exam Exam Resp: CTA bilaterally Heart: NSR no murmurs Abd: Soft positive bs Skin: Incision clean and dry. New bandage placed. Muscle: Moves all 4 extremities Neuro: Pt awake and more alert today. Pupils equal. Speech clear. Follows simple commands well. Lumbar spinal drain in place to assist the healing process. Medications Current Medications Current Medications Piperacillin Sod/ Tazobactam Sod 100 ml @ 200 mls/hr ONCE STAT IV Last administered on 01/09/17 20:44; Start 01/09/17 at 19:56; Stop 01/09/17 at 20:25 ; Status DC Vancomycin HCl 1000 mg/Sodium Chloride 250 ml @ 250 mls/hr ONCE STAT IV Last administered on 01/09/17 22:17; Start 01/09/17 at 19:56; Stop 01/09/17 at 20:55 ; Status DC Sodium Chloride 1,000 ml @ 999 mls/hr BOLUS ONCE IV Last administered on 01/09 20:44; Start 01/09/17 at 20:00; Stop 01/09/17 at 21:00; Status DC Sodium Chloride (NS 500 ml Inj) 500 ml @ 500 mls/hr BOLUS ONCE IV Last administered on 01/09/17 22:18; Start 01/09/17 at 20:00; Stop 01/09/17 at 20:59 ; Status DC Acetaminophen/ Hydrocodone Bitart ([place] 5-325 Mg) 1 tab ONCE ONCE PO ; Start 01/09/17 at 23:00; Stop 01/09/17 at 23:01; Status DC Sodium Chloride (NS Flush) 2 ml UNSCH PRN IV FLUSH FLUSH AFTER USING IV ACCESS Last administered on 01/11/17 04:24; Start 01/09/17 at 23:15; Stop 01/14/17 at 08:33; Status DC Sodium Chloride (NS Flush) 2 ml BID IV FLUSH Last administered on 01/13/17 09: 30; Start 01/10/17 at 09:00; Stop 01/14/17 at 08:33; Status DC Ondansetron HCl (Zofran Inj) 4 mg Q6H PRN IVP NAUSEA OR VOMITING Last administered on 01/10/17 19:58; Start 01/09/17 at 23:15 Naloxone HCl 0.4 mg 0.4 mg UNSCH PRN IV SEE LABEL COMMENTS; Start 01/09/17 at 23:15 Pharmacy Profile Note 0 ml @ 0 mls/hr UNSCH OTHER ; Start 01/09/17 at 23:15; Status Cancel Piperacillin Sod/ Tazobactam Sod 100 ml @ 200 mls/hr Q6H IV Last administered on 01/12/17 09:08; Start 01/10/17 at 03:00; Stop 01/12/17 at 13:06; Status DC Sodium Chloride 1,000 ml @ 84 mls/hr [id number] IV Last administered on 01:34; Start 01/10/17 at 00:45; Stop 01/10/17 at 14:30; Status DC Potassium Chloride 100 ml @ 100 mls/hr Q1H IV Last administered on 01/10/17 09:24; Start 01/10/17 at 00:45; Stop 01/10/17 at 03:44; Status DC Potassium Chloride 100 ml @ As Directed STK-MED ONCE .ROUTE ; Start 01/10/17 at 01:28; Stop 01/10/17 at 01:29; Status DC Potassium Chloride (KCl 20 Meq Premix Inj) 100 ml @ 50 mls/hr Q2H IV ; Start at 05:00; Stop 01/10/17 at 08:59; Status DC Potassium Bicarb/ Potassium Chloride 50 meq 50 meq ONCE ONCE PO Last administered on 01/10/17 06:04; Start 01/10/17 at 05:15; Stop 01/10/17 at 05:16 ; Status DC Vancomycin HCl/ Sodium Chloride (Vancomycin Inj/ NS 250 ml Inj) 250 ml @ 250 mls/hr Q12H IV Last administered on 01/12/17 11:04; Start 01/10/17 at 10:00; Stop 01/12/17 at 13:07; Status DC Miscellaneous Information SPECIFIC LAB TO BE DRAWN:VANCOMYCIN TROUGH DATE TO... ONCE ONCE .XX Last administered on 01/11/17 09:45; Start 01/11/17 at 09:45; Stop 01/11/17 at 09:46; Status DC Famotidine (Pepcid Inj) 20 mg STK-MED ONCE .ROUTE Last administered on 11:35; Start 01/10/17 at 11:35; Stop 01/10/17 at 11:36; Status DC Acetaminophen (Ofirmev Inj) 1,000 mg STK-MED ONCE IV ; Start 01/10/17 at 12:09; Stop 01/10/17 at 12:10; Status DC Midazolam HCl (Versed Inj) 2 mg STK-MED ONCE .ROUTE ; Start 01/10/17 at 12:09; Stop 01/10/17 at 12:10; Status DC Fentanyl Citrate (fentaNYL INJ) 100 mcg STK-MED ONCE .ROUTE ; Start 01/10/17 at 12:10; Stop 01/10/17 at 12:11; Status DC Thrombin (Thrombin Top Soln) 10,000 units STK-MED ONCE .ROUTE Last administered on 01/10/17 13:08; Start 01/10/17 at 12:31; Stop 01/10/17 at 12:32 ; Status DC Bupivacaine HCl/ Epinephrine Bitart (Sensorcaine-Epinephrine Pf 0.5% Inj) 30 ml STK-MED ONCE .ROUTE Last administered on 01/10/17 13:08; Start 01/10/17 at 12: 31; Stop 01/10/17 at 12:32; Status DC Gelatin (Gelfoam 100 Top) 1 foam STK-MED ONCE .ROUTE Last administered on 13:08; Start 01/10/17 at 12:31; Stop 01/10/17 at 12:32; Status DC Vancomycin HCl (Vancomycin Inj) 1,000 mg STK-MED ONCE .ROUTE Last administered on 01/10/17 13:08; Start 01/10/17 at 12:32; Stop 01/10/17 at 12:33; Status DC Gentamicin Sulfate 240 mg 240 mg STK-MED ONCE .ROUTE ; Start 01/10/17 at 12:32; Stop 01/10/17 at 12:33; Status DC Potassium Chloride/Sodium Chloride (NS + KCl 20 Meq Inj) 1,000 ml @ 100 mls/hr Q10H IV Last administered on 01/14/17 09:00; Start 01/10/17 at 14:23 Sodium Chloride (NS Flush) 2 ml UNSCH PRN IV FLUSH FLUSH AFTER USING IV ACCESS ; Start 01/10/17 at 14:30 Sodium Chloride (NS Flush) 2 ml BID IV FLUSH Last administered on 01/14/17 09: 04; Start 01/10/17 at 21:00 Docusate Sodium (Colace) 100 mg BID PO Last administered on 01/14/17 09:04; Start 01/10/17 at 21:00; Stop 01/14/17 at 17:30; Status DC Magnesium Hydroxide (Milk Of Magnesia Liq) 30 ml DAILY PRN PO CONSTIPATION Last administered on 01/13/17 09:31; Start 01/10/17 at 14:30 Al Hydrox/Mg Hydrox/Simethicone (Mag-Al Plus Susp Liq) 30 ml Q6H PRN PO DYSPEPSIA; Start 01/10/17 at 14:30 Pantoprazole Sodium 40 mg 40 mg DAILY PO Last administered on 01/14/17 09:04; Start 01/11/17 at 09:00 Calcium Gluconate 1 gm/Sodium Chloride 110 ml @ 110 mls/hr UNSCH PRN IV SEE LABEL COMMENTS; Start 01/10/17 at 14:30 Potassium Chloride 100 ml @ 50 mls/hr UNSCH PRN IV POTASSIUM LESS THAN 4; Start 01/10/17 at 14:30 Magnesium Sulfate/ Sodium Chloride (Magnesium Sulfate Inj/NS Inj) 104 ml @ 100 mls/hr UNSCH PRN IV MAGNESIUM LESS THAN 2; Start 01/10/17 at 14:30 Oxycodone/ Acetaminophen (Percocet 5-325 Mg) 1 tab Q4H PRN PO PAIN SCALE 1 TO 5 Last administered on 01/14/17 16:48; Start 01/10/17 at 14:30 Oxycodone/ Acetaminophen (Percocet 5-325 Mg) 2 tab Q4H PRN PO PAIN SCALE 6 TO 10 Last administered on 01/12/17 09:33; Start 01/10/17 at 14:30 Morphine Sulfate (Morphine Inj) 2 mg Q2H PRN IV breakthrough pain> 6 Last administered on 01/11/17 04:23; Start 01/10/17 at 14:30 Labetalol HCl (Trandate Inj) 10 mg Q1H PRN IV SYS BP GREATER THAN 170 MMHG; Start 01/10/17 at 14:30 Clonidine (Catapres) 0.1 mg Q6H PRN PO SYS BP GREATER THAN 170 MMHG Last administered on 01/14/17 00:10; Start 01/10/17 at 14:30 Acetaminophen (Tylenol) 650 mg Q4H PRN PO TEMPERATURE > 101.5 F; Start at 14:30 Menthol ([place]) 1 lozenge UNSCH PRN BUCCAL SORE THROAT; Start 01/10/17 at 14:30 Albuterol Sulfate 2.5 mg 2.5 mg Q4HR NEB PRN NEB WHEEZING; Start 01/10/17 at 14 :30 Nicardipine HCl/ Sodium Chloride (Cardene Inj/NS 250 ml Inj) 260 ml @ 0 mls/hr TITRATE IV ; Start 01/10/17 at 14:30 Prochlorperazine Edisylate (Compazine Inj) 10 mg Q6H PRN IV PUSH nausea if zofran ineffective; Start 01/10/17 at 14:30 Fentanyl Citrate (fentaNYL INJ) 250 mcg STK-MED ONCE .ROUTE ; Start 01/10/17 at 14:39; Stop 01/10/17 at 14:40; Status DC Miscellaneous Information ALL NURSING DEPARTME... UNSCH PRN .XX SEE LABEL COMMENTS; Start 01/10/17 at 15:15; Stop 01/11/17 at 15:14; Status DC Miscellaneous Information SPECIFIC LAB TO BE DRAWN:VANCOMYCIN TROUGH DATE TO... ONCE ONCE .XX ; Start 01/13/17 at 09:45; Stop 01/13/17 at 09:46; Status Cancel Cefazolin Sodium 1000 mg/Sodium Chloride 100 ml @ 200 mls/hr Q8H IV ; Start at 06:00; Stop 01/13/17 at 06:00; Status DC Cefazolin Sodium 1000 mg/Sodium Chloride 100 ml @ 200 mls/hr Q8H IV ; Start at 13:30; Stop 01/12/17 at 13:30; Status DC Cefazolin Sodium/ Sodium Chloride (Ancef Inj/NS Inj) 100 ml @ 200 mls/hr Q8H IV Last administered on 01/14/17 16:47; Start 01/13/17 at 09:00 Metoprolol Tartrate (Lopressor) 25 mg Q12HR PO Last administered on 01/14/17 09:04; Start 01/14/17 at 09:00 Medical Decision Making MDM Remarks 71 y/o FM s/p 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 Salazar on 01/11/17. Pt had previously undergone a suboccipital craniectomy for cerebellar neoplasm resection. Doing well. Lumbar drain working well. Plan Plan Remarks Continue to monitor neuro exam. PT Rehab efforts. Continue with lumbar spinal drain to assist the healing process. Drain less than 80 in 8 hr shift. Kane Russell MD Jan 14, 2017 19:18
[2017-01-15] VITALS (7 sets, daily range): BP systolic 110–131; BP diastolic 53–87; PULSE 98–132; RESP 16–19; TEMP 96.8–98.6; O2SAT 94–97
[2017-01-15] MEDS: NS + KCL 20 MEQ INJ 1,000 ML IV SCH (04:17)
[2017-01-15] MEDS: METOPROLOL TARTRATE 25 MG TAB PO SCH ×2 (08:09→21:27)
[2017-01-15] MEDS: PANTOPRAZOLE SOD 40 MG DELAYED RELEASE TAB PO SCH (08:09)
[2017-01-15] MEDS: SODIUM CHLORIDE 0.9% FLUSH 10 ML FLUSH IV FLUSH SCH ×2 (08:10→21:27)
--- NOTE | 2017-01-15 09:39 | HHI.PR ---
Subjective Remarks This is a pleasant 71 y/o Female with history of left suboccipital craniectomy with resection of cerebellar neoplasm with bovine dural patch graft, ventriculostomy placement 12/19/16 by Mansoor Salazar MD. the patient arrives to the ER from a long term facility where she was staying for rehabilitation. He states that the patient has had drainage from her surgical sites. status post I and D, he has Staph Aureus infection on Ancef. patient with loose stools today discontinued Colace. 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 01/15: Stable seen in the room and discussed with nurse Miss Welch, continue with loose stools, was removed Colace, probable related to antibiotics, is somnolent but awakes and answer my questions, states is feeling well. No Nausea or vomit. Objective Vital Signs Date Time Temp Pulse Resp B/P Pulse Ox O2 Delivery O2 Flow Rate FiO2 01/15/17 08:25 97.6 111 16 126/87 97 01/15/17 03:54 98.5 107 110/53 96 01/14/17 20:00 97.8 109 20 111/65 96 01/14/17 18:06 105 01/14/17 16:41 97.5 116 16 121/67 95 01/14/17 12:17 98.4 111 19 124/67 94 I/O 01/14/17 01/14/17 01/14/17 01/15/17 01/15/17 01/15/17 07:00 15:00 23:00 07:00 15:00 23:00 Intake Total 4062 ml Output Total 300 ml 370 ml 15 ml 55 ml Balance -300 ml -370 ml 4047 ml -55 ml Oral Supplement 100 ml IV Total 3962 ml Output Urine Total 300 ml 350 ml Drainage Total 20 ml 15 ml 55 ml # Bowel Movements 1 3 1 Result Diagram: 01/11/17 0940 01/11/17 0940 Imaging Last Impressions Chest X-Ray 01/09/171955 Signed Impressions: Service Date/Time: Monday, January 09, 2017 20:01 - CONCLUSION: No acute disease. Fausto Tena MD Head CT 01/09/17 0000 Signed Impressions: Service Date/Time: Monday, January 09, 2017 20:26 - CONCLUSION: Extensive postsurgical changes with pneumocephalus, hydrocephalus and a small amount of parenchymal hemorrhage. Fausto Tena MD Procedures With diagnosis of Left occipital wound dehiscence with CSF leak/ pseudomeningocele status post Left suboccipital pseudomeningocele/CSF leak repair with patch graft; superficial and deep wound debridement; lumbar spinal drain placement; microsurgical technique, 01/10/17 by Mansoor Salazar MD Other Results Laboratory Tests Test 01/11/17 09:40 White Blood Count 11.5 TH/MM3 Red Blood Count 3.88 MIL/MM3 Hemoglobin 10.6 GM/DL Hematocrit 32.2 % Mean Corpuscular Volume 83.1 FL Mean Corpuscular Hemoglobin 27.3 PG Mean Corpuscular Hemoglobin 32.8 % Concent Red Cell Distribution Width 16.9 % Platelet Count 400 TH/MM3 Mean Platelet Volume 7.7 FL Neutrophils (%) (Auto) 79.8 % Lymphocytes (%) (Auto) 11.3 % Monocytes (%) (Auto) 7.6 % Eosinophils (%) (Auto) 0.9 % Basophils (%) (Auto) 0.4 % Neutrophils # (Auto) 9.1 TH/MM3 Lymphocytes # (Auto) 1.3 TH/MM3 Monocytes # (Auto) 0.9 TH/MM3 Eosinophils # (Auto) 0.1 TH/MM3 Basophils # (Auto) 0.1 TH/MM3 CBC Comment DIFF FINAL Differential Comment Hematology Comments Sodium Level 133 MEQ/L Potassium Level 4.1 MEQ/L Chloride Level 102 MEQ/L Carbon Dioxide Level 21.4 MEQ/L Anion Gap 10 MEQ/L Blood Urea Nitrogen 5 MG/DL Creatinine 0.40 MG/DL Estimat Glomerular Filtration 156 ML/MIN Rate Random Glucose 63 MG/DL Calcium Level 8.2 MG/DL Magnesium Level 1.8 MG/DL Vancomycin Level Trough 11.7 MCG/ML Objective Remarks GENERAL: No acute distress. SKIN: Warm and dry. Clean surgical wound. HEAD: Atraumatic. Normocephalic. clean surgical wound. EYES: Pupils equal and round. No scleral icterus. No injection or drainage. ENT: No nasal bleeding or discharge. Mucous membranes pink and moist. NECK: Trachea midline. No JVD. CARDIOVASCULAR: Regular rate and rhythm. RESPIRATORY: No accessory muscle use. Clear to auscultation. Breath sounds equal bilaterally. GASTROINTESTINAL: Abdomen soft, non-tender, nondistended. Hepatic and splenic margins not palpable. MUSCULOSKELETAL: Extremities without clubbing, cyanosis, or edema. No obvious deformities. NEUROLOGICAL: Awake and alert. No obvious cranial nerve deficits. Lumbar drain in place, PSYCHIATRIC: Appropriate mood and affect. Medications and IVs Current Medications Medications (Trade) Dose Ordered Sig/Deana Route Start Time Stop Time Status Last Admin (Zofran Inj) 4 mg Q6H PRN IVP 01/09/17 23:15 01/10/17 19:58 Naloxone HCl 0.4 mg 0.4 mg UNSCH PRN IV 01/09/17 23:15 (NS + KCl 20 Meq Inj) 1,000 ml @ 100 mls/hr Q10H IV 01/10/17 14:23 01/15/17 04:17 (NS Flush) 2 ml UNSCH PRN IV FLUSH 01/10/17 14:30 (NS Flush) 2 ml BID IV FLUSH 01/10/17 21:00 01/15/17 08:10 (Milk Of Magnesia Liq) 30 ml DAILY PRN PO 01/10/17 14:30 01/13/17 09:31 (Mag-Al Plus Susp Liq) 30 ml Q6H PRN PO 01/10/17 14:30 Pantoprazole Sodium 40 mg 40 mg DAILY PO 01/11/17 09:00 01/15/17 08:09 Calcium Gluconate 1 gm/Sodium Chloride 110 ml @ 110 mls/hr UNSCH PRN IV 01/10/17 14:30 Potassium Chloride 100 ml @ 50 mls/hr UNSCH PRN IV 01/10/17 14:30 (Magnesium Sulfate Inj/NS Inj) 104 ml @ 100 mls/hr UNSCH PRN IV 01/10/17 14:30 (Percocet 5-325 Mg) 1 tab Q4H PRN PO 01/10/17 14:30 01/14/17 16:48 (Percocet 5-325 Mg) 2 tab Q4H PRN PO 01/10/17 14:30 01/12/17 09:33 (Morphine Inj) 2 mg Q2H PRN IV 01/10/17 14:30 01/11/17 04:23 (Trandate Inj) 10 mg Q1H PRN IV 01/10/17 14:30 (Catapres) 0.1 mg Q6H PRN PO 01/10/17 14:30 01/14/17 00:10 (Tylenol) 650 mg Q4H PRN PO 01/10/17 14:30 Menthol 1 lozenge 1 lozenge UNSCH PRN BUCCAL 01/10/17 14:30 (Cardene Inj/NS 250 ml Inj) 260 ml @ 0 mls/hr TITRATE IV 01/10/17 14:30 Prochlorperazine Edisylate 10 mg 10 mg Q6H PRN IV PUSH 01/10/17 14:30 (Ancef Inj/NS Inj) 100 ml @ 200 mls/hr Q8H IV 01/13/17 09:00 01/15/17 08:09 (Lopressor) 25 mg Q12HR PO 01/14/17 09:00 01/15/17 08:09 A/P Assessment and Plan 1. Postop Head wound infection, status post I and D with lumbar drain placement Right craniotomy incision dry wound culture MSSA, on IV Ancef, ID specialist following. 2. Pneumocephalus, Hydrocephalus and a small amount of parenchymal hemorrhage, status post lumbar drain placement. Ct Head extensive post surgical changes with pneumocephalus, hydrocephalus and a small amount of parenchymal hemorrhage. continue PT daily. 3. Electrolyte derangement corrected and following. BMP, Mag and PO4 level for tomorrow in am. 4. 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 01/12 - s/w significant other- Chirag- has health care proxy- was under Hospice at one time- refuse to go back to Hospice 5. Tobacco dependence history. 6. Sinus tachycardia on Beta Blockers. 7. Hypertension better on Beta liz 8. Loose stools asked for C Diff he was on Colace that was discontinued following. PT daily DVT prophylaxis with SCDs. Discharge Planning awaiting final recommendations by ID and Neurosurgery specialist. Prashant Garcia MD Jan 15, 2017 09:39
[2017-01-15] MEDS: SODIUM CHLOR 0.9% 1000 ML INJ 1,000 ML IV SCH ×2 (10:30→21:28)
--- NOTE | 2017-01-15 15:59 | HHI.NSPN ---
Note Status Status: Progress Note Interval History Interval History This is a 71-year-old female who has previously undergone a left suboccipital craniectomy with resection of cerebellar neoplasm with bovine dural patch graft and ventriculostomy placement on 12/19/16 by Mansoor Salazar MD. the patient arrives to the ER [place] a [place] [facility] where she was staying for rehabilitation. She is a very poor historian and does not give much information about her current condition. I did speak with Chirag Rivasjoanna who identified himself as the patient's medical proxy. He states that the patient has had drainage from her surgical sites and he informed the nurses and she was subsequently brought to [place] for further evaluation. 01/11/17: Pt awake more alert today. States she is in [place] but doesn't know the date. Follows simple commands. She denies headache. No nausea vomiting. 01/12/17: Pt awake and alert. Denies headache. No nausea or vomiting. Follows simple commands. 01/13/17: Pt awake and alert. Denies headache. No nausea or vomiting. Follows commands. Lumbar spinal drain in place. 01/13/17: Pt awake and alert. Denies headache. Follows commands. Lumbar spinal drain in place 01/15/17: Pt awake and alert. Denies headache. Follows commands. Lumbar spinal drain in place with 90 cc drainage last shift Labs, Micro, & Vital Signs Results Date Time Temp Pulse Resp B/P Pulse Ox O2 Delivery O2 Flow Rate FiO2 01/15/17 12:33 96.8 98 19 131/65 94 01/15/17 08:25 97.6 111 16 126/87 97 01/15/17 08:01 108 01/15/17 03:54 98.5 107 110/53 96 01/14/17 20:00 97.8 109 20 111/65 96 01/14/17 18:06 105 01/14/17 16:41 97.5 116 16 121/67 95 01/15/17 07:00 Intake Total 4062 ml Output Total 440 ml Balance 3622 ml Constitutional Vital Signs Date Time Temp Pulse Resp B/P Pulse Ox O2 Delivery O2 Flow Rate FiO2 01/15/17 12:33 96.8 98 19 131/65 94 01/15/17 08:25 97.6 111 16 126/87 97 01/15/17 08:01 108 01/15/17 03:54 98.5 107 110/53 96 01/14/17 20:00 97.8 109 20 111/65 96 01/14/17 18:06 105 01/14/17 16:41 97.5 116 16 121/67 95 01/15/17 07:00 Intake Total 4062 ml Output Total 440 ml Balance 3622 ml Review of Systems/Exam Exam Resp: CTA bilaterally Heart: NSR no murmurs Abd: Soft positive bs Skin: Incision clean and dry. New bandage placed. Muscle: Moves all 4 extremities Neuro: Pt awake and more alert today. Pupils equal. Speech clear. Follows simple commands well. Lumbar spinal drain in place to assist the healing process. Medications Current Medications Current Medications Piperacillin Sod/ Tazobactam Sod 100 ml @ 200 mls/hr ONCE STAT IV Last administered on 01/09/17 20:44; Start 01/09/17 at 19:56; Stop 01/09/17 at 20:25 ; Status DC Vancomycin HCl 1000 mg/Sodium Chloride 250 ml @ 250 mls/hr ONCE STAT IV Last administered on 01/09/17 22:17; Start 01/09/17 at 19:56; Stop 01/09/17 at 20:55 ; Status DC Sodium Chloride 1,000 ml @ 999 mls/hr BOLUS ONCE IV Last administered on 01/09 20:44; Start 01/09/17 at 20:00; Stop 01/09/17 at 21:00; Status DC Sodium Chloride (NS 500 ml Inj) 500 ml @ 500 mls/hr BOLUS ONCE IV Last administered on 01/09/17 22:18; Start 01/09/17 at 20:00; Stop 01/09/17 at 20:59 ; Status DC Acetaminophen/ Hydrocodone Bitart ([place] 5-325 Mg) 1 tab ONCE ONCE PO ; Start 01/09/17 at 23:00; Stop 01/09/17 at 23:01; Status DC Sodium Chloride (NS Flush) 2 ml UNSCH PRN IV FLUSH FLUSH AFTER USING IV ACCESS Last administered on 01/11/17 04:24; Start 01/09/17 at 23:15; Stop 01/14/17 at 08:33; Status DC Sodium Chloride (NS Flush) 2 ml BID IV FLUSH Last administered on 01/13/17 09: 30; Start 01/10/17 at 09:00; Stop 01/14/17 at 08:33; Status DC Ondansetron HCl (Zofran Inj) 4 mg Q6H PRN IVP NAUSEA OR VOMITING Last administered on 01/10/17 19:58; Start 01/09/17 at 23:15 Naloxone HCl 0.4 mg 0.4 mg UNSCH PRN IV SEE LABEL COMMENTS; Start 01/09/17 at 23:15 Pharmacy Profile Note 0 ml @ 0 mls/hr UNSCH OTHER ; Start 01/09/17 at 23:15; Status Cancel Piperacillin Sod/ Tazobactam Sod 100 ml @ 200 mls/hr Q6H IV Last administered on 01/12/17 09:08; Start 01/10/17 at 03:00; Stop 01/12/17 at 13:06; Status DC Sodium Chloride 1,000 ml @ 84 mls/hr [id number] IV Last administered on 01:34; Start 01/10/17 at 00:45; Stop 01/10/17 at 14:30; Status DC Potassium Chloride 100 ml @ 100 mls/hr Q1H IV Last administered on 01/10/17 09:24; Start 01/10/17 at 00:45; Stop 01/10/17 at 03:44; Status DC Potassium Chloride 100 ml @ As Directed STK-MED ONCE .ROUTE ; Start 01/10/17 at 01:28; Stop 01/10/17 at 01:29; Status DC Potassium Chloride (KCl 20 Meq Premix Inj) 100 ml @ 50 mls/hr Q2H IV ; Start at 05:00; Stop 01/10/17 at 08:59; Status DC Potassium Bicarb/ Potassium Chloride 50 meq 50 meq ONCE ONCE PO Last administered on 01/10/17 06:04; Start 01/10/17 at 05:15; Stop 01/10/17 at 05:16 ; Status DC Vancomycin HCl/ Sodium Chloride (Vancomycin Inj/ NS 250 ml Inj) 250 ml @ 250 mls/hr Q12H IV Last administered on 01/12/17 11:04; Start 01/10/17 at 10:00; Stop 01/12/17 at 13:07; Status DC Miscellaneous Information SPECIFIC LAB TO BE DRAWN:VANCOMYCIN TROUGH DATE TO... ONCE ONCE .XX Last administered on 01/11/17 09:45; Start 01/11/17 at 09:45; Stop 01/11/17 at 09:46; Status DC Famotidine (Pepcid Inj) 20 mg STK-MED ONCE .ROUTE Last administered on 11:35; Start 01/10/17 at 11:35; Stop 01/10/17 at 11:36; Status DC Acetaminophen (Ofirmev Inj) 1,000 mg STK-MED ONCE IV ; Start 01/10/17 at 12:09; Stop 01/10/17 at 12:10; Status DC Midazolam HCl (Versed Inj) 2 mg STK-MED ONCE .ROUTE ; Start 01/10/17 at 12:09; Stop 01/10/17 at 12:10; Status DC Fentanyl Citrate (fentaNYL INJ) 100 mcg STK-MED ONCE .ROUTE ; Start 01/10/17 at 12:10; Stop 01/10/17 at 12:11; Status DC Thrombin (Thrombin Top Soln) 10,000 units STK-MED ONCE .ROUTE Last administered on 01/10/17 13:08; Start 01/10/17 at 12:31; Stop 01/10/17 at 12:32 ; Status DC Bupivacaine HCl/ Epinephrine Bitart (Sensorcaine-Epinephrine Pf 0.5% Inj) 30 ml STK-MED ONCE .ROUTE Last administered on 01/10/17 13:08; Start 01/10/17 at 12: 31; Stop 01/10/17 at 12:32; Status DC Gelatin (Gelfoam 100 Top) 1 foam STK-MED ONCE .ROUTE Last administered on 13:08; Start 01/10/17 at 12:31; Stop 01/10/17 at 12:32; Status DC Vancomycin HCl (Vancomycin Inj) 1,000 mg STK-MED ONCE .ROUTE Last administered on 01/10/17 13:08; Start 01/10/17 at 12:32; Stop 01/10/17 at 12:33; Status DC Gentamicin Sulfate 240 mg 240 mg STK-MED ONCE .ROUTE ; Start 01/10/17 at 12:32; Stop 01/10/17 at 12:33; Status DC Potassium Chloride/Sodium Chloride (NS + KCl 20 Meq Inj) 1,000 ml @ 100 mls/hr Q10H IV Last administered on 01/15/17 04:17; Start 01/10/17 at 14:23; Stop at 10:16; Status DC Sodium Chloride (NS Flush) 2 ml UNSCH PRN IV FLUSH FLUSH AFTER USING IV ACCESS ; Start 01/10/17 at 14:30 Sodium Chloride (NS Flush) 2 ml BID IV FLUSH Last administered on 01/15/17 08: 10; Start 01/10/17 at 21:00 Docusate Sodium (Colace) 100 mg BID PO Last administered on 01/14/17 09:04; Start 01/10/17 at 21:00; Stop 01/14/17 at 17:30; Status DC Magnesium Hydroxide (Milk Of Magnesia Liq) 30 ml DAILY PRN PO CONSTIPATION Last administered on 01/13/17 09:31; Start 01/10/17 at 14:30 Al Hydrox/Mg Hydrox/Simethicone (Mag-Al Plus Susp Liq) 30 ml Q6H PRN PO DYSPEPSIA; Start 01/10/17 at 14:30 Pantoprazole Sodium 40 mg 40 mg DAILY PO Last administered on 01/15/17 08:09; Start 01/11/17 at 09:00 Calcium Gluconate 1 gm/Sodium Chloride 110 ml @ 110 mls/hr UNSCH PRN IV SEE LABEL COMMENTS; Start 01/10/17 at 14:30 Potassium Chloride 100 ml @ 50 mls/hr UNSCH PRN IV POTASSIUM LESS THAN 4; Start 01/10/17 at 14:30 Magnesium Sulfate/ Sodium Chloride (Magnesium Sulfate Inj/NS Inj) 104 ml @ 100 mls/hr UNSCH PRN IV MAGNESIUM LESS THAN 2; Start 01/10/17 at 14:30 Oxycodone/ Acetaminophen (Percocet 5-325 Mg) 1 tab Q4H PRN PO PAIN SCALE 1 TO 5 Last administered on 01/14/17 16:48; Start 01/10/17 at 14:30 Oxycodone/ Acetaminophen (Percocet 5-325 Mg) 2 tab Q4H PRN PO PAIN SCALE 6 TO 10 Last administered on 01/12/17 09:33; Start 01/10/17 at 14:30 Morphine Sulfate (Morphine Inj) 2 mg Q2H PRN IV breakthrough pain> 6 Last administered on 01/11/17 04:23; Start 01/10/17 at 14:30 Labetalol HCl (Trandate Inj) 10 mg Q1H PRN IV SYS BP GREATER THAN 170 MMHG; Start 01/10/17 at 14:30 Clonidine (Catapres) 0.1 mg Q6H PRN PO SYS BP GREATER THAN 170 MMHG Last administered on 01/14/17 00:10; Start 01/10/17 at 14:30 Acetaminophen (Tylenol) 650 mg Q4H PRN PO TEMPERATURE > 101.5 F; Start at 14:30 Menthol (Clear Soheila) 1 lozenge UNSCH PRN BUCCAL SORE THROAT; Start 01/10/17 at 14:30 Albuterol Sulfate 2.5 mg 2.5 mg Q4HR NEB PRN NEB WHEEZING; Start 01/10/17 at 14 :30 Nicardipine HCl/ Sodium Chloride (Cardene Inj/NS 250 ml Inj) 260 ml @ 0 mls/hr TITRATE IV ; Start 01/10/17 at 14:30 Prochlorperazine Edisylate (Compazine Inj) 10 mg Q6H PRN IV PUSH nausea if zofran ineffective; Start 01/10/17 at 14:30 Fentanyl Citrate (fentaNYL INJ) 250 mcg STK-MED ONCE .ROUTE ; Start 01/10/17 at 14:39; Stop 01/10/17 at 14:40; Status DC Miscellaneous Information ALL NURSING DEPARTME... UNSCH PRN .XX SEE LABEL COMMENTS; Start 01/10/17 at 15:15; Stop 01/11/17 at 15:14; Status DC Miscellaneous Information SPECIFIC LAB TO BE DRAWN:VANCOMYCIN TROUGH DATE TO... ONCE ONCE .XX ; Start 01/13/17 at 09:45; Stop 01/13/17 at 09:46; Status Cancel Cefazolin Sodium 1000 mg/Sodium Chloride 100 ml @ 200 mls/hr Q8H IV ; Start at 06:00; Stop 01/13/17 at 06:00; Status DC Cefazolin Sodium 1000 mg/Sodium Chloride 100 ml @ 200 mls/hr Q8H IV ; Start at 13:30; Stop 01/12/17 at 13:30; Status DC Cefazolin Sodium/ Sodium Chloride (Ancef Inj/NS Inj) 100 ml @ 200 mls/hr Q8H IV Last administered on 01/15/17 08:09; Start 01/13/17 at 09:00 Metoprolol Tartrate 25 mg 25 mg Q12HR PO Last administered on 01/15/17 08:09; Start 01/14/17 at 09:00 Sodium Chloride (NS 1000 ml Inj) 1,000 ml @ 100 mls/hr Q10H IV Last administered on 01/15/17 10:30; Start 01/15/17 at 10:30 Medical Decision Making MDM Remarks 71 y/o FM s/p 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 Salazar on 01/11/17. Pt had previously undergone a suboccipital craniectomy for cerebellar neoplasm resection. Doing well. Lumbar drain working well. Continues with antibiotics Plan Plan Remarks Continue to monitor neuro exam. PT Rehab efforts. Continue with lumbar spinal drain to assist the healing process. Drain less than 80 in 8 hr shift. Kane Russell MD Jan 15, 2017 15:59
[2017-01-16] VITALS: BP 119/82; PULSE 112; RESP 18; TEMP 98.4; O2SAT 98
[2017-01-16 04:00] VITALS: BP 132/67; PULSE 118; RESP 20; TEMP 96.8; O2SAT 95
[2017-01-16 04:39] LABS: C. DIFF EPI 027 PRESUMPTIVE POSITIVE (NEGATIVE)
[2017-01-16 04:41] LABS: C. DIFF TOXIN PCR POSITIVE (NEGATIVE)
[2017-01-16] MEDS: metroNIDAZOLE 500 MG INJ 100 ML IV SCH ×2 (05:32→05:34)
[2017-01-16 07:59] VITALS: BP 118/73; PULSE 116; RESP 18; TEMP 96.8; O2SAT 95
[2017-01-16] MEDS: PANTOPRAZOLE SOD 40 MG DELAYED RELEASE TAB PO SCH (08:13)
[2017-01-16] MEDS: METOPROLOL TARTRATE 25 MG TAB PO SCH ×2 (08:13→21:58)
[2017-01-16] MEDS: SODIUM CHLOR 0.9% 1000 ML INJ 1,000 ML IV SCH ×2 (08:50→21:56)
[2017-01-16] MEDS: SODIUM CHLORIDE 0.9% FLUSH 10 ML FLUSH IV FLUSH SCH ×2 (09:00→21:57)
--- NOTE | 2017-01-16 10:21 | HHI.PR ---
Subjective Remarks This is a pleasant 71 y/o Female with history of left suboccipital craniectomy with resection of cerebellar neoplasm with bovine dural patch graft, ventriculostomy placement 12/19/16 by Mansoor Salazar MD. the patient arrives to the ER from a [facility] facility where she was staying for rehabilitation. He states that the patient has had drainage from her surgical sites. status post I and D, he has Staph Aureus infection on Ancef. patient with loose stools today discontinued Colace. 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 01/16: Patient seen in the room and discussed with nurse Humberto Michael improving more alert, no nausea, vomit, improving bowel movements. Objective Vital Signs Date Time Temp Pulse Resp B/P Pulse Ox O2 Delivery O2 Flow Rate FiO2 01/16/17 07:59 96.8 116 18 118/73 95 01/16/17 04:00 96.8 118 20 132/67 95 01/16/17 00:00 98.4 112 18 119/82 98 01/15/17 23:11 121 01/15/17 20:00 98.6 132 18 113/68 96 01/15/17 16:19 98.1 120 18 116/66 95 01/15/17 12:33 96.8 98 19 131/65 94 I/O 01/15/17 01/15/17 01/15/17 01/16/17 01/16/17 01/16/17 07:00 15:00 23:00 07:00 15:00 23:00 Intake Total 2909 ml Output Total 55 ml 450 ml 80 ml 310 ml Balance -55 ml -450 ml 2829 ml -310 ml Intake Oral 437 ml Oral Supplement 237 ml IV Total 2235 ml Output Urine Total 450 ml 250 ml Drainage Total 55 ml 80 ml 60 ml # Bowel Movements 2 1 3 Imaging Last Impressions Chest X-Ray 01/09/17 1956 Signed Impressions: Service Date/Time: Monday, January 09, 2017 20:01 - CONCLUSION: No acute disease. Fausto Tena MD Head CT 01/09/17 0000 Signed Impressions: Service Date/Time: Monday, January 09, 2017 20:26 - CONCLUSION: Extensive postsurgical changes with pneumocephalus, hydrocephalus and a small amount of parenchymal hemorrhage. Fausto Tena MD Procedures With diagnosis of Left occipital wound dehiscence with CSF leak/ pseudomeningocele status post Left suboccipital pseudomeningocele/CSF leak repair with patch graft; superficial and deep wound debridement; lumbar spinal drain placement; microsurgical technique, 01/10/17 by Mansoor Salazar MD Other Results Laboratory Tests Test 01/16/17 02:45 Stool C. difficile Toxin (PCR) POSITIVE Stl C. difficile Toxin PRESUMPTIVE Epiderm 027 POSITIVE Objective Remarks GENERAL: No acute distress. SKIN: Warm and dry. Clean surgical wound. HEAD: Atraumatic. Normocephalic. clean surgical wound. EYES: Pupils equal and round. No scleral icterus. No injection or drainage. ENT: No nasal bleeding or discharge. Mucous membranes pink and moist. NECK: Trachea midline. No JVD. CARDIOVASCULAR: Regular rate and rhythm. RESPIRATORY: No accessory muscle use. Clear to auscultation. Breath sounds equal bilaterally. GASTROINTESTINAL: Abdomen soft, non-tender, nondistended. Hepatic and splenic margins not palpable. MUSCULOSKELETAL: Extremities without clubbing, cyanosis, or edema. No obvious deformities. NEUROLOGICAL: Awake and alert. No obvious cranial nerve deficits. Lumbar drain in place, PSYCHIATRIC: Appropriate mood and affect. Medications and IVs Current Medications Medications (Trade) Dose Ordered Sig/Deana Route Start Time Stop Time Status Last Admin (Zofran Inj) 4 mg Q6H PRN IVP 01/09/17 23:15 01/10/17 19:58 (Narcan Inj) 0.4 mg UNSCH PRN IV 01/09/17 23:15 (NS Flush) 2 ml UNSCH PRN IV FLUSH 01/10/17 14:30 (NS Flush) 2 ml BID IV FLUSH 01/10/17 21:00 01/15/17 21:27 (Milk Of Magnesia Liq) 30 ml DAILY PRN PO 01/10/17 14:30 01/13/17 09:31 (Mag-Al Plus Susp Liq) 30 ml Q6H PRN PO 01/10/17 14:30 Pantoprazole Sodium 40 mg 40 mg DAILY PO 01/11/17 09:00 01/16/17 08:13 Calcium Gluconate 1 gm/Sodium Chloride 110 ml @ 110 mls/hr UNSCH PRN IV 01/10/17 14:30 Potassium Chloride 100 ml @ 50 mls/hr UNSCH PRN IV 01/10/17 14:30 (Magnesium Sulfate Inj/NS Inj) 104 ml @ 100 mls/hr UNSCH PRN IV 01/10/17 14:30 (Percocet 5-325 Mg) 1 tab Q4H PRN PO 01/10/17 14:30 01/14/17 16:48 (Percocet 5-325 Mg) 2 tab Q4H PRN PO 01/10/17 14:30 01/12/17 09:33 (Morphine Inj) 2 mg Q2H PRN IV 01/10/17 14:30 01/11/17 04:23 (Trandate Inj) 10 mg Q1H PRN IV 01/10/17 14:30 (Catapres) 0.1 mg Q6H PRN PO 01/10/17 14:30 01/14/17 00:10 (Tylenol) 650 mg Q4H PRN PO 01/10/17 14:30 Menthol 1 lozenge 1 lozenge UNSCH PRN BUCCAL 01/10/17 14:30 (Cardene Inj/NS 250 ml Inj) 260 ml @ 0 mls/hr TITRATE IV 01/10/17 14:30 Prochlorperazine Edisylate 10 mg 10 mg Q6H PRN IV PUSH 01/10/17 14:30 (Ancef Inj/NS Inj) 100 ml @ 200 mls/hr Q8H IV 01/13/17 09:00 01/16/17 08:13 Metoprolol Tartrate 25 mg 25 mg Q12HR PO 01/14/17 09:00 01/16/17 08:13 Sodium Chloride 1,000 ml @ 100 mls/hr Q10H IV 01/15/17 10:30 01/15/17 21:28 (Flagyl 500 Mg Inj) 100 ml @ 100 mls/hr Q6H IV 01/16/17 05:00 01/16/17 05:34 A/P Assessment and Plan 1. Postop Head wound infection, status post I and D with lumbar drain placement Right craniotomy incision dry wound culture MSSA, on IV Ancef, ID specialist following. 2. Pneumocephalus, Hydrocephalus and a small amount of parenchymal hemorrhage, status post lumbar drain placement. Ct Head extensive post surgical changes with pneumocephalus, hydrocephalus and a small amount of parenchymal hemorrhage. continue PT daily. 3. Electrolyte derangement corrected and following. 4. 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 01/12 - s/w significant other- Chirag- has health care proxy- was under Hospice at one time- refuse to go back to Hospice 5. Tobacco dependence history. 6. Sinus tachycardia on Beta Blockers. 7. Hypertension better on Beta liz 8. C Diff Colitis on IV Flagyl awaiting final recommendations by ID specialist. PT daily DVT prophylaxis with SCDs. Discharge Planning awaiting final recommendations by ID and Neurosurgery specialist. Prashant Garcia MD January 16, 2017 10:21
--- NOTE | 2017-01-16 10:43 | HHI.NSPN ---
History Chief Complaint: improved mentation s/p incision and debridement of left suboccipital crani Interval History This is a 71-year-old female who has previously undergone a left suboccipital craniectomy with resection of cerebellar neoplasm with bovine dural patch graft and ventriculostomy placement on 12/19/16 by Mansoor Salazar MD. the patient arrives to the ER from a [facility] facility where she [facility] staying for [facility]. She is a very poor historian and does not give much information about her current condition. I did speak with Chirag Camacho who identified himself as the patient's medical proxy. He states that the patient has had drainage from her surgical sites and he informed the nurses and she was subsequently brought to [place] for further evaluation. 01/11/17: Pt awake more alert today. States she is in [place] but doesn't know the date. Follows simple commands. She denies headache. No nausea vomiting. 01/12/17: Pt awake and alert. Denies headache. No nausea or vomiting. Follows simple commands. 01/13/17: Pt awake and alert. Denies headache. No nausea or vomiting. Follows commands. Lumbar spinal drain in place. 01/16/17: Pt awakens briefly. She follows commands. She prefers her eyes closed this morning. She denies headache. Patient was found to have C. difficile and is in isolation and on Flagyl in addition to Ancef. Review of Systems General: Negative for: fever, chills, insomnia Respiratory: Positive for: cough, Negative for: shortness of breath, sputum Cardiovascular: Negative for: chest pain Gastrointestinal: Negative for: nausea, vomitting Exam Results Vital Signs Date Time Temp Pulse Resp B/P Pulse Ox O2 Delivery O2 Flow Rate FiO2 01/16/17 07:59 96.8 116 18 118/73 95 Intake and Output 01/15/17 01/15/17 01/16/17 08:00 16:00 00:00 Intake Total 2909 ml Output Total 55 ml 450 ml 80 ml Balance -55 ml -450 ml 2829 ml Physical Examination Resp: CTA bilaterally Heart: NSR no murmurs Abd: Soft positive bs Skin: Incision clean and dry. No signs of infection. Muscle: Moves all 4 extremities Neuro: Pt awake and more alert today. Pupils equal. Speech clear. Follows simple commands well. Lumbar spinal drain in place to assist the healing process. Lab, Micro, Other Results Laboratory Tests Test 01/16/17 02:45 Stool C. difficile Toxin (PCR) POSITIVE Stl C. difficile Toxin PRESUMPTIVE Epiderm 027 POSITIVE 01/15/17 01/15/17 01/16/17 15:00 23:00 07:00 Intake Total 2909 ml Output Total 450 ml 80 ml 310 ml Balance -450 ml 2829 ml -310 ml Intake Oral 437 ml Oral Supplement 237 ml IV Total 2235 ml Output Urine Total 450 ml 250 ml Drainage Total 80 ml 60 ml # Bowel Movements 2 1 3 Medical Decision Making Impression and Plan A: 71 y/o FM s/p 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 Salazar on 01/11/17. Pt had previously undergone a suboccipital craniectomy for cerebellar neoplasm resection. P: Continue to monitor neuro exam. PT Rehab efforts. Continue with lumbar spinal drain to assist the healing process. Bartolome Lopez January 16, 2017 10:43
[2017-01-16 12:31] LABS: BICARBONATE 17.6 MEQ/L (21.0-32.0); MAGNESIUM 2.2 MG/DL (1.5-2.5); POTASSIUM 4.3 MEQ/L (3.5-5.1)
[2017-01-16 12:44] VITALS: BP 120/64; PULSE 105; RESP 18; TEMP 98; O2SAT 98
--- NOTE | 2017-01-16 13:11 | HHI.IDPN ---
Note Infectious Disease Note Patient is extremely somnolent. Not opening her eyes says a word now and again. No sedation meds given today. Afebrile. Stool c. dif positive noted. CSF kyle colored in lumbar drain. Ad[facility] with leakage from the prior surgical site on the posterior scalp. The patient is status post resection of a large cerebellar tumor on 12/19/16. PAST MEDICAL HISTORY 1. Uxh-[id number] lung cancer with metastases. 2. History of spontaneous pneumothorax. 3. Recent resection of large cerebral tumor 4. Hysterectomy, 5. Appendectomy, 6. Breast implants. ALLERGIES SULFA ANTIBIOTICS: Cefazolin SOCIAL HISTORY The patient smokes a pack of cigarettes a day. Occasional alcohol use. No illicit drugs. FAMILY HISTORY Noncontributory. OBJECTIVE: Vital Signs Date Time Temp Pulse Resp B/P Pulse Ox O2 Delivery O2 Flow Rate FiO2 01/16/17 12:44 98.0 105 18 120/64 98 01/16/17 07:59 96.8 116 18 118/73 95 01/16/17 04:00 96.8 118 20 132/67 95 01/16/17 00:00 98.4 112 18 119/82 98 01/15/17 23:11 121 01/15/17 20:00 98.6 132 18 113/68 96 01/15/17 16:19 98.1 120 18 116/66 95 01/15/17 01/15/17 01/16/17 15:00 23:00 07:00 Intake Total 2909 ml Output Total 450 ml 80 ml 310 ml Balance -450 ml 2829 ml -310 ml Intake Oral 437 ml Oral Supplement 237 ml IV Total 2235 ml Output Urine Total 450 ml 250 ml Drainage Total 80 ml 60 ml # Bowel Movements 2 1 3 Laboratory Tests Test 01/16/17 11:45 Sodium Level 131 MEQ/L Potassium Level 4.3 MEQ/L Chloride Level 101 MEQ/L Carbon Dioxide Level 17.6 MEQ/L Anion Gap 12 MEQ/L Blood Urea Nitrogen 6 MG/DL Creatinine 0.22 MG/DL Estimat Glomerular Filtration 312 ML/MIN Rate Random Glucose 104 MG/DL Calcium Level 7.8 MG/DL Phosphorus Level 1.8 MG/DL Magnesium Level 2.2 MG/DL IMAGING: Chest X-Ray 01/09/171955 Signed Impressions: Service Date/Time: [place], January 09, 2017 20:01 - CONCLUSION: No acute disease. Fausto Tena MD Head CT 01/09/17 0000 Signed Impressions: Service Date/Time: Monday, January 09, 2017 20:26 - CONCLUSION: Extensive postsurgical changes with pneumocephalus, hydrocephalus and a small amount of parenchymal hemorrhage. Fausto Tena MD PHYSICAL EXAMINATION GENERAL: Extremely lethargic. HEENT: Head has barbie in place at the posterior left scalp. NECK: Supple. No adenopathy. LUNGS: Clear breath sounds. HEART: Regular rate and rhythm. No murmurs or rubs or gallops. Abdomen: Bowel sounds present, soft, nontender. Back: The drainage catheter at the lumbar region has kyle-colored CSF in the bag and catheter. Extremities: No clubbing or cyanosis or edema. Muscle wasting. Decreased muscle bulk. Neuro: Unable to fully assess. Skin: No rash. IMPRESSION 1. Surgical wound infection due to staph aureus at the postsurgical incision at the left scalp 2. CSF epidural leak and with cultures positive for staph aureus MSSA 3. Status post resection of large cerebellar tumor. 4. Dehisced wound of the left occipital area. 5. C Difficile colitis. 6. Altered mental status. RECOMMENDATIONS 1. Continue intravenous Ancef 2. Start PO Vancomycin. 3. D/C Flagyl. 4. Monitor clinical status. 5. Monitor stools. Prashanth Alfonso MD January 16, 2017 13:11
[2017-01-16 16:16] VITALS: BP 116/64; PULSE 108; RESP 18; TEMP 98.1; O2SAT 97
[2017-01-16] MEDS: VANCOMYCIN 500 MG VIAL (FOR ORAL USE ONLY) PO SCH ×2 (17:59→21:58)
[2017-01-16 20:00] VITALS: BP 118/74; PULSE 126; RESP 18; TEMP 97.6; O2SAT 98
[2017-01-17] VITALS (7 sets, daily range): BP systolic 104–141; BP diastolic 62–95; PULSE 89–123; RESP 16–20; TEMP 96.3–98.5; O2SAT 95–99
[2017-01-17] MEDS: SODIUM CHLOR 0.9% 1000 ML INJ 1,000 ML IV SCH ×3 (02:30→21:11)
[2017-01-17] MEDS ORDERED: SODIUM PHOSPHATE INJ 15 MMOL in SODIUM CHLORIDE 0.9% INJ 150 ML IV ONE (09:00)
[2017-01-17] MEDS: SODIUM CHLORIDE 0.9% FLUSH 10 ML FLUSH IV FLUSH SCH ×2 (09:00→21:00)
[2017-01-17] MEDS: VANCOMYCIN 500 MG VIAL (FOR ORAL USE ONLY) PO SCH ×3 (09:13→21:12)
[2017-01-17] MEDS: METOPROLOL TARTRATE 25 MG TAB PO SCH ×2 (09:15→21:12)
[2017-01-17] MEDS: PANTOPRAZOLE SOD 40 MG DELAYED RELEASE TAB PO SCH (09:15)
--- NOTE | 2017-01-17 15:26 | HHI.IDPN ---
Note Infectious Disease Note Patient is more alert at this time. Opens eyes voluntarily. Following commands. Back from head CT scan. Lumbar drain fell out. Denies HERNANDEZ. Now has rectal bag. Loose stools. Afebrile. Admitted to the hospital from a custodial facility with leakage from the prior surgical site on the posterior scalp. The patient is status post resection of a large cerebellar tumor on 12/19/16. PAST MEDICAL HISTORY 1. [id number] lung cancer with metastases. 2. History of spontaneous pneumothorax. 3. Recent resection of large cerebral tumor 4. Hysterectomy, 5. Appendectomy, 6. Breast implants. ALLERGIES SULFA ANTIBIOTICS: Cefazolin SOCIAL HISTORY The patient smokes a pack of cigarettes a day. Occasional alcohol use. No illicit drugs. FAMILY HISTORY Noncontributory. OBJECTIVE: Vital Signs Date Time Temp Pulse Resp B/P Pulse Ox O2 Delivery O2 Flow Rate FiO2 01/17/17 12:13 97.7 96 18 136/88 96 01/17/17 08:18 97.5 107 18 140/92 95 01/17/17 04:00 98.5 89 18 141/87 97 01/17/17 00:00 97.3 92 20 104/73 99 01/16/17 20:00 97.6 126 18 118/74 98 01/16/17 16:16 98.1 108 18 116/64 97 01/16/17 01/16/17 01/17/17 15:00 23:00 07:00 Intake Total 600 ml Output Total 125 ml 100 ml 250 ml Balance 475 ml -100 ml -250 ml Intake Oral 600 ml Output Urine Total 125 ml 100 ml 250 ml # Bowel Movements 6 1 2 Laboratory Tests Test 01/16/17 11:45 Sodium Level 131 MEQ/L Potassium Level 4.3 MEQ/L Chloride Level 101 MEQ/L Carbon Dioxide Level 17.6 MEQ/L Anion Gap 12 MEQ/L Blood Urea Nitrogen 6 MG/DL Creatinine 0.22 MG/DL Estimat Glomerular Filtration 312 ML/MIN Rate Random Glucose 104 MG/DL Calcium Level 7.8 MG/DL Phosphorus Level 1.8 MG/DL Magnesium Level 2.2 MG/DL IMAGING: Chest X-Ray 01/09/171955 Signed Impressions: Service Date/Time: Monday, January 09, 2017 20:01 - CONCLUSION: No acute disease. Fausto Tena MD Head CT 01/09/17 0000 Signed Impressions: Service Date/Time: Monday, January 09, 2017 20:26 - CONCLUSION: Extensive postsurgical changes with pneumocephalus, hydrocephalus and a small amount of parenchymal hemorrhage. Fausto Tena MD PHYSICAL EXAMINATION GENERAL: Awakens easily. HEENT: Head has barbie in place at the posterior left scalp. NECK: Supple. No adenopathy. LUNGS: Clear breath sounds. HEART: Regular rate and rhythm. No murmurs or rubs or gallops. Abdomen: Bowel sounds present, soft, nontender. Back: The drainage catheter at the lumbar region has kyle-colored CSF in the bag and catheter. Extremities: No clubbing or cyanosis or edema. Muscle wasting. Decreased muscle bulk. Neuro: Non focal. limited exam due to patient cooperation. 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 Skin: No rash. IMPRESSION 1. Surgical wound infection due to staph aureus at the postsurgical incision at the left scalp 2. CSF epidural leak and with cultures positive for staph aureus MSSA 3. Status post resection of large cerebellar tumor. 4. Dehisced wound of the left occipital area. 5. C Difficile colitis. 6. Altered mental status. Waxing and waning. RECOMMENDATIONS 1. Change Ancef to Vancomycin IV. Given C.difficile and need to avoid other antibiotics. 2. Continue PO Vancomycin for c. dif. 3. Monitor clinical status. 4. Monitor stools. Prashanth Alfonso MD January 17, 2017 15:26
[2017-01-17] MEDS ORDERED: Vancomycin Consult Pharmacy 1 EA OTHER SCH (15:30)
--- NOTE | 2017-01-17 15:34 | RADRPT ---
EXAM DATE/TIME: 01/17/2017 14:51 [place] COMPARISON: CT BRAIN W/O CONTRAST, December 23, 2016, 4:30. CT BRAIN W/O CONTRAST, January 09, 2017, 20:26. INDICATIONS : Hydrocephalus RADIATION DOSE: 33.24 CTDIvol (mGy) MEDICAL HISTORY : Lung cancer SURGICAL HISTORY : Craniotomy. ENCOUNTER: Subsequent ACUITY: 1 week PAIN SCALE: 5/10 LOCATION: Left cranial TECHNIQUE: Multiple contiguous axial images were obtained of the head. Using automated exposure control and adj ustment of the mA and/or kV according to patient size, radiation dose was kept as low as reasonably a chievable to obtain optimal diagnostic quality images. FINDINGS: The amount of pneumocephaly has decreased considerably from the prior study. A small amount of air re benjamin within the left lateral ventricle, adjacent to the left frontal lobe and adjacent to the falx a nteriorly. There is a small amount of subdural blood adjacent to the falx which is stable from the pr ior study. No new hemorrhage observed. Prominence of the ventricles is stable. Left occipital craniot caren defect with postsurgical changes of the underlying left occipital lobe. CONCLUSION: 1. Reduced pneumocephaly. 2. Stable small volume subdural hematoma adjacent to the falx. 3. Stable ventriculomegaly. Isaías Finch Jr., MD on January 17, 2017 at 15:27 Board Certified Radiologist. This report was verified electronically.
--- NOTE | 2017-01-17 16:03 | HHI.PR ---
Subjective Remarks This is a pleasant 71 y/o Female with history of left suboccipital craniectomy with resection of cerebellar neoplasm with bovine dural patch graft, ventriculostomy placement 12/19/16 by Mansoor Salazar MD. the patient arrives to the ER from a alf facility where she was staying for rehabilitation. He states that the patient has had drainage from her surgical sites. status post I and D, he has Staph Aureus infection on Ancef. patient with loose stools today discontinued Colace. 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 01/17: Seen in her bedroom and discussed with nurse Mr. Rodriguez no complaint, improving bowel movements, Alert but somnolent today, replaced Phosphorus. seen by ID specialist doctor Naty, Changed Ancef to Vancomycin IV, continue Vancomycin by mouth for C Diff, monitor stools. following electrolytes. Objective Vital Signs Date Time Temp Pulse Resp B/P Pulse Ox O2 Delivery O2 Flow Rate FiO2 01/17/17 12:13 97.7 96 18 136/88 96 01/17/17 08:18 97.5 107 18 140/92 95 01/17/17 04:00 98.5 89 18 141/87 97 01/17/17 00:00 97.3 92 20 104/73 99 01/16/17 20:00 97.6 126 18 118/74 98 01/16/17 16:16 98.1 108 18 116/64 97 I/O 01/16/17 01/16/17 01/16/17 01/17/17 01/17/17 01/17/17 07:00 15:00 23:00 07:00 15:00 23:00 Intake Total 600 ml Output Total 310 ml 125 ml 100 ml 250 ml 35 ml Balance -310 ml 475 ml -100 ml -250 ml -35 ml Intake Oral 600 ml Output Urine Total 250 ml 125 ml 100 ml 250 ml Drainage Total 60 ml 35 ml # Bowel Movements 3 6 1 2 Result Diagram: 01/16/17 1145 Imaging Last Impressions Head CT 01/17/17 0600 Signed Impressions: Service Date/Time: Tuesday, January 17, 2017 14:51 - CONCLUSION: 1. Reduced pneumocephaly. 2. Stable small volume subdural hematoma adjacent to the falx. 3. Stable ventriculomegaly. Isaías Finch Jr., MD Chest X-Ray 01/09/171955 Signed Impressions: Service Date/Time: Monday, January 09, 2017 20:01 - CONCLUSION: No acute disease. Fausto Tena MD Procedures With diagnosis of Left occipital wound dehiscence with CSF leak/ pseudomeningocele status post Left suboccipital pseudomeningocele/CSF leak repair with patch graft; superficial and deep wound debridement; lumbar spinal drain placement; microsurgical technique, 01/10/17 by Mansoor Salazar MD Other Results Laboratory Tests Test 01/16/17 01/16/17 02:45 11:45 Stool C. difficile Toxin (PCR) POSITIVE Stl C. difficile Toxin PRESUMPTIVE Epiderm 027 POSITIVE Sodium Level 131 MEQ/L Potassium Level 4.3 MEQ/L Chloride Level 101 MEQ/L Carbon Dioxide Level 17.6 MEQ/L Anion Gap 12 MEQ/L Blood Urea Nitrogen 6 MG/DL Creatinine 0.22 MG/DL Estimat Glomerular Filtration 312 ML/MIN Rate Random Glucose 104 MG/DL Calcium Level 7.8 MG/DL Phosphorus Level 1.8 MG/DL Magnesium Level 2.2 MG/DL Objective Remarks GENERAL: No acute distress. SKIN: Warm and dry. Clean surgical wound. HEAD: Atraumatic. Normocephalic. clean surgical wound. EYES: Pupils equal and round. No scleral icterus. No injection or drainage. ENT: No nasal bleeding or discharge. Mucous membranes pink and moist. NECK: Trachea midline. No JVD. CARDIOVASCULAR: Regular rate and rhythm. RESPIRATORY: No accessory muscle use. Clear to auscultation. Breath sounds equal bilaterally. GASTROINTESTINAL: Abdomen soft, non-tender, nondistended. Hepatic and splenic margins not palpable. MUSCULOSKELETAL: Extremities without clubbing, cyanosis, or edema. No obvious deformities. NEUROLOGICAL: Awake and alert. No obvious cranial nerve deficits. Lumbar drain in place, PSYCHIATRIC: Appropriate mood and affect. Medications and IVs Current Medications Medications (Trade) Dose Ordered Sig/Deana Route Start Time Stop Time Status Last Admin (Zofran Inj) 4 mg Q6H PRN IVP 01/09/17 23:15 01/10/17 19:58 (Narcan Inj) 0.4 mg UNSCH PRN IV 01/09/17 23:15 (NS Flush) 2 ml UNSCH PRN IV FLUSH 01/10/17 14:30 (NS Flush) 2 ml BID IV FLUSH 01/10/17 21:00 01/17/17 09:00 (Milk Of Magnesia Liq) 30 ml DAILY PRN PO 01/10/17 14:30 01/13/17 09:31 (Mag-Al Plus Susp Liq) 30 ml Q6H PRN PO 01/10/17 14:30 Pantoprazole Sodium 40 mg 40 mg DAILY PO 01/11/17 09:00 01/17/17 09:15 Calcium Gluconate 1 gm/Sodium Chloride 110 ml @ 110 mls/hr UNSCH PRN IV 01/10/17 14:30 Potassium Chloride 100 ml @ 50 mls/hr UNSCH PRN IV 01/10/17 14:30 (Magnesium Sulfate Inj/NS Inj) 104 ml @ 100 mls/hr UNSCH PRN IV 01/10/17 14:30 (Percocet 5-325 Mg) 1 tab Q4H PRN PO 01/10/17 14:30 01/14/17 16:48 (Percocet 5-325 Mg) 2 tab Q4H PRN PO 01/10/17 14:30 01/12/17 09:33 (Morphine Inj) 2 mg Q2H PRN IV 01/10/17 14:30 01/11/17 04:23 (Trandate Inj) 10 mg Q1H PRN IV 01/10/17 14:30 (Catapres) 0.1 mg Q6H PRN PO 01/10/17 14:30 01/14/17 00:10 (Tylenol) 650 mg Q4H PRN PO 01/10/17 14:30 Menthol 1 lozenge 1 lozenge UNSCH PRN BUCCAL 01/10/17 14:30 (Cardene Inj/NS 250 ml Inj) 260 ml @ 0 mls/hr TITRATE IV 01/10/17 14:30 (Compazine Inj) 10 mg Q6H PRN IV PUSH 01/10/17 14:30 Metoprolol Tartrate 25 mg 25 mg Q12HR PO 01/14/17 09:00 01/17/17 09:15 (NS 1000 ml Inj) 1,000 ml @ 100 mls/hr Q10H IV 01/15/17 10:30 01/17/17 12:30 Vancomycin HCl 125 mg 125 mg QID PO 01/16/17 18:00 01/30/17 17:59 01/17/17 09:13 Pharmacy Profile Note 0 ml @ 0 mls/hr UNSCH OTHER 01/17/17 15:30 (Vancomycin Inj/ NS 250 ml Inj) 250 ml @ 250 mls/hr Q12H IV 01/17/17 18:00 Miscellaneous Information SPECIFIC LAB TO BE DRAWN:VANCOMYCIN TROUGH DATE TO... ONCE ONCE .XX 01/19/17 05:45 01/19/17 05:46 A/P Assessment and Plan 1. Postop Head wound infection, status post I and D with lumbar drain placement Right craniotomy incision dry wound culture MSSA, Switch Ancef to Vancomycin IV. 2. Pneumocephalus, Hydrocephalus and a small amount of parenchymal hemorrhage, status post lumbar drain placement. Ct Head extensive post surgical changes with pneumocephalus, hydrocephalus and a small amount of parenchymal hemorrhage. continue PT daily. status post new CT head taken today, has Reduced Pneumoencephaly, Stable small volume subdural hematoma adjacent to the falx stable ventriculomegaly. 3. Electrolyte derangement corrected phosphorus today. 4. 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 01/12 - s/w significant other- Chirag- has health care proxy- was under Hospice at one time- refuse to go back to Hospice 5. Tobacco dependence history. 6. Sinus tachycardia on Beta Blockers. 7. Hypertension better on Beta liz 8. C Diff Colitis to continue Vancomycin by mouth. PT daily DVT prophylaxis with SCDs. Discharge Planning awaiting final recommendations by ID and Neurosurgery specialist. Prashant Garcia MD January 17, 2017 16:03
--- NOTE | 2017-01-17 17:05 | HHI.NSPN ---
(Bartolome Lopez) History Chief Complaint: improved mentation s/p incision and debridement of left suboccipital crani (Bartolome Lopez) Interval History This is a 71-year-old female who has previously undergone a left suboccipital craniectomy with resection of cerebellar neoplasm with bovine dural patch graft and ventriculostomy placement on 12/19/16 by Mansoor Salazar MD. the patient arrives to the ER from a [facility] facility where she was staying for rehabilitation. She is a very poor historian and does not give much information about her current condition. I did speak with Chirag Camacho who identified himself as the patient's medical proxy. He states that the patient has had drainage from her surgical sites and he informed the nurses and she was subsequently brought to [facility] for further evaluation. 01/11/17: Pt awake more alert today. States she is in [place] but doesn't know the date. Follows simple commands. She denies headache. No nausea vomiting. 01/12/17: Pt awake and alert. Denies headache. No nausea or vomiting. Follows simple commands. 01/13/17: Pt awake and alert. Denies headache. No nausea or vomiting. Follows commands. Lumbar spinal drain in place. 01/16/17: Pt awakens briefly. She follows commands. She prefers her eyes closed this morning. She denies headache. Patient was found to have C. difficile and is in isolation and on Flagyl in addition to Ancef. 01/17/17: Patient awakens to voice. She prefers to keep her eyes closed. She follows simple commands. She denies any headaches nausea or vomiting. (Bartolome Lopez) Review of Systems General: Negative for: fever, chills Respiratory: Negative for: shortness of breath, cough, sputum Cardiovascular: Negative for: chest pain Gastrointestinal: Positive for: diarrhea, Negative for: nausea, vomitting, constipation (Bartolome Lopez) Exam Results Vital Signs Date Time Temp Pulse Resp B/P Pulse Ox O2 Delivery O2 Flow Rate FiO2 01/17/17 16:32 96.8 123 18 139/95 97 Intake and Output 01/16/17 01/16/17 01/17/17 08:00 16:00 00:00 Intake Total 600 ml Output Total 310 ml 125 ml 100 ml Balance -310 ml 475 ml -100 ml (Bartolome Lopez) Physical Examination Resp: CTA bilaterally Heart: NSR no murmurs Abd: Soft positive bs Skin: Incision clean and dry. No signs of infection. Muscle: Moves all 4 extremities Neuro: Pt awakens to voice but lethargic. She prefers her eyes closed. Pupils right 3.5 mm irregular shaped left 3 mm reactive. Follows simple commands well. Lumbar spinal drain in place to assist the healing process. ( Bartolome Lopez) Lab, Micro, Other Results 01/16/17 01/16/17 01/17/17 15:00 23:00 07:00 Intake Total 600 ml Output Total 125 ml 100 ml 250 ml Balance 475 ml -100 ml -250 ml Intake Oral 600 ml Output Urine Total 125 ml 100 ml 250 ml # Bowel Movements 6 1 2 (Bartolome Lopez) Medical Decision Making Impression and Plan A: 71 y/o FM s/p 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 Salazar on 01/11/17. Pt had previously undergone a suboccipital craniectomy for cerebellar neoplasm resection. P: Continue to monitor neuro exam. PT Rehab efforts. Continue with lumbar spinal drain to assist the healing process. Follow-up CT of the head today. Addendum: Was called by the nursing staff stating the patient's lumbar spinal drain had disconnected. Patient is having diarrhea secondary to her C. difficile. Advised the nurse to remove lumbar spinal drain in place Steri- Strip and exit sites. Nurse will ensure that the exit site is clean. (Bartolome Lopez) Attending Statement The exam, history, and the medical decision-making described in the above note were completed with the assistance of the mid-level provider. I reviewed and agree with the findings presented. I attest that I had a [id number] encounter with the patient on the same day, and personally performed and documented my assessment and findings in the medical record. Lumbar drain exit site closed with 3-0 silk stitch after removal and sterile dressing applied. Left occipital incision healing well with no erythema, drainage or recurrent fluid collection. (Mansoor Salazar MD) Bartolome Lopez January 17, 2017 17:05 Mansoor Salazar MD January 17, 2017 19:01
[2017-01-17 21:09] LABS: HEMATOCRIT 32.6 % (35.0-46.0); MEAN CELL VOLUME 82.3 FL (80.0-100.0); MEAN CORPUSCULAR HEMOGLOBIN 26.3 PG (27.0-34.0); MEAN CORPUSCULAR HGB CONC 31.9 % (32.0-36.0); PLATELET COUNT 497 TH/MM3 (150-450); RED BLOOD COUNT 3.95 MIL/MM3 (4.00-5.30); RED CELL DISTRIBUTION WIDTH 17.7 % (11.6-17.2); REVIEW FLAG FINAL; WHITE BLOOD COUNT 25.9 TH/MM3 (4.0-11.0)
[2017-01-18] VITALS (7 sets, daily range): BP systolic 101–138; BP diastolic 58–85; PULSE 97–126; RESP 18–28; TEMP 96.4–97.6; O2SAT 94–99
[2017-01-18] MEDS: VANCOMYCIN 1,000 MG/NS 250 ML IV SCH ×6 (05:42→17:46)
--- NOTE | 2017-01-18 08:24 | HHI.PR ---
Subjective Remarks This is a pleasant 71 y/o Female with history of left suboccipital craniectomy with resection of cerebellar neoplasm with bovine dural patch graft, ventriculostomy placement 12/19/16 by Mansoor Salazar MD. the patient arrives to the ER from a halfway facility where she was staying for rehabilitation. He states that the patient has had drainage from her surgical sites. status post I and D, he has Staph Aureus infection on Ancef. patient with loose stools today discontinued Colace. 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 01/17: Seen in her bedroom and discussed with nurse Mr. Rodriguez no complaint, improving bowel movements, Alert but somnolent today, replaced Phosphorus. seen by ID specialist doctor Naty, Changed Ancef to Vancomycin IV, continue Vancomycin by mouth for C Diff, monitor stools. following electrolytes. 01/18: Patient stable in her bedroom, continue lethargic but awakes to answer but with difficulty, discussed with nurse Miss Hernandez, also seen in the room with doctor Naty, not improving and worsening Encephalopathy, no nausea, vomit or diarrhea, placed a midline, she has rectal tube, not able to take by mouth, antibiotics adjusted to IV, discussed with her POA . Chirag Jaylen Garces he will come in am tomorrow to discuss patient' s state. Objective Vital Signs Date Time Temp Pulse Resp B/P Pulse Ox O2 Delivery O2 Flow Rate FiO2 01/18/17 08:09 97.4 102 18 138/85 94 01/18/17 05:39 96.8 118 22 121/82 96 01/18/17 00:00 97.0 115 22 112/58 97 01/17/17 22:19 108 01/17/17 20:00 96.3 122 16 104/62 98 01/17/17 16:32 96.8 123 18 139/95 97 01/17/17 12:13 97.7 96 18 136/88 96 I/O 01/17/17 01/17/17 01/17/17 01/18/17 01/18/17 01/18/17 07:00 15:00 23:00 07:00 15:00 23:00 Intake Total 120 ml Output Total 250 ml 35 ml 350 ml 50 ml Balance -250 ml -35 ml -230 ml -50 ml Intake Oral 120 ml Output Urine Total 250 ml 350 ml 50 ml Drainage Total 35 ml # Bowel Movements 2 5 Result Diagram: 01/17/17204301/16/17 1145 Imaging Last Impressions Head CT 01/17/17 0600 Signed Impressions: Service Date/Time: Tuesday, January 17, 2017 14:51 - CONCLUSION: 1. Reduced pneumocephaly. 2. Stable small volume subdural hematoma adjacent to the falx. 3. Stable ventriculomegaly. Isaías Finch Jr., MD Chest X-Ray 01/09/171955 Signed Impressions: Service Date/Time: Monday, January 09, 2017 20:01 - CONCLUSION: No acute disease. Fausto Tena MD Procedures With diagnosis of Left occipital wound dehiscence with CSF leak/ pseudomeningocele status post Left suboccipital pseudomeningocele/CSF leak repair with patch graft; superficial and deep wound debridement; lumbar spinal drain placement; microsurgical technique, 01/10/17 by Mansoor Salazar MD Other Results Laboratory Tests Test 01/16/17 01/16/17 01/17/17 02:45 11:45 20:44 Stool C. difficile Toxin (PCR) POSITIVE Stl C. difficile Toxin PRESUMPTIVE Epiderm 027 POSITIVE Sodium Level 131 MEQ/L Potassium Level 4.3 MEQ/L Chloride Level 101 MEQ/L Carbon Dioxide Level 17.6 MEQ/L Anion Gap 12 MEQ/L Blood Urea Nitrogen 6 MG/DL Creatinine 0.22 MG/DL Estimat Glomerular Filtration 312 ML/MIN Rate Random Glucose 104 MG/DL Calcium Level 7.8 MG/DL Phosphorus Level 1.8 MG/DL Magnesium Level 2.2 MG/DL White Blood Count 25.9 TH/MM3 Red Blood Count 3.95 MIL/MM3 Hemoglobin 10.4 GM/DL Hematocrit 32.6 % Mean Corpuscular Volume 82.3 FL Mean Corpuscular Hemoglobin 26.3 PG Mean Corpuscular Hemoglobin 31.9 % Concent Red Cell Distribution Width 17.7 % Platelet Count 497 TH/MM3 Mean Platelet Volume 7.6 FL Objective Remarks GENERAL: No acute distress. SKIN: Warm and dry. Clean surgical wound. HEAD: Atraumatic. Normocephalic. clean surgical wound. EYES: Pupils equal and round. No scleral icterus. No injection or drainage. ENT: No nasal bleeding or discharge. Mucous membranes pink and moist. NECK: Trachea midline. No JVD. CARDIOVASCULAR: Regular rate and rhythm. RESPIRATORY: No accessory muscle use. Clear to auscultation. Breath sounds equal bilaterally. GASTROINTESTINAL: Abdomen soft, non-tender, nondistended. Hepatic and splenic margins not palpable. MUSCULOSKELETAL: Extremities without clubbing, cyanosis, or edema. No obvious deformities. NEUROLOGICAL: Lethargic, worsening from yesterday, she does not follow commands. PSYCHIATRIC: Appropriate mood and affect. Medications and IVs Current Medications Medications (Trade) Dose Ordered Sig/Deana Route Start Time Stop Time Status Last Admin (Zofran Inj) 4 mg Q6H PRN IVP 01/09/17 23:15 01/10/17 19:58 (Narcan Inj) 0.4 mg UNSCH PRN IV 01/09/17 23:15 (NS Flush) 2 ml UNSCH PRN IV FLUSH 01/10/17 14:30 (NS Flush) 2 ml BID IV FLUSH 01/10/17 21:00 01/17/17 09:00 (Milk Of Magnesia Liq) 30 ml DAILY PRN PO 01/10/17 14:30 01/13/17 09:31 (Mag-Al Plus Susp Liq) 30 ml Q6H PRN PO 01/10/17 14:30 Pantoprazole Sodium 40 mg 40 mg DAILY PO 01/11/17 09:00 01/17/17 09:15 Calcium Gluconate 1 gm/Sodium Chloride 110 ml @ 110 mls/hr UNSCH PRN IV 01/10/17 14:30 Potassium Chloride 100 ml @ 50 mls/hr UNSCH PRN IV 01/10/17 14:30 (Magnesium Sulfate Inj/NS Inj) 104 ml @ 100 mls/hr UNSCH PRN IV 01/10/17 14:30 (Percocet 5-325 Mg) 1 tab Q4H PRN PO 01/10/17 14:30 01/14/17 16:48 (Percocet 5-325 Mg) 2 tab Q4H PRN PO 01/10/17 14:30 01/12/17 09:33 (Morphine Inj) 2 mg Q2H PRN IV 01/10/17 14:30 01/11/17 04:23 (Trandate Inj) 10 mg Q1H PRN IV 01/10/17 14:30 (Catapres) 0.1 mg Q6H PRN PO 01/10/17 14:30 01/14/17 00:10 (Tylenol) 650 mg Q4H PRN PO 01/10/17 14:30 Menthol 1 lozenge 1 lozenge UNSCH PRN BUCCAL 01/10/17 14:30 (Cardene Inj/NS 250 ml Inj) 260 ml @ 0 mls/hr TITRATE IV 01/10/17 14:30 (Compazine Inj) 10 mg Q6H PRN IV PUSH 01/10/17 14:30 Metoprolol Tartrate 25 mg 25 mg Q12HR PO 01/14/17 09:00 01/17/17 21:12 (NS 1000 ml Inj) 1,000 ml @ 100 mls/hr Q10H IV 01/15/17 10:30 01/17/17 12:30 Vancomycin HCl 125 mg 125 mg QID PO 01/16/17 18:00 01/30/17 17:59 01/17/17 21:12 Pharmacy Profile Note 0 ml @ 0 mls/hr UNSCH OTHER 01/17/17 15:30 (Vancomycin Inj/ NS 250 ml Inj) 250 ml @ 250 mls/hr Q12H IV 01/17/17 18:00 Miscellaneous Information SPECIFIC LAB TO BE DRAWN:VANCOMYCIN TROUGH DATE TO... ONCE ONCE .XX 01/19/17 05:45 01/19/17 05:46 A/P Assessment and Plan 1. Postop Head wound infection, secondary to MSSA status post I and D, with Lumbar drain placement and Right craniotomy incision dry, ID specialist following, Poor prognosis. 2. CSF epidural leak and with cultures positive for Staph aureus MSSA, on Vancomycin. 3. Status post resection of large cerebellar tumor. 4. Pneumocephalus, Hydrocephalus and a small amount of parenchymal hemorrhage, status post lumbar drain placement. Ct Head extensive post surgical changes with pneumocephalus, hydrocephalus and a small amount of parenchymal hemorrhage. continue PT daily. status post new CT head taken today, has Reduced Pneumocephalus Stable small volume subdural hematoma adjacent to the falx stable ventriculomegaly. Lumbar drain removed yesterday. 5. Encephalopathy worsening Multifactorial, infection worsening WBC count. 6. 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 01/12 - s/w significant other- Chirag- has health care proxy- was under Hospice at one time- refuse to go back to Hospice 7. Tobacco dependence history. 8. Sinus tachycardia on Beta Blockers. 9. Hypertension better on Beta liz 9. C Diff Colitis to continue Flagyl IV. PT daily DVT prophylaxis with SCDs. Discussed with Nurse Miss Hernandez discussed with ID specialist doctor Naty Discussed with Mr. Chirag Camacho through the phone number [phone] all questions answered, he will come back in am tomorrow to discuss patient status. Poor short term prognosis Consult for recreational specialist. Discharge Planning Awaiting final recommendations by Palliative care and her POA. Prashant Garcia MD January 18, 2017 08:24
[2017-01-18] MEDS: SODIUM CHLOR 0.9% 1000 ML INJ 1,000 ML IV SCH ×2 (08:40→11:49)
[2017-01-18 09:16] LABS: BICARBONATE 19.8 MEQ/L (21.0-32.0); MAGNESIUM 2.1 MG/DL (1.5-2.5); POTASSIUM 4.4 MEQ/L (3.5-5.1)
[2017-01-18] MEDS: VANCOMYCIN 500 MG VIAL (FOR ORAL USE ONLY) PO SCH ×4 (09:30→20:56)
[2017-01-18] MEDS: METOPROLOL TARTRATE 25 MG TAB PO SCH ×2 (09:30→20:57)
[2017-01-18] MEDS: PANTOPRAZOLE SOD 40 MG DELAYED RELEASE TAB PO SCH (09:30)
[2017-01-18] MEDS: SODIUM CHLORIDE 0.9% FLUSH 10 ML FLUSH IV FLUSH SCH ×2 (09:30→20:55)
--- NOTE | 2017-01-18 11:38 | HHI.NSPN ---
History Chief Complaint: s/p incision and debridement of left suboccipital crani. Lethargic today Interval History This is a 71-year-old female who has previously undergone a left suboccipital craniectomy with resection of cerebellar neoplasm with bovine dural patch graft and ventriculostomy placement on 12/19/16 by Mansoor Salazar MD. the patient arrives to the ER from a halfway facility where she was staying for rehabilitation. She is a very poor historian and does not give much information about her current condition. I did speak with Chirag Camacho who identified himself as the patient's medical proxy. He states that the patient has had drainage from her surgical sites and he informed the nurses and she was subsequently brought to [place] for further evaluation. 01/11/17: Pt awake more alert today. States she is in [place] but doesn't know the date. Follows simple commands. She denies headache. No nausea vomiting. 01/12/17: Pt awake and alert. Denies headache. No nausea or vomiting. Follows simple commands. 01/13/17: Pt awake and alert. Denies headache. No nausea or vomiting. Follows commands. Lumbar spinal drain in place. 01/16/17: Pt awakens briefly. She follows commands. She prefers her eyes closed this morning. She denies headache. Patient was found to have C. difficile and is in isolation and on Flagyl in addition to Ancef. 01/17/17: Patient awakens to voice. She prefers to keep her eyes closed. She follows simple commands. She denies any headaches nausea or vomiting. 01/18/17: Pt very lethargic this morning. Appears comfortable and protecting her airway. Left scalp incision clean and dry. No drainage. System Review Comments Not able to obtain given level of alertness. Exam Results Vital Signs Date Time Temp Pulse Resp B/P Pulse Ox O2 Delivery O2 Flow Rate FiO2 01/18/17 08:09 97.4 102 18 138/85 94 Intake and Output 01/17/17 01/17/17 01/18/17 08:00 16:00 00:00 Intake Total 120 ml Output Total 285 ml 350 ml Balance -285 ml -230 ml Physical Examination Resp: CTA bilaterally Heart: NSR no murmurs Abd: Soft positive bs Skin: Incision clean and dry. No signs of infection. Muscle: Not following currently for muscle testing. Neuro: Pt lethargic. Pupils right 3.5 mm irregular shaped left 3 mm reactive. Not following simple commands today. Lab, Micro, Other Results Last Impressions Head CT 01/17/17 0600 Signed Impressions: Service Date/Time: Tuesday, January 17, 2017 14:51 - CONCLUSION: 1. Reduced pneumocephaly. 2. Stable small volume subdural hematoma adjacent to the falx. 3. Stable ventriculomegaly. Isaías Finch Jr., MD Chest X-Ray 01/09/171955 Signed Impressions: Service Date/Time: Monday, January 09, 2017 20:01 - CONCLUSION: No acute disease. Fausto Tena MD Laboratory Tests Test 01/17/17 01/18/17 20:44 08:37 White Blood Count 25.9 TH/MM3 Red Blood Count 3.95 MIL/MM3 Hemoglobin 10.4 GM/DL Hematocrit 32.6 % Mean Corpuscular Volume 82.3 FL Mean Corpuscular Hemoglobin 26.3 PG Mean Corpuscular Hemoglobin 31.9 % Concent Red Cell Distribution Width 17.7 % Platelet Count 497 TH/MM3 Mean Platelet Volume 7.6 FL Sodium Level 138 MEQ/L Potassium Level 4.4 MEQ/L Chloride Level 106 MEQ/L Carbon Dioxide Level 19.8 MEQ/L Anion Gap 12 MEQ/L Blood Urea Nitrogen 9 MG/DL Creatinine 0.29 MG/DL Estimat Glomerular Filtration 227 ML/MIN Rate Random Glucose 92 MG/DL Calcium Level 8.0 MG/DL Phosphorus Level 3.3 MG/DL Magnesium Level 2.1 MG/DL 01/17/17 01/17/17 01/18/17 15:00 23:00 07:00 Intake Total 120 ml Output Total 35 ml 350 ml 50 ml Balance -35 ml -230 ml -50 ml Intake Oral 120 ml Output Urine Total 350 ml 50 ml Drainage Total 35 ml # Bowel Movements 5 Medical Decision Making Impression and Plan A: 71 y/o FM s/p 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 Salazar on 01/11/17. Pt had previously undergone a suboccipital craniectomy for cerebellar neoplasm resection. C. Diff Leukocytosis 25.9 01/17/17. P: Continue to monitor neuro exam. Pt very lethargic- WBC count yesterday 25.9. PT Rehab efforts. Discuss with RN and Bartolome Cruz January 18, 2017 11:38
[2017-01-18 15:23] LABS: AUTOMATED NEUTROPHIL # 23.1 TH/MM3 (1.8-7.7); HEMATOCRIT 35.6 % (35.0-46.0); LYMPH % 2.2 % (9.0-44.0); LYMPHOCYTE # 0.5 TH/MM3 (1.0-4.8); MEAN CELL VOLUME 82.3 FL (80.0-100.0); MEAN CORPUSCULAR HEMOGLOBIN 26.8 PG (27.0-34.0); MEAN CORPUSCULAR HGB CONC 32.6 % (32.0-36.0); MONO % 4.4 % (0.0-8.0); NEUT % 93.4 % (16.0-70.0); PLATELET COUNT 522 TH/MM3 (150-450); RED BLOOD COUNT 4.33 MIL/MM3 (4.00-5.30); RED CELL DISTRIBUTION WIDTH 17.9 % (11.6-17.2); WHITE BLOOD COUNT 24.8 TH/MM3 (4.0-11.0)
[2017-01-18 15:25] LABS: HEMO FLAGS AUTO DIFF
--- NOTE | 2017-01-18 15:45 | HHI.IDPN ---
Note Infectious Disease Note Patient is difficult to arouse. Listless. Was alert and responsive yesterday 01/17. Opened eyes voluntarily. Followed commands. Not able to take PO meds. Lumbar drain fell out. 01/17. Rectal bag. Loose stools. Afebrile. Being treated for C. dif. Admitted to the hospital from a [facility] facility with leakage from the prior surgical site on the posterior scalp. The patient is status post resection of a large cerebellar tumor on 12/19/16. PAST MEDICAL HISTORY 1. [id number] lung cancer with metastases. 2. History of spontaneous pneumothorax. 3. Recent resection of large cerebral tumor 4. Hysterectomy, 5. Appendectomy, 6. Breast implants. ALLERGIES SULFA ANTIBIOTICS: Vancomycin IV. Vancomycin PO. SOCIAL HISTORY The patient smokes a pack of cigarettes a day. Occasional alcohol use. No illicit drugs. FAMILY HISTORY Noncontributory. OBJECTIVE: Vital Signs Date Time Temp Pulse Resp B/P Pulse Ox O2 Delivery O2 Flow Rate FiO2 01/18/17 12:30 102 01/18/17 12:26 97.6 98 20 106/78 97 01/18/17 08:09 97.4 102 18 138/85 94 01/18/17 05:39 96.8 118 22 121/82 96 01/18/17 00:00 97.0 115 22 112/58 97 01/17/17 22:19 108 01/17/17 20:00 96.3 122 16 104/62 98 01/17/17 16:32 96.8 123 18 139/95 97 01/17/17 01/17/17 01/18/17 15:00 23:00 07:00 Intake Total 120 ml Output Total 35 ml 350 ml 50 ml Balance -35 ml -230 ml -50 ml Intake Oral 120 ml Output Urine Total 350 ml 50 ml Drainage Total 35 ml # Bowel Movements 5 Laboratory Tests Test 01/17/17 01/18/17 20:44 14:32 White Blood Count 25.9 TH/MM3 24.8 TH/MM3 Red Blood Count 3.95 MIL/MM3 4.33 MIL/MM3 Hemoglobin 10.4 GM/DL 11.6 GM/DL Hematocrit 32.6 % 35.6 % Mean Corpuscular Volume 82.3 FL 82.3 FL Mean Corpuscular Hemoglobin 26.3 PG 26.8 PG Mean Corpuscular Hemoglobin 31.9 % 32.6 % Concent Red Cell Distribution Width 17.7 % 17.9 % Platelet Count 497 TH/MM3 522 TH/MM3 Mean Platelet Volume 7.6 FL 7.8 FL Neutrophils (%) (Auto) 93.4 % Lymphocytes (%) (Auto) 2.2 % Monocytes (%) (Auto) 4.4 % Eosinophils (%) (Auto) 0.0 % Basophils (%) (Auto) 0.0 % Neutrophils # (Auto) 23.1 TH/MM3 Lymphocytes # (Auto) 0.5 TH/MM3 Monocytes # (Auto) 1.1 TH/MM3 Eosinophils # (Auto) 0.0 TH/MM3 Basophils # (Auto) 0.0 TH/MM3 CBC Comment AUTO DIFF Laboratory Tests Test 01/18/17 08:37 Sodium Level 138 MEQ/L Potassium Level 4.4 MEQ/L Chloride Level 106 MEQ/L Carbon Dioxide Level 19.8 MEQ/L Anion Gap 12 MEQ/L Blood Urea Nitrogen 9 MG/DL Creatinine 0.29 MG/DL Estimat Glomerular Filtration 227 ML/MIN Rate Random Glucose 92 MG/DL Calcium Level 8.0 MG/DL Phosphorus Level 3.3 MG/DL Magnesium Level 2.1 MG/DL IMAGING: Head CT 01/17/17 0600 Signed Impressions: Service Date/Time: Tuesday, January 17, 2017 14:51 - CONCLUSION: 1. Reduced pneumocephaly. 2. Stable small volume subdural hematoma adjacent to the falx. 3. Stable ventriculomegaly. Isaías Finch Jr., MD Chest X-Ray 01/09/17 1956 Signed Impressions: Service Date/Time: Monday, January 09, 2017 20:01 - CONCLUSION: No acute disease. Fausto Tena MD Head CT 01/09/17 0000 Signed Impressions: Service Date/Time: Monday, January 09, 2017 20:26 - CONCLUSION: Extensive postsurgical changes with pneumocephalus, hydrocephalus and a small amount of parenchymal hemorrhage. Fausto Tena MD PHYSICAL EXAMINATION GENERAL: Somnolent. HEENT: Head has barbie in place at the posterior left scalp. Pupils equally reactive to light. NECK: Supple. No adenopathy. LUNGS: Clear breath sounds. decreased. HEART: Regular rate and rhythm. No murmurs or rubs or gallops. Abdomen: Bowel sounds present, soft, Grimaces with palpation. Extremities: No clubbing or cyanosis or edema. Muscle wasting. Decreased muscle bulk. Neuro: Unresponsive. Skin: No rash. IMPRESSION 1. Surgical wound infection due to staph aureus at the postsurgical incision at the left scalp 2. CSF epidural leak and with cultures positive for staph aureus MSSA 3. Status post resection of large cerebellar tumor. 4. Dehisced wound of the left occipital area. 5. C Difficile colitis. 6. Altered mental status. Waxing and waning. Now deteriorated. RECOMMENDATIONS 1. Continue Vancomycin IV. Given C.difficile and need to avoid other antibiotics. 2. Continue PO Vancomycin for c. difficile. Since unable to take PO, start IV Flagyl. 3. Monitor clinical status. 4. Monitor stools. Discussed with Dr. Paulson. Palliative care has been consulted. Prashanth Alfonso MD January 18, 2017 15:45
[2017-01-18] MEDS: metroNIDAZOLE 500 MG INJ 100 ML IV SCH ×2 (16:10→23:50)
[2017-01-18 20:45] LABS: BANDS 27 % (0-6); MYELOCYTES 2 % (0-0); NEUTROPHIL # MANUAL DIFF 23.3 TH/MM3 (1.8-7.7); POLYS (SEG NEUTROPHILS) 65 % (16-70); WBC DIFF SAMPLE 100
[2017-01-18 20:46] LABS: ACANTHOCYTES OCC (NORMAL); OVALOCYTES 1+ (NORMAL); PLATELET ESTIMATE SMEAR HIGH (NORMAL); PLATELET MORPHOLOGY NORMAL (NORMAL); SCAN/DIFF FINAL DIFF MANUAL
[2017-01-19] VITALS (11 sets, daily range): BP systolic 89–116; BP diastolic 54–64; PULSE 106–134; RESP 23–36; TEMP 96.4–97.6; O2SAT 99–100
[2017-01-19] MEDS ORDERED: SODIUM CHLOR 0.9% 1000 ML INJ 1,000 ML IV ONE (01:00)
[2017-01-19 01:13] LABS: BLOOD GAS BASE EXCESS -9.6 mmol/L (-2-2); BLOOD GAS HCO3 14 mmol/L (22-26); BLOOD GAS METHEMOGLOBIN 0.7 % (0-2); BLOOD GAS O2 HGB SATURATION 95 % (90-100); BLOOD GAS OXYGEN CONTENT 16.1 Vol % (12.0-20.0); BLOOD GAS PCO2 22 mmHg (38-42); BLOOD GAS PO2 89 mmHg (61-120); TEMP CORR TO 98.6
[2017-01-19 01:14] LABS: DRAW SITE LT RADIAL; LITER FLOW 3 L/M; NUMBER OF ARTERIAL PUNCTURES 1; OXYGEN DEVICE NASAL CANNULA; STAT YES; ULNAR PULSE PRESENT
[2017-01-19] MEDS ORDERED: SODIUM BICARBONATE 8.4% INJ 50 MEQ/50 ML SYR IV PUSH ONE (01:30)
--- NOTE | 2017-01-19 01:44 | HHI.PR ---
Addendum to Inpatient Note Addendum Reason: Additional Documentation Additional Information Rapid response was called on this patient at around 00 30 a.m. It was called because the nursing secretary on vitals monitoring found patient to be hypotensive, tachycardic, with respiratory rate around 28. 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 Chart reviewed. Patient is known to me on January 09, 2017, the day of admission. Patient was being managed here since then for infected wound of her skull where she had left suboccipital craniectomy with resection of cerebellar hemisphere neoplasm and left occipital bur hole placement for ventriculostomy on December 19, 2016. Her wound cultures were showing staph aureus and she had C. difficile positive on January 16, 2017. She was seen by infectious disease doctors and was managed with IV Flagyl for C. difficile, with IV Vanco for staph aureus wound infection. Per notes, her mental status was worsened earlier morning of January 18, 2017. Her baseline is that she is awake, alert, but was chronically quite ill and minimally communicative verbally mainly because of her acute illness. On exam: Chronically ill lady, noted to be tachypneic, and for airway congestive sounds. However would awaken to painful stimuli when we move her to listen to her lungs. Blood pressure by the time of my arrival was 96 over 60s. She had received about 200 cc of normal saline by then. Heart rate is regular, mildly tachycardic around 100. Lung exam reveals upper airway congested sounds with clear lower lungs. Abdomen is soft but is tender at the lower quadrants and suprapubic area. Patient has a Guillory catheter. She has a rectal tube with quite a bit of diarrhea unit. Lower extremities did not really any calf asymmetry. Impression: Hypotensivelikely septic shock. Also hypovolemic secondary to GI losses from diarrhea. Altered mental statusquestion whether this could be secondary to electrical seizures. Was told that patient's ventriculostomy drain was removed today. Possible aspirationresulting in upper airway congestion/tachypnea C. 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 Chest x-ray stat. Personally reviewed. Hyperinflated lungs. No pneumothorax. No evidence of infiltrates or pulmonary vascular congestion. Labs including CBC, BMP, BNP. ABG stat was done. Personally reviewed. This revealed respiratory alkalosis with hyperventilation. There was also metabolic acidosis with bicarbonate of 14. Therefore give bicarbonate 50 mEq IV push 1 dose since patient is quite tachypneic Head CT stat. Transfer patient to ICU for close monitoring. Continue management for C. difficile with IV Flagyl. Continue vancomycin IV for MSSA wound infection. Seizure precautions. EEG in a.m. We'll give fosphenytoin loading dose 1000 milligram IV 1 dose now. I have discussed with patient's healthcare proxy Chirag Wahl who states that he is coming to the hospital by walking from [facility] near [facility] and that he still has about 1 more hour to get to the hospital. He states that he wants everything to be done to see if patient does live. He states he is a good friend of the patient and that he has healthcare proxy papers with him. On review of records from yesterday, it seems the patient's primary team was trying to get him to come up with a decision regarding goals of care. Discussed with senior cytogenetic technologist land acquisition specialist. Patient is transferred to senior cytogenetic technologist care for critical care management. Critical Care time 35min Reg Beauchamp MD January 19, 2017 01:44
[2017-01-19] MEDS ORDERED: FOSPHENYTOIN INJ 1,000 MGPE in SODIUM CHLORIDE 0.9% INJ 50 ML IV ONE (01:45)
--- NOTE | 2017-01-19 01:48 | RADRPT ---
EXAM DATE/TIME: 01/19/2017 01:14 [facility] COMPARISON: CHEST SINGLE AP, January 09, 2017, 20:01. INDICATIONS : Shortness of brreath. MEDICAL HISTORY : Carcinoma, lung. SURGICAL HISTORY : Craniotomy. Bilateral breast implants ENCOUNTER: Subsequent ACUITY: 1 week PAIN SCORE: Non-responsive. LOCATION: Bilateral chest FINDINGS: The cardiac silhouette is enlarged in transverse diameter. The lungs are hyperinflated but clear. No effusions are identified. There is prominence of the aortic knob is with calcification characteristic of atherosclerotic vascular disease. CONCLUSION: 1. No acute cardiopulmonary disease. Jordy Sandoval MD on January 19, 2017 at 1:46 Board Certified Radiologist. This report was verified electronically.
[2017-01-19 02:21] LABS: AUTOMATED NEUTROPHIL # 22.5 TH/MM3 (1.8-7.7); BASOPHIL # 0.1 TH/MM3 (0-0.2); BASOPHIL % 0.3 % (0.0-2.0); EOSINOPHIL % 0.1 % (0.0-4.0); LYMPH % 1.9 % (9.0-44.0); LYMPHOCYTE # 0.5 TH/MM3 (1.0-4.8); MEAN CELL VOLUME 83.1 FL (80.0-100.0); MEAN CORPUSCULAR HEMOGLOBIN 26.9 PG (27.0-34.0); MEAN CORPUSCULAR HGB CONC 32.4 % (32.0-36.0); MONO % 7.3 % (0.0-8.0); NEUT % 90.4 % (16.0-70.0); PLATELET COUNT 449 TH/MM3 (150-450); RED BLOOD COUNT 4.09 MIL/MM3 (4.00-5.30); RED CELL DISTRIBUTION WIDTH 17.4 % (11.6-17.2); WHITE BLOOD COUNT 24.9 TH/MM3 (4.0-11.0)
[2017-01-19 02:22] LABS: HEMO FLAGS AUTO DIFF
[2017-01-19 02:51] LABS: ANION GAP 10 MEQ/L (5-15); AST (GOT) 28 U/L (15-37); BICARBONATE 20.8 MEQ/L (21.0-32.0); BLOOD UREA NITROGEN 17 MG/DL (7-18); CHLORIDE 110 MEQ/L (98-107); GLOMERULAR FILTRATION RATE 70 ML/MIN (>89); POTASSIUM 4.6 MEQ/L (3.5-5.1); SODIUM (NA) 141 MEQ/L (136-145)
[2017-01-19 02:55] LABS: ALKALINE PHOSPHATASE 91 U/L (45-117); ALT (GPT) 12 U/L (10-53); TOTAL BILIRUBIN ADULT 0.3 MG/DL (0.2-1.0)
[2017-01-19 03:23] LABS: BANDS 34 % (0-6); METAMYELOCYTES 6 % (0-1); MYELOCYTES 2 % (0-0); NEUTROPHIL # MANUAL DIFF 23.9 TH/MM3 (1.8-7.7); POLYS (SEG NEUTROPHILS) 54 % (16-70); WBC DIFF SAMPLE 100
[2017-01-19 03:27] LABS: OVALOCYTES 1+ (NORMAL); PLATELET ESTIMATE SMEAR HIGH (NORMAL); PLATELET MORPHOLOGY NORMAL (NORMAL); SCAN/DIFF FINAL DIFF MANUAL
[2017-01-19 03:28] LABS: ACANTHOCYTES 1+ (NORMAL)
--- NOTE | 2017-01-19 03:51 | PD.CONS ---
HPI Service Critical Care Medicine Consult Requested By Primary Care Physician Unknown History of Present Illness 71-year-old female patient with past medical history of tobacco abuse, left spontaneous pneumothorax, 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 During the last hospitalization she underwent Left suboccipital craniectomy with resection of cerebellar hemisphere neoplasm; bovine dural patch grafting; left occipital bur hole placement for ventriculostomy; the patient was being transferred from one SNF to another and was noted to have drainage from surgical incision, patient was then sent to ER for further evaluation and was admitted to [facility] floor with MRSA wound infection. 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 Past Surgical History Hysterectomy Appendectomy Breast implants Reported Medications Reported Meds & Active Scripts Active Thiamine (Thiamine HCl) 100 Mg Tab 100 Mg PO DAILY Protonix (Pantoprazole Sodium) 40 Mg Tab 40 Mg PO DAILY Hydrocodone-Acetaminophen 10-325 mg Tab 1 Tab PO Q4H PRN Flexeril (Cyclobenzaprine HCl) 10 Mg Tab 10 Mg PO Q8H PRN Dok (Docusate Sodium) 100 Mg Cap 100 Mg PO BID Dexamethasone 2 Mg Tab 2 Mg PO Q8HR Keppra (Levetiracetam) 500 Mg Tab 500 Mg PO Q12HR Active Ordered Medications Current Medications Medications (Trade) Dose Ordered Sig/Deana Route PRN Reason Start Time Stop Time Status Last Admin Dose Admin Ondansetron HCl (Zofran Inj) 4 mg Q6H PRN IVP NAUSEA OR VOMITING 01/09/17 23:15 01/10/17 19:58 Naloxone HCl (Narcan Inj) 0.4 mg UNSCH PRN IV SEE LABEL COMMENTS 01/09/17 23:15 Sodium Chloride (NS Flush) 2 ml UNSCH PRN IV FLUSH FLUSH AFTER USING IV ACCESS 01/10/17 14:30 Sodium Chloride (NS Flush) 2 ml BID IV FLUSH 01/10/17 21:00 01/17/17 09:00 Magnesium Hydroxide (Milk Of Magnesia Liq) 30 ml DAILY PRN PO CONSTIPATION 01/10/17 14:30 01/13/17 09:31 Al Hydrox/Mg Hydrox/Simethicone (Mag-Al Plus Susp Liq) 30 ml Q6H PRN PO DYSPEPSIA 01/10/17 14:30 Pantoprazole Sodium 40 mg 40 mg DAILY PO 01/11/17 09:00 01/17/17 09:15 Calcium Gluconate 1 gm/Sodium Chloride 110 ml @ 110 mls/hr UNSCH PRN IV SEE LABEL COMMENTS 01/10/17 14:30 Potassium Chloride 100 ml @ 50 mls/hr UNSCH PRN IV POTASSIUM LESS THAN 4 01/10/17 14:30 Magnesium Sulfate/ Sodium Chloride (Magnesium Sulfate Inj/NS Inj) 104 ml @ 100 mls/hr UNSCH PRN IV MAGNESIUM LESS THAN 2 01/10/17 14:30 Morphine Sulfate (Morphine Inj) 2 mg Q2H PRN IV breakthrough pain> 6 01/10/17 14:30 01/11/17 04:23 Labetalol HCl (Trandate Inj) 10 mg Q1H PRN IV SYS BP GREATER THAN 170 MMHG 01/10/17 14:30 Clonidine (Catapres) 0.1 mg Q6H PRN PO SYS BP GREATER THAN 170 MMHG 01/10/17 14:30 01/14/17 00:10 Acetaminophen (Tylenol) 650 mg Q4H PRN PO TEMPERATURE > 101.5 F 01/10/17 14:30 Menthol 1 lozenge 1 lozenge UNSCH PRN BUCCAL SORE THROAT 01/10/17 14:30 Nicardipine HCl/ Sodium Chloride (Cardene Inj/NS 250 ml Inj) 260 ml @ 0 mls/hr TITRATE IV 01/10/17 14:30 Prochlorperazine Edisylate (Compazine Inj) 10 mg Q6H PRN IV PUSH nausea if zofran ineffective 01/10/17 14:30 Metoprolol Tartrate 25 mg 25 mg Q12HR PO 01/14/17 09:00 01/17/17 21:12 Sodium Chloride (NS 1000 ml Inj) 1,000 ml @ 100 mls/hr Q10H IV 01/15/17 10:30 01/18/17 11:49 Vancomycin HCl 125 mg 125 mg QID PO 01/16/17 18:00 01/30/17 17:59 01/17/17 21:12 Pharmacy Profile Note 0 ml @ 0 mls/hr UNSCH OTHER 01/17/17 15:30 Vancomycin HCl/ Sodium Chloride (Vancomycin Inj/ NS 250 ml Inj) 250 ml @ 250 mls/hr Q12H IV 01/17/17 18:00 01/18/17 17:46 Miscellaneous Information SPECIFIC LAB TO BE DRAWN:VANCOMYCIN TROUGH DATE TO... ONCE ONCE .XX 01/19/17 05:45 01/19/17 05:46 Metronidazole (Flagyl 500 Mg Inj) 100 ml @ 100 mls/hr Q8H IV 01/18/17 16:00 01/18/17 23:50 Family History Noncontributory Social History History of long-term tobacco use more than 50 years not actively smoking now Denies alcohol or illicit drug abuse Physical Exam Vital Signs Vital Signs Date Time Temp Pulse Resp B/P Pulse Ox O2 Delivery O2 Flow Rate FiO2 01/18/17 20:00 96.4 126 28 105/71 99 01/18/17 16:15 97.5 97 20 101/69 96 01/18/17 12:30 102 01/18/17 12:26 97.6 98 20 106/78 97 01/18/17 08:09 97.4 102 18 138/85 94 01/18/17 05:39 96.8 118 22 121/82 96 Physical Exam GENERAL: Elderly lethargic woman SKIN: Warm and dry. HEAD: Normocephalic. EYES: No scleral icterus. No injection or drainage. NECK: Supple, trachea midline. No JVD or lymphadenopathy. CARDIOVASCULAR: Regular rate and rhythm without murmurs, gallops, or rubs. RESPIRATORY: Breath sounds equal bilaterally. No accessory muscle use. GASTROINTESTINAL: Abdomen soft, non-tender, nondistended. MUSCULOSKELETAL: No cyanosis, or edema. BACK: Nontender without obvious deformity. No CVA tenderness. EXTREMITIES: No clubbing cyanosis or edema Laboratory Laboratory Tests Test 01/18/17 01/18/17 01/19/17 01/19/17 08:37 14:32 00:59 02:10 Sodium Level 138 141 Potassium Level 4.4 4.6 Chloride Level 106 110 Carbon Dioxide Level 19.8 20.8 Anion Gap 12 10 Blood Urea Nitrogen 9 17 Creatinine 0.29 0.80 Estimat Glomerular Filtration 227 70 Rate Random Glucose 92 116 Calcium Level 8.0 7.8 Phosphorus Level 3.3 Magnesium Level 2.1 White Blood Count 24.8 24.9 Red Blood Count 4.33 4.09 Hemoglobin 11.6 11.0 Hematocrit 35.6 34.0 Mean Corpuscular Volume 82.3 83.1 Mean Corpuscular Hemoglobin 26.8 26.9 Mean Corpuscular Hemoglobin 32.6 32.4 Concent Red Cell Distribution Width 17.9 17.4 Platelet Count 522 449 Mean Platelet Volume 7.8 7.5 Neutrophils (%) (Auto) 93.4 90.4 Lymphocytes (%) (Auto) 2.2 1.9 Monocytes (%) (Auto) 4.4 7.3 Eosinophils (%) (Auto) 0.0 0.1 Basophils (%) (Auto) 0.0 0.3 Neutrophils # (Auto) 23.1 22.5 Lymphocytes # (Auto) 0.5 0.5 Monocytes # (Auto) 1.1 1.8 Eosinophils # (Auto) 0.0 0.0 Basophils # (Auto) 0.0 0.1 CBC Comment AUTO DIFF AUTO DIFF Differential Total Cells 100 100 Counted Neutrophils % (Manual) 65 54 Band Neutrophils % 27 34 Lymphocytes % 4 Monocytes % 2 4 Neutrophils # (Manual) 23.3 23.9 Myelocytes 2 2 Differential Comment FINAL DIFF FINAL DIFF MANUAL MANUAL Platelet Estimate HIGH HIGH Platelet Morphology Comment NORMAL NORMAL Ovalocytes 1+ 1+ Acanthocytes OCC 1+ Blood Gas Puncture Site LT RADIAL Blood Gas Patient Temperature 98.6 Blood Gas HCO3 14 Blood Gas Base Excess -9.6 Blood Gas Oxygen Saturation 95 Arterial Blood pH 7.42 Arterial Blood Partial 22 Pressure CO2 Arterial Blood Partial 89 Pressure O2 Arterial Blood Oxygen Content 16.1 Arterial Blood 1.0 Carboxyhemoglobin Arterial Blood Methemoglobin 0.7 Blood Gas Hemoglobin 12.0 Oxygen Delivery Device NASAL CANNULA Blood Gas Liter Flow 3 Metamyelocytes 6 Lactic Acid Level 3.2 Total Bilirubin 0.3 Aspartate Amino Transf 28 (AST/SGOT) Alanine Aminotransferase 12 (ALT/SGPT) Alkaline Phosphatase 91 B-Type Natriuretic Peptide 36 Total Protein 4.5 Albumin 1.0 Result Diagram: 01/19/170 01/19/17 0210 Imaging Last 24 hours Impressions Chest X-Ray 01/19/17 0000 Signed Impressions: Service Date/Time: January 01:14 - CONCLUSION: 1. No acute cardiopulmonary disease. 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 difficile colitis - Per ID DVT GI prophylaxis - Teds SCDs - Subcutaneous heparin - Pepcid Critical Care: The total critical care time was 35 minutes. Time to perform other separately billable procedures was not included in the critical care time. Scott Tolliver MD January 19, 2017 03:51
[2017-01-19] MEDS ORDERED: IOHEXOL 350 MG/ML 10 ML VIAL (for RAD DIAG) IV ONE (05:17)
[2017-01-19] MEDS: SODIUM CHLOR 0.9% 1000 ML INJ 1,000 ML IV SCH ×4 (05:45→13:24)
[2017-01-19] MEDS ORDERED: PHARMACY ORDERED LAB ONE (05:45)
--- NOTE | 2017-01-19 06:19 | RADRPT ---
EXAM DATE/TIME: 01/19/2017 05:15 [facility] COMPARISON: CT BRAIN W/O CONTRAST, January 09, 2017, 20:26. CT BRAIN W/O CONTRAST, January 17, 2017, 14:51. INDICATIONS : Altered mental status. RADIATION DOSE: 43.98 CTDIvol (mGy) MEDICAL HISTORY : Lung carcinoma. SURGICAL HISTORY : Craniotomy. ENCOUNTER: Initial ACUITY: 1 day PAIN SCALE: Non-responsive LOCATION: cranial TECHNIQUE: Multiple contiguous axial images were obtained of the head. Using automated exposure control and adj ustment of the mA and/or kV according to patient size, radiation dose was kept as low as reasonably a chievable to obtain optimal diagnostic quality images. FINDINGS: There is a small stable parafalcine hemorrhage between the lateral ventricles. No acute hemorrhage is identified. The ventricles are enlarged out of proportion to the sulcal atrophy. In addition the thi rd ventricle is somewhat prominent. Clinical correlation would be helpful in regards to the possibili ty of normal pressure hydrocephalus. There is periventricular hypodensity compatible with chronic isc hemic change slightly more than expected for patient this age. Old infarct is present in the left cer ebellar hemisphere encephalomalacia at the site of previous craniotomy. There is minimal as pneumocep halus in the left frontal region. CONCLUSION: 1. Stable small parafalcine hematoma. 2. Possible normal pressure hydrocephalus. Correlation with clinical findings is necessary. Jordy Sandoval MD on January 19, 2017 at 6:13 Board Certified Radiologist. This report was verified electronically.
--- NOTE | 2017-01-19 06:24 | RADRPT ---
EXAM DATE/TIME: 01/19/2017 05:17 [place] COMPARISON: No previous studies available for comparison. INDICATIONS : Shortness of breath. IV CONTRAST: 80 cc Omnipaque 350 (iohexol) IV RADIATION DOSE: 22.40 CTDIvol (mGy) MEDICAL HISTORY : Carcinoma, lung. SURGICAL HISTORY : Tonsillectomy. Craniotomy.Hysterectomy. ENCOUNTER: Initial ACUITY: 1 day PAIN SCALE: Non-responsive LOCATION: Bilateral chest TECHNIQUE: Volumetric scanning of the chest was performed using a pulmonary embolism protocol MIP images were re constructed. Using automated exposure control and adjustment of the mA and/or kV according to patien t size, radiation dose was kept as low as reasonably achievable to obtain optimal diagnostic quality images. FINDINGS: Examination of the pulmonary vasculature demonstrates good filling of the main, lobar and segmental b ranches. There are no filling defects to suggest pulmonary embolism. Multiplanar reconstructions are also unremarkable. Examination of the mediastinum demonstrates no abnormally enlarged lymph nodes by CT criteria. No axi llary or hilar abnormalities are identified. Coronary artery calcifications are present. Ascites is p resent in the upper abdomen. There are centrilobular emphysematous changes in both upper lobes. No pu lmonary nodules are identified. No pleural effusions are identified. CONCLUSION: 1. No evidence of pulmonary embolism. Jordy Sandoval MD on January 19, 2017 at 6:17 Board Certified Radiologist. This report was verified electronically.
[2017-01-19] MEDS: VANCOMYCIN 1,000 MG/NS 250 ML IV SCH ×4 (06:38→18:56)
--- NOTE | 2017-01-19 07:17 | HHI.CCPN ---
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 During the last hospitalization she underwent Left suboccipital craniectomy with resection of cerebellar hemisphere neoplasm; bovine dural patch grafting; left occipital bur hole placement for ventriculostomy; the patient was being transferred from one SNF to another and was noted to have drainage from surgical incision, patient was then sent to ER for further evaluation and was admitted to [facility] floor with MRSA wound infection. While on the floor today she became more lethargic with periods of respiratory distress/tachypnea. 05/04: Breathing with acceptable comfort on NC O2. Terminal condition and the patient has continued to deteriorate. At this juncture there is no long or midterm solution to her disease process. What we can offer is a spinal drain to decompress her hydrocephalus and hopefully sustain her until legitimate family can be contacted. Placement of a spinal drain is indicated as a medical necessity at this point as we have unclear guidance as to care goals from family. Objective Vital Signs Date Time Temp Pulse Resp B/P Pulse Ox O2 Delivery O2 Flow Rate FiO2 01/19/17 06:00 106 01/19/17 04:00 96.4 36 113/57 100 01/19/17 00:40 Nasal Cannula 3.00 Intake and Output 01/18/17 01/18/17 01/19/17 08:00 16:00 00:00 Output Total 50 ml 100 ml Balance -50 ml -100 ml Result Diagram: 01/19/17 0210 01/19/17 0210 Other Results Laboratory Tests Test 01/19/17 00:59 Blood Gas Puncture Site LT RADIAL Blood Gas Patient Temperature 98.6 Blood Gas HCO3 14 mmol/L (22-26) Blood Gas Base Excess -9.6 mmol/L (-2-2) Blood Gas Oxygen Saturation 95 % (90-100) Arterial Blood pH 7.42 (7.380-7.420) Arterial Blood Partial 22 mmHg (38-42) Pressure CO2 Arterial Blood Partial 89 mmHg Pressure O2 (61-120) Arterial Blood Oxygen Content 16.1 Vol % (12.0-20.0) Arterial Blood 1.0 % (0-4) Carboxyhemoglobin Arterial Blood Methemoglobin 0.7 % (0-2) Blood Gas Hemoglobin 12.0 G/DL (12.0-16.0) Oxygen Delivery Device NASAL CANNULA Blood Gas Liter Flow 3 L/M Imaging Last 24 hours Impressions Chest X-Ray 01/19/17 0000 Signed Impressions: Service Date/Time: January 01:14 - CONCLUSION: 1. No acute cardiopulmonary disease. Jordy Sandoval MD Objective Remarks GENERAL: Elderly lethargic woman SKIN: Warm and dry. HEAD: Normocephalic. EYES: No scleral icterus. No injection or drainage. NECK: Supple, trachea midline. Airway widely patent. CARDIOVASCULAR: Regular rate and rhythm without murmurs, gallops, or rubs. RESPIRATORY: Breath sounds equal bilaterally. GASTROINTESTINAL: Abdomen soft, non-tender, nondistended. MUSCULOSKELETAL: No cyanosis, or edema. BACK: Nontender without obvious deformity. No CVA tenderness. EXTREMITIES: No clubbing cyanosis or edema. NEURO: Confused. Protects airway. 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 difficile colitis - Per ID DVT GI prophylaxis - Teds SCDs - Subcutaneous heparin - Pepcid Overall impression: Hopefully ammonia level will help us with immediate care, fpc prognosis bleak. Jim Orourke MD January 19, 2017 07:17
[2017-01-19] MEDS: VANCOMYCIN 500 MG VIAL (FOR ORAL USE ONLY) PO SCH ×4 (08:37→20:35)
[2017-01-19] MEDS: METOPROLOL TARTRATE 25 MG TAB PO SCH ×2 (08:37→20:35)
[2017-01-19] MEDS: PANTOPRAZOLE SOD 40 MG DELAYED RELEASE TAB PO SCH (08:37)
[2017-01-19] MEDS: SODIUM CHLORIDE 0.9% FLUSH 10 ML FLUSH IV FLUSH SCH ×2 (08:38→20:36)
[2017-01-19] MEDS: metroNIDAZOLE 500 MG INJ 100 ML IV SCH ×2 (09:01→16:18)
--- NOTE | 2017-01-19 11:24 | PD.CONS ---
Consult Service Palliative Care Consult Requested By Dr. Khurram Denson MD. . Primary Care Physician Unknown Reason for Consultation a. To assist with evaluation and management of symptoms including: debility b. To assist medical decision maker(s) with: better understanding of current medical conditions; weighing benefits/burdens of medical treatment options; making medical treatment decisions. . HPI History of Present Illness Mrs. Cruz is a 71-year-old female with a medical history of metastatic adenocarcinoma of lung primary with all legal metastatic brain disease, status post surgical debulking on 12/19/16. On 01/09/17, patient presented to the emergency room from her alf facility for evaluation of drainage from surgical incision. CT of the head obtained revealing extensive postsurgical changes with pneumocephalus, hydrocephalus and a small amount of parenchymal hemorrhage. Patient was admitted for management of postoperative infection of surgical incision. Blood cultures obtained, and patient was started on antibiotics. Neurosurgery was consulted. On 01/10/17, patient underwent left suboccipital pseudomeningocele/CSF leak repair with patch graft, superficial and deep wound debridement and lumbar spinal drain placement. ID consulted on 01/12/17 secondary to MSSA infection. Patient's clinical course complicated by worsening mental status, hypotension and tachycardia requiring transfer to the medical ICU on 01/18/17. Patient previously hospitalized from 12/16/16 to 12/27/2016. At that time, patient presented to ED with reports of dizziness. MRI of the head reveal a large enhancing mass involving the left cerebellar hemisphere measuring 4.13.7 cm, which was associated with significant vasogenic edema. On 12/19/2016 patient underwent craniotomy with excisional biopsy of the cerebellar mass for debulking purposes. Pathologic findings were consistent with poorly differentiated metastatic adenocarcinoma. CT of the thorax revealed a 2.1 cm mass consistent with neoplasm. CT scan of abdomen and pelvis at that time indicated no definitive evidence of intra-abdominal metastatic disease. Dr. Boyd -radiation oncology consulted on 12/23/16 to discuss potential for radiation therapy. Follow-up visit on 01/02/17, patient declined radiation therapy at that time. Hospice was discussed at that time and referral was made. Current hospitalization workup as follow: * Wound culture positive for staph aureus, urine culture positive for Claudia, blood culture positive for Staphylococcus Warneri. * CTA of the chest 01/19/17 negative for PE. Chest x-ray negative for acute process. * Head CT 01/19/17 showing stable small parafalcine hematoma and possible normal pressure hydrocephalus. * Head CT 01/17/17 showing reduced pneumocephaly and stable small volume subdural hematoma. * Head CT 01/09/17 showing extensive postsurgical changes with pneumocephalus, hydrocephalus and a small amount of parenchymal hemorrhage. * Laboratory data today showing trending WBC 24.9, Hgb 11.0, platelet count 449. Sodium 141, potassium 4.6, BUN/creatinine 17/0.80. Total per bilirubin 0.3, AST 28, ALT 12, alkaline phosphatase 91. Albumin 1.0 * Positive stool for C. difficile on 01/16/17. Today patient is a febrile, remains tachycardic with heart rates between 110s to 130s. Respiration rate between mid 20s to mid 30s. On 3 L O2 nasal cannula. Patient seen in her room, EEG ongoing. Patient minimally responsive to voice or tactile stimuli. Moaning noted with palpation of abdomen. Patient not opening her eyes on commands or following any instructions. No family at bedside. Telephone conversation with patient's significant other Chirag, he agreed to meet with palliative care this afternoon. Case discussed with Dr. Orourke and bedside RN. Palliative care to follow-up. 15:35. Telephone conversation with patient's significant other for Chirag. He is unable to visit patient this afternoon, however, agreed to meet with palliative care tomorrow morning. Chirag tells me that patient has 1 son but she has not been in contact with him for over 20 years. There is also a pt's sister by the name of Laila or Steph, unknown last name, place of residence or contact information. Patient is originally from [place]. Reviewed with [facility] statute in regards to healthcare proxy decision-making. e learning manager to run accurint report. . . Function/Cognitive Trajectory As per patient's significant other Chirag, patient with reported progressive decline for the past few months. Worsened in November after acute hospitalization. Patient was discontinued to a alf facility for rehabilitation, however, continued decline in as evidence as profound physical deconditioning, decreased oral intake and altered mental status. . Review of Systems ROS Limitations: Clinical Condition, Altered Mental Status Constitutional: COMPLAINS OF: Fatigue Ears, nose, mouth, throat: COMPLAINS OF: Hearing loss, DENIES: Nasal discharge Respiratory: COMPLAINS OF: Shortness of breath, DENIES: Cough Cardiovascular: DENIES: Chest pain, Lower Extremity Edema Gastrointestinal: COMPLAINS OF: Diarrhea, DENIES: Vomiting Musculoskeletal: DENIES: Decreased range of motion Integumentary: DENIES: Abnormal pigmentation Hematologic/Lymphatics: DENIES: Bruising Immunologic/Allergic: DENIES: Eczema Neurologic: COMPLAINS OF: Poor Balance (Limited ROS secondary to clinical status. Patient minimally responsive.) Psychiatric: COMPLAINS OF: Anxiety Past Family Social History Coded Allergies: Sulfa (Verified Allergy, Severe, 01/09/17) Past Medical History Metastatic adenocarcinoma of lung primary with cerebellar metastasis Cerebellar mass status post resection Tobacco abuse History of left spontaneous pneumothorax . Past Surgical History Cerebellar mass status post resection Hysterectomy Appendectomy Breast implants . Reported Medications Thiamine (Thiamine HCl) 100 Mg Tab 100 Mg PO DAILY Protonix (Pantoprazole Sodium) 40 Mg Tab 40 Mg PO DAILY Hydrocodone-Acetaminophen 10-325 mg Tab 1 Tab PO Q4H PRN Flexeril (Cyclobenzaprine HCl) 10 Mg Tab 10 Mg PO Q8H PRN Dok (Docusate Sodium) 100 Mg Cap 100 Mg PO BID Dexamethasone 2 Mg Tab 2 Mg PO Q8HR Keppra (Levetiracetam) 500 Mg Tab 500 Mg PO Q12HR . Current Medications Medications (Trade) Dose Ordered Sig/Deana Route Start Time Stop Time Status Last Admin (Zofran Inj) 4 mg Q6H PRN IVP 01/09/17 23:15 01/10/17 19:58 (Narcan Inj) 0.4 mg UNSCH PRN IV 01/09/17 23:15 (NS Flush) 2 ml UNSCH PRN IV FLUSH 01/10/17 14:30 (NS Flush) 2 ml BID IV FLUSH 01/10/17 21:00 01/17/17 09:00 (Milk Of Magnesia Liq) 30 ml DAILY PRN PO 01/10/17 14:30 01/13/17 09:31 (Mag-Al Plus Susp Liq) 30 ml Q6H PRN PO 01/10/17 14:30 Pantoprazole Sodium 40 mg 40 mg DAILY PO 01/11/17 09:00 01/17/17 09:15 Calcium Gluconate 1 gm/Sodium Chloride 110 ml @ 110 mls/hr UNSCH PRN IV 01/10/17 14:30 Potassium Chloride 100 ml @ 50 mls/hr UNSCH PRN IV 01/10/17 14:30 (Magnesium Sulfate Inj/NS Inj) 104 ml @ 100 mls/hr UNSCH PRN IV 01/10/17 14:30 (Morphine Inj) 2 mg Q2H PRN IV 01/10/17 14:30 01/11/17 04:23 (Trandate Inj) 10 mg Q1H PRN IV 01/10/17 14:30 (Catapres) 0.1 mg Q6H PRN PO 01/10/17 14:30 01/14/17 00:10 (Tylenol) 650 mg Q4H PRN PO 01/10/17 14:30 Menthol 1 lozenge 1 lozenge UNSCH PRN BUCCAL 01/10/17 14:30 (Cardene Inj/NS 250 ml Inj) 260 ml @ 0 mls/hr TITRATE IV 01/10/17 14:30 (Compazine Inj) 10 mg Q6H PRN IV PUSH 01/10/17 14:30 Metoprolol Tartrate 25 mg 25 mg Q12HR PO 01/14/17 09:00 01/17/17 21:12 (NS 1000 ml Inj) 1,000 ml @ 100 mls/hr Q10H IV 01/15/17 10:30 01/19/17 05:45 Vancomycin HCl 125 mg 125 mg QID PO 01/16/17 18:00 01/30/17 17:59 01/17/17 21:12 Pharmacy Profile Note 0 ml @ 0 mls/hr UNSCH OTHER 01/17/17 15:30 Vancomycin HCl 1000 mg/Sodium Chloride 250 ml @ 250 mls/hr Q12H IV 01/17/17 18:00 01/19/17 06:38 (Flagyl 500 Mg Inj) 100 ml @ 100 mls/hr Q8H IV 01/18/17 16:00 01/19/17 09:01 Miscellaneous Information SPECIFIC LAB TO BE DRAWN:VANCOMYCIN TROUGH DATE TO... ONCE ONCE .XX 01/20/17 05:45 01/20/17 05:46 Family History Parents are both , unknown cause. . Substance Use Tobacco: 40 to 50 pack-year history. Alcohol: Frequent EtOH use. Prescription med abuse: None reported. Illicits: None. . Psychosocial History Patient resides in [place] with her boyfriend Chirag. Patient has an adult child. 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 . Spiritual/Cultural Factors No jain affiliation. . Living Will: Never completed Health Care Surrogate: Never completed Durable Power of [place]: Never completed Health Care Surrogate(s): Patient has 1 son and 1 sister. Pending contact information. Significant other Chirag has been acting as healthcare proxy since admission. No official designation of healthcare surrogate has been completed. . Documented care wishes: No living will completed. . Today's verbally stated goals: Patient unable to participate in goals of care conversation secondary to clinical condition. . Ethical and Legal Issues Pending next of kind information for healthcare proxy decision making. Patient has 1 son and 1 sister. Pending contact information. Significant other Chirag has been acting as healthcare proxy decision maker since admission. No official healthcare surrogate designation has been completed. . Physical Exam Vital Signs Date Time Temp Pulse Resp B/P Pulse Ox O2 Delivery O2 Flow Rate FiO2 01/19/17 10:00 119 01/19/17 08:00 97.0 120 26 116/64 99 01/19/17 08:00 117 01/19/17 06:00 106 01/19/17 04:00 114 01/19/17 04:00 96.4 114 36 113/57 100 01/19/17 02:00 97.6 134 30 107/56 100 01/19/17 02:00 130 01/19/17 00:40 99 Nasal Cannula 3.00 01/18/17 20:00 96.4 126 28 105/71 99 01/18/17 16:15 97.5 97 20 101/69 96 01/18/17 12:30 102 01/18/17 12:26 97.6 98 20 106/78 97 01/18/17 01/19/17 19:00 07:00 Intake Total 3050 ml Output Total 100 ml 700 ml Balance -100 ml 2350 ml IV Total 3050 ml Output Urine Total 100 ml 0 ml Stool Total 700 ml Exam CONSTITUTIONAL/GENERAL: This is a thin elderly female laying in the bed in no acute distress. TUBES/LINES/DRAINS: NC, Guillory catheter, rectal tube. PIV's. SKIN: Ecchymoses on upper extremities. Skin temperature appropriate. Not diaphoretic. HEAD: Surgical incision to left occipital area with barbie in place. Wound well approximated, looks dry and clean. EYES: Pupils sluggish. No scleral icterus. No injection or drainage. ENT: Unable to evaluate hearing secondary to clinical condition. Nose without bleeding or purulent drainage. Unable to evaluate throat as patient did not cooperate with physical exam.. NECK: Trachea midline. Supple. CARDIOVASCULAR: Tachycardic with heart rate in the 110s to 130s. No murmurs noted. No JVD. Peripheral pulses symmetric. RESPIRATORY/CHEST: Symmetric, unlabored respirations. Clear to auscultation. Breath sounds equal bilaterally. No wheezes, rales, or rhonchi. GASTROINTESTINAL: Abdomen round, distended, tender. Bowel sounds present. GENITOURINARY: Without palpable bladder distension. Guillory catheter in place. MUSCULOSKELETAL: Extremities without clubbing, cyanosis, or edema. NEUROLOGICAL: Minimally responsive to tactile or voice stimuli. Not opening eyes to command or following any commands. PSYCHIATRIC: Unable to assess secondary to clinical condition. . Diagnostic Tests Laboratory Laboratory Tests Test 01/16/17 01/17/17 01/18/17 01/18/17 11:45 20:44 08:37 14:32 Sodium Level 131 MEQ/L 138 MEQ/L (136-145) (136-145) Potassium Level 4.3 MEQ/L 4.4 MEQ/L (3.5-5.1) (3.5-5.1) Chloride Level 101 MEQ/L 106 MEQ/L (98-107) (98-107) Carbon Dioxide Level 17.6 MEQ/L 19.8 MEQ/L (21.0-32.0) (21.0-32.0) Anion Gap 12 MEQ/L (5-15) 12 MEQ/L (5-15) Blood Urea Nitrogen 6 MG/DL (7-18) 9 MG/DL (7-18) Creatinine 0.22 MG/DL 0.29 MG/DL (0.50-1.00) (0.50-1.00) Estimat Glomerular Filtration 312 ML/MIN 227 ML/MIN Rate (>89) (>89) Random Glucose 104 MG/DL 92 MG/DL (74-106) (74-106) Calcium Level 7.8 MG/DL 8.0 MG/DL (8.5-10.1) (8.5-10.1) Phosphorus Level 1.8 MG/DL 3.3 MG/DL (2.5-4.9) (2.5-4.9) Magnesium Level 2.2 MG/DL 2.1 MG/DL (1.5-2.5) (1.5-2.5) White Blood Count 25.9 TH/MM3 24.8 TH/MM3 (4.0-11.0) (4.0-11.0) Red Blood Count 3.95 MIL/MM3 4.33 MIL/MM3 (4.00-5.30) (4.00-5.30) Hemoglobin 10.4 GM/DL 11.6 GM/DL (11.6-15.3) (11.6-15.3) Hematocrit 32.6 % 35.6 % (35.0-46.0) (35.0-46.0) Mean Corpuscular Volume 82.3 FL 82.3 FL (80.0-100.0) (80.0-100.0) Mean Corpuscular Hemoglobin 26.3 PG 26.8 PG (27.0-34.0) (27.0-34.0) Mean Corpuscular Hemoglobin 31.9 % 32.6 % Concent (32.0-36.0) (32.0-36.0) Red Cell Distribution Width 17.7 % 17.9 % (11.6-17.2) (11.6-17.2) Platelet Count 497 TH/MM3 522 TH/MM3 (150-450) (150-450) Mean Platelet Volume 7.6 FL 7.8 FL (7.0-11.0) (7.0-11.0) Neutrophils (%) (Auto) 93.4 % (16.0-70.0) Lymphocytes (%) (Auto) 2.2 % (9.0-44.0) Monocytes (%) (Auto) 4.4 % (0.0-8.0) Eosinophils (%) (Auto) 0.0 % (0.0-4.0) Basophils (%) (Auto) 0.0 % (0.0-2.0) Neutrophils # (Auto) 23.1 TH/MM3 (1.8-7.7) Lymphocytes # (Auto) 0.5 TH/MM3 (1.0-4.8) Monocytes # (Auto) 1.1 TH/MM3 (0-0.9) Eosinophils # (Auto) 0.0 TH/MM3 (0-0.4) Basophils # (Auto) 0.0 TH/MM3 (0-0.2) CBC Comment AUTO DIFF Differential Total Cells 100 Counted Neutrophils % (Manual) 65 % (16-70) Band Neutrophils % 27 % (0-6) Lymphocytes % 4 % (9-44) Monocytes % 2 % (0-8) Neutrophils # (Manual) 23.3 TH/MM3 (1.8-7.7) Myelocytes 2 % (0-0) Differential Comment FINAL DIFF MANUAL Platelet Estimate HIGH (NORMAL) Platelet Morphology Comment NORMAL (NORMAL) Ovalocytes 1+ (NORMAL) Acanthocytes OCC (NORMAL) Test 01/19/17 01/19/17 00:59 02:10 Blood Gas Puncture Site LT RADIAL Blood Gas Patient Temperature 98.6 Blood Gas HCO3 14 mmol/L (22-26) Blood Gas Base Excess -9.6 mmol/L (-2-2) Blood Gas Oxygen Saturation 95 % (90-100) Arterial Blood pH 7.42 (7.380-7.420) Arterial Blood Partial 22 mmHg (38-42) Pressure CO2 Arterial Blood Partial 89 mmHg Pressure O2 (61-120) Arterial Blood Oxygen Content 16.1 Vol % (12.0-20.0) Arterial Blood 1.0 % (0-4) Carboxyhemoglobin Arterial Blood Methemoglobin 0.7 % (0-2) Blood Gas Hemoglobin 12.0 G/DL (12.0-16.0) Oxygen Delivery Device NASAL CANNULA Blood Gas Liter Flow 3 L/M White Blood Count 24.9 TH/MM3 (4.0-11.0) Red Blood Count 4.09 MIL/MM3 (4.00-5.30) Hemoglobin 11.0 GM/DL (11.6-15.3) Hematocrit 34.0 % (35.0-46.0) Mean Corpuscular Volume 83.1 FL (80.0-100.0) Mean Corpuscular Hemoglobin 26.9 PG (27.0-34.0) Mean Corpuscular Hemoglobin 32.4 % Concent (32.0-36.0) Red Cell Distribution Width 17.4 % (11.6-17.2) Platelet Count 449 TH/MM3 (150-450) Mean Platelet Volume 7.5 FL (7.0-11.0) Neutrophils (%) (Auto) 90.4 % (16.0-70.0) Lymphocytes (%) (Auto) 1.9 % (9.0-44.0) Monocytes (%) (Auto) 7.3 % (0.0-8.0) Eosinophils (%) (Auto) 0.1 % (0.0-4.0) Basophils (%) (Auto) 0.3 % (0.0-2.0) Neutrophils # (Auto) 22.5 TH/MM3 (1.8-7.7) Lymphocytes # (Auto) 0.5 TH/MM3 (1.0-4.8) Monocytes # (Auto) 1.8 TH/MM3 (0-0.9) Eosinophils # (Auto) 0.0 TH/MM3 (0-0.4) Basophils # (Auto) 0.1 TH/MM3 (0-0.2) CBC Comment AUTO DIFF Differential Total Cells 100 Counted Neutrophils % (Manual) 54 % (16-70) Band Neutrophils % 34 % (0-6) Monocytes % 4 % (0-8) Neutrophils # (Manual) 23.9 TH/MM3 (1.8-7.7) Metamyelocytes 6 % (0-1) Myelocytes 2 % (0-0) Differential Comment FINAL DIFF MANUAL Platelet Estimate HIGH (NORMAL) Platelet Morphology Comment NORMAL (NORMAL) Ovalocytes 1+ (NORMAL) Acanthocytes 1+ (NORMAL) Sodium Level 141 MEQ/L (136-145) Potassium Level 4.6 MEQ/L (3.5-5.1) Chloride Level 110 MEQ/L (98-107) Carbon Dioxide Level 20.8 MEQ/L (21.0-32.0) Anion Gap 10 MEQ/L (5-15) Blood Urea Nitrogen 17 MG/DL (7-18) Creatinine 0.80 MG/DL (0.50-1.00) Estimat Glomerular Filtration 70 ML/MIN (>89) Rate Random Glucose 116 MG/DL (74-106) Lactic Acid Level 3.2 mmol/L (0.4-2.0) Calcium Level 7.8 MG/DL (8.5-10.1) Total Bilirubin 0.3 MG/DL (0.2-1.0) Aspartate Amino Transf 28 U/L (15-37) (AST/SGOT) Alanine Aminotransferase 12 U/L (10-53) (ALT/SGPT) Alkaline Phosphatase 91 U/L (45-117) B-Type Natriuretic Peptide 36 PG/ML (0-100) Total Protein 4.5 GM/DL (6.4-8.2) Albumin 1.0 GM/DL (3.4-5.0) Result Diagram: 01/19/17 0210 01/19/17 0210 Imaging Last Impressions Head CT 01/19/17 0000 Signed Impressions: Service Date/Time: January 05:15 - CONCLUSION: 1. Stable small parafalcine hematoma. 2. Possible normal pressure hydrocephalus. Correlation with clinical findings is necessary. Jordy Sandoval MD Chest X-Ray 01/19/17 0000 Signed Impressions: Service Date/Time: January 01:14 - CONCLUSION: 1. No acute cardiopulmonary disease. Jordy Sandoval MD CT Angiography 01/19/17 0000 Signed Impressions: Service Date/Time: January 05:17 - CONCLUSION: 1. No evidence of pulmonary embolism. Jordy Sandoval MD Procedures 01/10/17, debridement of head wound with lumbar drain placed. . Patient/Family Conference Present at Family Conference: Significant other Chirag via telephone. Family Conference Time (mins): 36 Family Conference Location: Telephone Issues Discussed: * Palliative care role, purpose, approach * Additional medical, psychosocial, and spiritual history * Patients general health, functional status, and cognitive changes in the months leading up to the current hospitalization * His understanding of the current medical problems and prognosis * Patients goals of care as best understood from advance directives and/or conversations and/or values . Assessment and Plan Disease Oriented Problem List: (1) Surgical wound infection (2) Altered mental status (3) Metastasis from malignant tumor of lung Symptom Scale: (1) Debility 0-10 Scale: Unable to quantify Pertinent Non-Medical Issues Psychosocial: Spiritual: Legal: Ethical issues impacting care: Important Contacts Significant other Chirag Camacho . . Prognosis Mrs. Cruz is a 71-year-old female with a medical history of metastatic adenocarcinoma of lung primary with all legal metastatic brain disease, status post surgical debulking on 12/19/16. Clinical course has been complicated by infection of surgical wound, status post debridement and lumbar drain placement. Clinical course further complicated by worsening mental status, lethargy and respiratory distress. Patient's overall prognosis is poor given her progression of disease, acute clinical complications, worsening clinical status, advanced age, and multiple comorbidities. Patient at high risk for further complications, further decline and . Patient appears hospice appropriate at this time given her poor prognosis. . Code Status: No Code Plan * CODE STATUS: No code. DNR/DNI. * HEALTHCARE DECISION-MAKING: Unclear at this time. No formal healthcare surrogate designation appears to be have been completed. Significant other Chirag has been acting as healthcare proxy. However, patient has an adult son and a sister. Pending accurint report or next of kin contact information. Chirag reports that patient has not been in contact with either son or her sister for over 20 years. Chirag has no info on their names or contact info. * GOALS OF CARE: Continue current medical management at this time. Pending next of kin information, accurint report. * SYMPTOMS: == Debility, secondary to burden of disease. Likely to continue to worsen. * HOSPICE: As per oncology notes, hospice was previously consulted. Contacted [facility] hospice, patient was under their services until 01/10/17. Patient appears hospice appropriate at this time he given her poor prognosis, likely 6 months or less if illness runs its natural course. * Case discussed with Dr. Orourke and bedside RN. * Palliative care contact information has been provided to patient's significant other Chirag. * Palliative care will continue to follow-up with this patient and family as her clinical course continues to evolve. . Time Spent Total Floor Time (mins): 77 (Total time to include review and summarization of available medical records to include prior ED visits and hospitalizations, physical exam, telephone conversation with significant other Chirag and case discussion with Dr. Orourke and bedside RN.) >50% Counseling/Coord of Care: Yes Thank you for the opportunity to participate in the care of Ms. Cruz. Attestation To help prompt me to consider important information that might be impacting today's encounter and assessment, information from prior notes written by myself or my colleagues may have been "brought forward" into today's note. My signature on this note, however, is an attestation that I personally performed the exam, history, and/or decision-making noted today, and, unless otherwise indicated, the interactions with patient, family, and staff as well as the review of records all occurred today. I also attest that the listed assessment and stated plan reflect my best clinical judgment today based on the combination of historical information, prior notes, and today's exam/ interactions. When time spent is documented, it refers only to time spent today by the signer, or if indicated, combined time spent today by collaborating physician/nurse practitioner. Stephanie Schumacher January 19, 2017 11:24
--- NOTE | 2017-01-19 12:43 | HHI.NSPN ---
(Bartolome Lopez) History Chief Complaint: s/p incision and debridement of left suboccipital crani. Lethargic. (Bartolome Lopez) Interval History This is a 71-year-old female who has previously undergone a left suboccipital craniectomy with resection of cerebellar neoplasm with bovine dural patch graft and ventriculostomy placement on 12/19/16 by Mansoor Salazar MD. the patient arrives to the ER from a retirement facility where she was staying for rehabilitation. She is a very poor historian and does not give much information about her current condition. I did speak with Chirag Camacho who identified himself as the patient's medical proxy. He states that the patient has had drainage from her surgical sites and he informed the nurses and she was subsequently brought to [place] for further evaluation. 01/11/17: Pt awake more alert today. States she is in [place] but doesn't know the date. Follows simple commands. She denies headache. No nausea vomiting. 01/12/17: Pt awake and alert. Denies headache. No nausea or vomiting. Follows simple commands. 01/13/17: Pt awake and alert. Denies headache. No nausea or vomiting. Follows commands. Lumbar spinal drain in place. 01/16/17: Pt awakens briefly. She follows commands. She prefers her eyes closed this morning. She denies headache. Patient was found to have C. difficile and is in isolation and on Flagyl in addition to Ancef. 01/17/17: Patient awakens to voice. She prefers to keep her eyes closed. She follows simple commands. She denies any headaches nausea or vomiting. 01/18/17: Pt very lethargic this morning. Appears comfortable and protecting her airway. Left scalp incision clean and dry. No drainage. 01/19/17: Patient remains lethargic. She minimally opens her eyes to deep pain and upper chest. She is not verbalizing to pain. (Bartolome Lopez) System Review Comments Not able to obtain given clinical condition. (Bartolome Lopez) Exam Results Vital Signs Date Time Temp Pulse Resp B/P Pulse Ox O2 Delivery O2 Flow Rate FiO2 01/19/17 12:00 97.6 123 28 104/57 100 01/19/17 00:40 Nasal Cannula 3.00 Intake and Output 01/18/17 01/18/17 01/19/17 08:00 16:00 00:00 Output Total 50 ml 100 ml Balance -50 ml -100 ml (Bartolome Lopez) Physical Examination Resp: CTA bilaterally Heart: NSR no murmurs Abd: Soft positive bs Skin: Incision clean and dry. No signs of infection. Muscle: Not following currently for muscle testing. Withdraws extremities to pain. Neuro: Pt lethargic. Pupils right 4 mm irregular shaped left 3 mm reactive. Not following simple commands. (Bartolome Lopez) Lab, Micro, Other Results Last Impressions Head CT 01/19/17 0000 Signed Impressions: Service Date/Time: January 05:15 - CONCLUSION: 1. Stable small parafalcine hematoma. 2. Possible normal pressure hydrocephalus. Correlation with clinical findings is necessary. Jordy Sandoval MD Chest X-Ray 01/19/17 0000 Signed Impressions: Service Date/Time: January 01:14 - CONCLUSION: 1. No acute cardiopulmonary disease. Jordy Sandoval MD CT Angiography 01/19/17 0000 Signed Impressions: Service Date/Time: January 05:17 - CONCLUSION: 1. No evidence of pulmonary embolism. Jordy Sandoval MD Laboratory Tests Test 01/18/17 01/19/17 01/19/17 01/19/17 14:32 00:59 02:10 10:46 White Blood Count 24.8 TH/MM3 24.9 TH/MM3 Red Blood Count 4.33 MIL/MM3 4.09 MIL/MM3 Hemoglobin 11.6 GM/DL 11.0 GM/DL Hematocrit 35.6 % 34.0 % Mean Corpuscular Volume 82.3 FL 83.1 FL Mean Corpuscular Hemoglobin 26.8 PG 26.9 PG Mean Corpuscular Hemoglobin 32.6 % 32.4 % Concent Red Cell Distribution Width 17.9 % 17.4 % Platelet Count 522 TH/MM3 449 TH/MM3 Mean Platelet Volume 7.8 FL 7.5 FL Neutrophils (%) (Auto) 93.4 % 90.4 % Lymphocytes (%) (Auto) 2.2 % 1.9 % Monocytes (%) (Auto) 4.4 % 7.3 % Eosinophils (%) (Auto) 0.0 % 0.1 % Basophils (%) (Auto) 0.0 % 0.3 % Neutrophils # (Auto) 23.1 TH/MM3 22.5 TH/MM3 Lymphocytes # (Auto) 0.5 TH/MM3 0.5 TH/MM3 Monocytes # (Auto) 1.1 TH/MM3 1.8 TH/MM3 Eosinophils # (Auto) 0.0 TH/MM3 0.0 TH/MM3 Basophils # (Auto) 0.0 TH/MM3 0.1 TH/MM3 CBC Comment AUTO DIFF AUTO DIFF Differential Total Cells 100 100 Counted Neutrophils % (Manual) 65 % 54 % Band Neutrophils % 27 % 34 % Lymphocytes % 4 % Monocytes % 2 % 4 % Neutrophils # (Manual) 23.3 TH/MM3 23.9 TH/MM3 Myelocytes 2 % 2 % Differential Comment FINAL DIFF FINAL DIFF MANUAL MANUAL Platelet Estimate HIGH HIGH Platelet Morphology Comment NORMAL NORMAL Ovalocytes 1+ 1+ Acanthocytes OCC 1+ Blood Gas Puncture Site LT RADIAL Blood Gas Patient Temperature 98.6 Blood Gas HCO3 14 mmol/L Blood Gas Base Excess -9.6 mmol/L Blood Gas Oxygen Saturation 95 % Arterial Blood pH 7.42 Arterial Blood Partial 22 mmHg Pressure CO2 Arterial Blood Partial 89 mmHg Pressure O2 Arterial Blood Oxygen Content 16.1 Vol % Arterial Blood 1.0 % Carboxyhemoglobin Arterial Blood Methemoglobin 0.7 % Blood Gas Hemoglobin 12.0 G/DL Oxygen Delivery Device NASAL CANNULA Blood Gas Liter Flow 3 L/M Metamyelocytes 6 % Sodium Level 141 MEQ/L Potassium Level 4.6 MEQ/L Chloride Level 110 MEQ/L Carbon Dioxide Level 20.8 MEQ/L Anion Gap 10 MEQ/L Blood Urea Nitrogen 17 MG/DL Creatinine 0.80 MG/DL Estimat Glomerular Filtration 70 ML/MIN Rate Random Glucose 116 MG/DL Lactic Acid Level 3.2 mmol/L Calcium Level 7.8 MG/DL Total Bilirubin 0.3 MG/DL Aspartate Amino Transf 28 U/L (AST/SGOT) Alanine Aminotransferase 12 U/L (ALT/SGPT) Alkaline Phosphatase 91 U/L B-Type Natriuretic Peptide 36 PG/ML Total Protein 4.5 GM/DL Albumin 1.0 GM/DL Ammonia 20 MCMOL/L 01/18/17 01/18/17 01/19/17 15:00 23:00 07:00 Intake Total 3050 ml Output Total 100 ml 700 ml Balance -100 ml 2350 ml IV Total 3050 ml Output Urine Total 100 ml 0 ml Stool Total 700 ml (Bartolome Lopez) Medical Decision Making Impression and Plan A: 71 y/o FM s/p 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 Salazar on 01/11/17. Pt had previously undergone a suboccipital craniectomy for cerebellar neoplasm resection. C. Diff Leukocytosis 25.9 01/17/17. P: Continue to monitor neuro exam. Pt very lethargic and was transferred to the ICU yesterday. Patient's health proxy is meeting with palliative care today to the discuss hospice with comfort care versus continued care in the ICU. If he decides to continue current care Dr. Salazar has recommended a lumbar spinal drain be placed by radiology special procedures. PT Rehab efforts. Discussed with RN and Dr. Salazar. Palliative care evaluation today to help clarify goals and pts wishes. Addendum: Discussed with Dr. Salazar patient's level of alertness has not improved and has some ventriculomegaly on CT. Patient's level of alertness was better when she had a lumbar spinal drain in place although she was becoming lethargic then also. We feel that it is medically necessary to proceed with lumbar spinal drain placement to possibly help with the patient's level of alertness. Patient will need to continue to have antibiotics for her infections. If her level of alertness improves with the lumbar spinal drain and her infections are cleared she may need a ventriculoperitoneal shunt. This will not change her long-term outlook given her metastatic cancer. However, the patient is very lethargic and the goal of the lumbar spinal drain is to help her level of alertness by treating her ventriculomegaly and allow her surgical incision site to heal better and formulate a nursing home plan by contacting family members with the help of palliative care. (Bartolome Lopez) Attending Statement The exam, history, and the medical decision-making described in the above note were completed with the assistance of the mid-level provider. I reviewed and agree with the findings presented. I attest that I had a [id number] encounter with the patient on the same day, and personally performed and documented my assessment and findings in the medical record. Lumbar drain replaced by special procedures. Her overall prognosis is very poor especially since she is unable to tolerate any adjuvant to the chemotherapy or radiation therapy for her metastatic disease. Palliative care with hospice placement is very appropriate. (Mansoor Salazar MD) Bartolome Lopez January 19, 2017 12:43 Mansoor Salazar MD January 19, 2017 18:54
--- NOTE | 2017-01-19 13:01 | HHI.IDPN ---
Note Infectious Disease Note Patient is difficult to arouse. Transferred to [facility] for deterioration overnight. No response to tactile stimuli. Afebrile. Being treated for C. dif. Admitted to the hospital from a [facility] facility with leakage from the prior surgical site on the posterior scalp. The patient is status post resection of a large cerebellar tumor on 12/19/16. PAST MEDICAL HISTORY 1. [id number] lung cancer with metastases. 2. History of spontaneous pneumothorax. 3. Recent resection of large cerebral tumor 4. Hysterectomy, 5. Appendectomy, 6. Breast implants. ALLERGIES SULFA ANTIBIOTICS: Vancomycin IV. Vancomycin PO. SOCIAL HISTORY The patient smokes a pack of cigarettes a day. Occasional alcohol use. No illicit drugs. FAMILY HISTORY Noncontributory. OBJECTIVE: Vital Signs Date Time Temp Pulse Resp B/P Pulse Ox O2 Delivery O2 Flow Rate FiO2 01/19/17 12:00 97.6 123 28 104/57 100 01/19/17 12:00 123 01/19/17 10:00 119 01/19/17 08:00 97.0 120 26 116/64 99 01/19/17 08:00 117 01/19/17 06:00 106 01/19/17 04:00 114 01/19/17 04:00 96.4 114 36 113/57 100 01/19/17 02:00 97.6 134 30 107/56 100 01/19/17 02:00 130 01/19/17 00:40 99 Nasal Cannula 3.00 01/18/17 20:00 96.4 126 28 105/71 99 01/18/17 16:15 97.5 97 20 101/69 96 01/18/17 01/18/17 01/19/17 15:00 23:00 07:00 Intake Total 3050 ml Output Total 100 ml 700 ml Balance -100 ml 2350 ml IV Total 3050 ml Output Urine Total 100 ml 0 ml Stool Total 700 ml Laboratory Tests Test 01/17/17 01/18/17 01/19/17 20:44 14:32 02:10 White Blood Count 25.9 TH/MM3 24.8 TH/MM3 24.9 TH/MM3 Red Blood Count 3.95 MIL/MM3 4.33 MIL/MM3 4.09 MIL/MM3 Hemoglobin 10.4 GM/DL 11.6 GM/DL 11.0 GM/DL Hematocrit 32.6 % 35.6 % 34.0 % Mean Corpuscular Volume 82.3 FL 82.3 FL 83.1 FL Mean Corpuscular Hemoglobin 26.3 PG 26.8 PG 26.9 PG Mean Corpuscular Hemoglobin 31.9 % 32.6 % 32.4 % Concent Red Cell Distribution Width 17.7 % 17.9 % 17.4 % Platelet Count 497 TH/MM3 522 TH/MM3 449 TH/MM3 Mean Platelet Volume 7.6 FL 7.8 FL 7.5 FL Neutrophils (%) (Auto) 93.4 % 90.4 % Lymphocytes (%) (Auto) 2.2 % 1.9 % Monocytes (%) (Auto) 4.4 % 7.3 % Eosinophils (%) (Auto) 0.0 % 0.1 % Basophils (%) (Auto) 0.0 % 0.3 % Neutrophils # (Auto) 23.1 TH/MM3 22.5 TH/MM3 Lymphocytes # (Auto) 0.5 TH/MM3 0.5 TH/MM3 Monocytes # (Auto) 1.1 TH/MM3 1.8 TH/MM3 Eosinophils # (Auto) 0.0 TH/MM3 0.0 TH/MM3 Basophils # (Auto) 0.0 TH/MM3 0.1 TH/MM3 CBC Comment AUTO DIFF AUTO DIFF Differential Total Cells 100 100 Counted Neutrophils % (Manual) 65 % 54 % Band Neutrophils % 27 % 34 % Lymphocytes % 4 % Monocytes % 2 % 4 % Neutrophils # (Manual) 23.3 TH/MM3 23.9 TH/MM3 Myelocytes 2 % 2 % Differential Comment FINAL DIFF FINAL DIFF MANUAL MANUAL Platelet Estimate HIGH HIGH Platelet Morphology Comment NORMAL NORMAL Ovalocytes 1+ 1+ Acanthocytes OCC 1+ Metamyelocytes 6 % Laboratory Tests Test 01/18/17 01/19/17 01/19/17 08:37 02:10 10:46 Sodium Level 138 MEQ/L 141 MEQ/L Potassium Level 4.4 MEQ/L 4.6 MEQ/L Chloride Level 106 MEQ/L 110 MEQ/L Carbon Dioxide Level 19.8 MEQ/L 20.8 MEQ/L Anion Gap 12 MEQ/L 10 MEQ/L Blood Urea Nitrogen 9 MG/DL 17 MG/DL Creatinine 0.29 MG/DL 0.80 MG/DL Estimat Glomerular Filtration 227 ML/MIN 70 ML/MIN Rate Random Glucose 92 MG/DL 116 MG/DL Calcium Level 8.0 MG/DL 7.8 MG/DL Phosphorus Level 3.3 MG/DL Magnesium Level 2.1 MG/DL Lactic Acid Level 3.2 mmol/L Total Bilirubin 0.3 MG/DL Aspartate Amino Transf 28 U/L (AST/SGOT) Alanine Aminotransferase 12 U/L (ALT/SGPT) Alkaline Phosphatase 91 U/L B-Type Natriuretic Peptide 36 PG/ML Total Protein 4.5 GM/DL Albumin 1.0 GM/DL Ammonia 20 MCMOL/L IMAGING: Head CT 01/19/17 0000 Signed Impressions: Service Date/Time: January 05:15 - CONCLUSION: 1. Stable small parafalcine hematoma. 2. Possible normal pressure hydrocephalus. Correlation with clinical findings is necessary. Jordy Sandoval MD Chest X-Ray 01/19/17 0000 Signed Impressions: Service Date/Time: January 01:14 - CONCLUSION: 1. No acute cardiopulmonary disease. Jordy Sandoval MD CT Angiography 01/19/17 0000 Signed Impressions: Service Date/Time: January 05:17 - CONCLUSION: 1. No evidence of pulmonary embolism. Jordy Sandoval MD Head CT 01/17/17 0600 Signed Impressions: Service Date/Time: Tuesday, January 17, 2017 14:51 - CONCLUSION: 1. Reduced pneumocephaly. 2. Stable small volume subdural hematoma adjacent to the falx. 3. Stable ventriculomegaly. Isaías Finch Jr., MD Chest X-Ray 01/09/171955 Signed Impressions: Service Date/Time: Monday, January 09, 2017 20:01 - CONCLUSION: No acute disease. Fausto Tena MD Head CT 01/09/17 0000 Signed Impressions: Service Date/Time: Monday, January 09, 2017 20:26 - CONCLUSION: Extensive postsurgical changes with pneumocephalus, hydrocephalus and a small amount of parenchymal hemorrhage. Fausto Tena MD PHYSICAL EXAMINATION GENERAL: Unresponsive. HEENT: Head has barbie in place at the posterior left scalp. Dry. NECK: No adenopathy. LUNGS: Clear decreased breath sounds. HEART: Regular rate and rhythm. No murmurs or rubs or gallops. Abdomen: Bowel sounds present, soft. Extremities: No clubbing or cyanosis or edema. Muscle wasting. Decreased muscle bulk. Neuro: Unresponsive. Skin: No rash. IMPRESSION 1. Surgical wound infection due to staph aureus at the postsurgical incision at the left scalp 2. CSF epidural leak and with cultures positive for staph aureus MSSA 3. Status post resection of large cerebellar tumor. 4. Dehisced wound of the left occipital area. 5. C Difficile colitis. 6. Altered mental status. Unresponsiveness. RECOMMENDATIONS 1. Continue Vancomycin IV. Given C.difficile and need to avoid other antibiotics. 2. Continue PO Vancomycin/Flagyl IV for c. difficile. 3. Monitor clinical status. [place] is extremely poor. Prashanth Alfonso MD January 19, 2017 13:00
--- NOTE | 2017-01-19 18:08 | PD.RAD ---
Post Procedure Progress Note Pre Procedure Diagnosis: (1) Hydrocephalus Post Procedure Diagnosis: (1) Hydrocephalus Procedure Date: January 19, 2017 Supervising Radiologist: Isaías Finch JR Proceduralist/Assist: Yolis Moreno, RT(R)(CV), RT Jonnie(R)() Anesthesia: Local Plan of Activity Patient to Unit: Critical Care Patient Condition: Fair See PACS Report for procedural detail/treatment Spinal Procedure Lumbar Drain L4-L5 Fluid Removal (CCs): 0 Fluid Description: Clear Puncture Time: 17:49 Findings: Lumbar drain placed with tip at T11-12 Jr. Stef,Isaías Siegel MD January 19, 2017 18:08
[2017-01-20] VITALS: BP 92/40; PULSE 121; PULSE 122; RESP 26; TEMP 97.4; O2SAT 100
[2017-01-20] MEDS: metroNIDAZOLE 500 MG INJ 100 ML IV SCH (01:41)
[2017-01-20] MEDS: SODIUM CHLOR 0.9% 1000 ML INJ 1,000 ML IV SCH ×3 (01:42→05:16)
[2017-01-20 02:00] VITALS: PULSE 123
[2017-01-20 04:00] VITALS: PULSE 120; PULSE 125; RESP 19; TEMP 96
[2017-01-20] MEDS ORDERED: PHARMACY ORDERED LAB ONE (05:45)
[2017-01-20] MEDS: VANCOMYCIN 1,000 MG/NS 250 ML IV SCH ×2 (05:54)
--- NOTE | 2017-01-20 06:00 | HHI.DS ---
Summary Note Date of : January 20, 2017 Time Of : 424 Admission Date Jan 09, 2017 at 22:56 Admitting Diagnosis surgical wound infection, pneumocephalus, hydrocephalus Diagnosis at Time of : (1) Postoperative infection ICD Code: T81.4XXA (2) Surgical wound infection ICD Code: T81.4XXA Procedures 01/10 debridement of head wounds, lumbar drain placed Brief History This is a 71-year-old female patient with past medical history which includes tobacco abuse, left spontaneous pneumothorax, 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 While patient was hospitalized she underwent Left suboccipital craniectomy with resection of cerebellar hemisphere neoplasm; bovine dural patch grafting; left occipital bur hole placement for ventriculostomy; [employer] stereotactic intraoperative navigation use; microsurgical technique with Dr. Salazar on . Patient is a poor historian unable to tell us why she is in the hospital. Patient reports that she came to the hospital, "to get help." Information obtained from patient as well as prior charting. Per ER documentation patient was being transferred from one SNF to another and was noted to have drainage from surgical incision, patient was then sent to ER for further evaluation. Patient reports that she feels as though she has to have a BM. Patient denies chest pain, shortness of breath, fevers, chills, N/V/D. CBC/BMP: 01/19/17 0210 01/19/17 0210 Significant Findings Laboratory Tests Test 01/17/17 01/18/17 01/18/17 01/19/17 20:44 08:37 14:32 00:59 White Blood Count 25.9 TH/MM3 24.8 TH/MM3 (4.0-11.0) (4.0-11.0) Red Blood Count 3.95 MIL/MM3 (4.00-5.30) Hemoglobin 10.4 GM/DL (11.6-15.3) Hematocrit 32.6 % (35.0-46.0) Mean Corpuscular Hemoglobin 26.3 PG 26.8 PG (27.0-34.0) (27.0-34.0) Mean Corpuscular Hemoglobin 31.9 % Concent (32.0-36.0) Red Cell Distribution Width 17.7 % 17.9 % (11.6-17.2) (11.6-17.2) Platelet Count 497 TH/MM3 522 TH/MM3 (150-450) (150-450) Carbon Dioxide Level 19.8 MEQ/L (21.0-32.0) Creatinine 0.29 MG/DL (0.50-1.00) Calcium Level 8.0 MG/DL (8.5-10.1) Neutrophils (%) (Auto) 93.4 % (16.0-70.0) Lymphocytes (%) (Auto) 2.2 % (9.0-44.0) Neutrophils # (Auto) 23.1 TH/MM3 (1.8-7.7) Lymphocytes # (Auto) 0.5 TH/MM3 (1.0-4.8) Monocytes # (Auto) 1.1 TH/MM3 (0-0.9) Band Neutrophils % 27 % (0-6) Lymphocytes % 4 % (9-44) Neutrophils # (Manual) 23.3 TH/MM3 (1.8-7.7) Myelocytes 2 % (0-0) Platelet Estimate HIGH (NORMAL) Ovalocytes 1+ (NORMAL) Acanthocytes OCC (NORMAL) Blood Gas HCO3 14 mmol/L (22-26) Blood Gas Base Excess -9.6 mmol/L (-2-2) Arterial Blood Partial 22 mmHg (38-42) Pressure CO2 Test 01/19/17 02:10 White Blood Count 24.9 TH/MM3 (4.0-11.0) Hemoglobin 11.0 GM/DL (11.6-15.3) Hematocrit 34.0 % (35.0-46.0) Mean Corpuscular Hemoglobin 26.9 PG (27.0-34.0) Red Cell Distribution Width 17.4 % (11.6-17.2) Neutrophils (%) (Auto) 90.4 % (16.0-70.0) Lymphocytes (%) (Auto) 1.9 % (9.0-44.0) Neutrophils # (Auto) 22.5 TH/MM3 (1.8-7.7) Lymphocytes # (Auto) 0.5 TH/MM3 (1.0-4.8) Monocytes # (Auto) 1.8 TH/MM3 (0-0.9) Band Neutrophils % 34 % (0-6) Neutrophils # (Manual) 23.9 TH/MM3 (1.8-7.7) Metamyelocytes 6 % (0-1) Myelocytes 2 % (0-0) Platelet Estimate HIGH (NORMAL) Ovalocytes 1+ (NORMAL) Acanthocytes 1+ (NORMAL) Chloride Level 110 MEQ/L (98-107) Carbon Dioxide Level 20.8 MEQ/L (21.0-32.0) Estimat Glomerular Filtration 70 ML/MIN (>89) Rate Random Glucose 116 MG/DL (74-106) Lactic Acid Level 3.2 mmol/L (0.4-2.0) Calcium Level 7.8 MG/DL (8.5-10.1) Total Protein 4.5 GM/DL (6.4-8.2) Albumin 1.0 GM/DL (3.4-5.0) Imaging Last 24 hours Impressions Chest X-Ray 01/19/17 0000 Signed Impressions: Service Date/Time: January 01:14 - CONCLUSION: 1. No acute cardiopulmonary disease. 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 During the last hospitalization she underwent Left suboccipital craniectomy with resection of cerebellar hemisphere neoplasm; bovine dural patch grafting; left occipital bur hole placement for ventriculostomy; the patient was being transferred from one SNF to another and was noted to have drainage from surgical incision, patient was then sent to ER for further evaluation and was admitted to [facility] floor with MRSA wound infection. While on the floor today she became more lethargic with periods of respiratory distress/tachypnea. 01/19: Breathing with acceptable comfort on NC O2. Terminal condition and the patient has continued to deteriorate. At this juncture there is no long or midterm solution to her disease process. What we can offer is a spinal drain to decompress her hydrocephalus and hopefully sustain her until legitimate family can be contacted. Placement of a spinal drain is indicated as a medical necessity at this point as we have unclear guidance as to care goals from family. 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 Despite provided medical care and consultants support patient at 4:25 AM Scott Tolliver MD January 20, 2017 06:00
--- NOTE | 2017-01-20 07:41 | MG ---
cc: MARIA DEL ROSARIO HANNAH Lab No: [id number] Date: 01/20/2017 Age: Sex: F Change in mental status for two weeks, blurred vision, vertigo, tremors. Vancomycin, Flagyl. DESCRIPTION The recording shows a diffuse 4-5 Hz, 60 microvolt rhythm. The recording overall is synchronous and symmetric. No hemisphere asymmetries are noted. Hyperventilation is not performed. Photic stimulation was performed without significant posterior driving. No epileptiform or seizure activity is seen. IMPRESSION Diffuse theta slowing consistent with a moderate diffuse encephalopathy, but no focal abnormality was noted, no seizure activity was seen. MD KAMLESH Paez/CECILLE /7:15 AM /7:38 AM
--- NOTE | 2017-01-20 08:02 | HHI.DS ---
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 While patient was hospitalized she underwent Left suboccipital craniectomy with resection of cerebellar hemisphere neoplasm; bovine dural patch grafting; left occipital bur hole placement for ventriculostomy; BrainLab stereotactic intraoperative navigation use; microsurgical technique with Dr. Salazar on . Patient is a poor historian unable to tell us why she is in the hospital. Patient reports that she came to the hospital, "to get help." Information obtained from patient as well as prior charting. Per ER documentation patient was being transferred from one SNF to another and was noted to have drainage from surgical incision, patient was then sent to ER for further evaluation. Patient reports that she feels as though she has to have a BM. Patient denies chest pain, shortness of breath, fevers, chills, N/V/D. CBC/BMP: 01/19/17 0210 01/19/17 0210 Significant Findings Laboratory Tests Test 01/17/17 01/18/17 01/18/17 01/19/17 20:44 08:37 14:32 00:59 White Blood Count 25.9 TH/MM3 24.8 TH/MM3 (4.0-11.0) (4.0-11.0) Red Blood Count 3.95 MIL/MM3 (4.00-5.30) Hemoglobin 10.4 GM/DL (11.6-15.3) Hematocrit 32.6 % (35.0-46.0) Mean Corpuscular Hemoglobin 26.3 PG 26.8 PG (27.0-34.0) (27.0-34.0) Mean Corpuscular Hemoglobin 31.9 % Concent (32.0-36.0) Red Cell Distribution Width 17.7 % 17.9 % (11.6-17.2) (11.6-17.2) Platelet Count 497 TH/MM3 522 TH/MM3 (150-450) (150-450) Carbon Dioxide Level 19.8 MEQ/L (21.0-32.0) Creatinine 0.29 MG/DL (0.50-1.00) Calcium Level 8.0 MG/DL (8.5-10.1) Neutrophils (%) (Auto) 93.4 % (16.0-70.0) Lymphocytes (%) (Auto) 2.2 % (9.0-44.0) Neutrophils # (Auto) 23.1 TH/MM3 (1.8-7.7) Lymphocytes # (Auto) 0.5 TH/MM3 (1.0-4.8) Monocytes # (Auto) 1.1 TH/MM3 (0-0.9) Band Neutrophils % 27 % (0-6) Lymphocytes % 4 % (9-44) Neutrophils # (Manual) 23.3 TH/MM3 (1.8-7.7) Myelocytes 2 % (0-0) Platelet Estimate HIGH (NORMAL) Ovalocytes 1+ (NORMAL) Acanthocytes OCC (NORMAL) Blood Gas HCO3 14 mmol/L (22-26) Blood Gas Base Excess -9.6 mmol/L (-2-2) Arterial Blood Partial 22 mmHg (38-42) Pressure CO2 Test 01/19/17 02:10 White Blood Count 24.9 TH/MM3 (4.0-11.0) Hemoglobin 11.0 GM/DL (11.6-15.3) Hematocrit 34.0 % (35.0-46.0) Mean Corpuscular Hemoglobin 26.9 PG (27.0-34.0) Red Cell Distribution Width 17.4 % (11.6-17.2) Neutrophils (%) (Auto) 90.4 % (16.0-70.0) Lymphocytes (%) (Auto) 1.9 % (9.0-44.0) Neutrophils # (Auto) 22.5 TH/MM3 (1.8-7.7) Lymphocytes # (Auto) 0.5 TH/MM3 (1.0-4.8) Monocytes # (Auto) 1.8 TH/MM3 (0-0.9) Band Neutrophils % 34 % (0-6) Neutrophils # (Manual) 23.9 TH/MM3 (1.8-7.7) Metamyelocytes 6 % (0-1) Myelocytes 2 % (0-0) Platelet Estimate HIGH (NORMAL) Ovalocytes 1+ (NORMAL) Acanthocytes 1+ (NORMAL) Chloride Level 110 MEQ/L (98-107) Carbon Dioxide Level 20.8 MEQ/L (21.0-32.0) Estimat Glomerular Filtration 70 ML/MIN (>89) Rate Random Glucose 116 MG/DL (74-106) Lactic Acid Level 3.2 mmol/L (0.4-2.0) Calcium Level 7.8 MG/DL (8.5-10.1) Total Protein 4.5 GM/DL (6.4-8.2) Albumin 1.0 GM/DL (3.4-5.0) PE at Discharge awake and alert, appears comfortable, denies any pain head- post op dressing- incisions- dry anicteric lungs no rales or wheezes regular rhythm abdomen soft, nontender lumbar drain in place- draining extremities no edema 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 Transfer Summary Date of : January 20, 2017 Time Of : 424 Admission Date Jan 09, 2017 at 22:56 Admitting Diagnosis surgical wound infection, pneumocephalus, hydrocephalus Diagnosis at Time of : (1) Postoperative infection ICD Code: T81.4XXA (2) Surgical wound infection ICD Code: T81.4XXA Procedures 01/10 debridement of head wounds, lumbar drain placed Brief History This is a 71-year-old female patient with past medical history which includes tobacco abuse, left spontaneous pneumothorax, 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 While patient was hospitalized she underwent Left suboccipital craniectomy with resection of cerebellar hemisphere neoplasm; bovine dural patch grafting; left occipital bur hole placement for ventriculostomy; BrainLab stereotactic intraoperative navigation use; microsurgical technique with Dr. Salazar on . Patient is a poor historian unable to tell us why she is in the hospital. Patient reports that she came to the hospital, "to get help." Information obtained from patient as well as prior charting. Per ER documentation patient was being transferred from one SNF to another and was noted to have drainage from surgical incision, patient was then sent to ER for further evaluation. Patient reports that she feels as though she has to have a BM. Patient denies chest pain, shortness of breath, fevers, chills, N/V/D. CBC/BMP: 01/19/17 0210 01/19/17 0210 Significant Findings Laboratory Tests Test 01/17/17 01/18/17 01/18/17 01/19/17 20:44 08:37 14:32 00:59 White Blood Count 25.9 TH/MM3 24.8 TH/MM3 (4.0-11.0) (4.0-11.0) Red Blood Count 3.95 MIL/MM3 (4.00-5.30) Hemoglobin 10.4 GM/DL (11.6-15.3) Hematocrit 32.6 % (35.0-46.0) Mean Corpuscular Hemoglobin 26.3 PG 26.8 PG (27.0-34.0) (27.0-34.0) Mean Corpuscular Hemoglobin 31.9 % Concent (32.0-36.0) Red Cell Distribution Width 17.7 % 17.9 % (11.6-17.2) (11.6-17.2) Platelet Count 497 TH/MM3 522 TH/MM3 (150-450) (150-450) Carbon Dioxide Level 19.8 MEQ/L (21.0-32.0) Creatinine 0.29 MG/DL (0.50-1.00) Calcium Level 8.0 MG/DL (8.5-10.1) Neutrophils (%) (Auto) 93.4 % (16.0-70.0) Lymphocytes (%) (Auto) 2.2 % (9.0-44.0) Neutrophils # (Auto) 23.1 TH/MM3 (1.8-7.7) Lymphocytes # (Auto) 0.5 TH/MM3 (1.0-4.8) Monocytes # (Auto) 1.1 TH/MM3 (0-0.9) Band Neutrophils % 27 % (0-6) Lymphocytes % 4 % (9-44) Neutrophils # (Manual) 23.3 TH/MM3 (1.8-7.7) Myelocytes 2 % (0-0) Platelet Estimate HIGH (NORMAL) Ovalocytes 1+ (NORMAL) Acanthocytes OCC (NORMAL) Blood Gas HCO3 14 mmol/L (22-26) Blood Gas Base Excess -9.6 mmol/L (-2-2) Arterial Blood Partial 22 mmHg (38-42) Pressure CO2 Test 01/19/17 02:10 White Blood Count 24.9 TH/MM3 (4.0-11.0) Hemoglobin 11.0 GM/DL (11.6-15.3) Hematocrit 34.0 % (35.0-46.0) Mean Corpuscular Hemoglobin 26.9 PG (27.0-34.0) Red Cell Distribution Width 17.4 % (11.6-17.2) Neutrophils (%) (Auto) 90.4 % (16.0-70.0) Lymphocytes (%) (Auto) 1.9 % (9.0-44.0) Neutrophils # (Auto) 22.5 TH/MM3 (1.8-7.7) Lymphocytes # (Auto) 0.5 TH/MM3 (1.0-4.8) Monocytes # (Auto) 1.8 TH/MM3 (0-0.9) Band Neutrophils % 34 % (0-6) Neutrophils # (Manual) 23.9 TH/MM3 (1.8-7.7) Metamyelocytes 6 % (0-1) Myelocytes 2 % (0-0) Platelet Estimate HIGH (NORMAL) Ovalocytes 1+ (NORMAL) Acanthocytes 1+ (NORMAL) Chloride Level 110 MEQ/L (98-107) Carbon Dioxide Level 20.8 MEQ/L (21.0-32.0) Estimat Glomerular Filtration 70 ML/MIN (>89) Rate Random Glucose 116 MG/DL (74-106) Lactic Acid Level 3.2 mmol/L (0.4-2.0) Imaging Last 24 hours Impressions Chest X-Ray 01/19/17 0000 Signed Impressions: Service Date/Time: January 01:14 - CONCLUSION: 1. No acute cardiopulmonary disease. 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 During the last hospitalization she underwent Left suboccipital craniectomy with resection of cerebellar hemisphere neoplasm; bovine dural patch grafting; left occipital bur hole placement for ventriculostomy; the patient was being transferred from one [facility] to another and was noted to have drainage from surgical incision, patient was then sent to ER for further evaluation and was admitted to [facility] with MRSA wound infection. While on the floor today she became more lethargic with periods of respiratory distress/tachypnea. 01/19: Breathing with acceptable comfort on NC O2. Terminal condition and the patient has continued to deteriorate. At this juncture there is no long or midterm solution to her disease process. What we can offer is a spinal drain to decompress her hydrocephalus and hopefully sustain her until legitimate family can be contacted. Placement of a spinal drain is indicated as a medical necessity at this point as we have unclear guidance as to care goals from family. 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 During the last hospitalization she underwent Left suboccipital craniectomy with resection of cerebellar hemisphere neoplasm; bovine dural patch grafting; left occipital bur hole placement for ventriculostomy; the patient was being transferred from one SNF to another and was noted to have drainage from surgical incision, patient was then sent to ER for further evaluation and was admitted to [facility] with MRSA wound infection. While on the floor today she became more lethargic with periods of respiratory distress/tachypnea. 01/19: Breathing with acceptable comfort on NC O2. Terminal condition and the patient has continued to deteriorate. At this juncture there is no long or midterm solution to her disease process. What we can offer is a spinal drain to decompress her hydrocephalus and hopefully sustain her until legitimate family can be contacted. Placement of a spinal drain is indicated as a medical necessity at this point as we have unclear guidance as to care goals from family. Pt Condition on Discharge: Deteriorating Jim Orourke MD January 20, 2017 08:02
--- NOTE | 2017-01-20 08:03 | DEATH SUM ---
Summary Demographics Date Pronounced : January 20, 2017 Time Of : 0425 Pronounced By: DR BLANC Preliminary Cause of : Metastatic disease Jim Orourke MD January 20, 2017 08:03
--- NOTE | 2017-01-20 09:34 | RADRPT ---
EXAM DATE/TIME: 01/19/2017 17:39 [place] COMPARISON: No previous studies available for comparison. INDICATIONS : Patient with history of hydrocephalus in need of lumbar drain placement. MEDICAL HISTORY : 1. Bfr-sfosv-[id number] lung cancer with metastases. 2. History of spontaneous pneumothorax. 3. Recent resection of large cerebral tumor SURGIAL HISTORY : Hysterectomy Appendectomy Breast implants ENCOUNTER: Initial ACUITY: 2 weeks PAIN SCORE: Non-responsive LUMBAR PUNCTURE TIME: 1749 hours FLUORO TIME: 2.1 minutes IMAGE SERIES: 3 LEVEL: Tip of lumbar drain was placed at T11 DEVICE(S): 1.) 5 Japanese lumbar drain catheter PROCEDURE : 1. Fluoroscopically guided lumbar drain placement. 2. Conscious sedation with continuous EKG and oximetry monitoring. Medically necessary emergent consent was performed. The site was prepped in sterile fashion. Full s terile technique was used, including cap, mask, sterile gloves and gown and a large sterile sheet. H and hygiene and 2% chlorhexidine and/or betadine/alcohol prep was utilized per protocol for cutaneous antisepsis. The skin and subcutaneous tissues were infiltrated with local anesthetic solution. With fluoroscopic guidance the lumbar thecal sac was punctured at L4-L5 with a 14 gauge Touhy needle and a lumbar drain was placed with its tip at the T11 level and the catheter was sutured in place. CS F was identified returning from the catheter at the termination of the procedure. Conscious sedation was performed with the prescribed dosages and duration as above in the presence of an independent trained radiology nurse to assist in the monitoring of the patient. EKG and oximetry remained stable throughout the procedure. The patient tolerated the procedure well and there were n o complications. The patient was sent to post anesthesia recovery in stable condition. CONCLUSION: Uncomplicated lumbar drain placement as above. Isaías Finch Jr., MD on January 20, 2017 at 9:29 Board Certified Radiologist. This report was verified electronically.
[2017-01-23 08:36] LABS: CRITICAL VALUE YES
== END 2017-01-20 08:24 | disposition expired | DRG 856 ==
LOC: NEPC 20:15 → NEDA 22:56 → NEPFCDU 01-10 01:16 → N05B 01-10 14:43 → N05A 01-10 21:34 → N03A 01-19 02:27
PROVIDERS: ADMIT Internal Medicine; ATTEND Internal Medicine Critical Care Medicine
PROC: 009U30Z Drainage of Spinal Canal with Drainage Device, Percutaneous Approach (ICD-10-PCS; 2017-01-10)
PROC: 0JD00ZZ Extraction of Scalp Subcutaneous Tissue and Fascia, Open Approach (ICD-10-PCS; 2017-01-10)
PROC: 00Q Central Nervous System and Cranial Nerves, Repair (ICD-10-PCS; principal; 2017-01-10 12:17)
PROC: 009U30Z Drainage of Spinal Canal with Drainage Device, Percutaneous Approach (ICD-10-PCS; 2017-01-19)
DX: T81.4XXA Infection following a procedure, initial encounter (principal); J96.90 Respiratory failure, unspecified, unspecified whether with hypoxia or hypercapnia; I61.9 Nontraumatic intracerebral hemorrhage, unspecified; R65.21 Severe sepsis with septic shock; G93.40 Encephalopathy, unspecified; G91.1 Obstructive hydrocephalus; A04.7 Enterocolitis due to Clostridium difficile; A41.9 Sepsis, unspecified organism; C79.31 Secondary malignant neoplasm of brain; E87.2 Acidosis; G97.82 Other postprocedural complications and disorders of nervous system; T81.31XA Disruption of external operation (surgical) wound, not elsewhere classified, initial encounter; C34.90 Malignant neoplasm of unspecified part of unspecified bronchus or lung; G96.0 Cerebrospinal fluid leak; E87.1 Hypo-osmolality and hyponatremia; B95.61 Methicillin susceptible Staphylococcus aureus infection as the cause of diseases classified elsewhere; E86.0 Dehydration; E87.6 Hypokalemia; G96.19 Other disorders of meninges, not elsewhere classified; R00.0 Tachycardia, unspecified; I10 Essential (primary) hypertension; E86.1 Hypovolemia; Y83.8 Other surgical procedures as the cause of abnormal reaction of the patient, or of later complication, without mention of misadventure at the time of the procedure; Z88.2 Allergy status to sulfonamides; Z87.891 Personal history of nicotine dependence
CPT/HCPCS: 36600; 51702; 63741; 70450; 71010; 71275; 76937; 77003; 80048; 80053; 80202; 81001; 82140; 82550; 82805; 83605; 83735; 83880; 84100; 84155; 84484; 85007; 85025; 85027; 85610; 85730; 86403; 87015; 87040; 87070; 87077; 87086; 87102; 87116; 87147; 87186; 87205; 87206; 87493; 93005; 94150; 95819; 96365; 96367; C1755; J0131; J0690; J1580; J2250; J2270; J2370; J2405; J2543; J2710; J3010; J3370; J3480; J7030; J7040; J7050; Q2009; Q9967